=== PATIENT | male | born 1970 | race Caucasian/White ===

== ENCOUNTER 2023-10-03 08:29 | Emergency (ER) | payer OTHER, SELFPAY ==
[2023-10-03] VITALS (13 sets, daily range): BP systolic 132–168; BP diastolic 89–110; PULSE 116–137; RESP 18–22; TEMP 36.6–36.8; O2SAT 92–96; BMI 29.0
--- NOTE | 2023-10-03 08:34 | ECG_ITS ---
APPROVED REPORT Exam: Resting ECG HR:136 bpm ECG Measurements Heart Rate 136 AXES NV 141 P 55 QRSd 93 QRS 58 QT 286 T 26 QTc 366 Conclusion SINUS TACHYCARDIA ABNORMAL RHYTHM ECG Electronically signed by : RUPESH GUILLAUME, 10/05/2023 15:27:36
[2023-10-03] MEDS: 0.9 % SODIUM CHLORIDE 1000ML 1,000 ML 999 ML IV (08:49)
--- NOTE | 2023-10-03 08:51 | HMH.EDGENADL ---
Discharge Plan Disposition Patient Disposition: Home, Self-Care Prescriptions Prescriptions: New metoprolol succinate 25 mg tablet extended release 24 hr 25 mg PO DAILY Qty: 30 0RF Referrals Follow up/Referrals: Provider,Referral, MD [Primary Care Provider] - See instructions Activity Restrictions/Add. Instructions Additional Instructions/Restrictions: Call your family doctor to establish care for this visit to the emergency department and schedule follow-up within 48 hours to ensure improvement. If you have any worsening of your condition or any other concerning signs or symptoms, return to the emergency department or your primary care doctor for further evaluation. Clinical Impressions Clinical Impression: Heart palpitations Discharge ED Provider: Zechariah Flor General Adult HPI General Chief complaint: Arrhythmia/Palpitations Stated complaint: fast heart beat, no chest pain Time Seen by Provider: 10/03/23 08:30 Mode of Arrival: Ambulatory Source of Information: Patient Limitations: No Limitations Description of Symptoms (Recalled from ER Triage Doc. by RN): pt to ed c/o fluttering in his chest x2-3 days. pt denies any PMH. pt states he was at rest when the symptoms started. pt denies recent illness, vomiting ot nausea. pt denies cp. History of Present Illness HPI narrative: 52-year-old male no relevant medical history presenting with palpitations. Patient states that a little over 36 hours prior to this visit, he just started having palpitations out of nowhere. Denies chest pain, shortness of breath, but has had intermittent episodes of diaphoresis, lightheadedness, blurry vision associated with exertion. No vomiting, fevers or chills, recent illness, unilateral weakness, chest pain, abdominal pain, vomiting, diarrhea, travel, DVT or PE risk factors/history, or any other concerns. He has also never had anything like this in the past. Please note that above description of symptoms, in this electronic medical record under categorization of recalled from ER triage doctor by RN are reflective of an initial nursing assessment, however, is not reflective of my full history and physical exam that was personally taken and clarified. Consequentially, this preceding description of symptoms, which may include the patient's categorized chief complaint in the EMR, do not reflect my personal clinical impression, and the ultimate description of history of present illness and patient stated complaints should be deferred to this section of the note. Unless stated otherwise or congruent with this section of the note, additional signs, symptoms, or incongruence should be interpreted as inaccurate with my clinical impression. Related Data Previous Rx's Medication Instructions Recorded metoprolol succinate 25 mg 25 mg PO DAILY #30 tabs 10/03/23 tablet,extended release 24 hr Allergies Allergy/AdvReac Type Severity Reaction Status Date / Time Penicillins Allergy Verified 10/03/23 08:49 [facility] Disclaimer: The information contained in this section may have been updated after the patient was seen, as this information can be updated by other users. Social History Smoking Status: Current every day smoker alcohol intake: never current occupational status: employed Travel in the last 8 weeks: None ROS Obtained: Yes All systems reviewed & no additional complaints except as documented Physical Exam General General appearance: alert, in no apparent distress and anxious Head Head exam: atraumatic and normocephalic Eye Eye exam: Present normal appearance, PERRL and EOMI ENT ENT exam: Present mucous membranes moist Neck Neck exam: Present normal inspection, full ROM and trachea midline Respiratory Respiratory exam: Present normal lung sounds bilaterally; Absent respiratory distress, wheezes, stridor, accessory muscle use or prolonged expiratory phase Cardiovascular Cardiovascular exam: Present normal rhythm and tachycardia Abdominal Exam Abdominal exam: Present soft; Absent distention, tenderness, guarding, rebound or rigidity Extremities Exam Extremities exam: Absent edema Neurological Exam Neurological exam: Present alert, oriented X3, CN II-XII intact and normal gait; Absent motor sensory deficit Skin Skin exam: Present warm and dry; Absent diaphoresis or erythema Medical Decision Making Medical Records Medical records reviewed: Yes I reviewed the patient's medical records. Olvin Inquiry Pt receiving controlled substance: No Olvin was queried for this patient: No Vital Signs: 10/03/23 08:36 10/03/23 08:42 10/03/23 09:00 Temperature 98.3 F Temperature Source Oral Pulse Rate 135 H 131 H Pulse Rate [Left Radial] 137 H Respiratory Rate 18 18 19 Blood Pressure 162/103 H 161/101 H Blood Pressure [Right Arm] 168/110 H Blood Pressure Mean 120 116 Blood Pressure Mean [Right Arm] 129 Blood Pressure Position 02 Sat by Pulse Oximetry 96 96 95 Oxygen Delivery Method Room Air Room Air Room Air 10/03/23 09:30 10/03/23 10:00 10/03/23 10:15 Temperature Temperature Source Pulse Rate 130 H 131 H Pulse Rate [Left Radial] Respiratory Rate 20 19 Blood Pressure 144/93 H 151/102 H 153/99 H Blood Pressure [Right Arm] Blood Pressure Mean 110 113 Blood Pressure Mean [Right Arm] Blood Pressure Position 02 Sat by Pulse Oximetry 93 L 95 Oxygen Delivery Method Room Air 10/03/23 10:29 10/03/23 10:30 10/03/23 11:00 Temperature 97.8 F Temperature Source Oral Pulse Rate 116 H 120 H 120 H Pulse Rate [Left Radial] Respiratory Rate 18 18 20 Blood Pressure 139/96 H 139/96 H 147/93 H Blood Pressure [Right Arm] Blood Pressure Mean 106 104 Blood Pressure Mean [Right Arm] Blood Pressure Position Sitting 02 Sat by Pulse Oximetry 92 L 92 L 94 L Oxygen Delivery Method Room Air Room Air 10/03/23 11:30 Temperature Temperature Source Pulse Rate 118 H Pulse Rate [Left Radial] Respiratory Rate 20 Blood Pressure 132/89 Blood Pressure [Right Arm] Blood Pressure Mean 106 Blood Pressure Mean [Right Arm] Blood Pressure Position 02 Sat by Pulse Oximetry 94 L Oxygen Delivery Method Room Air Lab Data Lab Results 10/03/23 08:40: WBC 8.8, RBC 5.19, Hgb 16.9, Hct 52.2 H, MCV 100.6 H, MCH 32.6 H, MCHC 32.4, RDW 14.0, Plt Count 263, MPV 7.7, Neut % (Auto) 70.4, Lymph % (Auto) 20.3, [place] % (Auto) 5.2, Eos % (Auto) 1.4, Baso % (Auto) 2.7 H, Neut # (Auto) 6.2, Lymph # (Auto) 1.8, [place] # (Auto) 0.5, Eos # (Auto) 0.1, Baso # (Auto) 0.2, D-Dimer 0.41, Sodium 139, Potassium 4.1, Chloride 107, Carbon Dioxide 25, Anion Gap 11.1, BUN 15, Creatinine 0.80, Estimated Creat Clear 154, Estimated GFR 102, Est GFR ( Amer) 123, Glucose 116 H, Calcium 9.7, Total Bilirubin 0.5, AST 40, ALT 39, Alkaline Phosphatase 89, Troponin I < 0.01, Total Protein 8.6 H, Albumin 4.6, Globulin 4.0 H, Albumin/Globulin Ratio 1.2, TSH 2.62, Thyroxine (T4) 8.0 10/03/23 09:14: Urine Opiates Screen Negative, Urine Methadone Screen Negative, Ur Barbituates Screen Negative, Ur Phencyclidine Scrn Negative, Ur Amphetamines Screen Negative, U Benzodiazepines Scrn Negative, Urine Cocaine Screen Negative, U Marijuana (THC) Screen Negative 10/03/23 08:40 10/03/23 08:40 Orders (Tests/Meds): ED MEDICATIONS Discontinued Medications Generic Name Dose Route Start Last Admin Trade Name Shawn PRN Reason Stop Dose Admin Sodium Chloride 1,000 mls @ 999 mls/hr 10/03/23 08:42 10/03/23 08:49 Sod Chlor 0.9% 1000ml Bag IV 10/03/23 09:42 999 mls/hr .Q1H1M ONE Administration Iopamidol 200 ml 10/03/23 11:27 10/03/23 11:27 Iopamidol-370 (76%);100ml Bottle IV 10/03/23 11:28 200 ml ONCE ONE Administration Labetalol HCl 10 mg 10/03/23 10:09 10/03/23 10:15 Labetalol 20mg/4ml Syringe IV 10/03/23 10:10 10 mg ONCE ONE Administration Ondansetron HCl 4 mg 10/03/23 10:23 10/03/23 10:28 Ondansetron 4mg/2ml Vial IV 10/03/23 10:24 4 mg ONCE ONE Administration Sodium Chloride 50 ml 10/03/23 11:27 10/03/23 11:28 0.9 % Sodium Chloride 50 Ml Vial IV 10/03/23 11:28 50 ml ONCE ONE Administration Sodium Chloride 10 ml 10/03/23 11:27 10/03/23 11:28 Sodium Chloride 0.9% 10ml Syr (Rad Only) IV 10/03/23 11:28 10 ml ONCE ONE Administration ORDERS Category Date Time Status CT angio chest - dissection Stat Cat Scan 10/03/23 10:[address] angio head Stat Cat Scan 10/03/23 10:[address] angio neck Stat Cat Scan 10/03/23 10:[address] head/brain wo con Stat Cat Scan 10/03/23 10:28 Completed POCUS Point of Care (ER Only) Stat Exams 10/03/23 08:42 Completed CBC w/Auto Diff [Complete Blood Count Auto Diff] Stat Lab 10/03/23 08:40 Completed CMP [Comprehensive Metabolic Panel] Stat Lab 10/03/23 08:40 Completed D-Dimer Stat Lab 10/03/23 08:40 Completed T4 (Thyroxine) Stat Lab 10/03/23 08:40 Completed TSH [Thyroid Stimulating Hormone] Stat Lab 10/03/23 08:40 Completed Trop I [Troponin I] Stat Lab 10/03/23 08:40 Completed Troponin I Q3H Lab 10/03/23 11:47 Received Troponin I Q3H Lab 10/03/23 14:45 Ordered UDS [Drug Screen,Urine] Stat Lab 10/03/23 09:14 Completed Medical Decision Narrative: 52-year-old male no relevant medical history presenting with palpitations. Patient states that a little over 36 hours prior to this visit, he just started having palpitations out of nowhere. Denies chest pain, shortness of breath, but has had intermittent episodes of diaphoresis, lightheadedness, blurry vision associated with exertion. No vomiting, fevers or chills, recent illness, unilateral weakness, chest pain, abdominal pain, vomiting, diarrhea, travel, DVT or PE risk factors/history, or any other concerns. He has also never had anything like this in the past.History was obtained via conversation with patient. On arrival, patient hemodynamically stable, alert, oriented x4, appropriate, GCS 15, moving all extremities spontaneously, pupils equal and reactive to light. Full physical exam performed and significant for mildly anxious appearing male who is in no acute distress. He is tachycardic with regular rhythm rate around 140 bpm. Pulses are equal and symmetric in upper and lower extremities. Neurologically intact including cranial nerve, cerebellar, motor and sensory nerves. Cardiac exam without murmurs, gallops, or rubs. No lower extremity edema. No JVD. Heart sounds are not muffled. Lungs are clear to auscultation bilaterally anterior and posteriorly. Abdomen is soft, no palpable/pulsatile mass. No abnormal lower extremity findings. Differential includes dehydration, infection, anxiety, PE, pneumothorax, ACS, CA, intoxication, withdrawal, endocrinologic abnormality, metabolic abnormality, among others. Patient was given normal saline bolus for symptomatic management and correction of underlying abnormalities. Workup independently interpreted and significant for nonactionable CBC or chemistry. Thyroid studies negative, troponin negative, chest x-ray without acute cardiopulmonary airspace disease. See radiology read for full review of final results. Independent interpretation of EKG shows sinus tachycardia 136 beats a minute with no ST or T wave changes concerning for acute ischemia. Good R wave progression in precordial leads. [place], QRS, QT intervals within normal limits. [place] normal. Bedside [id number] ultrasound with normal cardiac function. No evidence of right heart strain. Heart score 2. Given persistent tachycardia, CTA of the chest was ordered, no evidence of PE, no evidence of dissection, overall unremarkable and underwhelming exam. On reevaluation, patient resting comfortably bed. Still tachycardic, given 10 of labetalol, this helped his rate. Given patient presentation, workup, history, this most likely represents sinus tachycardia, likely dehydration versus anxiety related. Because no obvious diagnosis made, conversation had with patient regarding outpatient management, he states that [facility]. I feel this is appropriate. I sent him a beta-jonse to the clinic pharmacy to treat his hypertension and tachycardia in the meantime. Because patient at baseline without signs or symptoms of clinical decompensation, deemed appropriate for discharge. Results were relayed to patient who voiced understanding and were agreeable to outpatient management and follow up. I discussed my clinical impression with patient and answered all questions. At this time, the evidence for any other entities in the differential is insufficient to warrant any further testing or ED observation. This was explained as well. Advisory was given that persistent or worsening symptoms require further evaluation. I confirmed the understanding of this discussion. Procedures Limited Ultrasound Indication:: Limited cardiac ultrasound Indication: Palpitations Identified cardiac views: -Cardiac parasternal long axis -Cardiac parasternal short axis -Cardiac apical four-chamber Findings: -Cardiac activity present -Gross wall motion normal -Pericardial effusion absent -Right heart strain absent Impression: -Normal three-view cardiac ultrasound Images were saved to permanent archive The study was technically adequate CPT: 14002 This study was performed by me, and I personally interpreted all images/videos. Based on my clinical judgement, these images were adequate and not necessitate further imaging. Critical Care Critical Care Time Critical Care Time: No
[2023-10-03 08:55] LABS: Basophils # 0.2 K/mm3 (0-0.2); Basophils % 2.7 % (0.1-2.0); Eosinophils # 0.1 K/mm3 (0.0-0.4); Eosinophils % 1.4 % (0.1-12.0); Hematocrit 52.2 % (42.0-52.0); Hemoglobin 16.9 g/dL (14.1-18.0); Lymphocytes # 1.8 K/mm3 (0.7-4.5); Lymphocytes % 20.3 % (10-50); Mean Corpuscular HGB Conc 32.4 g/dL (31.8-35.4); Mean Corpuscular Hemoglobin 32.6 pg (27.0-31.2); Mean Corpuscular Volume 100.6 fl (80-94); Mean Platelet Volume 7.7 fl (7.4-10.4); Monocytes # 0.5 K/mm3 (0.1-1.0); Monocytes % 5.2 % (1.7-9.3); Neutrophils # 6.2 K/mm3 (1.8-7.8); Neutrophils % 70.4 % (37.0-80.0); Platelet Count 263 K/mm3 (142-424); Red Blood Count 5.19 M/mm3 (4.60-6.20); White Blood Count 8.8 K/mm3 (4.8-10.8)
[2023-10-03 08:59] LABS: Alanine Aminotransferase 39 U/L (12-78); Albumin Level 4.6 g/dl (3.5-5.0); Albumin/Globulin Ratio 1.2 (1.1-1.8); Alkaline Phosphatase 89 U/L (38-126); Anion Gap 11.1 mEq/L (5-15); Aspartate Amino Transferase 40 U/L (17-59); Bilirubin,Total 0.5 mg/dl (0.2-1.3); Blood Urea Nitrogen 15 mg/dl (9-20); Calcium 9.7 mg/dl (8.4-10.2); Carbon Dioxide 25 mmol/L (22.0-30.0); Chloride 107 mmol/L (98-107); Creatinine Clearance Estimated 154 mL/min (50-200); Estimated Glomerular Filt Rate 102 ml/min (>60); GFR (African American) 123 ML/MIN (>60); Glucose 116 mg/dl (74-100); Potassium 4.1 mmoL/L (3.5-5.1); Sodium 139 mmol/L (136-145); Total Protein,Serum 8.6 g/dl (6.3-8.2)
[2023-10-03 09:04] LABS: D-Dimer 0.41 ug/mL (0.0-0.5)
[2023-10-03 09:23] LABS: Troponin I < 0.01 ng/ml (0.00-0.034)
[2023-10-03 09:32] LABS: Thyroid Stimulating Hormone 2.62 uIU/mL (0.465-4.68)
[2023-10-03 09:43] LABS: Amphetamine/Metha Screen,Urine Negative ng/ml (<1000); Barbiturates Screen,Urine Negative ng/ml (<200)
[2023-10-03 09:44] LABS: Benzodiazepines Screen,Urine Negative ng/ml (<200)
[2023-10-03 09:45] LABS: Cannabinoid Screen,Urine Negative ng/ml (<50); Cocaine Screen,Urine Negative ng/ml (<300)
[2023-10-03 09:46] LABS: Methadone Screen,Urine Negative ng/ml (<300)
[2023-10-03 09:47] LABS: Opiate Screen,Urine Negative ng/ml (<300)
[2023-10-03 09:48] LABS: Phencyclidine Screen,Urine Negative ng/ml (<25)
--- NOTE | 2023-10-03 09:58 | PC.NURSE ---
Rounded on patient; no needs at this time. Family at BS. Call light within reach
[2023-10-03] MEDS: LABETALOL 20MG/4ML SYRINGE 10 MG IV (10:15)
--- NOTE | 2023-10-03 10:23 | CT_ITS ---
PROCEDURE INFORMATION: Exam: CTA Chest With Contrast Exam date and time: 10/03/2023 10:52 AM Age: 52 years old Clinical indication: Other: Palpitations; Additional info: Palpitations, blurry vision TECHNIQUE: Imaging protocol: Computed tomographic angiography of the chest with contrast. Exam focused on the arteries. 3D rendering (Not supervised by radiologist): MIP and/or 3D reconstructed images were created by the technologist. Radiation optimization: All CT scans at this facility use at least one of these dose optimization techniques: automated exposure control; mA and/or kV adjustment per patient size (includes targeted exams where dose is matched to clinical indication); or iterative reconstruction. Contrast material: ISOVUE; Contrast volume: 70 ml; Contrast route: INTRAVENOUS (IV); COMPARISON: CT ANGIO NECK 10/03/2023 10:45 AM FINDINGS: Pulmonary arteries: There is suboptimal opacification of pulmonary arteries due to contrast bolus timing. Aorta: Unremarkable. No aortic aneurysm. No aortic dissection. Lungs: calcified granuloma left upper lobe. Bibasilar atelectasis versus parenchymal scarring. Pleural spaces: Unremarkable. No pneumothorax. No pleural effusion. Heart: Unremarkable. No cardiomegaly. No pericardial effusion. Coronary arteries: No evidence of coronary artery calcification Lymph nodes: Unremarkable. No enlarged lymph nodes. Liver: Decreased density throughout the liver compatible with hepatic steatosis. Bones/joints: Unremarkable. No acute fracture. Soft tissues: Unremarkable. IMPRESSION: 1. No large or central pulmonary embolus. Evaluation of the peripheral pulmonary arteries is limited. 2. Bibasilar atelectasis versus parenchymal scarring.
--- NOTE | 2023-10-03 10:25 | PC.NURSE ---
Informed Dr. Flor that patient reports he is nauseated. MD stated he would order Zofran. Also informed MD that patient reports he's had some blurry vision with his elevated HR symptoms. MD in to speak with patient.
[2023-10-03] MEDS: ONDANSETRON 4MG/2ML VIAL 4 MG IV (10:28)
--- NOTE | 2023-10-03 10:28 | CT_ITS ---
PROCEDURE INFORMATION: Exam: CTA Neck With Contrast Exam date and time: 10/03/2023 10:45 AM Age: 52 years old Clinical indication: Other: Blurry vision; Additional info: Tachy blurry visoin TECHNIQUE: Imaging protocol: Computed tomographic angiography of the neck with contrast. Exam focused on the cervical segments of the vasculature. 3D rendering (Not supervised by radiologist): MIP and/or 3D reconstructed images were created by the technologist. Radiation optimization: All CT scans at this facility use at least one of these dose optimization techniques: automated exposure control; mA and/or kV adjustment per patient size (includes targeted exams where dose is matched to clinical indication); or iterative reconstruction. Contrast material: ISOVUE; Contrast volume: 100 ml; Contrast route: INTRAVENOUS (IV); COMPARISON: CT ANGIO HEAD 10/03/2023 10:45 AM FINDINGS: Right common carotid artery: No stenosis. No dissection or occlusion. Right internal carotid artery: No stenosis of the extracranial segment. No dissection or occlusion. Right external carotid artery: No occlusion or stenosis of the origin. Left common carotid artery: No stenosis. No dissection or occlusion. Left internal carotid artery: No stenosis of the extracranial segment. No dissection or occlusion. Left external carotid artery: No occlusion or stenosis of the origin. Right vertebral artery: No stenosis. No dissection or occlusion. Left vertebral artery: No stenosis. No dissection or occlusion. Soft tissues: Normal. No significant soft tissue swelling. Bones/joints: No acute fracture. IMPRESSION: No stenosis or occlusion. REFERENCES: NASCET CRITERIA. The degree of stenosis in the cervical segment of the internal carotid artery is based on NASCET criteria. Normal is no stenosis. Mild is less than 50% stenosis. Moderate is 50-69% stenosis. Severe is 70% to 99% stenosis. Total occlusion is no detectable patent lumen.
--- NOTE | 2023-10-03 10:28 | CT_ITS ---
PROCEDURE INFORMATION: Exam: CTA Head With Contrast, Arteriography Exam date and time: 10/03/2023 10:45 AM Age: 52 years old Clinical indication: Other: Blurry vision; Additional info: Tachy blurry visoin TECHNIQUE: Imaging protocol: Computed tomographic angiography of the head with contrast. Exam focused on the arteries. 3D rendering (Not supervised by radiologist): MIP and/or 3D reconstructed images were created by the technologist. Radiation optimization: All CT scans at this facility use at least one of these dose optimization techniques: automated exposure control; mA and/or kV adjustment per patient size (includes targeted exams where dose is matched to clinical indication); or iterative reconstruction. Contrast material: ISOVUE; Contrast volume: 100 ml; Contrast route: INTRAVENOUS (IV); COMPARISON: CT HEAD/BRAIN WO CON 10/03/2023 10:38 AM FINDINGS: ANTERIOR CIRCULATION: Right internal carotid artery: Intracranial segment is patent with no significant stenosis. No aneurysm. Right middle cerebral artery: No occlusion or significant stenosis. No aneurysm. Right anterior cerebral artery: No occlusion or significant stenosis. No aneurysm. Left internal carotid artery: Intracranial segment is patent with no significant stenosis. No aneurysm. Left middle cerebral artery: No occlusion or significant stenosis. No aneurysm. Left anterior cerebral artery: No occlusion or significant stenosis. No aneurysm. POSTERIOR CIRCULATION: Right vertebral artery: No occlusion or significant stenosis. No aneurysm. Left vertebral artery: No occlusion or significant stenosis. No aneurysm. Basilar artery: No occlusion or significant stenosis. No aneurysm. Right posterior cerebral artery: No occlusion or significant stenosis. No aneurysm. Left posterior cerebral artery: No occlusion or significant stenosis. No aneurysm. Brain: No definite mass, mass effect, or midline shift. Cerebral ventricles: No ventriculomegaly. Bones/joints: Unremarkable. No acute fracture. Soft tissues: Unremarkable. IMPRESSION: No large vessel stenosis or occlusion.
--- NOTE | 2023-10-03 10:28 | CT_ITS ---
PROCEDURE INFORMATION: Exam: CT Head Without Contrast Exam date and time: 10/03/2023 10:38 AM Age: 52 years old Clinical indication: Other: Blurry vision; Additional info: Tachy blurry visoin TECHNIQUE: Imaging protocol: Computed tomography of the head without contrast. Radiation optimization: All CT scans at this facility use at least one of these dose optimization techniques: automated exposure control; mA and/or kV adjustment per patient size (includes targeted exams where dose is matched to clinical indication); or iterative reconstruction. COMPARISON: No relevant prior studies available. FINDINGS: Brain: There is no mass effect, midline shift, acute hemorrhage, extra-axial fluid collection or acute lobar infarct. Cerebral ventricles: No ventriculomegaly. Paranasal sinuses: Polypoid disease is noted in the floor of the left maxillary antrum. Mastoid air cells: Visualized mastoid air cells are well aerated. Bones/joints: Unremarkable. No acute fracture. Soft tissues: Unremarkable. IMPRESSION: No acute intracranial process.
--- NOTE | 2023-10-03 10:33 | PC.NURSE ---
Patient being transported to CT scan at this time.
--- NOTE | 2023-10-03 11:20 | PC.NURSE ---
Rounded on pt. No needs voiced at this time and call light within reach.
[2023-10-03] MEDS: IOPAMIDOL-370 (76%);100ML BOTTLE 200 ML IV (11:27)
[2023-10-03] MEDS: 0.9 % SODIUM CHLORIDE 50 ML VIAL IV (11:28)
[2023-10-03] MEDS: SODIUM CHLORIDE 0.9% 10ML SYR (RAD ONLY) 10 ML IV (11:28)
[2023-10-03 12:17] LABS: Troponin I < 0.01 ng/ml (0.00-0.034)
== END 2023-10-03 12:42 | disposition home or self-care (01) ==
PROVIDERS: Emergency Provider Emergency Medicine
DX: R00.0 Tachycardia, unspecified (principal); R00.2 Palpitations; R03.0 Elevated blood-pressure reading, without diagnosis of hypertension; F17.210 Nicotine dependence, cigarettes, uncomplicated
CPT/HCPCS: 70450; 70496; 70498; 71275; 80053; 80307; 84436; 84443; 84484; 85025; 85378; 93005; 96361; 96374; 96375; 99285; J2405; Q9967

== ENCOUNTER 2023-11-13 17:16 | Emergency (ER) | payer OTHER, SELFPAY ==
[2023-11-13] VITALS (10 sets, daily range): BP systolic 105–174; BP diastolic 85–109; PULSE 75–127; RESP 18–23; TEMP 36.6–36.8; O2SAT 93–98; BMI 29.0
--- NOTE | 2023-11-13 17:55 | XR_ITS ---
PROCEDURE INFORMATION: Exam: XR Chest Exam date and time: 11/13/2023 6:00 PM Age: 52 years old Clinical indication: Cough and shortness of breath; Additional info: SOA, fever, cough TECHNIQUE: Imaging protocol: Radiologic exam of the chest. Views: 2 views. COMPARISON: CT ANGIO CHEST 10/03/2023 10:52 AM FINDINGS: Lungs: No evidence of acute pulmonary disease or infiltrates Pleural spaces: No large effusion or pneumothorax. Heart/Mediastinum: No evidence of mediastinal widening or cardiac silhouette enlargement; the mediastinum and heart appear within normal limits for contour and size. Bones/joints: No evidence of acute osseous abnormalities within the visualized portions of the thoracic spine and ribs. Osseous structures appear appropriate for patient age. IMPRESSION: No dense parenchymal consolidation, pleural effusion, or pneumothorax.
--- NOTE | 2023-11-13 18:09 | PC.NURSE ---
PT gone to RAD via wheelchair
[2023-11-13 18:10] LABS: Coronavirus 19, PCR Not Detected (NotDetected); Influenza A, PCR Not Detected (NotDetected); Influenza B, PCR Not Detected (NotDetected)
[2023-11-13 18:17] LABS: Chloride 103 mmol/L (98-107); Sodium 136 mmol/L (136-145)
[2023-11-13 18:18] LABS: Potassium 4.2 mmoL/L (3.5-5.1)
[2023-11-13 18:20] LABS: Alanine Aminotransferase 64 U/L (12-78); Alkaline Phosphatase 91 U/L (38-126); Anion Gap 12.2 mEq/L (5-15); Aspartate Amino Transferase 68 U/L (17-59); Blood Urea Nitrogen 11 mg/dl (9-20); Carbon Dioxide 25 mmol/L (22.0-30.0); Creatinine Clearance Estimated 176 mL/min (50-200); Estimated Glomerular Filt Rate 119 ml/min (>60); GFR (African American) 144 ML/MIN (>60)
--- NOTE | 2023-11-13 18:20 | PC.NURSE ---
Pt returned to room from RAD
[2023-11-13 18:21] LABS: Albumin Level 4.6 g/dl (3.5-5.0); Calcium 9.4 mg/dl (8.4-10.2); Globulin 4.7 g/dL (1.3-3.2); Glucose 111 mg/dl (74-100); Total Protein,Serum 9.3 g/dl (6.3-8.2)
--- NOTE | 2023-11-13 18:28 | PC.NURSE ---
Rounded on pt. Pt requested medication for nausea. Dr. Fowler notified. No other needs voiced.
[2023-11-13] MEDS: LACTATED RINGERS 1000ML 1,000 ML 999 ML IV (18:32)
[2023-11-13] MEDS: ONDANSETRON 4MG/2ML VIAL 4 MG IV ×2 (18:32→21:00)
[2023-11-13] MEDS: ACETAMINOPHEN 1,000MG/100ML VIAL 1000 MG IV (18:32)
--- NOTE | 2023-11-13 18:46 | HMH.EDGENADL ---
Discharge Plan Disposition Patient Disposition: Home, Self-Care Condition: Good Prescriptions Prescriptions: New metoprolol succinate 25 mg tablet extended release 24 hr 25 mg PO DAILY 30 Days Qty: 30 0RF ondansetron 4 mg tablet,disintegrating 4 mg PO Q6H PRN (Reason: nausea and vomiting) Qty: 16 0RF No Action metoprolol succinate 25 mg tablet extended release 24 hr 25 mg PO DAILY Qty: 30 0RF Referrals Follow up/Referrals: Provider,Referral, MD [Primary Care Provider] - See instructions Activity Restrictions/Add. Instructions Additional Instructions/Restrictions: You have been evaluated in the ED for your complaints. You may follow-up with your PCP in the next 3 to 5 days. Please return to ED for any new or worsening symptoms. Please remain to drink plenty of fluids over the next several days. I have written for Zofran to assist with your nausea and vomiting. I have refilled your metoprolol. Clinical Impressions Clinical Impression: Gastroenteritis, Nausea vomiting and diarrhea, Chest pain, Dyspnea, Cough Stand Alone Forms Stand Alone Forms: Work/School Release Instructions Patient Instructions: DI for Nausea -- Adult Discharge ED Provider: Sarmad Fowler Adult HPI General Chief complaint: Nausea/Vomiting/Diarrhea Stated complaint: fever, vomiting, cough, congestion, SOA, shakey Time Seen by Provider: 11/13/23 18:09 Mode of Arrival: Family Vehicle Source of Information: Patient Limitations: No Limitations Description of Symptoms (Recalled from ER Triage Doc. by RN): Pt c/o non-productive cough, SOA, n/v/d, elevated HR, and shakiness. States he began to have symtoms about 1 wk agoa and the last several days he has not been able to keep anything down. Has not checked his temperature at home, but has had chills and sweating intermittently. States he was exposed to a friend who was seen here recently and was positive for something . History of Present Illness HPI narrative: 52-year-old male with past medical history significant for palpitations on metoprolol, presents today for evaluation concerning cough, shortness of breath, nausea vomiting and diarrhea which he states has been present over the past week, worsening. Denies any hematemesis or bloody stools. Reports subjective fevers and chills. He does complain of central chest pressure over the past 2 days without radiation. No further complaints. Related Data Previous Rx's Medication Instructions Recorded metoprolol succinate 25 mg 25 mg PO DAILY #30 tabs 10/03/23 tablet,extended release 24 hr metoprolol succinate 25 mg 25 mg PO DAILY 30 days #30 tabs 11/13/23 tablet,extended release 24 hr ondansetron 4 mg disintegrating 4 mg PO Q6H PRN nausea and 11/13/23 tablet vomiting #16 tabs Allergies Allergy/AdvReac Type Severity Reaction Status Date / Time Penicillins Allergy Verified 10/03/23 08:49 [facility] Disclaimer: The information contained in this section may have been updated after the patient was seen, as this information can be updated by other users. Social History (Updated 10/03/23 @ 12:21 by Zechariah Flor MD) Smoking Status: Current every day smoker alcohol intake: never current occupational status: employed Travel in the last 8 weeks: None ROS Obtained: Yes All systems reviewed & no additional complaints except as documented Physical Exam General General appearance: alert and in no apparent distress Head Head exam: atraumatic and normocephalic Eye Eye exam: Present normal appearance, PERRL and EOMI ENT ENT exam: Present normal oropharynx and mucous membranes moist Neck Neck exam: Present full ROM; Absent meningismus Respiratory Respiratory exam: Absent respiratory distress, wheezes, stridor or accessory muscle use Cardiovascular Cardiovascular exam: Present normal rhythm and tachycardia Abdominal Exam Abdominal exam: Present soft; Absent distention, tenderness, guarding, rebound or rigidity Neurological Exam Neurological exam: Present alert, oriented X3 and CN II-XII intact; Absent motor sensory deficit Psychiatric Psychiatric exam: Present normal affect and normal mood Skin Skin exam: Present warm and dry Medical Decision Making Medical Records Medical records reviewed: Yes I reviewed the patient's medical records. Olvin Inquiry Pt receiving controlled substance: No Olvin was queried for this patient: No Vital Signs: 11/13/23 17:17 11/13/23 17:30 11/13/23 17:45 Temperature 97.9 F Temperature Source Oral Pulse Rate Pulse Rate [Right] 127 H 107 H 116 H Respiratory Rate 21 20 20 Blood Pressure Blood Pressure [Right Arm] 172/103 H 159/95 H 162/102 H Blood Pressure Mean Blood Pressure Mean [Right Arm] 126 116 122 Blood Pressure Source Blood Pressure Source [Right Arm] Automatic Cuff Automatic Cuff Automatic Cuff Blood Pressure Position Blood Pressure Position [Right Arm] Sitting Sitting 02 Sat by Pulse Oximetry 95 97 94 L Oxygen Delivery Method Room Air Room Air Room Air 11/13/23 18:28 11/13/23 19:31 11/13/23 20:00 Temperature Temperature Source Pulse Rate 121 H 118 H 111 H Pulse Rate [Right] Respiratory Rate 21 19 Blood Pressure 161/99 H 105/85 L 163/109 H Blood Pressure [Right Arm] Blood Pressure Mean 91 122 Blood Pressure Mean [Right Arm] Blood Pressure Source Blood Pressure Source [Right Arm] Blood Pressure Position Blood Pressure Position [Right Arm] 02 Sat by Pulse Oximetry 93 L 95 96 Oxygen Delivery Method Room Air Room Air Room Air 11/13/23 20:30 11/13/23 20:56 11/13/23 20:56 Temperature Temperature Source Pulse Rate 112 H 75 115 H Pulse Rate [Right] Respiratory Rate 21 18 23 Blood Pressure 174/106 H 158/104 H 158/104 H Blood Pressure [Right Arm] Blood Pressure Mean 114 119 Blood Pressure Mean [Right Arm] Blood Pressure Source Blood Pressure Source [Right Arm] Blood Pressure Position Blood Pressure Position [Right Arm] 02 Sat by Pulse Oximetry 94 L 98 93 L Oxygen Delivery Method Room Air Room Air Room Air 11/13/23 21:30 11/13/23 21:49 Temperature 98.3 F Temperature Source Oral Pulse Rate 108 H 98 H Pulse Rate [Right] Respiratory Rate 20 18 Blood Pressure 163/96 H 151/90 H Blood Pressure [Right Arm] Blood Pressure Mean 118 Blood Pressure Mean [Right Arm] Blood Pressure Source Automatic Cuff Blood Pressure Source [Right Arm] Blood Pressure Position Sitting Blood Pressure Position [Right Arm] 02 Sat by Pulse Oximetry 95 Oxygen Delivery Method Room Air Room Air Lab Data Lab Results 11/13/23 17:58: WBC 6.1, RBC 5.16, Hgb 16.6, Hct 50.4, MCV 97.7 H, MCH 32.3 H, MCHC 33.0, RDW 13.6, Plt Count 211, MPV 8.1, Neut % (Auto) 75.8, Lymph % (Auto) 17.7, [place] % (Auto) 5.0, Eos % (Auto) 0.4, Baso % (Auto) 1.0, Neut # (Auto) 4.6, Lymph # (Auto) 1.1, [place] # (Auto) 0.3, Eos # (Auto) 0.0, Baso # (Auto) 0.1, Sodium 136, Potassium 4.2, Chloride 103, Carbon Dioxide 25, Anion Gap 12.2, BUN 11, Creatinine 0.70, Estimated Creat Clear 176, Estimated GFR 119, Est GFR ( Amer) 144, Glucose 111 H, Calcium 9.4, Magnesium 1.8, Total Bilirubin 1.0, AST 68 H, ALT 64, Alkaline Phosphatase 91, Troponin I < 0.01, Total Protein 9.3 H, Albumin 4.6, Globulin 4.7 H, Albumin/Globulin Ratio 1.0 L 11/13/23 18:00: SARS-CoV-2 (PCR) Not detected, Influenza A Untype (PCR) Not detected, Influenza Type B (PCR) Not detected 11/13/23 20:52: Troponin I < 0.01 11/13/23 17:58 11/13/23 17:58 Orders (Tests/Meds): ED MEDICATIONS Discontinued Medications Generic Name Dose Route Start Last Admin Trade Name Maniq PRN Reason Stop Dose Admin Acetaminophen 1,000 mg 11/13/23 18:28 11/13/23 18:32 Acetaminophen 1,000mg/100ml Vial IV 11/13/23 18:29 1,000 mg ONCE ONE Administration Lactated Ringer's 1,000 mls @ 999 mls/hr 11/13/23 18:27 11/13/23 18:32 Lactated Ringer's 1000 Ml Bag IV 11/13/23 19:27 999 mls/hr .Q1H1M ONE Administration Ketorolac Tromethamine 15 mg 11/13/23 18:45 11/13/23 18:50 Ketorolac 30mg/Ml Vial IV 11/13/23 18:46 15 mg ONCE ONE Administration Ketorolac Tromethamine 15 mg 11/13/23 20:57 11/13/23 21:00 Ketorolac 30mg/Ml Vial IV 11/13/23 20:58 15 mg ONCE ONE Administration Metoprolol Tartrate 25 mg 11/13/23 21:04 11/13/23 21:05 Metoprolol Tartrate 50mg Tablet PO 11/13/23 21:05 25 mg ONCE ONE Administration Ondansetron HCl 4 mg 11/13/23 18:27 11/13/23 18:32 Ondansetron 4mg/2ml Vial IV 11/13/23 18:28 4 mg ONCE ONE Administration Ondansetron HCl 4 mg 11/13/23 20:57 11/13/23 21:00 Ondansetron 4mg/2ml Vial IV 11/13/23 20:58 4 mg ONCE ONE Administration ORDERS Category Date Time Status XR chest 2V Stat Exams 11/13/23 17:55 Completed Complete Blood Count Auto Diff Stat Lab 11/13/23 17:58 Completed Comprehensive Metabolic Panel Stat Lab 11/13/23 17:58 Completed Magnesium Stat Lab 11/13/23 17:58 Completed Rapid PCR Covid and Flu A/B Stat Lab 11/13/23 18:00 Completed Trop I [Troponin I] Stat Lab 11/13/23 17:58 Completed Troponin I Q3H Lab 11/13/23 20:52 Completed Medical Decision Narrative: 52-year-old male with past medical history significant for palpitations on metoprolol, presents today for evaluation concerning cough, shortness of breath, nausea vomiting and diarrhea which he states has been present over the past week, worsening. Denies any hematemesis or bloody stools. Reports subjective fevers and chills. He does complain of central chest pressure over the past 2 days without radiation. Has not had any recent travel. On assessment, he was hemodynamically stable and in no acute distress. Afebrile. Tachycardic on chest auscultation however chest otherwise clear. Abdomen soft nondistended and nontender to palpation. Other physical exam findings unremarkable differential diagnoses include but limited to gastroenteritis, viral syndrome, ACS, pleural effusion, pneumonia, among others. EKG was personally interpreted by me and was remarkable for sinus tachycardia with rate of 111 bpm. No ischemic changes. Lab workup today with normal white count at 6.1. Initial troponin less than 0.01. Second troponin less than 0.01. Negative COVID/influenza swab. Chest x-ray on my informal interpretation does not show any acute cardiopulmonary disease processes. Radiology report confirmed. On reassessment he remains hemodynamically stable and in no acute distress. Mildly tachycardic. I discussed ED workup and results and current plan to discharge home with Joaquin given his symptoms. Will also refill his metoprolol today. He verbalized understanding and agreed with plan. Provided with return ED precautions and instructions concerning PCP follow-up. Subsequently discharged home hemodynamically stable and in no acute distress. Critical Care Critical Care Time Critical Care Time: No
[2023-11-13] MEDS: KETOROLAC 30MG/ML VIAL 15 MG IV ×2 (18:50→21:00)
--- NOTE | 2023-11-13 18:54 | ECG_ITS ---
APPROVED REPORT Exam: Resting ECG HR:111 bpm ECG Measurements Heart Rate 111 AXES KS 152 P 67 QRSd 94 QRS 54 QT 333 T 53 QTc 399 Conclusion SINUS TACHYCARDIA ABNORMAL RHYTHM ECG UNCONFIRMED REPORT Electronically signed by : HERMANN MILLARD, 11/13/2023 23:50:38
[2023-11-13 19:02] LABS: Magnesium 1.8 mg/dl (1.6-2.3)
[2023-11-13 19:05] LABS: Basophils # 0.1 K/mm3 (0-0.2); Eosinophils % 0.4 % (0.1-12.0); Hematocrit 50.4 % (42.0-52.0); Hemoglobin 16.6 g/dL (14.1-18.0); Lymphocytes # 1.1 K/mm3 (0.7-4.5); Lymphocytes % 17.7 % (10-50); Mean Corpuscular Hemoglobin 32.3 pg (27.0-31.2); Mean Corpuscular Volume 97.7 fl (80-94); Mean Platelet Volume 8.1 fl (7.4-10.4); Monocytes # 0.3 K/mm3 (0.1-1.0); Neutrophils # 4.6 K/mm3 (1.8-7.8); Neutrophils % 75.8 % (37.0-80.0); Platelet Count 211 K/mm3 (142-424); Red Blood Count 5.16 M/mm3 (4.60-6.20); Red Cell Distribution Width 13.6 % (11.5-17.5); White Blood Count 6.1 K/mm3 (4.8-10.8)
[2023-11-13 19:15] LABS: Troponin I < 0.01 ng/ml (0.00-0.034)
[2023-11-13] MEDS: METOPROLOL TARTRATE 50MG TABLET 25 MG PO (21:05)
[2023-11-13 21:40] LABS: Troponin I < 0.01 ng/ml (0.00-0.034)
== END 2023-11-13 21:58 | disposition home or self-care (01) ==
PROVIDERS: Emergency Provider Emergency Medicine
DX: R00.0 Tachycardia, unspecified (principal); R07.9 Chest pain, unspecified; R06.02 Shortness of breath; R05.9 Cough, unspecified; K52.9 Noninfective gastroenteritis and colitis, unspecified; R11.2 Nausea with vomiting, unspecified; F17.210 Nicotine dependence, cigarettes, uncomplicated
CPT/HCPCS: 71046; 80053; 83735; 84484; 85025; 87636; 93005; 96361; 96374; 96375; 96376; 99285; J0131; J2405

== ENCOUNTER 2023-12-17 12:50 | Emergency (ER) | payer OTHER, SELFPAY ==
[2023-12-17 12:51] VITALS: PULSE 151; RESP 19; O2SAT 99; BMI 28.3
[2023-12-17 13:05] VITALS: BP 159/111; PULSE 151; RESP 19; TEMP 36.5; O2SAT 99
--- NOTE | 2023-12-17 13:08 | ECG_ITS ---
APPROVED REPORT Exam: Resting ECG HR:155 bpm ECG Measurements Heart Rate 155 AXES MD 128 P 49 QRSd 82 QRS 18 QT 274 T 48 QTc 361 Conclusion SINUS TACHYCARDIA WITH OCCASIONAL SUPRAVENTRICULAR PREMATURE COMPLEXES, POSSIBLE ATRIAL FLUTTER MODERATE ST DEPRESSION [0.05+ mV ST DEPRESSION] CRITICAL TEST RESULT Electronically signed by : RUPESH GUILLAUME, 12/18/2023 15:46:52
--- NOTE | 2023-12-17 13:10 | PC.NURSE ---
dr matta at bedside
[2023-12-17] MEDS: ONDANSETRON 4MG/2ML VIAL 4 MG IV (13:11)
--- NOTE | 2023-12-17 13:12 | PC.NURSE ---
Dr. Hernandez at BS for pt eval
--- NOTE | 2023-12-17 13:24 | ED_ITS ---
Discharge Plan Disposition Patient Disposition: Xfer Short-Term Hosp Chief Complaint: Nausea/Vomiting/Diarrhea Prescriptions Prescriptions: No Action metoprolol succinate 25 mg tablet extended release 24 hr 25 mg PO DAILY 30 Days Qty: 30 0RF ondansetron 4 mg tablet,disintegrating 4 mg PO Q6HP PRN (Reason: nausea and vomiting) Referrals Follow up/Referrals: Provider,Referral, MD [Primary Care Provider] - See instructions Clinical Impressions Clinical Impression: UGIB (upper gastrointestinal bleed), Alcoholism Instructions Patient Instructions: DI for Diarrhea and Traveler's Diarrhea -- Adult, DI for Diarrhea and Traveler's Diarrhea -- Child, DI for Nausea -- Adult, DI for Nausea -- Child Discharge ED Provider: Herb Hernandez General Adult HPI General Chief complaint: Nausea/Vomiting/Diarrhea Stated complaint: vomitting, diarrhea, nausea Time Seen by Provider: 12/17/23 12:53 Mode of Arrival: Ambulatory Source of Information: Patient Limitations: No Limitations Description of Symptoms (Recalled from ER Triage Doc. by RN): Patient reports N/V/D for a couple of days. States he just generally does not feel well. States he also feels as if his blood pressure is elevated. History of Present Illness HPI narrative: Patient is a 53-year-old male past medical history of heart palpitations on metoprolol who presents emergency department for evaluation of vomiting. Over the last couple of days patient has felt unwell, yesterday he had vomiting that was bloody which he thinks became bloody after he had retched multiple times, however the bloody vomit persisted throughout the day. His stools were darker than normal yesterday, he has intractable nausea and retching today however nothing is coming up. Due to persistent symptoms he presents here for continued evaluation. Patient is adamant that he only drinks 2 beers a day at baseline. No chest pain. No abdominal pain. No other acute complaints at this time. Related Data Home Medications Medication Instructions Recorded Confirmed ondansetron 4 mg disintegrating 4 mg PO Q6HP PRN nausea and 12/17/23 12/17/23 tablet vomiting Previous Rx's Medication Instructions Recorded metoprolol succinate 25 mg 25 mg PO DAILY 30 days #30 tabs 11/13/23 tablet,extended release 24 hr Allergies Allergy/AdvReac Type Severity Reaction Status Date / Time Penicillins Allergy Verified 10/03/23 08:49 PFSH PFSH Disclaimer: The information contained in this section may have been updated after the patient was seen, as this information can be updated by other users. Social History (Updated 10/03/23 @ 12:21 by Zechariah Flor MD) Smoking Status: Current every day smoker alcohol intake: never current occupational status: employed Travel in the last 8 weeks: None ROS Obtained: Yes Systems reviewed as appropriate & no additional complaints except as documented Physical Exam General General appearance: alert and in no apparent distress Head Head exam: atraumatic and normocephalic Eye Eye exam: Present PERRL ENT ENT exam: Present mucous membranes moist Neck Neck exam: Present normal inspection Chest Chest inspection: Present normal inspection and symmetric chest wall rise Respiratory Respiratory exam: Present normal lung sounds bilaterally; Absent respiratory distress Cardiovascular Cardiovascular exam: Present normal rhythm and tachycardia Abdominal Exam Abdominal exam: Present soft; Absent tenderness, guarding or rebound Extremities Exam Extremities exam: Present normal inspection Neurological Exam Neurological exam: Present alert Psychiatric Psychiatric exam: Present normal affect Skin Skin exam: Present warm and dry Medical Decision Making Olvin Inquiry Pt receiving controlled substance: No Vital Signs: 12/17/23 12:51 12/17/23 13:05 12/17/23 13:38 Temperature 97.7 F Temperature Source Oral Pulse Rate 151 H 151 H Pulse Rate [Radial] 151 H Respiratory Rate 19 19 24 Blood Pressure 159/111 H 163/104 H Blood Pressure Source Automatic Cuff Blood Pressure Position Sitting 02 Sat by Pulse Oximetry 99 99 94 L Oxygen Delivery Method Room Air Room Air Room Air 12/17/23 14:01 Temperature Temperature Source Pulse Rate 156 H Pulse Rate [Radial] Respiratory Rate 27 H Blood Pressure 160/90 H Blood Pressure Source Blood Pressure Position 02 Sat by Pulse Oximetry 92 L Oxygen Delivery Method Room Air Lab Data Lab Results 12/17/23 13:05: WBC 8.3, RBC 5.26, Hgb 17.2, Hct 51.1, MCV 97.0 H, MCH 32.6 H, MCHC 33.6, RDW 14.0, Plt Count 285, MPV 8.1, Neut % (Auto) 69.6, Lymph % (Auto) 25.3, [place] % (Auto) 3.7, Eos % (Auto) 0.5, Baso % (Auto) 0.9, Neut # (Auto) 5.8, Lymph # (Auto) 2.1, [place] # (Auto) 0.3, Eos # (Auto) 0.0, Baso # (Auto) 0.1, Sodium 137, Potassium 4.2, Chloride 104, Carbon Dioxide 16 L, Anion Gap 21.2 H, BUN 14, Creatinine 0.90, Estimated Creat Clear 132, Estimated GFR 89, Est GFR ( Amer) 107, Glucose 100, Calcium 9.6, Magnesium 2.1, Total Bilirubin 0.8, AST 46, ALT 35, Alkaline Phosphatase 91, Total Protein 9.8 H, Albumin 4.9, Globulin 4.9 H, Albumin/Globulin Ratio 1.0 L, Lipase 65, Plasma/Serum Alcohol 62 H 12/17/23 13:26: VBG pH 7.39, VBG pCO2 31.3 L, VBG pO2 77.7 H, VBG HCO3 18.3 L, V BG Total CO2 19.3 L, VBG O2 Saturation 95.6 H, VBG Base Excess -6.7 L, VBG Lactic Acid 6.3 H 12/17/23 13:35: Blood Type O Negative, Antibody Screen Negative 12/17/23 13:05 12/17/23 13:05 Orders (Tests/Meds): ED MEDICATIONS Generic Name Dose Route Start Last Admin Trade Name Freq PRN Reason Stop Dose Admin Pantoprazole Sodium 80 mg/ 100 mls @ 10 mls/hr 12/17/23 14:30 12/17/23 13:49 Sodium Chloride IV 12/20/23 14:29 10 mls/hr .Q10H RAFAEL Administration Octreotide Acetate 500 mcg/ 255 mls @ 25.5 mls/hr 12/17/23 14:00 12/17/23 14:21 Sodium Chloride IV 01/16/24 13:59 25.5 mls/hr .Q10H RAFAEL Administration 50 MCG/HR Discontinued Medications Generic Name Dose Route Start Last Admin Trade Name Freq PRN Reason Stop Dose Admin Pantoprazole Sodium 80 mg/ 100 mls @ 100 mls/hr 12/17/23 13:18 12/17/23 13:30 Sodium Chloride IV 12/17/23 14:17 100 mls/hr ONCE ONE Administration Lactated Ringer's 1,000 mls @ 999 mls/hr 12/17/23 13:20 12/17/23 13:29 Lactated Ringer's 1000 Ml Bag IV 12/17/23 14:20 999 mls/hr .Q1H1M ONE Administration Ceftriaxone Sodium 1 gm/ 50 mls @ 100 mls/hr 12/17/23 13:21 12/17/23 13:28 Sodium Chloride IV 12/17/23 13:50 100 mls/hr ONCE ONE Administration Ondansetron HCl 4 mg 12/17/23 13:10 12/17/23 13:11 Ondansetron 4mg/2ml Vial IV 12/17/23 13:11 4 mg ONCE ONE Administration Promethazine HCl 12.5 mg 12/17/23 14:26 12/17/23 14:31 Promethazine Hcl 25mg/Ml 1ml Vial IV 12/17/23 14:27 12.5 mg ONCE ONE Administration Sodium Chloride 25 ml 12/17/23 14:26 12/17/23 14:31 Sodium Chloride 0.9% 25ml Bag IV 12/17/23 14:27 25 ml ONCE ONE Administration ORDERS Category Date Time Status Type and Screen Stat BBK 12/17/23 13:35 Completed CBC w/Auto Diff [Complete Blood Count Auto Diff] Stat Lab 12/17/23 13:05 Completed CMP [Comprehensive Metabolic Panel] Stat Lab 12/17/23 13:05 Completed Ethanol [Ethyl Alcohol] Stat Lab 12/17/23 13:05 Completed Lipase Stat Lab 12/17/23 13:05 Completed MG [Magnesium] Stat Lab 12/17/23 13:05 Completed VBG [Venous Blood Gas] Stat RT 12/17/23 13:26 Completed ECG Data Tracing #1: Independently interpreted by me, rate is 155, rhythm is regular, axis is normal, sinus tachycardia, no ST elevation in anatomical contiguous leads, QTc 361 Medical Decision Narrative: In summary patient is a 53-year-old male with past medical history described above who presents emergency department for evaluation of bloody vomiting. Patient is hemodynamically stable significant tachycardia upon arrival heart rate 151, afebrile. With a history of 2 beers a day I would not suspect variceal bleed as the etiology however patient may not be forthcoming in his alcohol consumption. Differential includes variceal bleed, not variceal bleed, Grisel-Lainez tear, among others. Workup will be conducted with hematologic labs, type and screen. Initial inventions include pressure bag crystalloid bolus, Zofran, Protonix bolus followed by drip, ceftriaxone, octreotide given ambiguity as to the cause. The case was discussed with Dr. Ramos, given his unknown whether variceal not variceal he is not appropriate for institution will require transfer. [facility] paged at approximately 1:45 PM. [facility] unfortunately does not have GI coverage at this time. The case was subsequently discussed with [facility] Dr. Reich who agrees with care thus far and recommends expeditious transfer for continued evaluation. Hematologic labs reviewed by me, lactic acidosis with compensatory respiratory alkalosis, remainder are largely nonactionable. Patient has elevated blood alcohol level which is indicative of not being forthright with history of alcohol consumption daily. Upon repeat evaluation patient is having partial response involving tachycardia, continuing to maintaining his airway. Patient will be transported by air EMS given that her local EMS is multiple hours away from successful transport and is not appropriate to hold him at a facility where we do not have definitive interventions. Critical Care Critical Care Time Critical Care Time: Yes Attestation: On 12/17/23, the high probability of a clinically significant, sudden or life threatening deterioration of the following system(s) required my full and direct attention, intervention and personal management. The time I documented below is in addition to time spent performing reported procedures but includes the following listed in this critical care notation. Total Time Total Critical Care Time: 45
[2023-12-17 13:27] LABS: Basophils # 0.1 K/mm3 (0-0.2); Basophils % 0.9 % (0.1-2.0); Eosinophils % 0.5 % (0.1-12.0); Hematocrit 51.1 % (42.0-52.0); Hemoglobin 17.2 g/dL (14.1-18.0); Lymphocytes # 2.1 K/mm3 (0.7-4.5); Lymphocytes % 25.3 % (10-50); Mean Corpuscular HGB Conc 33.6 g/dL (31.8-35.4); Mean Corpuscular Hemoglobin 32.6 pg (27.0-31.2); Mean Platelet Volume 8.1 fl (7.4-10.4); Monocytes # 0.3 K/mm3 (0.1-1.0); Monocytes % 3.7 % (1.7-9.3); Neutrophils # 5.8 K/mm3 (1.8-7.8); Neutrophils % 69.6 % (37.0-80.0); Platelet Count 285 K/mm3 (142-424); Red Blood Count 5.26 M/mm3 (4.60-6.20); White Blood Count 8.3 K/mm3 (4.8-10.8)
[2023-12-17] MEDS: CEFTRIAXONE 1 GM 1 GM in 0.9 % SODIUM CHLORIDE 50 ML IV (13:28)
[2023-12-17] MEDS: LACTATED RINGERS 1000ML 1,000 ML 999 ML IV (13:29)
[2023-12-17] MEDS: PANTOPRAZOLE SODIUM 80 MG in 0.9 % SODIUM CHLORIDE 100 ML 100 MG IV (13:30)
[2023-12-17 13:32] LABS: Chloride 104 mmol/L (98-107); Sodium 137 mmol/L (136-145)
[2023-12-17 13:33] LABS: Potassium 4.2 mmoL/L (3.5-5.1)
[2023-12-17 13:35] LABS: Alanine Aminotransferase 35 U/L (12-78); Albumin Level 4.9 g/dl (3.5-5.0); Alkaline Phosphatase 91 U/L (38-126); Aspartate Amino Transferase 46 U/L (17-59); Bilirubin,Total 0.8 mg/dl (0.2-1.3); Blood Urea Nitrogen 14 mg/dl (9-20); Creatinine Clearance Estimated 132 mL/min (50-200); Estimated Glomerular Filt Rate 89 ml/min (>60); GFR (African American) 107 ML/MIN (>60)
[2023-12-17 13:36] LABS: Anion Gap 21.2 mEq/L (5-15); Calcium 9.6 mg/dl (8.4-10.2); Carbon Dioxide 16 mmol/L (22.0-30.0); Globulin 4.9 g/dL (1.3-3.2); Glucose 100 mg/dl (74-100); Lipase 65 U/L (23-300); Magnesium 2.1 mg/dl (1.6-2.3); Total Protein,Serum 9.8 g/dl (6.3-8.2)
[2023-12-17 13:38] VITALS: BP 163/104; PULSE 151; RESP 24; O2SAT 94
--- NOTE | 2023-12-17 13:43 | PC.NURSE ---
Dr. Hernandez speaking with Dr. Ramos.
[2023-12-17 13:49] LABS: Ethyl Alcohol 62 mg/dl (0-10)
[2023-12-17] MEDS: PANTOPRAZOLE SODIUM 80 MG in 0.9 % SODIUM CHLORIDE 100 ML 10 MG IV (13:49)
[2023-12-17 13:53] LABS: VBG Base Excess -6.7 mmol/L (-2.4-2.3); VBG HCO3 18.3 mmol/L (23-30); VBG Oxygen Saturation 95.6 % (50-70); VBG PCO2 31.3 mmol/L (35-51); VBG PH 7.39 mmol/L (7.31-7.41); VBG PO2 77.7 mmol/L (28-40); VBG Total CO2 19.3 mmol/L (23-27)
[2023-12-17 13:55] LABS: Lactate Venous 6.3 mmol/L (0.4-2.0)
--- NOTE | 2023-12-17 13:55 | PC.NURSE ---
Calling [facility] for possible transfer for GI services
--- NOTE | 2023-12-17 13:58 | PC.NURSE ---
[facility] will call back when the coordinator has a provider
[2023-12-17 14:01] VITALS: BP 160/90; PULSE 156; RESP 27; O2SAT 92
--- NOTE | 2023-12-17 14:14 | PC.NURSE ---
Florence at [facility] called and advised there is no GI capabilities at any [facility] facilities
--- NOTE | 2023-12-17 14:15 | PC.NURSE ---
Spoke with [facility] about possible transfer. Advised they would call back when they have the hospitalist.
[2023-12-17] MEDS: OCTREOTIDE ACETATE 500 MCG in 0.9 % SODIUM CHLORIDE 250 ML 25.5 MCG IV (14:21)
--- NOTE | 2023-12-17 14:30 | PC.NURSE ---
Dr. Hernandez s/w Dr. Charo Balbuena, hospitalist at [facility]
[2023-12-17] MEDS: SODIUM CHLORIDE 0.9% 25ML BAG 25 ML IV (14:31)
[2023-12-17] MEDS: PROMETHAZINE HCL 25MG/ML 1ML VIAL 12.5 MG IV (14:31)
--- NOTE | 2023-12-17 14:32 | PC.NURSE ---
DR GUILLAUME SPEAKING WITH DR TAN AT [facility]
[2023-12-17 14:41] VITALS: BP 159/93; PULSE 144; RESP 20; TEMP 36.6; O2SAT 96
--- NOTE | 2023-12-17 14:42 | PC.NURSE ---
Pt accepte to [facility] by Dr. Reich. Facesheet being faxed. Waiting purification operator back for bed assignment.
--- NOTE | 2023-12-17 15:00 | PC.NURSE ---
Notified Odette at the [facility] that pt will be getting transferred to [facility]
--- NOTE | 2023-12-17 15:05 | PC.NURSE ---
PT TO 5G, CALL CHARGE NURSE FOR BED NUMBER
--- NOTE | 2023-12-17 15:08 | PC.NURSE ---
[facility] NOTIFIED TO TRANSFER PT TO [facility], 22 MINUTE ETS, FIREARMS SPECIALIST NOTIFIED
--- NOTE | 2023-12-17 15:09 | PC.NURSE ---
[facility] called back with a number to call report and room assi
--- NOTE | 2023-12-17 15:10 | PC.NURSE ---
BED [id number], [facility]. REPORT CALLED TO AMITA CHAIREZ
[2023-12-17 17:53] LABS: Reflex Lactic Add Lactic Reflex
== END 2023-12-17 15:52 | disposition short-term general hospital (02) ==
PROVIDERS: Emergency Provider Emergency Medicine
DX: K92.2 Gastrointestinal hemorrhage, unspecified (principal); I49.3 Ventricular premature depolarization; E87.29 Other acidosis; R74.02 Elevation of levels of lactic acid dehydrogenase [LDH]; R00.0 Tachycardia, unspecified; F10.90 Alcohol use, unspecified, uncomplicated; F17.210 Nicotine dependence, cigarettes, uncomplicated; Y90.3 Blood alcohol level of 60-79 mg/100 ml
CPT/HCPCS: 80053; 80320; 82803; 83690; 83735; 85025; 86850; 93005; 96365; 96366; 96367; 96375; 99291; G0480; J0696; J2354; J2405; J2550; J7120

== ENCOUNTER 2024-07-01 08:34 | Emergency (ER) | payer OTHER, SELFPAY ==
[2024-07-01] VITALS (14 sets, daily range): BP systolic 134–158; BP diastolic 88–137; PULSE 114–138; RESP 18–28; TEMP 36.6–36.8; O2SAT 94–98; BMI 28.3
--- NOTE | 2024-07-01 09:16 | XR_ITS ---
FINAL REPORT TECHNIQUE: Single view chest CLINICAL HISTORY: dyspnea COMPARISON: 11/13/2023 FINDINGS: A single view of the chest was obtained. The heart and mediastinum are within normal limits. The lungs are clear. There is no pneumothorax. IMPRESSION: No acute cardiopulmonary process. Reviewed, Interpreted and Dictated by Britany Tomlinson MD Transcribed by Che Jimenez Authenticated and [facility]
[2024-07-01] MEDS: ACETAMINOPHEN 1,000MG/100ML VIAL 1000 MG IV (09:22)
[2024-07-01] MEDS: LACTATED RINGERS 1000ML 1,000 ML 999 ML IV (09:22)
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
[2024-07-01 09:24] LABS: Basophils % 0.5 % (0.1-2.0); Eosinophils # 0.2 K/mm3 (0.0-0.4); Eosinophils % 2.5 % (0.1-12.0); Hematocrit 45.7 % (42.0-52.0); Hemoglobin 15.8 g/dL (14.1-18.0); Lymphocytes # 1.5 K/mm3 (0.7-4.5); Lymphocytes % 20.4 % (10-50); Mean Corpuscular HGB Conc 34.6 g/dL (31.8-35.4); Mean Corpuscular Hemoglobin 31.6 pg (27.0-31.2); Mean Corpuscular Volume 91.4 fl (80-94); Monocytes # 0.5 K/mm3 (0.1-1.0); Monocytes % 6.5 % (1.7-9.3); Neutrophils # 5.3 K/mm3 (1.8-7.8); Neutrophils % 69.8 % (37.0-80.0); Platelet Count 239 K/mm3 (142-424); Red Cell Distribution Width 12.5 % (11.5-17.5); White Blood Count 7.5 K/mm3 (4.8-10.8)
--- NOTE | 2024-07-01 09:29 | ECG_ITS ---
APPROVED REPORT Exam: Resting ECG HR:117 bpm ECG Measurements Heart Rate 117 AXES MS 160 P 56 QRSd 93 QRS 15 QT 434 T 57 QTc 504 Conclusion SINUS TACHYCARDIA LOW QRS VOLTAGE IN PRECORDIAL LEADS [QRS DEFLECTION < 1.0 mV IN CHEST LEADS] NONSPECIFIC T-WAVE ABNORMALITY ABNORMAL RHYTHM ECG UNCONFIRMED REPORT Electronically signed by : Will Mane, 07/01/2024 15:32:55
[2024-07-01 09:32] LABS: Alanine Aminotransferase 100 U/L (12-78); Albumin Level 4.4 g/dl (3.5-5.0); Albumin/Globulin Ratio 1.2 (1.1-1.8); Alkaline Phosphatase 80 U/L (38-126); Anion Gap 11.4 mEq/L (5-15); Aspartate Amino Transferase 136 U/L (17-59); Bilirubin,Total 0.8 mg/dl (0.2-1.3); Blood Urea Nitrogen 19 mg/dl (9-20); Calcium 9.1 mg/dl (8.4-10.2); Carbon Dioxide 25 mmol/L (22.0-30.0); Chloride 103 mmol/L (98-107); Creatinine Clearance Estimated 119 mL/min (50-200); Estimated Glomerular Filt Rate 78 ml/min (>60); GFR (African American) 95 ML/MIN (>60); Globulin 3.6 g/dL (1.3-3.2); Glucose 115 mg/dl (74-100); Potassium 3.4 mmoL/L (3.5-5.1); Sodium 136 mmol/L (136-145)
[2024-07-01 09:33] LABS: Coronavirus 19, PCR Not Detected (NotDetected); Influenza A, PCR Not Detected (NotDetected); Influenza B, PCR Not Detected (NotDetected)
[2024-07-01 09:36] LABS: D-Dimer 1.06 ug/mL (0.0-0.5)
[2024-07-01 09:46] LABS: Troponin I < 0.01 ng/ml (0.00-0.034)
--- NOTE | 2024-07-01 10:11 | CT_ITS ---
FINAL REPORT TECHNIQUE: Axial imaging of the chest is obtained after the administration of contrast. 3-D MIP reformatted images were also obtained and reviewed per PE protocol. CLINICAL HISTORY: chest pain, elevated dimer >1 COMPARISON: 10/03/2023 FINDINGS: Soft tissue in the anterior mediastinum is likely residual thymus which is stable to improved. The pulmonary arteries are well filled. There is no evidence of pulmonary embolus. There is no aortic dissection. Heart size is normal. There is no mediastinal, hilar, or axillary lymphadenopathy. Groundglass opacities at the lung bases have improved, likely atelectasis. The lungs are otherwise clear. There is no pleural or pericardial effusion. Limited evaluation of the upper abdomen is without acute abnormality. There is fatty infiltration of the liver. No acute osseous abnormality. IMPRESSION: No evidence of pulmonary embolism or aortic dissection. Stable to improved bibasilar atelectasis. Reviewed, Interpreted and Dictated by Britany Tomlinson MD Transcribed by Che Jimenez Authenticated and [facility]
[2024-07-01] MEDS: 0.9 % SODIUM CHLORIDE 50 ML VIAL IV (10:20)
[2024-07-01] MEDS: IOPAMIDOL-370 (76%);100ML BOTTLE 70 ML IV (10:20)
[2024-07-01] MEDS: SODIUM CHLORIDE 0.9% 10ML SYR (RAD ONLY) 10 ML IV (10:20)
[2024-07-01 12:10] LABS: Lactic Acid 0.9 mmol/L (0.7-2.1)
--- NOTE | 2024-07-01 12:16 | PC.NURSE ---
[facility]ed the [place] [facility]
[2024-07-01 13:00] LABS: Erythrocyte Sedimentation Rate 11 mm/hr (0-20)
--- NOTE | 2024-07-01 13:03 | PC.NURSE ---
Contacted to initiate transfer, [facility] will call back at a later time.
--- NOTE | 2024-07-01 13:04 | PC.NURSE ---
[facility]ed the [place] [facility]
--- NOTE | 2024-07-01 13:09 | PC.NURSE ---
SPEAKING WITH [facility] AT THIS TIME ABOUT TRANSFER
--- NOTE | 2024-07-01 13:32 | PC.NURSE ---
CALLED TRANSFERRED CENTER BACK TO LET THEM PT HAS DECIDED TO SIGN OUT AMA FROM OUT FACILITY
--- NOTE | 2024-07-01 13:34 | PC.NURSE ---
Pt signs AMA form. VSS. Pt verbalizes the risks of leaving AMA. No acute distress noted upon patient departure.
[2024-07-01 13:51] LABS: Troponin I < 0.01 ng/ml (0.00-0.034)
== END 2024-07-01 13:29 | disposition left against medical advice (07) ==
PROVIDERS: Emergency Provider Student in an Organized Health Care Education/Training Program; PCP Surgery
DX: I31.39 Other pericardial effusion (noninflammatory) (principal); R00.0 Tachycardia, unspecified; B34.9 Viral infection, unspecified; R21 Rash and other nonspecific skin eruption; R19.7 Diarrhea, unspecified; M79.10 Myalgia, unspecified site; R50.9 Fever, unspecified; R05.9 Cough, unspecified; R07.89 Other chest pain
CPT/HCPCS: 71045; 71275; 80053; 83605; 84484; 85025; 85378; 85651; 86140; 87040; 87636; 93005; 96361; 96374; 99291; J0131; J7120; Q9967

== ENCOUNTER 2024-10-31 06:23 | Emergency (ER) | payer OTHER, SELFPAY ==
[2024-10-31] VITALS (10 sets, daily range): BP systolic 103–131; BP diastolic 69–87; PULSE 85–107; RESP 22; TEMP 36.3–36.5; O2SAT 90–93; BMI 28.3
--- NOTE | 2024-10-31 06:35 | CT_ITS ---
FINAL REPORT TECHNIQUE: Postcontrast axial images of the chest were performed in a CTA protocol. This study was performed with techniques to keep radiation doses as low as reasonably achievable, (ALARA). Individualized dose reduction technique using automated exposure control or adjustment of mA and/or kV according to the patient's size were employed. CLINICAL HISTORY: R chest pain cough blood streak sputum COMPARISON: 07/01/2024 FINDINGS: There is no filling defect to suggest pulmonary embolism. Aorta is normal in caliber without evidence of aneurysm or dissection. There is mild mediastinal adenopathy which is increased from prior exam. There is a precarinal lymph node measuring 1.9 cm in greatest dimension. A right hilar lymph node is seen measuring 2 cm in greatest dimension. There is no pleural or pericardial effusion. There is dense right lower lobe consolidation consistent with acute pneumonia or aspiration. Limited imaging of the upper abdomen demonstrates mild fatty infiltration of the liver. IMPRESSION: Dense right lower lobe consolidation consistent with acute pneumonia or aspiration. New mediastinal adenopathy, favor reactive. Recommend follow-up. Reviewed, Interpreted and Dictated by Luis Fernando Roberts MD Transcribed by Che Jimenez Authenticated and [facility]
--- NOTE | 2024-10-31 06:36 | ECG_ITS ---
APPROVED REPORT Exam: Resting ECG HR:107 bpm ECG Measurements Heart Rate 107 AXES VA 128 P 37 QRSd 93 QRS 7 QT 335 T 33 QTc 397 Conclusion SINUS TACHYCARDIA ABNORMAL RHYTHM ECG Electronically signed by : ANGELIQUE STARK, 11/01/2024 02:45:17
--- NOTE | 2024-10-31 06:38 | [facility].EDCP ---
Discharge Plan Disposition Patient Disposition: Home, Self-Care Prescriptions Prescriptions: New doxycycline hyclate 100 mg capsule 100 mg PO BID 7 Days Qty: 14 0RF levofloxacin 750 mg tablet 750 mg PO DAILY 7 Days Qty: 7 0RF No Action metoprolol succinate 25 mg tablet extended release 24 hr 25 mg PO DAILY 30 Days Qty: 30 0RF ondansetron 4 mg tablet,disintegrating 4 mg PO Q6HP PRN (Reason: nausea and vomiting) amlodipine 5 mg Tablet 5 mg PO DAILY Referrals Follow up/Referrals: Provider,Referral, [Primary Care Provider] - See instructions Activity Restrictions/Add. Instructions Additional Instructions/Restrictions: Levofloxacin once daily for the next 7 days. Doxycycline twice daily for the next 7 days. While taking doxycycline, limit sunlight exposure. It can cause severe sunburns even if you do not typically get sunburn. Be sure to wear hats, long sleeves, sunscreen if you are out in the sun for prolonged periods of time while taking doxycycline. Call your family doctor to establish care for this visit to the emergency department and schedule follow-up within 48 hours to ensure improvement. If you have any worsening of your condition or any other concerning signs or symptoms, return to the emergency department or your primary care doctor for further evaluation. Clinical Impressions Clinical Impression: Acute hyponatremia Right lower lobe pneumonia Qualifiers: Pneumonia type: due to unspecified organism Qualified Code(s): J18.9 - Pneumonia, unspecified organism Sepsis Qualifiers: Sepsis type: sepsis due to unspecified organism Sepsis acute organ dysfunction status: without acute organ dysfunction Qualified Code(s): A41.9 - Sepsis, unspecified organism Print Language Print Language: Kyrgyz Discharge ED Provider: Zechariah Flor HPI <Ambrocio Cavanaugh MD - Last Filed: 10/31/24 06:47> General Chief Complaint: Shortness of Breath/Dyspnea Stated Complaint: N/V/D Time Seen by Provider: 10/31/24 06:28 History of Present Illness HPI narrative: 53-year-old male with history of palpitations, previous upper GI bleed who reports he smokes and drinks 2-3 beers per day presents to the ER for complaints of right sided chest pain, rib pain, cough, blood-streaked sputum. Reportedly 3 days ago patient came down with flulike symptoms. He had fever up to 103. He has managed this with Tylenol. He states as long as he is on Tylenol he does not have fever. He reports cough that has been worsening. He states he coughed so hard he believes he cracked a rib on the right side. He states sputum is blood-streaked. He is not having any difficulty breathing. EMS reports patient was 88% on room air. He was also tachycardic with them. Patient reports no numbness, tingling, or weakness, no abdominal pain, nausea, or vomiting. No headache or dizziness. Patient reports no history of heart attack, stroke, or blood clot. Related Data Home Medications ?Medication ?Instructions ?Recorded ?Confirmed ondansetron 4 mg disintegrating 4 mg PO Q6HP PRN nausea and 12/17/23 07/01/24 tablet vomiting amlodipine 5 mg tablet 5 mg PO DAILY 07/01/24 07/01/24 Previous Rx's ?Medication ?Instructions ?Recorded metoprolol succinate 25 mg 25 mg PO DAILY 30 days #30 tabs 11/13/23 tablet,extended release 24 hr doxycycline hyclate 100 mg capsule 100 mg PO BID 7 days #14 caps 10/31/24 levofloxacin 750 mg tablet 750 mg PO DAILY 7 days #7 tabs 10/31/24 Allergies Allergy/AdvReac Type Severity Reaction Status Date / Time Penicillins Allergy Verified 10/03/23 08:49 [facility] <Ambrocio Cavanaugh MD - Last Filed: 10/31/24 06:47> [facility] Disclaimer: The information contained in this section may have been updated after the patient was seen, as this information can be updated by other users. Social History (Updated 10/03/23 @ 12:21 by Zechariah Flor MD) Smoking Status: Current every day smoker alcohol intake: never current occupational status: employed Travel in the last 8 weeks?: None Have you lived/traveled outside [place] in past 30 days?: No Contact w/someone who lives/traveled outside US past 30 days?: No Exposure to someone with infectious disease in past 14 days?: No Do you have a fever (greater than 100.4 F or 38 C)?: No Have you tested positive for COVID-19?: No Exposed to someone with COVID-19 in past 14 days?: No Do you have a sore throat?: No Do you have a cough?: No Do you have any weakness?: No Do you have any diarrhea?: Yes Are you experiencing any unusual bleeding?: No Do you have any muscle aches/pain?: No Do you have any abdominal pain?: No Are you experiencing loss of taste or smell?: No <Ambrocio Cavanaugh MD - Last Filed: 10/31/24 06:47> ROS Obtained: Yes Systems reviewed as appropriate & no additional complaints except as documented Per HPI Physical Exam <Ambrocio Cavanaugh MD - Last Filed: 10/31/24 06:47> General General appearance: alert and in no apparent distress Comment: Ill-appearing Head Head exam: atraumatic and normocephalic Eye Eye exam: Present PERRL and EOMI ENT ENT exam: Present mucous membranes moist Neck Neck exam: Present normal inspection and full ROM Chest Chest inspection: Present symmetric chest wall rise and tenderness (Right lower lateral chest wall tenderness without deformity or crepitus) Respiratory Respiratory exam: Absent normal lung sounds bilaterally (Breath sounds diminished in the right lower lobe), respiratory distress, wheezes or stridor Cardiovascular Cardiovascular exam: Present normal rhythm and tachycardia Abdominal Exam Abdominal exam: Present soft; Absent distention or tenderness Extremities Exam Extremities exam: Present full ROM; Absent edema Neurological Exam Neurological exam: Present alert and oriented X3; Absent motor sensory deficit Psychiatric Psychiatric exam: Present normal affect and normal mood Skin Skin exam: Present warm and dry HEART Score <Ambrocio Cavanaugh MD - Last Filed: 10/31/24 06:47> HEART Score HEART Score assessment performed?: No Critical Care <Ambrocio Cavanaugh MD - Last Filed: 10/31/24 06:47> Critical Care Time Critical Care Time: Yes Attestation: On , the high probability of a clinically significant, sudden or life threatening deterioration of the following system(s) required my full and direct attention, intervention and personal management. The time I documented below is in addition to time spent performing reported procedures but includes the following listed in this critical care notation. Total Time Total Critical Care Time: 15 <Zechariah Flor MD - Last Filed: 10/31/24 09:38> Total Time Total Critical Care Time: 35 Medical Decision Making <Ambrocio Cavanaugh MD - Last Filed: 10/31/24 06:47> Medical Records Medical records reviewed: Yes I reviewed the patient's medical records. MR Comment: Patient most recently evaluated in our system in June 2024. He left AGAINST MEDICAL ADVICE despite having diffuse rash and history of previous desquamating rash. Olvin Inquiry Pt receiving controlled substance: No Vital Signs Vital Signs: 10/31/24 06:31 10/31/24 06:35 10/31/24 07:30 Temperature 97.4 F L Temperature Source Oral Pulse Rate 106 H 102 H Pulse Rate [Radial] 107 H Respiratory Rate 22 Blood Pressure 131/87 122/79 Blood Pressure [Right Arm] 131/87 Blood Pressure Mean 89 Blood Pressure Mean [Right Arm] 101 Blood Pressure Position [Right Arm] Sitting 02 Sat by Pulse Oximetry 92 L 92 L 91 L Oxygen Delivery Method Room Air Room Air Room Air 10/31/24 08:00 10/31/24 08:30 Temperature Temperature Source Pulse Rate 105 H 101 H Pulse Rate [Radial] Respiratory Rate Blood Pressure 113/74 103/69 L Blood Pressure [Right Arm] Blood Pressure Mean 85 Blood Pressure Mean [Right Arm] Blood Pressure Position [Right Arm] 02 Sat by Pulse Oximetry 93 L 92 L Oxygen Delivery Method Room Air Lab Data Labs: Lab Results 10/31/24 06:25: WBC 6.0, RBC 4.53 L, Hgb 14.8, Hct 42.8, MCV 94.5 H, MCH 32.7 H, MCHC 34.6, RDW 12.5, Plt Count 252, MPV 10.2, Neut % (Auto) 84.8 H, Lymph % (Auto) 11.7, [place] % (Auto) 1.5 L, Eos % (Auto) 1.0, Baso % (Auto) 0.2, Neut # (Auto) 5.1, Lymph # (Auto) 0.7, [place] # (Auto) 0.1, Eos # (Auto) 0.1, Baso # (Auto) 0.0, PT 11.8, INR 1.06, Sodium 130 L, Potassium 4.2, Chloride 101, Carbon Dioxide 24, Anion Gap 9.2, BUN 18, Creatinine 0.80, Estimated Creat Clear 149, Estimated GFR 102, Est GFR ( Amer) 123, Glucose 123 H, Calcium 9.6, Total Bilirubin 0.7, AST 28, ALT 29, Alkaline Phosphatase 50, Troponin I < 0.01, C-Reactive Protein 427.8 H, Total Protein 7.4, Albumin 3.7, Globulin 3.7 H, Albumin/Globulin Ratio 1.0 L, HCV Ab PEDRITO w/Rflx PCR Qn Negative, HIV Ag/Ab Combo Qual Negative 10/31/24 06:46: VBG pH 7.35, VBG pCO2 40.3, VBG pO2 37.0, VBG HCO3 21.8 L, VBG Total CO2 23.1, VBG O2 Saturation 75.7 H, VBG Base Excess -3.7 L, VBG Lactic Acid 3.8 H 10/31/24 06:55: Lactate 2.0, Chlamy pneumoniae PCR Not detected, Adenovirus (PCR) Not detected, B. pertussis DNA (PCR) Not detected, Coronavirus OC43 (PCR) Not detected, Coronavirus HKU1 (PCR) Not detected, Coronavirus 229E (PCR) Not detected, SARS-CoV-2 (PCR) Not detected, Coronavirus NL63 (PCR) Not detected, Human Metapneumovir PCR Not detected, Influenza A (H1) PCR Not detected, Influ A (H1N1/09) PCR Not detected, Influenza A (H3) PCR Not detected, Influenza Type A (PCR) Not detected, Influenza Type B (PCR) Not detected, M. pneumoniae (PCR) Not detected, Parainfluenza 1 (PCR) Not detected, Parainfluenza 2 (PCR) Not detected, Parainfluenza 3 (PCR) Not detected, Parainfluenza 4 (PCR) Not detected, RSV (PCR) Not detected, Entero/Rhino (PCR) Detected A 10/31/24 06:25 10/31/24 06:25 Response Orders (Tests/Meds): ED MEDICATIONS Generic Name Dose Route Start Last Admin Trade Name Freq PRN Reason Stop Dose Admin Ceftriaxone Sodium 2 gm/ 100 mls @ 200 mls/hr 10/31/24 06:45 10/31/24 07:35 Sodium Chloride IV 11/10/24 06:44 200 mls/hr Q24H RAFAEL Administration Discontinued Medications Generic Name Dose Route Start Last Admin Trade Name Freq PRN Reason Stop Dose Admin Acetaminophen 1,000 mg 10/31/24 07:45 10/31/24 07:50 Acetaminophen 500mg Tab PO 10/31/24 07:46 1,000 mg ONCE ONE Administration Hydromorphone HCl 0.5 mg 10/31/24 07:45 10/31/24 07:51 Hydromorphone 2mg/Ml Syringe IV 10/31/24 07:46 0.5 mg ONCE ONE Administration Lactated Ringer's 2,700 mls @ 999 mls/hr 10/31/24 06:44 10/31/24 06:50 Lactated Ringer's 1000 Ml Bag IV 10/31/24 09:26 999 mls/hr .Q2H43M ONE Administration Protocol Lactated Ringer's 1,000 mls @ 999 mls/hr 10/31/24 07:02 10/31/24 07:00 Lactated Ringer's 1000 Ml Bag IV 10/31/24 09:26 999 mls/hr .Q1H1M RAFAEL Administration Protocol Vancomycin HCl 2,000 mg/ 500 mls @ 250 mls/hr 10/31/24 07:15 10/31/24 07:54 Sodium Chloride IV 10/31/24 09:14 250 mls/hr ONCE ONE Administration Iopamidol 80 ml 10/31/24 07:15 10/31/24 07:16 Iopamidol-370 (76%);100ml Bottle IV 10/31/24 07:16 80 ml ONCE ONE Administration Ketorolac Tromethamine 15 mg 10/31/24 07:45 10/31/24 07:50 Ketorolac 30mg/Ml Vial IV 10/31/24 07:46 15 mg ONCE ONE Administration Miscellaneous 1 each 10/31/24 06:45 10/31/24 09:08 Vancomycin Consult Request NOTAPPLIC 11/30/24 06:44 1 each CONSULT PHARMACY RAFAEL Administration Sodium Chloride 50 ml 10/31/24 07:15 10/31/24 07:16 0.9 % Sodium Chloride 50 Ml Vial IV 10/31/24 07:16 50 ml ONCE ONE Administration Sodium Chloride 10 ml 10/31/24 07:15 10/31/24 07:16 Sodium Chloride 0.9% 10ml Syr (Rad Only) IV 10/31/24 07:16 10 ml ONCE ONE Administration ORDERS Category Date Time Status CT angio chest PE protocol Stat Cat Scan 10/31/24 06:35 Completed C-Reactive Protein Stat Lab 10/31/24 06:25 Completed Complete Blood Count Auto Diff Stat Lab 10/31/24 06:25 Completed Comprehensive Metabolic Panel Stat Lab 10/31/24 06:25 Completed Full Resp Panel w/COVID ([facility]) Routine Lab 10/31/24 06:55 Completed HIV Combo Stat Lab 10/31/24 06:25 Completed Hepatitis C Ab Qual. W/ RFX Stat Lab 10/31/24 06:25 Completed Lactic Acid Stat Lab 10/31/24 06:55 Completed Prothrombin Time INR Stat Lab 10/31/24 06:25 Completed Trop I [Troponin I] Stat Lab 10/31/24 06:25 Completed Troponin I Q3H Lab 10/31/24 09:45 Ordered Troponin I Q3H Lab 10/31/24 12:45 Ordered Urinalysis and Microscopic Stat Lab 10/31/24 06:35 Ordered Blood Culture Stat Micro 10/31/24 06:55 Received VBG [Venous Blood Gas] Stat RT 10/31/24 06:46 Completed ECG Request Stat Y 10/31/24 06:35 Ordered MDM Narrative Medical Decision Narrative: In summary, this 53-year-old male with comorbidities described in the HPI which may not be able therapy as well as social determinants of health including continued alcohol and cigarette use which could increase his risk of aspiration as well as delayed healing presents to the emergency department today with right chest pain, cough, blood-streaked sputum. On initial evaluation patient is tachycardic but not hypotensive, afebrile, tenderness to the right lower lateral chest wall without deformity or crepitus, diminished breath sounds in the right lower lobe, no peripheral edema, remainder of exam benign. Differential diagnosis includes but is not limited to viral syndrome, pneumonia, pleural effusion, with hemoptysis I considered bronchitis, PE, I have also considered ACS, rib fracture, among others. Based on these concerns, I ordered serum labs, CTA PE, cardiac workup. Patient meets sepsis criteria so he is receiving IV fluid bolus, broad-spectrum antibiotics to initially cover high suspicion of pneumonia. ECG personally interpreted demonstrates sinus tachycardia, rate 107, normal axis, normal [place] and QTc, no STEMI. Patient received IV fluids, vancomycin, Rocephin initially for treatment. Labs and imaging pending at time of physician handoff. Patient handed off to Dr. Flor in serious but currently stable condition pending workup results. <Zechariah Flor MD - Last Filed: 10/31/24 09:38> Vital Signs Vital Signs: 10/31/24 06:31 10/31/24 06:35 10/31/24 07:30 Temperature 97.4 F L Temperature Source Oral Pulse Rate 106 H 102 H Pulse Rate [Radial] 107 H Respiratory Rate 22 Blood Pressure 131/87 122/79 Blood Pressure [Right Arm] 131/87 Blood Pressure Mean 89 Blood Pressure Mean [Right Arm] 101 Blood Pressure Position [Right Arm] Sitting 02 Sat by Pulse Oximetry 92 L 92 L 91 L Oxygen Delivery Method Room Air Room Air Room Air 10/31/24 08:00 10/31/24 08:30 Temperature Temperature Source Pulse Rate 105 H 101 H Pulse Rate [Radial] Respiratory Rate Blood Pressure 113/74 103/69 L Blood Pressure [Right Arm] Blood Pressure Mean 85 Blood Pressure Mean [Right Arm] Blood Pressure Position [Right Arm] 02 Sat by Pulse Oximetry 93 L 92 L Oxygen Delivery Method Room Air Lab Data Labs: Lab Results 10/31/24 06:25: WBC 6.0, RBC 4.53 L, Hgb 14.8, Hct 42.8, MCV 94.5 H, MCH 32.7 H, MCHC 34.6, RDW 12.5, Plt Count 252, MPV 10.2, Neut % (Auto) 84.8 H, Lymph % (Auto) 11.7, [place] % (Auto) 1.5 L, Eos % (Auto) 1.0, Baso % (Auto) 0.2, Neut # (Auto) 5.1, Lymph # (Auto) 0.7, [place] # (Auto) 0.1, Eos # (Auto) 0.1, Baso # (Auto) 0.0, PT 11.8, INR 1.06, Sodium 130 L, Potassium 4.2, Chloride 101, Carbon Dioxide 24, Anion Gap 9.2, BUN 18, Creatinine 0.80, Estimated Creat Clear 149, Estimated GFR 102, Est GFR ( Amer) 123, Glucose 123 H, Calcium 9.6, Total Bilirubin 0.7, AST 28, ALT 29, Alkaline Phosphatase 50, Troponin I < 0.01, C-Reactive Protein 427.8 H, Total Protein 7.4, Albumin 3.7, Globulin 3.7 H, Albumin/Globulin Ratio 1.0 L, HCV Ab PEDRITO w/Rflx PCR Qn Negative, HIV Ag/Ab Combo Qual Negative 10/31/24 06:46: VBG pH 7.35, VBG pCO2 40.3, VBG pO2 37.0, VBG HCO3 21.8 L, VBG Total CO2 23.1, VBG O2 Saturation 75.7 H, VBG Base Excess -3.7 L, VBG Lactic Acid 3.8 H 10/31/24 06:55: Lactate 2.0, Chlamy pneumoniae PCR Not detected, Adenovirus (PCR) Not detected, B. pertussis DNA (PCR) Not detected, Coronavirus OC43 (PCR) Not detected, Coronavirus HKU1 (PCR) Not detected, Coronavirus 229E (PCR) Not detected, SARS-CoV-2 (PCR) Not detected, Coronavirus NL63 (PCR) Not detected, Human Metapneumovir PCR Not detected, Influenza A (H1) PCR Not detected, Influ A (H1N1/09) PCR Not detected, Influenza A (H3) PCR Not detected, Influenza Type A (PCR) Not detected, Influenza Type B (PCR) Not detected, M. pneumoniae (PCR) Not detected, Parainfluenza 1 (PCR) Not detected, Parainfluenza 2 (PCR) Not detected, Parainfluenza 3 (PCR) Not detected, Parainfluenza 4 (PCR) Not detected, RSV (PCR) Not detected, Entero/Rhino (PCR) Detected A Response Orders (Tests/Meds): ED MEDICATIONS Generic Name Dose Route Start Last Admin Trade Name Freq PRN Reason Stop Dose Admin Ceftriaxone Sodium 2 gm/ 100 mls @ 200 mls/hr 10/31/24 06:45 10/31/24 07:35 Sodium Chloride IV 11/10/24 06:44 200 mls/hr Q24H RAFAEL Administration Discontinued Medications Generic Name Dose Route Start Last Admin Trade Name Freq PRN Reason Stop Dose Admin Acetaminophen 1,000 mg 10/31/24 07:45 10/31/24 07:50 Acetaminophen 500mg Tab PO 10/31/24 07:46 1,000 mg ONCE ONE Administration Hydromorphone HCl 0.5 mg 10/31/24 07:45 10/31/24 07:51 Hydromorphone 2mg/Ml Syringe IV 10/31/24 07:46 0.5 mg ONCE ONE Administration Lactated Ringer's 2,700 mls @ 999 mls/hr 10/31/24 06:44 10/31/24 06:50 Lactated Ringer's 1000 Ml Bag IV 10/31/24 09:26 999 mls/hr .Q2H43M ONE Administration Protocol Lactated Ringer's 1,000 mls @ 999 mls/hr 10/31/24 07:02 10/31/24 07:00 Lactated Ringer's 1000 Ml Bag IV 10/31/24 09:26 999 mls/hr .Q1H1M RAFAEL Administration Protocol Vancomycin HCl 2,000 mg/ 500 mls @ 250 mls/hr 10/31/24 07:15 10/31/24 07:54 Sodium Chloride IV 10/31/24 09:14 250 mls/hr ONCE ONE Administration Iopamidol 80 ml 10/31/24 07:15 10/31/24 07:16 Iopamidol-370 (76%);100ml Bottle IV 10/31/24 07:16 80 ml ONCE ONE Administration Ketorolac Tromethamine 15 mg 10/31/24 07:45 10/31/24 07:50 Ketorolac 30mg/Ml Vial IV 10/31/24 07:46 15 mg ONCE ONE Administration Miscellaneous 1 each 10/31/24 06:45 10/31/24 09:08 Vancomycin Consult Request NOTAPPLIC 11/30/24 06:44 1 each CONSULT PHARMACY RAFAEL Administration Sodium Chloride 50 ml 10/31/24 07:15 10/31/24 07:16 0.9 % Sodium Chloride 50 Ml Vial IV 10/31/24 07:16 50 ml ONCE ONE Administration Sodium Chloride 10 ml 10/31/24 07:15 10/31/24 07:16 Sodium Chloride 0.9% 10ml Syr (Rad Only) IV 10/31/24 07:16 10 ml ONCE ONE Administration ORDERS Category Date Time Status CT angio chest PE protocol Stat Cat Scan 10/31/24 06:35 Completed C-Reactive Protein Stat Lab 10/31/24 06:25 Completed Complete Blood Count Auto Diff Stat Lab 10/31/24 06:25 Completed Comprehensive Metabolic Panel Stat Lab 10/31/24 06:25 Completed Full Resp Panel w/COVID ([facility]) Routine Lab 10/31/24 06:55 Completed HIV Combo Stat Lab 10/31/24 06:25 Completed Hepatitis C Ab Qual. W/ RFX Stat Lab 10/31/24 06:25 Completed Lactic Acid Stat Lab 10/31/24 06:55 Completed Prothrombin Time INR Stat Lab 10/31/24 06:25 Completed Trop I [Troponin I] Stat Lab 10/31/24 06:25 Completed Troponin I Q3H Lab 10/31/24 09:45 Ordered Troponin I Q3H Lab 10/31/24 12:45 Ordered Urinalysis and Microscopic Stat Lab 10/31/24 06:35 Ordered Blood Culture Stat Micro 10/31/24 06:55 Received VBG [Venous Blood Gas] Stat RT 10/31/24 06:46 Completed ECG Request Stat Y 10/31/24 06:35 Ordered MDM Narrative Medical Decision Narrative: In summary, this 53-year-old male with comorbidities described in the HPI which may not be able therapy as well as social determinants of health including continued alcohol and cigarette use which could increase his risk of aspiration as well as delayed healing presents to the emergency department today with right chest pain, cough, blood-streaked sputum. On initial evaluation patient is tachycardic but not hypotensive, afebrile, tenderness to the right lower lateral chest wall without deformity or crepitus, diminished breath sounds in the right lower lobe, no peripheral edema, remainder of exam benign. Differential diagnosis includes but is not limited to viral syndrome, pneumonia, pleural effusion, with hemoptysis I considered bronchitis, PE, I have also considered ACS, rib fracture, among others. Based on these concerns, I ordered serum labs, CTA PE, cardiac workup. Patient meets sepsis criteria so he is receiving IV fluid bolus, broad-spectrum antibiotics to initially cover high suspicion of pneumonia. ECG personally interpreted demonstrates sinus tachycardia, rate 107, normal axis, normal [place] and QTc, no STEMI. Patient received IV fluids, vancomycin, Rocephin initially for treatment. Labs and imaging pending at time of physician handoff. Patient handed off to Dr. Flor in serious but currently stable condition pending workup results. Basia: I assumed primary responsibility for this patient after signout from previous physician. On my evaluation after fluids, antibiotics, tissue reperfusion performed. Patient mentating appropriately, pink, warm, dry, mentating appropriately and very clinically well. Mildly tachycardic. Intermittently dropping oxygen saturation into the high 80s. Placed on 2 L nasal cannula. Lungs with decreased sounds and wheezes in the bases, otherwise normal. Mildly tachycardic. Labs independently interpreted. White count is normal, but neutrophil and monocyte heavy. Coags normal. Patient's VBG with lactate of 3.8 and mild metabolic acidosis with bicarb of 21.8. Sodium low at 130, repleted with IV fluids. Legionella was ordered. Troponin negative, CRP elevated nearly 430. CT of the chest was independently interpreted and he has large right sided pneumonia in the lower lobe with associated reactive mediastinal adenopathy. I updated patient on results. Patient states that he is feeling better after fluids and antibiotics. Actually asking to go home. Given patient has tachycardia, tachypnea, new hypoxemia 88% with no history of COPD, with large right-sided pneumonia, elevated lactate and concern for sepsis without septic shock, I consulted hospital medicine and case was discussed at length. Hospital medicine introduced me to the PSI/port score. Patient has a score of 72 points making him class III and outpatient versus inpatient treatment depending on clinical judgment. Given how well he looks clinically, agreeable to go home. Because he has some GI symptoms as well as hyponatremia and lobar consolidation, being covered for pneumonia as well as atypical such as Legionella with levofloxacin and doxycycline. Patient has close follow-up with his family doctor and schedule an appointment while here in the emergency department. Definitely appears reliable for home-going and states he can come back if he does get worse because patient at baseline without signs or symptoms of clinical decompensation, deemed appropriate for discharge. Results were relayed to patient who voiced understanding and were agreeable to outpatient management and follow up. I discussed my clinical impression with patient and answered all questions. At this time, the evidence for any other entities in the differential is insufficient to warrant any further testing or ED observation. This was explained as well. Advisory was given that persistent or worsening symptoms require further evaluation. I confirmed the understanding of this discussion.
[2024-10-31] MEDS: LACTATED RINGERS 999 ML IV (06:50)
[2024-10-31 06:52] LABS: INR 1.06 (0.9-1.1); Prothrombin Time 11.8 seconds (10.1-12.5)
[2024-10-31 06:53] LABS: Alanine Aminotransferase 29 U/L (12-78); Albumin Level 3.7 g/dl (3.5-5.0); Alkaline Phosphatase 50 U/L (38-126); Anion Gap 9.2 mEq/L (5-15); Aspartate Amino Transferase 28 U/L (17-59); Bilirubin,Total 0.7 mg/dl (0.2-1.3); Blood Urea Nitrogen 18 mg/dl (9-20); Calcium 9.6 mg/dl (8.4-10.2); Carbon Dioxide 24 mmol/L (22.0-30.0); Chloride 101 mmol/L (98-107); Creatinine Clearance Estimated 149 mL/min (50-200); Estimated Glomerular Filt Rate 102 ml/min (>60); GFR (African American) 123 ML/MIN (>60); Globulin 3.7 g/dL (1.3-3.2); Glucose 123 mg/dl (74-100); Potassium 4.2 mmoL/L (3.5-5.1); Sodium 130 mmol/L (136-145); Total Protein,Serum 7.4 g/dl (6.3-8.2)
[2024-10-31 06:53] LABS: VBG Base Excess -3.7 mmol/L (-2.4-2.3); VBG HCO3 21.8 mmol/L (23-30); VBG Oxygen Saturation 75.7 % (50-70); VBG PCO2 40.3 mmol/L (35-51); VBG PH 7.35 mmol/L (7.31-7.41); VBG Total CO2 23.1 mmol/L (23-27)
[2024-10-31 06:56] LABS: Lactate Venous 3.8 mmol/L (0.4-2.0)
[2024-10-31 06:59] LABS: Basophils % 0.2 % (0.1-2.0); Eosinophils # 0.1 Kmm3 (0.0-0.4); Hematocrit 42.8 % (42.0-52.0); Hemoglobin 14.8 g/dL (14.1-18.0); Lymphocytes # 0.7 K/mm3 (0.7-4.5); Lymphocytes % 11.7 % (10-50); Mean Corpuscular HGB Conc 34.6 g/dL (31.8-35.4); Mean Corpuscular Hemoglobin 32.7 pg (27.0-31.2); Mean Corpuscular Volume 94.5 fl (80-94); Mean Platelet Volume 10.2 fl (7.4-10.4); Monocytes # 0.1 K/mm3 (0.1-1.0); Monocytes % 1.5 % (1.7-9.3); Neutrophils # 5.1 K/mm3 (1.8-7.8); Neutrophils % 84.8 % (37.0-80.0); Nucleated Red Blood Cells # 0 10^3/uL; Nucleated Red Blood Cells % 0 %; Platelet Count 252 K/mm3 (142-424); Red Blood Count 4.53 M/mm3 (4.60-6.20); Red Cell Distribution Width 12.5 % (11.5-17.5); Red Cell Distribution Width-SD 43.7 fL
[2024-10-31] MEDS: LACTATED RINGERS 1000ML 1,000 ML 999 ML IV (07:00)
[2024-10-31 07:02] LABS: Adenovirus,PCR Not Detected (NotDetected); Bordetella Pertussis Not Detected (NotDetected); Chlamydophila Pneumoniae, PCR Not Detected (NotDetected); Coronavirus 19, PCR Not Detected (NotDetected); Coronavirus 229E Not Detected (NotDetected); Coronavirus NL63 Not Detected (NotDetected); Coronavirus OC43 Not Detected (NotDetected); Coronovirus HKU1,PCR Not Detected (NotDetected); Human Metapneumovirus Not Detected (NotDetected); Influenza A, PCR Not Detected (NotDetected); Influenza AH1, 2009 Not Detected (NotDetected); Influenza AH1, PCR Not Detected (NotDetected); Influenza AH3,PCR Not Detected (NotDetected); Influenza B, PCR Not Detected (NotDetected); Mycoplasma Pneumoniae, PCR Not Detected (NotDetected); Parainfluenza 1, PCR Not Detected (NotDetected); Parainfluenza 2, PCR Not Detected (NotDetected); Parainfluenza 3, PCR Not Detected (NotDetected); Parainfluenza 4, PCR Not Detected (NotDetected); Respiratory Syncytial Virus Not Detected (NotDetected)
[2024-10-31 07:09] LABS: Troponin I < 0.01 ng/ml (0.00-0.034)
[2024-10-31] MEDS: 0.9 % SODIUM CHLORIDE 50 ML VIAL IV (07:16)
[2024-10-31] MEDS: SODIUM CHLORIDE 0.9% 10ML SYR (RAD ONLY) 10 ML IV (07:16)
[2024-10-31] MEDS: IOPAMIDOL-370 (76%);100ML BOTTLE 80 ML IV (07:16)
[2024-10-31] MEDS: CEFTRIAXONE SODIUM 2 GM in 0.9 % SODIUM CHLORIDE 100 ML IV (07:35)
[2024-10-31 07:38] LABS: C-Reactive Protein 427.8 mg/L (0-4)
[2024-10-31] MEDS: KETOROLAC 30MG/ML VIAL 15 MG IV (07:50)
[2024-10-31] MEDS: ACETAMINOPHEN 500MG TAB 1000 MG PO (07:50)
[2024-10-31] MEDS: HYDROMORPHONE 2MG/ML SYRINGE 0.5 MG IV (07:51)
[2024-10-31] MEDS: VANCOMYCIN HCL 2,000 MG in 0.9 % SODIUM CHLORIDE 500 ML 250 MG IV (07:54)
[2024-10-31 08:10] LABS: HIV Combo NEGATIVE (Negative)
[2024-10-31 08:11] LABS: Hepatitis C Ab Qual. W/ RFX NEGATIVE (Negative)
--- NOTE | 2024-10-31 08:49 | PC.NURSE ---
and ale at bs speaking with pt
[2024-10-31] MEDS: VANCOMYCIN CONSULT REQUEST 1 EACH NOTAPPLIC (09:08)
--- NOTE | 2024-10-31 09:15 | P.CONS_ITS ---
History of Present Illness *Admission Date: 10/31/24 *Reason for visit:: cough, SOA PFSH PFS Disclaimer: The information contained in this section may have been updated after the patient was seen, as this information can be updated by other users. Social History (Updated 10/03/23 @ 12:21 by Zechariah Flor MD) Smoking Status: Current every day smoker alcohol intake: never current occupational status: employed Travel in the last 8 weeks?: None Have you lived/traveled outside US in past 30 days?: No Contact w/someone who lives/traveled outside US past 30 days?: No Exposure to someone with infectious disease in past 14 days?: No Do you have a fever (greater than 100.4 F or 38 C)?: No Have you tested positive for COVID-19?: No Exposed to someone with COVID-19 in past 14 days?: No Do you have a sore throat?: No Do you have a cough?: No Do you have any weakness?: No Do you have any diarrhea?: Yes Are you experiencing any unusual bleeding?: No Do you have any muscle aches/pain?: No Do you have any abdominal pain?: No Are you experiencing loss of taste or smell?: No Exam Data for Last 24 hours Vital signs and Labs for Last 24 Hours: Temp Pulse Resp BP Pulse Ox O2 Del Method 97.4 F L 101 H 22 103/69 L 92 L Room Air 10/31/24 06:35 10/31/24 08:30 10/31/24 06:35 10/31/24 08:30 10/31/24 08:30 10/31/24 08:30 Laboratory Results - last 24 hr 10/31/24 06:25: WBC 6.0, RBC 4.53 L, Hgb 14.8, Hct 42.8, MCV 94.5 H, MCH 32.7 H, MCHC 34.6, RDW 12.5, Plt Count 252, MPV 10.2, Neut % (Auto) 84.8 H, Lymph % (Auto) 11.7, [place] % (Auto) 1.5 L, Eos % (Auto) 1.0, Baso % (Auto) 0.2, Neut # (Auto) 5.1, Lymph # (Auto) 0.7, [place] # (Auto) 0.1, Eos # (Auto) 0.1, Baso # (Auto) 0.0, PT 11.8, INR 1.06, Sodium 130 L, Potassium 4.2, Chloride 101, Carbon Dioxide 24, Anion Gap 9.2, BUN 18, Creatinine 0.80, Estimated Creat Clear 149, Estimated GFR 102, Est GFR ( Amer) 123, Glucose 123 H, Calcium 9.6, Total Bilirubin 0.7, AST 28, ALT 29, Alkaline Phosphatase 50, Troponin I < 0.01, C- Reactive Protein 427.8 H, Total Protein 7.4, Albumin 3.7, Globulin 3.7 H, A lbumin/Globulin Ratio 1.0 L, HCV Ab PEDRITO w/Rflx PCR Qn Negative, HIV Ag/Ab Combo Qual Negative 10/31/24 06:46: VBG pH 7.35, VBG pCO2 40.3, VBG pO2 37.0, VBG HCO3 21.8 L, VBG Total CO2 23.1, VBG O2 Saturation 75.7 H, VBG Base Excess -3.7 L, VBG Lactic Acid 3.8 H 10/31/24 06:55: Lactate 2.0 I & O for Last 24 hours: Intake & Output 10/28/24 10/29/24 10/30/24 10/31/24 23:59 23:59 23:59 23:59 Weight 97.522 kg Constitutional Constitutional: no acute distress *Routine HEENT Exam Head: Present normocephalic Eye: Present EOMI and PERRL ENT: Present mucous membranes moist *Routine Neck Exam Neck: Present supple; Absent lymphadenopathy *Routine Respiratory Exam Respiratory: Present crackles (right lower lung field); Absent rhonchi or wheezes *Routine Cardiovascular Exam Cardiovascular: Present RRR *Routine Abdominal Exam Abdominal: Present soft and normoactive bowel sounds; Absent tenderness *Routine Extremities Exam Extremities: Absent cyanosis, clubbing or edema *Routine Skin Exam Skin: Present warm; Absent rash *Routine Neurological Exam Neurological: Present alert and oriented X3 Meds Home Medications and Allergies Home Medications ?Medication ?Instructions ?Recorded ?Confirmed ?Type metoprolol succinate 25 mg 25 mg PO DAILY 30 days #30 tabs 11/13/23 07/01/24 Rx tablet,extended release 24 hr ondansetron 4 mg disintegrating 4 mg PO Q6HP PRN nausea and 12/17/23 07/01/24 History tablet vomiting amlodipine 5 mg tablet 5 mg PO DAILY 07/01/24 07/01/24 History New Prescriptions to Start Prescriptions: Allergies Allergy/AdvReac Type Severity Reaction Status Date / Time Penicillins Allergy Verified 10/03/23 08:49 Results Labs 10/31/24 06:25 10/31/24 06:25 Labs: Abnormal lab results 10/31/24 10/31/24 Range/Units 06:25 06:46 RBC 4.53 L (4.60-6.20) M/mm3 MCV 94.5 H (80-94) fl MCH 32.7 H (27.0-31.2) pg Neut % (Auto) 84.8 H (37.0-80.0) % [place] % (Auto) 1.5 L (1.7-9.3) % VBG HCO3 21.8 L (23-30) mmol/L VBG O2 Saturation 75.7 H (50-70) % VBG Base Excess -3.7 L (-2.4-2.3) mmol/L VBG Lactic Acid 3.8 H (0.4-2.0) mmol/L Sodium 130 L (136-145) mmol/L Glucose 123 H (74-100) mg/dl C-Reactive Protein 427.8 H (0-4) mg/L Globulin 3.7 H (1.3-3.2) g/dL Albumin/Globulin Ratio 1.0 L (1.1-1.8) H & H 10/31/24 Range/Units 06:25 Hgb 14.8 (14.1-18.0) g/dL Hct 42.8 (42.0-52.0) % Coagulation 10/31/24 Range/Units 06:25 INR 1.06 (0.9-1.1) All other labs normal. Assessment and Plan *Assessment and plan (1) Right lower lobe pneumonia: Status: Acute Category: Medical Code(s): J18.9 - Pneumonia, unspecified organism Plan Tentative pneumonia on MARIBELL, PSI port score 52. Consolidation right lower lobe. Stable to discharge home with trial of outpatient management. Recommend Levaquin and doxycycline for 7 days for broad coverage. This should also aid in coverage of Legionella as patient also has GI symptoms with nausea and diarrhea and sodium of 130. Recommend returning to work next Monday. Counseled on return criteria such as worsening fever, shortness of breath, weakness and no improving symptoms after 48 hours. Encourage close follow-up with PCP within the next 3 to 5 days to reevaluate improvement in symptoms
[2024-10-31 09:23] LABS: Rhinovirus/Enterovirus Detected (NotDetected)
[2024-10-31 10:55] LABS: Reflex Lactic Add Lactic Reflex
--- NOTE | 2024-10-31 11:10 | PC.NURSE ---
I called and spoke with Kely with the [facility]. She is going to send her route relief driver up here to take the pt home.
--- NOTE | 2024-10-31 19:40 | P.CONS_ITS ---
History of Present Illness *Admission Date: 10/31/24 *Reason for visit:: Dyspnea *History of present illness: Mr. Balbuena is a 53-year-old male with history of palpitations, tobacco use disorder, daily alcohol intake. Presented to the ER with complaint of some right sided chest pain, cough, blood-streaked sputum and shortness of breath. States symptoms have progressed over the past 3 days has had chills and flulike symptoms. Fever 103 yesterday at home. Has responded well to Tylenol. Denies syncope, confusion, nausea or vomiting. Has had some diarrhea however. Reports cough is worsened and he feels like he has cracked a rib due to the forcefulness of his cough. Intermittent hypoxia in the ER with sats down to 87 while talking that recovers back to 90 or 91 on room air. Placed on oxygen for comfort. Medicine consulted to evaluate given concern for pneumonia. CT obtained showing right lower lobe consolidation. No treatment with antibiotics prior to arrival to the ER. On assessment, patient is alert and oriented x 3, says he is feeling some better after fluids and initiating treatment in the ER. [facility] Disclaimer: The information contained in this section may have been updated after the patient was seen, as this information can be updated by other users. Social History Smoking Status: Current every day smoker alcohol intake: never current occupational status: employed Travel in the last 8 weeks?: None Have you lived/traveled outside US in past 30 days?: No Contact w/someone who lives/traveled outside US past 30 days?: No Exposure to someone with infectious disease in past 14 days?: No Do you have a fever (greater than 100.4 F or 38 C)?: No Have you tested positive for COVID-19?: No Exposed to someone with COVID-19 in past 14 days?: No Do you have a sore throat?: No Do you have a cough?: No Do you have any weakness?: No Do you have any diarrhea?: Yes Are you experiencing any unusual bleeding?: No Do you have any muscle aches/pain?: No Do you have any abdominal pain?: No Are you experiencing loss of taste or smell?: No Review of Systems Review of Systems Review of systems (narrative): 14 point review of systems performed, pertinent positives and negatives as per HPI Exam Data for Last 24 hours Vital signs and Labs for Last 24 Hours: Temp Pulse Resp BP Pulse Ox O2 Del Method 97.7 F 85 22 110/79 92 L Room Air 10/31/24 10:08 10/31/24 10:08 10/31/24 10:08 10/31/24 10:30 10/31/24 09:31 10/31/24 10:08 Laboratory Results - last 24 hr 10/31/24 06:25: WBC 6.0, RBC 4.53 L, Hgb 14.8, Hct 42.8, MCV 94.5 H, MCH 32.7 H, MCHC 34.6, RDW 12.5, Plt Count 252, MPV 10.2, Neut % (Auto) 84.8 H, Lymph % (Auto) 11.7, [place] % (Auto) 1.5 L, Eos % (Auto) 1.0, Baso % (Auto) 0.2, Neut # (Auto) 5.1, Lymph # (Auto) 0.7, [place] # (Auto) 0.1, Eos # (Auto) 0.1, Baso # (Auto) 0.0, PT 11.8, INR 1.06, Sodium 130 L, Potassium 4.2, Chloride 101, Carbon Dioxide 24, Anion Gap 9.2, BUN 18, Creatinine 0.80, Estimated Creat Clear 149, Estimated GFR 102, Est GFR ( Amer) 123, Glucose 123 H, Calcium 9.6, Total Bilirubin 0.7, AST 28, ALT 29, Alkaline Phosphatase 50, Troponin I < 0.01, C- Reactive Protein 427.8 H, Total Protein 7.4, Albumin 3.7, Globulin 3.7 H, A lbumin/Globulin Ratio 1.0 L, HCV Ab PEDRITO w/Rflx PCR Qn Negative, HIV Ag/Ab Combo Qual Negative 10/31/24 06:46: VBG pH 7.35, VBG pCO2 40.3, VBG pO2 37.0, VBG HCO3 21.8 L, VBG Total CO2 23.1, VBG O2 Saturation 75.7 H, VBG Base Excess -3.7 L, VBG Lactic Acid 3.8 H 10/31/24 06:55: Lactate 2.0, Chlamy pneumoniae PCR Not detected, Adenovirus (PCR) Not detected, B. pertussis DNA (PCR) Not detected, Coronavirus OC43 (PCR) Not detected, Coronavirus HKU1 (PCR) Not detected, Coronavirus 229E (PCR) Not detected, SARS-CoV-2 (PCR) Not detected, Coronavirus NL63 (PCR) Not detected, Human Metapneumovir PCR Not detected, Influenza A (H1) PCR Not detected, Influ A (H1N1/09) PCR Not detected, Influenza A (H3) PCR Not detected, Influenza Type A (PCR) Not detected, Influenza Type B (PCR) Not detected, M. pneumoniae (PCR) Not detected, Parainfluenza 1 (PCR) Not detected, Parainfluenza 2 (PCR) Not detected, Parainfluenza 3 (PCR) Not detected, Parainfluenza 4 (PCR) Not detected, RSV (PCR) Not detected, Entero/Rhino (PCR) Detected A I & O for Last 24 hours: Intake & Output 10/28/24 10/29/24 10/30/24 10/31/24 23:59 23:59 23:59 23:59 Intake Total 300 / 300 Balance 300 / 300 Weight 97.522 kg Constitutional Constitutional: no acute distress, average body habitus and cooperative *Routine HEENT Exam Head: Present normocephalic Eye: Present EOMI and PERRL ENT: Present mucous membranes moist *Routine Neck Exam Neck: Present supple; Absent lymphadenopathy *Routine Respiratory Exam Respiratory: Present crackles (Right lower lung field) and normal respiratory effort; Absent rhonchi or wheezes *Routine Cardiovascular Exam Cardiovascular: Present RRR *Routine Abdominal Exam Abdominal: Present soft and normoactive bowel sounds; Absent tenderness *Routine Extremities Exam Extremities: Absent cyanosis, clubbing or edema *Routine Skin Exam Skin: Present warm; Absent rash *Routine Neurological Exam Neurological: Present alert, oriented X3 and moving all extremities; Absent altered mental status Meds Home Medications and Allergies Home Medications ?Medication ?Instructions ?Recorded ?Confirmed ?Type metoprolol succinate 25 mg 25 mg PO DAILY 30 days #30 tabs 11/13/23 07/01/24 Rx tablet,extended release 24 hr ondansetron 4 mg disintegrating 4 mg PO Q6HP PRN nausea and 12/17/23 07/01/24 History tablet vomiting amlodipine 5 mg tablet 5 mg PO DAILY 07/01/24 07/01/24 History albuterol sulfate 90 mcg/actuation 2 inh inhalation Q4H PRN shortness 10/31/24 Rx aerosol inhaler of breath or wheezing #8.5 grams doxycycline hyclate 100 mg capsule 100 mg PO BID 7 days #14 caps 10/31/24 Rx levofloxacin 750 mg tablet 750 mg PO DAILY 7 days #7 tabs 10/31/24 Rx New Prescriptions to Start Prescriptions: albuterol sulfate Zechariah Flor doxycycline hyclate Zechariah Flor levofloxacin Zechariah Flor Allergies Allergy/AdvReac Type Severity Reaction Status Date / Time Penicillins Allergy Verified 10/03/23 08:49 Results Labs 10/31/24 06:25 10/31/24 06:25 Labs: Abnormal lab results 10/31/24 10/31/24 10/31/24 Range/Units 06:25 06:46 06:55 RBC 4.53 L (4.60-6.20) M/mm3 MCV 94.5 H (80-94) fl MCH 32.7 H (27.0-31.2) pg Neut % (Auto) 84.8 H (37.0-80.0) % [place] % (Auto) 1.5 L (1.7-9.3) % VBG HCO3 21.8 L (23-30) mmol/L VBG O2 Saturation 75.7 H (50-70) % VBG Base Excess -3.7 L (-2.4-2.3) mmol/L VBG Lactic Acid 3.8 H (0.4-2.0) mmol/L Sodium 130 L (136-145) mmol/L Glucose 123 H (74-100) mg/dl C-Reactive Protein 427.8 H (0-4) mg/L Globulin 3.7 H (1.3-3.2) g/dL Albumin/Globulin Ratio 1.0 L (1.1-1.8) Entero/Rhino (PCR) Detected A (NotDetected) H & H 10/31/24 Range/Units 06:25 Hgb 14.8 (14.1-18.0) g/dL Hct 42.8 (42.0-52.0) % Coagulation 10/31/24 Range/Units 06:25 INR 1.06 (0.9-1.1) All other labs normal. Assessment and Plan *Assessment and plan (1) Right lower lobe pneumonia: Status: Acute Qualifiers: Pneumonia type: due to unspecified organism Qualified Code(s): J18.9 - Pneumonia, unspecified organism Category: Medical Code(s): J18.9 - Pneumonia, unspecified organism Plan Mr. Balbuena is a 53-year-old male who presented to the emergency room with dyspnea and cough with blood-tinged sputum. On arrival, patient was tachycardic, found to have white count of 6, kidney function normal with BUN 18, creatinine 0.8. Mild hyponatremia with sodium of 130. pH 7.35 on VBG. Chest imaging showing right lower lobe consolidation on CTA of chest. Findings consistent with pneumonia. Cultures obtained. Received vancomycin and Levaquin in the ER. PSI/port score 52 making him class II risk. Medicine consulted to evaluate for possible admission. On evaluation, supplemental oxygen was turned off (he was on 1 to 2 L). Maintained sats of approximately 90% with brief 1 to 2-second drops to 87 with significant talking. Would recover very quickly. After lengthy discussion, patient wanted to go home and trial outpatient therapy. Agree with this plan. Recommended Levaquin and doxycycline to cover for broad- spectrum in the setting of history of alcoholism and penicillin allergy. Encourage close follow-up with his PCP, patient was making appointment while in the ED to see his PCP within the next week. Counseled on criteria to return to the hospital. Discussed case with ER physician, given risk stratification, patient's preference, stability on room air, recommend discharging home with outpatient trial of antibiotics.
--- NOTE | 2024-10-31 23:47 | PC.NURSE ---
Pt has Gram + cocci chains pcr strep pneumo on all [address] Cavanaugh notified and she wants the pt to return. This RN attempted to call pt and no answer. I left a VM requesting the pt call the ER.
--- NOTE | 2024-11-01 06:45 | PC.NURSE ---
Spoke with patient and informed him of positive blood cultures. Informed him that MD recommended that he return to the hospital to be evaluated for admission Pt verbalized an understanding of these instructions and results. Pt asked if this could be life threatening and told him that these infections can certainly be serious and he should return today.
--- NOTE | 2024-11-01 06:50 | EXP.EVENT.NO ---
Around 2300 10/31/24 positive blood culture results for this patient were called to the ER. They were received by charge nurse. I reviewed the cultures which demonstrate gram-positive cocci in all 4 blood culture bottles. Speciated to strep pneumoniae. Review of records demonstrates patient was discharged after an ER encounter where he was identified to have sepsis and pneumonia, discharged on doxycycline and levofloxacin. I recommended to call the patient back to the ER for treatment of bacteremia. Multiple attempts were made overnight by AMITA Trammell to contact the patient, he did not answer. AMITA Shankar attempted 2 times this morning and eventually the patient answered when we called around 0645. AMITA Shankar spoke with the patient and instructed him to come back to the ER for immediate management and intervention. Patient agreeable and indicated he is also having a new rash and he is coming back to the ER.
--- NOTE | 2024-11-01 11:27 | PC.NURSE ---
PT CALLED BACK ABOUT + BLOOD CULTURES. INFORMED PT THAT HE NEEDS TO RETURN FOR EVALUATION AND NEED FOR ADMISSION. PT INFORMED THAT ORAL ABX THAT HE RECEIVED WILL NOT ADEQUATELY TREAT INFECTION. PT ASKED IF HE COULD RETURN IN 1 WEEK FOR TREATMENT, PT INSTRUCTED THAT IMMEDIATE CARE SHOULD BE RECEIVED. PT STATES HE WANTS TO RESEARCH WHAT'S GOING ON BEFORE HE RETURNS. PT PROVIDED INFORMATION.
== END 2024-10-31 11:17 | disposition home or self-care (01) ==
PROVIDERS: Emergency Medicine; Emergency Provider Emergency Medicine
DX: A41.9 Sepsis, unspecified organism (principal); J13 Pneumonia due to Streptococcus pneumoniae; R09.02 Hypoxemia; R07.89 Other chest pain; R00.0 Tachycardia, unspecified; E87.1 Hypo-osmolality and hyponatremia; R74.02 Elevation of levels of lactic acid dehydrogenase [LDH]; F17.210 Nicotine dependence, cigarettes, uncomplicated; Z11.59 Encounter for screening for other viral diseases; Z11.4 Encounter for screening for human immunodeficiency virus [HIV]
CPT/HCPCS: 71275; 80053; 82803; 83605; 84484; 85025; 85610; 86140; 86803; 87040; 87077; 87186; 87389; 87633; 93005; 96365; 96366; 96367; 96375; 99291; J0696; J1171; J1885; J3370; J7120; Q9967

== ENCOUNTER 2024-11-01 16:10 | Inpatient (IN) | payer OTHER, SELFPAY ==
[2024-11-01] VITALS (10 sets, daily range): BP systolic 128–164; BP diastolic 72–97; PULSE 99–134; RESP 15–38; TEMP 36.5–36.9; O2SAT 89–95; BMI 28.3
--- NOTE | 2024-11-01 16:33 | ECG_ITS ---
APPROVED REPORT Exam: Resting ECG HR:133 bpm ECG Measurements Heart Rate 133 AXES [place] 141 P 53 QRSd 93 QRS 65 QT 372 T 40 QTc 450 Conclusion SINUS TACHYCARDIA MODERATE ST DEPRESSION [0.05+ mV ST DEPRESSION] ABNORMAL ECG UNCONFIRMED REPORT Electronically signed by : Will Mane, 11/01/2024 22:58:59
--- NOTE | 2024-11-01 16:40 | XR_ITS ---
PROCEDURE INFORMATION: Exam: XR Chest Exam date and time: 11/01/2024 4:49 PM Age: 53 years old Clinical indication: Dyspnea; Additional info: Dyspnea, smoker , no SX to chest TECHNIQUE: Imaging protocol: Radiologic exam of the chest. Views: 1 view. COMPARISON: CT ANGIO CHEST PE PROTOCOL 10/31/2024 7:13 AM FINDINGS: Lungs: Opacity in the right base may represent atelectasis or pneumonia.. Pleural spaces: Unremarkable. No pleural effusion. No pneumothorax. Heart/Mediastinum: Unremarkable. No cardiomegaly. Bones/joints: Unremarkable. IMPRESSION: Opacity in the right base may represent atelectasis or pneumonia..
--- NOTE | 2024-11-01 16:47 | HMH.EDGENADL ---
Discharge Plan Disposition Chief Complaint: Recheck/Abnormal Lab/Rx Prescriptions Prescriptions: No Action metoprolol succinate 25 mg tablet extended release 24 hr 25 mg PO DAILY 30 Days Qty: 30 0RF ondansetron 4 mg tablet,disintegrating 4 mg PO Q6HP PRN (Reason: nausea and vomiting) amlodipine 5 mg Tablet 5 mg PO DAILY doxycycline hyclate 100 mg capsule 100 mg PO BID 7 Days Qty: 14 0RF levofloxacin 750 mg tablet 750 mg PO DAILY 7 Days Qty: 7 0RF albuterol sulfate 90 mcg/actuation HFA aerosol inhaler 2 inh inhalation Q4H PRN (Reason: shortness of breath or wheezing) Qty: 8.5 2RF Referrals Follow up/Referrals: Provider,Referral, MD [Primary Care Provider] - See instructions Clinical Impressions Clinical Impression: Severe sepsis, RLL pneumonia, Bacteremia due to Streptococcus pneumoniae, Hypoxic respiratory failure Print Language Print Language: Sudanese Discharge ED Provider: Mikal Mane General Adult HPI General Chief complaint: Recheck/Abnormal Lab/Rx Stated complaint: abnormal labs Time Seen by Provider: 11/01/24 16:31 Mode of Arrival: Ambulatory Source of Information: Patient Description of Symptoms (Recalled from ER Triage Doc. by RN): Patient returns to the ER related to having positive blood cultures. States that he was diagnosed with PNA. Complaint of shortness of air, being clammy, elevated heart rate and not being able to eat or drink. History of Present Illness HPI narrative: Patient is a 53-year-old who returns to the emergency department after having positive blood cultures showing strep pneumo bacteremia. Was here yesterday was diagnosed with a dense consolidation in the right lower lobe based on CT scan also was septic at that time. Patient went home was prescribed doxycycline never got it filled. States he has continued to have significant pain with any type of respiration on the right lower side of his chest wall and also that he has been having shaking chills and fevers. No history of COPD but he does chronically smoke. Related Data Home Medications ?Medication ?Instructions ?Recorded ?Confirmed ondansetron 4 mg disintegrating 4 mg PO Q6HP PRN nausea and 12/17/23 07/01/24 tablet vomiting amlodipine 5 mg tablet 5 mg PO DAILY 07/01/24 07/01/24 Previous Rx's ?Medication ?Instructions ?Recorded metoprolol succinate 25 mg 25 mg PO DAILY 30 days #30 tabs 11/13/23 tablet,extended release 24 hr albuterol sulfate 90 mcg/actuation 2 inh inhalation Q4H PRN shortness 10/31/24 aerosol inhaler of breath or wheezing #8.5 grams doxycycline hyclate 100 mg capsule 100 mg PO BID 7 days #14 caps 10/31/24 levofloxacin 750 mg tablet 750 mg PO DAILY 7 days #7 tabs 10/31/24 Allergies Allergy/AdvReac Type Severity Reaction Status Date / Time Penicillins Allergy Verified 10/03/23 08:49 [facility] Disclaimer: The information contained in this section may have been updated after the patient was seen, as this information can be updated by other users. Social History Smoking Status: Current every day smoker alcohol intake: never current occupational status: employed Travel in the last 8 weeks?: None Have you lived/traveled outside US in past 30 days?: No Contact w/someone who lives/traveled outside US past 30 days?: No Exposure to someone with infectious disease in past 14 days?: No Do you have a fever (greater than 100.4 F or 38 C)?: No Have you tested positive for COVID-19?: No Exposed to someone with COVID-19 in past 14 days?: No Do you have a sore throat?: No Do you have a cough?: No Do you have any weakness?: No Do you have any diarrhea?: No Are you experiencing any unusual bleeding?: No Do you have any muscle aches/pain?: No Do you have any abdominal pain?: No Are you experiencing loss of taste or smell?: No ROS Obtained: Yes All systems reviewed & no additional complaints except as documented Physical Exam General General appearance: alert and in no apparent distress Respiratory Respiratory exam: Present other (Oxygen saturations 88% on room air put on 3 L nasal cannula with oxygen saturations of 95 he has right basilar crackles no significant respiratory distress at the moment.) Cardiovascular Cardiovascular exam: Present tachycardia (Heart rate 140 regular) Neurological Exam Neurological exam: Present alert and oriented X3 Medical Decision Making Medical Records Screening: Per USPSTF and CDC recommendations, given the prevalence of disease in our region, it is our hospital?s policy to screen for HIV and viral Hepatitis for all patients aged 18 and over and those with ongoing risk factors. Olvin Inquiry Pt receiving controlled substance: No Vital Signs: 11/01/24 16:31 11/01/24 16:40 11/01/24 16:50 Temperature 97.7 F Temperature Source Oral Pulse Rate 129 H 132 H Pulse Rate [Radial] 133 H Respiratory Rate 22 35 H 38 H Blood Pressure 164/97 H 132/79 Blood Pressure [Right Arm] 145/91 H Blood Pressure Mean [Right Arm] 109 Blood Pressure Source [Right Arm] Automatic Cuff Blood Pressure Position [Right Arm] Sitting 02 Sat by Pulse Oximetry 89 L 94 L 94 L Oxygen Delivery Method Room Air 11/01/24 17:00 11/01/24 17:11 11/01/24 17:30 Temperature Temperature Source Pulse Rate 129 H 131 H Pulse Rate [Radial] Respiratory Rate 35 H 15 31 H Blood Pressure 134/82 128/72 144/82 H Blood Pressure [Right Arm] Blood Pressure Mean [Right Arm] Blood Pressure Source [Right Arm] Blood Pressure Position [Right Arm] 02 Sat by Pulse Oximetry 95 92 L Oxygen Delivery Method Lab Data Lab results reviewed: Yes I reviewed the patient's lab results. Lab Results 11/01/24 16:48: WBC 8.7 D, RBC 4.35 L, Hgb 14.0 L, Hct 40.5 L, MCV 93.1, MCH 32.2 H, MCHC 34.6, RDW 12.6, Plt Count 269, MPV 10.2, Neut % (Auto) 72.3, Lymph % (Auto) 18.1, [place] % (Auto) 5.0, Eos % (Auto) 1.7, Baso % (Auto) 1.0, Neut # (Auto) 6.3, Lymph # (Auto) 1.6, [place] # (Auto) 0.4, Eos # (Auto) 0.2, Baso # (Auto) 0.1, Sodium 139, Potassium 4.0, Chloride 107, Carbon Dioxide 24, Anion Gap 12.0, BUN 15, Creatinine 0.90, Estimated Creat Clear 132, Estimated GFR 89, Est GFR ( Amer) 107, Glucose 97, Calcium 9.5, Total Bilirubin 0.4, AST 31, ALT 21 D, Alkaline Phosphatase 67, Troponin I < 0.01, Total Protein 7.4, Albumin 3.5, Globulin 3.9 H, Albumin/Globulin Ratio 0.9 L 11/01/24 16:48 11/01/24 16:48 Orders (Tests/Meds): ED MEDICATIONS Generic Name Dose Route Start Last Admin Trade Name Freq PRN Reason Stop Dose Admin Lactated Ringer's 2,400 mls @ 1,200 mls/hr 11/01/24 16:40 11/01/24 17:02 Lactated Ringer's 1000 Ml Bag 30 ml/kg infuse over 2 hr (2400 ml) 11/01/24 18:39 1,200 mls/hr IV Administration .Q2H ONE Ceftriaxone Sodium 2 gm/ 100 mls @ 200 mls/hr 11/01/24 16:45 Sodium Chloride IV 11/11/24 16:44 Q24H RAFAEL Ondansetron HCl 4 mg 11/01/24 18:26 Ondansetron 4mg/2ml Vial IV 11/01/24 18:27 ONCE ONE Discontinued Medications Generic Name Dose Route Start Last Admin Trade Name Freq PRN Reason Stop Dose Admin Albuterol/Ipratropium 3 ml 11/01/24 16:47 11/01/24 17:02 Ipratropium/Albuterol 3 Ml Neb IH 11/01/24 16:48 3 ml ONCE ONE Administration Azithromycin 500 mg/ Sodium 250 mls @ 250 mls/hr 11/01/24 16:40 11/01/24 17:39 Chloride IV 11/01/24 16:41 250 mls/hr ONCE ONE Administration Ketorolac Tromethamine 15 mg 11/01/24 17:05 11/01/24 17:38 Ketorolac 30mg/Ml Vial IV 11/01/24 17:06 15 mg ONCE ONE Administration ORDERS Category Date Time Status CXR --portable [XR chest portable] Stat Exams 11/01/24 16:40 Completed CBC w/Auto Diff [Complete Blood Count Auto Diff] Stat Lab 11/01/24 16:48 Completed CMP [Comprehensive Metabolic Panel] Stat Lab 11/01/24 16:48 Completed Lactic Acid Stat Lab 11/01/24 16:41 Ordered Trop I [Troponin I] Stat Lab 11/01/24 16:48 Completed Troponin I Q3H Lab 11/01/24 19:45 Ordered Troponin I Q3H Lab 11/01/24 22:45 Ordered Blood Culture Stat Micro 11/01/24 17:18 Received Medical Decision Narrative: Patient is a 53-year-old male presenting today with positive blood cultures from yesterday showing strep pneumonia and bacteremia. Patient has a known right lower lobe consolidation now has hypoxic respiratory failure and tachycardia. Patient meets multiple SIRS criteria with endorgan damage this is consistent with severe sepsis. MAP is above 65 at the moment we will obtain a lactic acid as well. 30 cc/kg fluid bolus has been ordered and initiated. Patient will be started on 2 g of IV Rocephin in addition I will give azithromycin to cover for other organisms but most likely will just need Rocephin in the near future. Patient is agreeable to be admitted. [facility] but does not want to go to the [facility] therefore we will have him sign a waiver and will try to admit him here to [facility]. Reassessment 629 patient remained stable however heart rate is 131 is still mildly tachypneic maps above 65 chest x-ray shows worsening consolidation in comparison with eligibility analyst film from CT yesterday. I did discuss the case with Dr. Pressley with [facility] who agreed to admit the patient for further evaluation and management. Critical Care Critical Care Time Critical Care Time: Yes Attestation: On 11/01/24, the high probability of a clinically significant, sudden or life threatening deterioration of the following system(s) required my full and direct attention, intervention and personal management. The time I documented below is in addition to time spent performing reported procedures but includes the following listed in this critical care notation. Total Time Total Critical Care Time: 35
[2024-11-01 16:59] LABS: Eosinophils # 0.2 Kmm3 (0.0-0.4); Eosinophils % 1.7 % (0.1-12.0); Hematocrit 40.5 % (42.0-52.0); Lymphocytes # 1.6 K/mm3 (0.7-4.5); Lymphocytes % 18.1 % (10-50); Mean Corpuscular HGB Conc 34.6 g/dL (31.8-35.4); Mean Corpuscular Hemoglobin 32.2 pg (27.0-31.2); Mean Corpuscular Volume 93.1 fl (80-94); Mean Platelet Volume 10.2 fl (7.4-10.4); Monocytes # 0.4 K/mm3 (0.1-1.0); Neutrophils # 6.3 K/mm3 (1.8-7.8); Neutrophils % 72.3 % (37.0-80.0); Nucleated Red Blood Cells % 0.5 %; Platelet Count 269 K/mm3 (142-424); Red Blood Count 4.35 M/mm3 (4.60-6.20); Red Cell Distribution Width 12.6 % (11.5-17.5); Red Cell Distribution Width-SD 43.2 fL; White Blood Count 8.7 K/mm3 (4.8-10.8)
[2024-11-01 17:00] LABS: Basophils # 0.1 K/mm3 (0-0.2); Nucleated Red Blood Cells # 0.04 10^3/uL
[2024-11-01] MEDS: IPRATROPIUM/ALBUTEROL 3 ML NEB IH (17:02)
[2024-11-01] MEDS: LACTATED RINGERS 1000ML 2,400 ML 1200 ML IV (17:02)
[2024-11-01 17:03] LABS: Albumin Level 3.5 g/dl (3.5-5.0); Chloride 107 mmol/L (98-107); Sodium 139 mmol/L (136-145)
[2024-11-01 17:06] LABS: Alanine Aminotransferase 21 U/L (12-78); Albumin/Globulin Ratio 0.9 (1.1-1.8); Alkaline Phosphatase 67 U/L (38-126); Aspartate Amino Transferase 31 U/L (17-59); Bilirubin,Total 0.4 mg/dl (0.2-1.3); Blood Urea Nitrogen 15 mg/dl (9-20); Carbon Dioxide 24 mmol/L (22.0-30.0); Creatinine Clearance Estimated 132 mL/min (50-200); Estimated Glomerular Filt Rate 89 ml/min (>60); GFR (African American) 107 ML/MIN (>60); Globulin 3.9 g/dL (1.3-3.2); Total Protein,Serum 7.4 g/dl (6.3-8.2)
[2024-11-01 17:07] LABS: Calcium 9.5 mg/dl (8.4-10.2); Glucose 97 mg/dl (74-100)
[2024-11-01 17:23] LABS: Troponin I < 0.01 ng/ml (0.00-0.034)
[2024-11-01] MEDS: KETOROLAC 30MG/ML VIAL 15 MG IV (17:38)
[2024-11-01] MEDS: AZITHROMYCIN 500 MG in 0.9 % SODIUM CHLORIDE 250 ML 250 MG IV (17:39)
--- NOTE | 2024-11-01 18:28 | P.HP_ITS ---
[facility] Disclaimer: The information contained in this section may have been updated after the patient was seen, as this information can be updated by other users. Social History Smoking Status: Current every day smoker alcohol intake: never current occupational status: employed Travel in the last 8 weeks?: None Have you lived/traveled outside US in past 30 days?: No Contact w/someone who lives/traveled outside US past 30 days?: No Exposure to someone with infectious disease in past 14 days?: No Do you have a fever (greater than 100.4 F or 38 C)?: No Have you tested positive for COVID-19?: No Exposed to someone with COVID-19 in past 14 days?: No Do you have a sore throat?: No Do you have a cough?: No Do you have any weakness?: No Do you have any diarrhea?: No Are you experiencing any unusual bleeding?: No Do you have any muscle aches/pain?: No Do you have any abdominal pain?: No Are you experiencing loss of taste or smell?: No Meds Home Medications and Allergies Home Medications ?Medication ?Instructions ?Recorded ?Confirmed ?Type metoprolol succinate 25 mg 25 mg PO DAILY 30 days #30 tabs 11/13/23 07/01/24 Rx tablet,extended release 24 hr ondansetron 4 mg disintegrating 4 mg PO Q6HP PRN nausea and 12/17/23 07/01/24 History tablet vomiting amlodipine 5 mg tablet 5 mg PO DAILY 07/01/24 07/01/24 History albuterol sulfate 90 mcg/actuation 2 inh inhalation Q4H PRN shortness 10/31/24 Rx aerosol inhaler of breath or wheezing #8.5 grams doxycycline hyclate 100 mg capsule 100 mg PO BID 7 days #14 caps 10/31/24 Rx levofloxacin 750 mg tablet 750 mg PO DAILY 7 days #7 tabs 10/31/24 Rx New Prescriptions to Start Prescriptions: Allergies Allergy/AdvReac Type Severity Reaction Status Date / Time Penicillins Allergy Verified 10/03/23 08:49 Exam Data for Last 24 hours Vital signs and Labs for Last 24 Hours: Temp Pulse Resp BP Pulse Ox O2 Del Method 97.7 F 131 H 31 H 144/82 H 92 L Room Air 11/01/24 16:31 11/01/24 17:30 11/01/24 17:30 11/01/24 17:30 11/01/24 17:30 11/01/24 16:31 Laboratory Results - last 24 hr 11/01/24 16:48: WBC 8.7 D, RBC 4.35 L, Hgb 14.0 L, Hct 40.5 L, MCV 93.1, MCH 32.2 H, MCHC 34.6, RDW 12.6, Plt Count 269, MPV 10.2, Neut % (Auto) 72.3, Lymph % (Auto) 18.1, [place] % (Auto) 5.0, Eos % (Auto) 1.7, Baso % (Auto) 1.0, Neut # (Auto) 6.3, Lymph # (Auto) 1.6, [place] # (Auto) 0.4, Eos # (Auto) 0.2, Baso # (Auto) 0.1, Sodium 139, Potassium 4.0, Chloride 107, Carbon Dioxide 24, Anion Gap 12.0, BUN 15, Creatinine 0.90, Estimated Creat Clear 132, Estimated GFR 89, Est GFR ( Amer) 107, Glucose 97, Calcium 9.5, Total Bilirubin 0.4, AST 31, ALT 21 D, Alkaline Phosphatase 67, Troponin I < 0.01, Total Protein 7.4, Albumin 3.5, Globulin 3.9 H, Albumin/Globulin Ratio 0.9 L I & O for Last 24 hours: Intake & Output 10/29/24 10/30/24 10/31/24 11/01/24 23:59 23:59 23:59 23:59 Weight 97.522 kg
--- NOTE | 2024-11-01 18:29 | PC.NURSE ---
called house for bed, Dr Pressley admitted.
[2024-11-01] MEDS: ONDANSETRON 4MG/2ML VIAL 4 MG IV (18:31)
[2024-11-01 19:09] LABS: Lactic Acid 2.1 mmol/L (0.7-2.1)
--- NOTE | 2024-11-01 19:36 | PC.NURSE ---
Report called to debbie; Rocephin not started because it is not verified by pharmacy and LR bolus is infusing
[2024-11-01 20:05] LABS: Troponin I < 0.01 ng/ml (0.00-0.034)
--- NOTE | 2024-11-01 20:34 | P.HP_ITS ---
<Statement entered by Will Pressley MD - 11/02/24 08:07> Rounded on patient after nurse practitioner. Personally examined and interviewed patient. Agree with exam findings and care plan as documented. History of Present Illness *Admission Date: 11/01/24 *Reason for visit:: Shortness of breath *History of present illness: This is a 53-year-old male with past medical history of hypertension, heart palpitations, alcoholism who presents to the emergency department today with cough and congestion. Patient reports feeling ill with bodyaches, chills, malaise on Monday. Developed cough with productive sputum. Presented to the emergency department yesterday with similar symptoms but was discharged home with outpatient antibiotics. He was called by the hospital today for positive blood cultures for Streptococcus pneumonaie. He reports over the course the last 24 hours feeling worse with a worsening cough. He was noted to be tachycardic on arrival with heart rate in the 120s. Mildly hypoxic requiring 2 L nasal cannula. Labs stable. Respiratory pathogen panel positive for rhinovirus. Chest x-ray with opacity in the right base. Given the above-mentioned findings he will be admitted to the hospitalist service [facility] Disclaimer: The information contained in this section may have been updated after the patient was seen, as this information can be updated by other users. Social History Smoking Status: Current every day smoker alcohol intake: never current occupational status: employed Travel in the last 8 weeks?: None Have you lived/traveled outside US in past 30 days?: No Contact w/someone who lives/traveled outside US past 30 days?: No Exposure to someone with infectious disease in past 14 days?: No Do you have a fever (greater than 100.4 F or 38 C)?: No Have you tested positive for COVID-19?: No Exposed to someone with COVID-19 in past 14 days?: No Do you have a sore throat?: No Do you have a cough?: No Do you have any weakness?: No Do you have any diarrhea?: No Are you experiencing any unusual bleeding?: No Do you have any muscle aches/pain?: No Do you have any abdominal pain?: No Are you experiencing loss of taste or smell?: No Other Medical History Have you received the Flu Vaccine for this season: No Have you received the Pneumonia Vaccine: No Review of Systems Review of Systems Review of systems:: pertinent systems reviewed and negative unless documented below Review of systems (narrative): Negative except for HPI Meds Home Medications and Allergies Home Medications ?Medication ?Instructions ?Recorded ?Confirmed ?Type metoprolol succinate 25 mg 25 mg PO DAILY 30 days #30 tabs 11/13/23 11/01/24 Rx tablet,extended release 24 hr amlodipine 5 mg tablet 5 mg PO DAILY 07/01/24 11/01/24 History pantoprazole 20 mg tablet,delayed 20 mg PO DAILY 11/01/24 11/01/24 History release New Prescriptions to Start Prescriptions: Allergies Allergy/AdvReac Type Severity Reaction Status Date / Time Penicillins Allergy Verified 10/03/23 08:49 Exam Data for Last 24 hours Vital signs and Labs for Last 24 Hours: Temp Pulse Resp BP Pulse Ox O2 Del Method O2 Flow Rate 98.5 F 99 H 16 140/83 93 L Nasal Cannula 2 11/01/24 19:55 11/01/24 19:55 11/01/24 19:55 11/01/24 19:55 11/01/24 19:55 11/01/24 19:55 11/01/24 19:55 Laboratory Results - last 24 hr 11/01/24 16:48: WBC 8.7 D, RBC 4.35 L, Hgb 14.0 L, Hct 40.5 L, MCV 93.1, MCH 32.2 H, MCHC 34.6, RDW 12.6, Plt Count 269, MPV 10.2, Neut % (Auto) 72.3, Lymph % (Auto) 18.1, [place] % (Auto) 5.0, Eos % (Auto) 1.7, Baso % (Auto) 1.0, Neut # (Auto) 6.3, Lymph # (Auto) 1.6, [place] # (Auto) 0.4, Eos # (Auto) 0.2, Baso # (Auto) 0.1, Sodium 139, Potassium 4.0, Chloride 107, Carbon Dioxide 24, Anion Gap 12.0, BUN 15, Creatinine 0.90, Estimated Creat Clear 132, Estimated GFR 89, Est GFR ( Amer) 107, Glucose 97, Calcium 9.5, Total Bilirubin 0.4, AST 31, ALT 21 D, Alkaline Phosphatase 67, Troponin I < 0.01, Total Protein 7.4, Albumin 3.5, Globulin 3.9 H, Albumin/Globulin Ratio 0.9 L 11/01/24 18:38: Lactate 2.1 11/01/24 19:30: Troponin I < 0.01 I & O for Last 24 hours: Intake & Output 10/29/24 10/30/24 10/31/24 11/01/24 23:59 23:59 23:59 23:59 Weight 97.522 kg Constitutional Constitutional: no acute distress *Routine HEENT Exam Head: Present normocephalic Eye: Present EOMI and PERRL ENT: Present mucous membranes moist *Routine Neck Exam Neck: Present supple; Absent lymphadenopathy *Routine Respiratory Exam Respiratory: Present wheezes, crackles and normal respiratory effort *Routine Cardiovascular Exam Cardiovascular: Present RRR *Routine Abdominal Exam Abdominal: Present soft and normoactive bowel sounds; Absent tenderness *Routine Rectal Exam Rectal:: deferred *Routine Genitalia Exam Genitalia:: deferred *Routine Extremities Exam Extremities: Absent cyanosis, clubbing or edema *Routine Skin Exam Skin: Present warm; Absent rash *Routine Neurological Exam Neurological: Present alert and oriented X3 Assessment and Plan *Assessment and plan (1) Hypoxic respiratory failure: Status: Acute Qualifiers: Chronicity: acute Qualified Code(s): J96.01 - Acute respiratory failure with hypoxia Category: Medical Code(s): J96.91 - Respiratory failure, unspecified with hypoxia (2) Bacteremia due to Streptococcus pneumoniae: Status: Acute Category: Medical Code(s): R78.81 - Bacteremia; B95.3 - Streptococcus pneumoniae as the cause of diseases classified elsewhere (3) RLL pneumonia: Status: Acute Category: Medical Code(s): J18.9 - Pneumonia, unspecified organism (4) Acute viral syndrome: Status: Acute Category: Medical Code(s): B34.9 - Viral infection, unspecified (5) Hypertension: Status: Acute Category: Medical Code(s): I10 - Essential (primary) hypertension Plan #Acute respiratory failure with hypoxia Initially tachypneic and hypoxic requiring 2 L nasal cannula. Respiratory status improved after presentation Right lower lobe pneumonia noted on the chest imaging Continue pulmonary toilet Continue antibiotic therapy Wean oxygen as tolerated for O2 sat of 93% #Sepsis Meets Criteria for tachycardia, tachypnea and pneumonia noted on imaging Received 30ml/kg fluid administration Lactic acid negative qSofa score 0 Continue broad spectrum abx with azithromycin and Rocephin Blood cultures with streptococcal pneumonaie, follow up sensitivities Monitor inflammatory markers #Right lower lobe pneumonia PSI/port score of 3 Continue antibiotic treatment and pulmonary toilet #Bacteremia Blood cultures positive for streptococcal pneumonaie Continue broad-spectrum antibiotic treatment with azithromycin and Rocephin Follow-up sensitivities and tailor antibiotics accordingly #Acute viral syndrome Bacterial pneumonia likely secondary to rhinovirus Continue supportive care #Hypertension Continue metoprolol and amlodipine #Chronic alcoholism Patient reports 2-4 beers per day. Does not have recent history of withdrawal syndrome. States that he has been through withdrawals before but it was many years ago. Denies any daily tremors
[2024-11-01] MEDS: PANTOPRAZOLE 40MG TABLET 40 MG PO (21:00)
[2024-11-01] MEDS: guaiFENesin 600 MG TAB.ER.12H PO (21:00)
[2024-11-01] MEDS: CEFTRIAXONE SODIUM 2 GM in 0.9 % SODIUM CHLORIDE 100 ML IV (22:00)
[2024-11-01 22:41] LABS: Reflex Lactic Add Lactic Reflex
[2024-11-01 23:38] LABS: Lactic Acid Follow Up (RFLX 1) 1.4 mmol/L (0.7-2.1)
[2024-11-01 23:52] LABS: Troponin I < 0.01 ng/ml (0.00-0.034)
--- NOTE | 2024-11-01 23:55 | EXP.SEPSISRE ---
[facility] Tissue Perfusion Eval Sepsis Re-Evaluation Performed: Yes Date Performed: 11/01/24 Time Performed: 23:55
[2024-11-02] VITALS: BP 133/75; PULSE 131; RESP 14; TEMP 37.4; O2SAT 86
[2024-11-02] MEDS: ACETAMINOPHEN 325MG TAB 650 MG PO ×2 (02:54→08:37)
[2024-11-02] MEDS: KETOROLAC 30MG/ML VIAL 15 MG IM (02:59)
--- NOTE | 2024-11-02 03:01 | PC.NURSE ---
Addendum entered by Qi Damon RN 11/02/24 03:02: give medication IV 15mg. Medication verified with [facility]. Original Note: Provider notified of IM order for toradol, Provider stated to give medicaton
--- NOTE | 2024-11-02 03:52 | PC.NURSE ---
New Admit. V/s, ox4. Pt was RA majority of shift once he came to the floor, then had a coughing fit and required 2LNC. Pt c/o pain. Provider notified. See MAR for new orders. Pt tolerated IV ABX. Plan of care ongoing.
[2024-11-02 05:02] VITALS: BMI 28.5
[2024-11-02 08:00] VITALS: BP 151/99; PULSE 124; RESP 20; TEMP 37.2; O2SAT 91
[2024-11-02 08:01] LABS: Basophils # 0.1 K/mm3 (0-0.2); Basophils % 1.1 % (0.1-2.0); Eosinophils # 0.2 Kmm3 (0.0-0.4); Eosinophils % 2.8 % (0.1-12.0); Lymphocytes # 1.9 K/mm3 (0.7-4.5); Lymphocytes % 22.6 % (10-50); Mean Corpuscular HGB Conc 34.2 g/dL (31.8-35.4); Mean Corpuscular Hemoglobin 31.6 pg (27.0-31.2); Mean Corpuscular Volume 92.2 fl (80-94); Mean Platelet Volume 10.3 fl (7.4-10.4); Monocytes # 0.7 K/mm3 (0.1-1.0); Monocytes % 8.5 % (1.7-9.3); Neutrophils # 5.1 K/mm3 (1.8-7.8); Neutrophils % 61.4 % (37.0-80.0); Nucleated Red Blood Cells # 0.02 10^3/uL; Nucleated Red Blood Cells % 0.2 %; Platelet Count 255 K/mm3 (142-424); Red Blood Count 4.12 M/mm3 (4.60-6.20); Red Cell Distribution Width-SD 43.8 fL; White Blood Count 8.2 K/mm3 (4.8-10.8)
[2024-11-02 08:25] LABS: Chloride 106 mmol/L (98-107); Sodium 136 mmol/L (136-145)
[2024-11-02 08:26] LABS: Potassium 3.2 mmoL/L (3.5-5.1)
[2024-11-02 08:28] LABS: Alanine Aminotransferase 17 U/L (12-78); Anion Gap 8.2 mEq/L (5-15); Aspartate Amino Transferase 26 U/L (17-59); Blood Urea Nitrogen 18 mg/dl (9-20); Carbon Dioxide 25 mmol/L (22.0-30.0); Creatinine Clearance Estimated 133 mL/min (50-200); Estimated Glomerular Filt Rate 89 ml/min (>60); GFR (African American) 107 ML/MIN (>60)
[2024-11-02 08:29] LABS: Albumin/Globulin Ratio 0.9 (1.1-1.8); Alkaline Phosphatase 70 U/L (38-126); Bilirubin,Total 0.2 mg/dl (0.2-1.3); Calcium 8.5 mg/dl (8.4-10.2); Globulin 3.4 g/dL (1.3-3.2); Glucose 89 mg/dl (74-100); Magnesium 1.8 mg/dl (1.6-2.3); Total Protein,Serum 6.4 g/dl (6.3-8.2)
[2024-11-02] MEDS: guaiFENesin 600 MG TAB.ER.12H PO ×2 (08:33→21:35)
--- NOTE | 2024-11-02 10:57 | P.CONPHA_ITS ---
Pharmacy Intervention Comments: MEDICATION RECONCILIATION COMPLETED ON PATIENT BY CALLING [facility] FOR HOME MEDS LIST. -MONICA SYD
--- NOTE | 2024-11-02 10:57 | HMH.PHAINT1 ---
Pharmacy Intervention Comments: MEDICATION RECONCILIATION COMPLETED ON PATIENT BY CALLING [facility] FOR HOME MEDS LIST. -MONICA SYD
[2024-11-02] MEDS: KETOROLAC 30MG/ML VIAL 30 MG IV ×3 (11:49→23:39)
[2024-11-02 12:00] VITALS: BP 156/89; PULSE 122; RESP 22; TEMP 37.2; O2SAT 90
--- NOTE | 2024-11-02 12:40 | EXP.ACUTE.PN ---
Subjective *Date: 11/02/24 *Time: 15:13 Interval history: Feeling a little better this morning. Still on 2 morning rounds. Coughing up purulent sputum. Having pain in right side from coughing. Afebrile but having chills and sweats. Denies nausea or vomiting. Alert and oriented x 3 Medical Exam Vital signs and Labs for Last 24 Hours: Vital Signs Temp Pulse Pulse Resp BP BP Pulse Ox 11/02/24 09:51 11/02/24 08:40 11/02/24 08:00 11/02/24 08:00 99.0 F 124 H 20 151/99 H 91 L 11/02/24 06:07 11/02/24 05:00 11/02/24 03:00 11/02/24 00:09 11/02/24 00:00 99.3 F 131 H 14 133/75 86 L 11/01/24 23:00 11/01/24 21:00 11/01/24 19:55 98.5 F 99 H 16 140/83 93 L 11/01/24 19:33 98.1 F 134 H 20 144/89 H 11/01/24 19:10 134 H 20 144/89 H 94 L 11/01/24 19:01 132 H 21 141/79 H 93 L 11/01/24 18:51 11/01/24 17:30 131 H 31 H 144/82 H 92 L 11/01/24 17:11 15 128/72 11/01/24 17:00 129 H 35 H 134/82 95 11/01/24 16:50 132 H 38 H 132/79 94 L 11/01/24 16:40 129 H 35 H 164/97 H 94 L 11/01/24 16:31 97.7 F 133 H 22 145/91 H 89 L O2 Del Method O2 Flow Rate 11/02/24 09:51 Nasal Cannula 2 11/02/24 08:40 Nasal Cannula 2 11/02/24 08:00 Nasal Cannula 2 11/02/24 08:00 Nasal Cannula 2 11/02/24 06:07 Nasal Cannula 2 11/02/24 05:00 Nasal Cannula 2 11/02/24 03:00 Nasal Cannula 2 11/02/24 00:09 Room Air 11/02/24 00:00 Room Air 2 11/01/24 23:00 Room Air 11/01/24 21:00 Room Air 11/01/24 19:55 Nasal Cannula 2 11/01/24 19:33 Nasal Cannula 2 11/01/24 19:10 11/01/24 19:01 11/01/24 18:51 Nasal Cannula 2 11/01/24 17:30 11/01/24 17:11 11/01/24 17:00 11/01/24 16:50 11/01/24 16:40 11/01/24 16:31 Room Air Intake and Output 11/01/24 11/02/24 11/02/24 23:59 07:59 15:59 Intake Total 480 / 720 240 / 720 Output Total 0 / 0 0 / 0 Balance 0 / 480 480 / 720 240 / 720 Intake: Intake, Oral Amount 480 / 720 240 / 720 Output: Output, Urine Amount 0 / 0 0 / 0 Other: Number of Unmeasured Voids 0 1 Weight 97.522 kg 97.795 kg Patient Weight 11/02/24 23:59 Weight 97.795 kg Laboratory Results - last 24 hr 11/01/24 16:48: WBC 8.7 D, RBC 4.35 L, Hgb 14.0 L, Hct 40.5 L, MCV 93.1, MCH 32.2 H, MCHC 34.6, RDW 12.6, Plt Count 269, MPV 10.2, Neut % (Auto) 72.3, Lymph % (Auto) 18.1, Edwards % (Auto) 5.0, Eos % (Auto) 1.7, Baso % (Auto) 1.0, Neut # (Auto) 6.3, Lymph # (Auto) 1.6, Edwards # (Auto) 0.4, Eos # (Auto) 0.2, Baso # (Auto) 0.1, Sodium 139, Potassium 4.0, Chloride 107, Carbon Dioxide 24, Anion Gap 12.0, BUN 15, Creatinine 0.90, Estimated Creat Clear 132, Estimated GFR 89, Est GFR ( Amer) 107, Glucose 97, Calcium 9.5, Total Bilirubin 0.4, AST 31, ALT 21 D, Alkaline Phosphatase 67, Troponin I < 0.01, Total Protein 7.4, Albumin 3.5, Globulin 3.9 H, Albumin/Globulin Ratio 0.9 L 11/01/24 18:38: Lactate 2.1 11/01/24 19:30: Troponin I < 0.01 11/01/24 23:23: Lactate 1.4, Troponin I < 0.01 11/02/24 06:40: WBC 8.2, RBC 4.12 L, Hgb 13.0 L, Hct 38.0 L, MCV 92.2, MCH 31.6 H, MCHC 34.2, RDW 13.0, Plt Count 255, MPV 10.3, Neut % (Auto) 61.4, Lymph % (Auto) 22.6, Edwards % (Auto) 8.5, Eos % (Auto) 2.8, Baso % (Auto) 1.1, Neut # (Auto) 5.1, Lymph # (Auto) 1.9, Edwards # (Auto) 0.7, Eos # (Auto) 0.2, Baso # (Auto) 0.1, Sodium 136, Potassium 3.2 L, Chloride 106, Carbon Dioxide 25, Anion Gap 8.2, BUN 18, Creatinine 0.90, Estimated Creat Clear 133, Estimated GFR 89, Est GFR ( Amer) 107, Glucose 89, Calcium 8.5, Magnesium 1.8, Total Bilirubin 0.2, AST 26, ALT 17, Alkaline Phosphatase 70, Total Protein 6.4, Albumin 3.0 L D, Globulin 3.4 H, Albumin/Globulin Ratio 0.9 L I & O for Labs for Last 24 Hours: Intake & Output 10/30/24 10/31/24 11/01/24 11/02/24 23:59 23:59 23:59 23:59 Intake Total 720 / 720 Output Total 0 / 0 0 / 0 Balance 0 / 480 720 / 720 Weight 97.522 kg 97.795 kg Microbiology Reports for the Last 24 Hours: Microbiology 11/01/24 23:39 Sputum - Expectorated Sputum Gram Stain - Final Constitutional: Present mild distress, average body habitus and cooperative Head: Present atraumatic and normocephalic ENT: Present normal exam Respiratory: Present crackles (Right lower lung field) and normal respiratory effort; Absent respiratory distress, rhonchi or wheezes Cardiac: Present Regular Rhythm and Tachycardia GI: Present soft and normal bowel sounds; Absent distention or tenderness Extremities: Present normal inspection and full ROM Skin: Present intact; Absent erythema Neuro: Present Grossly Intact, alert, awake, oriented x 3 and moves all extremities Assessment and Plan *Assessment and plan (1) Hypoxic respiratory failure: Status: Acute Qualifiers: Chronicity: acute Qualified Code(s): J96.01 - Acute respiratory failure with hypoxia Category: Medical Code(s): J96.91 - Respiratory failure, unspecified with hypoxia (2) Bacteremia due to Streptococcus pneumoniae: Status: Acute Category: Medical Code(s): R78.81 - Bacteremia; B95.3 - Streptococcus pneumoniae as the cause of diseases classified elsewhere (3) RLL pneumonia: Status: Acute Category: Medical Code(s): J18.9 - Pneumonia, unspecified organism (4) Acute viral syndrome: Status: Acute Category: Medical Code(s): B34.9 - Viral infection, unspecified (5) Hypertension: Status: Acute Category: Medical Code(s): I10 - Essential (primary) hypertension Plan 53-year-old male who presented back to the ER after having positive blood cultures from his presentation the day before. Pneumonia worsening. Presenting with sepsis. Necessitating inpatient care. Problems addressed as follows: #Acute respiratory failure with hypoxia # Sepsis # Right lower lobe pneumoniae # Strep pneumonia bacteremia Initially tachypneic and hypoxic requiring 2 L nasal cannula. -Chest imaging per my review with right lower lobe pneumonia. Reviewed CT from previous visit to the ER, has significant dense consolidation right lower lobe. -Blood cultures positive for strep pneumoniae. Respiratory panel positive for rhinovirus -Continue broad-spectrum antibiotics Ceftriaxone 2 g daily, azithromycin 500 mg IV daily, Repeat blood cultures obtained -Tylenol for fever. Initiate Toradol 30 mg IV every 6 hours for pleuritic pain -White counts are presently normal at 8.2, hemoglobin 13. Kidney function normal with BUN 18, creatinine 0.9. Repeat CBC, CMP, -Wean oxygen as tolerated, goal sats greater 90%. Currently on 2 L - PSI/port score of 82, class III risk; in light of failure of outpatient therapy and bacteremia, necessitating inpatient care. #Hypertension: continue metoprolol and amlodipine #Chronic alcoholism Patient reports 2-4 beers per day. Does not have recent history of withdrawal syndrome. States that he has been through withdrawals before but it was many years ago. Denies any daily tremors Full code Regular diet
--- NOTE | 2024-11-02 14:16 | PC.NURSE ---
Aox4, up ad david, on droplet precautions, 20g R AC sl, on iv abx, Regular diet.
[2024-11-02] MEDS: AZITHROMYCIN 500 MG in 0.9 % SODIUM CHLORIDE 250 ML 250 MG IV (15:26)
[2024-11-02 16:00] VITALS: BP 128/83; PULSE 131; RESP 20; TEMP 37.2; O2SAT 91
[2024-11-02 20:00] VITALS: BP 165/87; PULSE 122; RESP 19; TEMP 37.1; O2SAT 93
[2024-11-02] MEDS: PANTOPRAZOLE 40MG TABLET 40 MG PO (21:35)
[2024-11-02] MEDS: CEFTRIAXONE SODIUM 2 GM in 0.9 % SODIUM CHLORIDE 100 ML IV (21:35)
--- NOTE | 2024-11-02 23:37 | PC.NURSE ---
provider stated she would change the order of melatonin from 11/03 to 11/02, stated to go ahead and give medication and she would change order, however the order still wont allow for scanning on 11/02. provider notified.
[2024-11-02 23:48] LABS: POC Glucose,Bedside 96 (70-110)
[2024-11-03] MEDS: ACETAMINOPHEN 325MG TAB 650 MG PO ×2 (03:43→08:20)
[2024-11-03] MEDS: ONDANSETRON 4MG/2ML VIAL 4 MG IV (03:43)
[2024-11-03] MEDS: MORPHINE 2MG/ML SYRINGE 1 MG IV (03:59)
[2024-11-03 04:00] VITALS: BP 155/88; PULSE 117; RESP 22; TEMP 36.9; O2SAT 94; BMI 28.5
--- NOTE | 2024-11-03 05:50 | PC.NURSE ---
Provider notified in middle of the night for increasing pain to pt's RLL, see MAR for new orders. v/s, ox4. Pt was RA at begining of shift and required 2LNC by 0300 for comfort due to pain in RLL. Plan of care ongoing.
[2024-11-03] MEDS: KETOROLAC 30MG/ML VIAL 30 MG IV ×2 (06:27→11:49)
[2024-11-03 07:43] VITALS: BP 140/82; PULSE 107; RESP 16; TEMP 36.7; O2SAT 90
[2024-11-03 07:58] LABS: Anion Gap 7.4 mEq/L (5-15); Blood Urea Nitrogen 14 mg/dl (9-20); Calcium 7.8 mg/dl (8.4-10.2); Carbon Dioxide 24 mmol/L (22.0-30.0); Chloride 108 mmol/L (98-107); Creatinine Clearance Estimated 199 mL/min (50-200); Estimated Glomerular Filt Rate 141 ml/min (>60); GFR (African American) 171 ML/MIN (>60); Glucose 105 mg/dl (74-100); Potassium 3.4 mmoL/L (3.5-5.1); Sodium 136 mmol/L (136-145)
[2024-11-03 08:00] LABS: Basophils # 0.1 K/mm3 (0-0.2); Basophils % 1.1 % (0.1-2.0); Eosinophils # 0.2 Kmm3 (0.0-0.4); Eosinophils % 2.7 % (0.1-12.0); Hematocrit 34.1 % (42.0-52.0); Hemoglobin 11.7 g/dL (14.1-18.0); Lymphocytes # 1.7 K/mm3 (0.7-4.5); Lymphocytes % 20.5 % (10-50); Mean Corpuscular HGB Conc 34.3 g/dL (31.8-35.4); Mean Corpuscular Hemoglobin 32.1 pg (27.0-31.2); Mean Corpuscular Volume 93.4 fl (80-94); Mean Platelet Volume 10.1 fl (7.4-10.4); Monocytes # 0.8 K/mm3 (0.1-1.0); Neutrophils # 5.2 K/mm3 (1.8-7.8); Nucleated Red Blood Cells # 0 10^3/uL; Nucleated Red Blood Cells % 0 %; Platelet Count 235 K/mm3 (142-424); Red Blood Count 3.65 M/mm3 (4.60-6.20); Red Cell Distribution Width 13.2 % (11.5-17.5); Red Cell Distribution Width-SD 45.2 fL; White Blood Count 8.4 K/mm3 (4.8-10.8)
[2024-11-03] MEDS: guaiFENesin 600 MG TAB.ER.12H PO (08:20)
[2024-11-03] MEDS: METOPROLOL SUCCINATE XL 50MG TABLET 50 MG PO (11:49)
[2024-11-03] MEDS: AMLODIPINE 5MG TABLET 5 MG PO (11:49)
[2024-11-03 12:00] VITALS: BP 138/79; PULSE 100; RESP 16; TEMP 36.7; O2SAT 93
--- NOTE | 2024-11-03 12:47 | P.DS_ITS ---
General Admission date:: 11/01/24 Discharge date: 11/03/24 HPI HPI HPI: This is a 53-year-old male with past medical history of hypertension, heart palpitations, alcoholism who presents to the emergency department today with cough and congestion. Patient reports feeling ill with bodyaches, chills, malaise on Monday. Developed cough with productive sputum. Presented to the emergency department yesterday with similar symptoms but was discharged home with outpatient antibiotics. He was called by the hospital today for positive blood cultures for Streptococcus pneumonaie. He reports over the course the l ast 24 hours feeling worse with a worsening cough. He was noted to be tachycardic on arrival with heart rate in the 120s. Mildly hypoxic requiring 2 L nasal cannula. Labs stable. Respiratory pathogen panel positive for rhinovirus. Chest x-ray with opacity in the right base. Given the above-mentioned findings [facility] Course Hospital Course Hospital Course: 53-year-old male who presented back to the ER after having positive blood cultures from his presentation the day before. Pneumonia worsening. Presenting with sepsis. Necessitating inpatient care. Failed outpatient therapy. Showed good response during admission. Able to wean from nasal cannula oxygen to room air. White count remained stable. Tolerating p.o. nutrition and medications. Will discharge home further management as an outpatient and close follow-up with PCP. Problems addressed as follows: #Acute respiratory failure with hypoxia # Sepsis # Right lower lobe pneumoniae # Strep pneumonia bacteremia - Initially tachypneic and hypoxic requiring 2 L nasal cannula. With pneumonia on chest x-ray and CT from the day before. Chest imaging per my review with right lower lobe pneumonia. Reviewed CT from previous visit to the ER, has significant dense consolidation right lower lobe. Blood cultures positive for strep pneumoniae. Respiratory panel positive for rhinovirus. Initiated on broad-spectrum antibiotics with ceftriaxone 2 g daily and azithromycin 500 mg da giles. Repeat blood cultures obtained. Repeat cultures were negative. Fever resolved. White count remained normal at 8.4 on day of discharge. Kidney function normal. Oxygenation improved and ability to wean off nasal cannula by day of discharge achieved. PSI/port score of 82, class III risk; in light of failure of outpatient therapy and bacteremia, necessitating inpatient care. Transitioned to levofloxacin and doxycycline with plan to complete 10-day course due to positive blood cultures. Meds were sent at time of discharge from the ER, states he did not pick them up. Prescription available at his pharmacy. Reordered just in case. Encouraged him to complete course for complete resolution of his infection. Will need monitoring with follow-up and possible repeat imaging to assess for resolution of infection. #Hypertension: continue metoprolol and amlodipine per home regimen. #Chronic alcoholism: Patient reports 2-4 beers per day. Does not have recent history of withdrawal syndrome. States that he has been through withdrawals before but it was many years ago. Denies any daily tremors. No signs of withdrawal during admission. Total time spent on discharge 32 minutes in counseling, documentation, chart review, and direct care with patient. Exam Data for Last 24 hours Vital signs and Labs for Last 24 Hours: Temp Pulse Resp BP Pulse Ox O2 Del Method O2 Flow Rate 98.1 F 107 H 16 140/82 90 L Room Air 2 11/03/24 07:43 11/03/24 07:43 11/03/24 07:43 11/03/24 07:43 11/03/24 07:43 11/03/24 12:02 11/03/24 06:35 FiO2 28 11/02/24 19:05 Laboratory Results - last 24 hr 11/02/24 23:34: POC Glucose 96 11/03/24 06:55: WBC 8.4, RBC 3.65 L, Hgb 11.7 L, Hct 34.1 L, MCV 93.4, MCH 32.1 H, MCHC 34.3, RDW 13.2, Plt Count 235, MPV 10.1, Neut % (Auto) 62.0, Lymph % (Auto) 20.5, [place]illingham % (Auto) 9.0, Eos % (Auto) 2.7, Baso % (Auto) 1.1, Neut # (Auto) 5.2, Lymph # (Auto) 1.7, [place]ham # (Auto) 0.8, Eos # (Auto) 0.2, Baso # (Auto) 0.1, Sodium 136, Potassium 3.4 L, Chloride 108 H, Carbon Dioxide 24, Anion Gap 7.4, BUN 14, Creatinine 0.60 L D, Estimated Creat Clear 199, Estimated GFR 141, Est GFR ( Amer) 171 D, Glucose 105 H, Calcium 7.8 L I & O for Last 24 hours: Intake & Output 10/31/24 11/01/24 11/02/24 11/03/24 23:59 23:59 23:59 23:59 Intake Total 1510 / 1750 240 / 240 Output Total 0 / 0 0 / 0 0 / 0 Balance 0 / 480 1510 / 1750 240 / 240 Weight 97.522 kg 97.795 kg 97.749 kg Microbiology Reports for the Last 24 Hours: Microbiology 11/01/24 23:39 Sputum - Expectorated Sputum Gram Stain - Final 11/01/24 23:39 Sputum - Expectorated Sputum Sputum Culture - Preliminary 11/01/24 17:18 Blood Blood Culture - Preliminary NO GROWTH AFTER 24 HOURS 11/01/24 17:04 Blood Blood Culture - Preliminary NO GROWTH AFTER 24 HOURS Constitutional Constitutional: no acute distress, average body habitus and cooperative *Routine HEENT Exam Head: Present normocephalic Eye: Present EOMI and PERRL ENT: Present mucous membranes moist *Routine Neck Exam Neck: Present supple; Absent lymphadenopathy *Routine Respiratory Exam Respiratory: Present crackles (Right lower lung field) and normal respiratory effort; Absent rhonchi or wheezes *Routine Cardiovascular Exam Cardiovascular: Present RRR *Routine Abdominal Exam Abdominal: Present soft and normoactive bowel sounds; Absent tenderness *Routine Rectal Exam Patient deferred: visual exam *Routine Exam Patient deferred: penile exam *Routine Extremities Exam Extremities: Absent cyanosis, clubbing or edema *Routine Skin Exam Skin: Present warm; Absent rash *Routine Neurological Exam Neurological: Present alert, oriented X3 and moving all extremities; Absent altered mental status Results Data Completed and Pending Labs on day of discharge: Labs from last 24 hours 11/03/24 11/02/24 06:55 23:34 WBC 8.4 RBC 3.65 L Hgb 11.7 L Hct 34.1 L MCV 93.4 MCH 32.1 H MCHC 34.3 RDW 13.2 Plt Count 235 MPV 10.1 Neut % (Auto) 62.0 Lymph % (Auto) 20.5 [place]illingham % (Auto) 9.0 Eos % (Auto) 2.7 Baso % (Auto) 1.1 Neut # (Auto) 5.2 Lymph # (Auto) 1.7 [place]illingham # (Auto) 0.8 Eos # (Auto) 0.2 Baso # (Auto) 0.1 Sodium 136 Potassium 3.4 L Chloride 108 H Carbon Dioxide 24 Anion Gap 7.4 BUN 14 Creatinine 0.60 L D Estimated Creat Clear 199 Estimated GFR 141 Est GFR ( Amer) 171 D Glucose 105 H POC Glucose 96 Calcium 7.8 L Preliminary micro results at discharge 11/01/24 23:39 Sputum Culture - Preliminary Sputum - Expectorated Sputum 11/01/24 17:18 Blood Culture - Preliminary Blood NO GROWTH AFTER 24 HOURS 11/01/24 17:04 Blood Culture - Preliminary Blood NO GROWTH AFTER 24 HOURS DS: Diagnosis Discharge Diagnosis (1) Hypoxic respiratory failure: Status: Acute Code(s): J96.91 - Respiratory failure, unspecified with hypoxia Qualifiers: Chronicity: acute Qualified Code(s): J96.01 - Acute respiratory failure with hypoxia (2) Bacteremia due to Streptococcus pneumoniae: Status: Acute Code(s): R78.81 - Bacteremia; B95.3 - Streptococcus pneumoniae as the cause of diseases classified elsewhere (3) RLL pneumonia: Status: Acute Code(s): J18.9 - Pneumonia, unspecified organism (4) Acute viral syndrome: Status: Acute Code(s): B34.9 - Viral infection, unspecified (5) Hypertension: Status: Acute Code(s): I10 - Essential (primary) hypertension Meds Home Medications and Allergies Home Medications ?Medication ?Instructions ?Recorded ?Confirmed ?Type amlodipine 5 mg tablet 5 mg PO DAILY 07/01/24 11/01/24 History metoprolol succinate 100 mg 50 mg PO DAILY 11/02/24 11/02/24 History tablet,extended release 24 hr pantoprazole 40 mg tablet,delayed 40 mg PO DAILY 11/02/24 11/02/24 History release doxycycline hyclate 100 mg tablet 100 mg PO BID 7 days #14 tabs 11/03/24 Rx levofloxacin 750 mg tablet 750 mg PO DAILY 7 days #7 tabs 11/03/24 Rx New Prescriptions to Start Prescriptions: doxycycline Will Aguillon levoWill Alarcon Allergies Allergy/AdvReac Type Severity Reaction Status Date / Time Penicillins Allergy Verified 10/03/23 08:49 Discharge Plan Disposition Patient Disposition: Home, Self-Care Condition: Fair Discharge Order Discharge Orders: Discharge Order (Routine); Ordered 11/03/24 Ordered By: Will Pressley Follow up Plan Follow up with: Raudel Osuna MD [Referring] - Enter time for follow up (Please call Monday for follow up appointment) Prescriptions/Medication Reconciliation: New levofloxacin 750 mg tablet 750 mg PO DAILY 7 Days Qty: 7 0RF Rx Instructions: already sent previously doxycycline hyclate 100 mg tablet 100 mg PO BID 7 Days Qty: 14 0RF Rx Instructions: already sent previously Continued amlodipine 5 mg Tablet 5 mg PO DAILY metoprolol succinate 100 mg Tablet Extended Release 24 Hr 50 mg PO DAILY pantoprazole 40 mg Tablet,Delayed Release (Dr/Ec) 40 mg PO DAILY Problem Reconciliation Problems Reviewed?: Yes Patient Discharge Instructions ACTIVITY: Continue current activity DIET: continue same diet Patient Instructions: DI for Pneumonia -- Adult, DI for Sepsis -- Adult, DI for Respiratory Failure, DI for Bacteremia-Adult, Stop Light Pneumonia Print Language: Mongolian Providers Primary Care Provider: Provider,Referral Admit Provider: Will Pressley Attending Provider: Will Pressley
[2024-11-03] MEDS: AZITHROMYCIN 500 MG in 0.9 % SODIUM CHLORIDE 250 ML 250 MG IV (13:10)
[2024-11-03] MEDS: CEFTRIAXONE SODIUM 2 GM in 0.9 % SODIUM CHLORIDE 100 ML IV (14:10)
--- NOTE | 2024-11-04 10:57 | SW/DCPLANNER ---
Spoke with patient on the phone. Patient stated that he is doing okay. Patient stated that he hasnt called to schedule an follow up appointment with his primary care provider. Patient stated that he was not able to get his new medicine but plans on getting them today. Patient stated that he has no concerns or questions at this time. Grabiel Bear
== END 2024-11-03 15:04 | disposition home or self-care (01) | DRG 871 ==
LOC: ER 16:37 → 2ND 19:35
PROVIDERS: Admitting Provider Internal Medicine Adolescent Medicine; Emergency Provider Student in an Organized Health Care Education/Training Program; Visit Provider Internal Medicine Adolescent Medicine
DX: A41.9 Sepsis, unspecified organism (principal); J18.9 Pneumonia, unspecified organism; J96.01 Acute respiratory failure with hypoxia; R65.20 Severe sepsis without septic shock; B95.3 Streptococcus pneumoniae as the cause of diseases classified elsewhere; I10 Essential (primary) hypertension; F17.210 Nicotine dependence, cigarettes, uncomplicated; B96.89 Other specified bacterial agents as the cause of diseases classified elsewhere; B34.8 Other viral infections of unspecified site; F10.90 Alcohol use, unspecified, uncomplicated; R00.2 Palpitations; R05.9 Cough, unspecified; R53.81 Other malaise; Z88.0 Allergy status to penicillin; Z79.899 Other long term (current) drug therapy
CPT/HCPCS: 36415; 71045; 80048; 80053; 82962; 83605; 83735; 84484; 85025; 87040; 87070; 87205; 93005; 99291; J0456; J0696; J1885; J2270; J2405; J7050; J7120; J7620

== ENCOUNTER 2025-01-28 16:02 | Observation (INO) | payer OTHER, SELFPAY ==
[2025-01-28] VITALS (20 sets, daily range): BP systolic 126–154; BP diastolic 79–106; PULSE 75–152; RESP 13–25; TEMP 36.6–36.7; O2SAT 90–96; BMI 25.9; BMI 26.1
--- NOTE | 2025-01-28 16:10 | CT_ITS ---
PROCEDURE INFORMATION: Exam: CTA Chest With Contrast Exam date and time: 01/28/2025 5:57 PM Age: 54 years old Clinical indication: Other: Nausea; Additional info: Nausea vomiting 20 pound weight loss TECHNIQUE: Imaging protocol: Computed tomographic angiography of the chest with contrast. Exam focused on the arteries. 3D rendering (Not supervised by radiologist): MIP and/or 3D reconstructed images were created by the technologist. Radiation optimization: All CT scans at this facility use at least one of these dose optimization techniques: automated exposure control; mA and/or kV adjustment per patient size (includes targeted exams where dose is matched to clinical indication); or iterative reconstruction. Contrast material: ISOVUE 370; Contrast volume: 75 ml; Contrast route: INTRAVENOUS (IV); COMPARISON: CT ANGIO CHEST PE PROTOCOL 10/31/2024 7:13 AM FINDINGS: Pulmonary arteries: No acute pulmonary embolus appreciated. Aorta: No thoracic aortic aneurysm or dissection. Impression Lungs: Unremarkable. No consolidation. No masses. Small left upper lobe calcified granuloma. Pleural spaces: No pleural effusion. Heart: Unremarkable. No cardiomegaly. No pericardial effusion. Lymph nodes: Unremarkable. No enlarged lymph nodes. Liver: Fatty infiltration of the liver. Bones/joints: Mildly displaced subacute posterolateral right 10th rib fracture. Soft tissues: Unremarkable. IMPRESSION: 1. No acute pulmonary embolus appreciated. 2. Mildly displaced subacute posterolateral right 10th rib fracture. 3. Fatty infiltration of the liver. 4. Other findings above. The right basilar pneumonia and right hilar adenopathy present on 10/31/2024 has resolved in the interval.
--- NOTE | 2025-01-28 16:11 | CT_ITS ---
PROCEDURE INFORMATION: Exam: CT Abdomen And Pelvis With Contrast Exam date and time: 01/28/2025 5:57 PM Age: 54 years old Clinical indication: Nausea and vomiting; Additional info: Nausea vomiting 20 pound weight loss TECHNIQUE: Imaging protocol: Computed tomography of the abdomen and pelvis with contrast. 3D rendering (Not supervised by radiologist): MIP and/or 3D reconstructed images were created by the technologist. Radiation optimization: All CT scans at this facility use at least one of these dose optimization techniques: automated exposure control; mA and/or kV adjustment per patient size (includes targeted exams where dose is matched to clinical indication); or iterative reconstruction. Contrast material: ISOVUE; Contrast volume: 75 ml; Contrast route: IV; COMPARISON: CT ANGIO CHEST PE PROTOCOL 10/31/2024 7:13 AM FINDINGS: Liver: Diffuse fatty infiltration of the liver. Gallbladder and biliary ducts: Mild nonspecific gallbladder wall enhancement. No gallstones, wall thickening or pericholecystic fluid. Pancreas: Normal. No ductal dilation. Spleen: Normal. No splenomegaly. Adrenal glands: Normal. No mass. Kidneys and ureters: Normal-size kidneys which are excreting contrast. 8 mm low-attenuation nodule within the lower pole of the left kidney that is homogeneous and probably represents a small cyst. No follow-up required. No hydronephrosis appreciated. Stomach and bowel: Probable small amount of dense ingested material within the dependent aspect of the gastric antrum. No gastric distension or wall thickening appreciated. Appendix: No evidence of appendicitis. Intraperitoneal space: No abnormality appreciated. Vasculature: [id number] atherosclerotic plaquing distal abdominal aorta with no aneurysm. Lymph nodes: Unremarkable. No enlarged lymph nodes. Urinary bladder: Unremarkable as visualized. Reproductive: A few prostate calcifications with no significant enlargement. Bones/joints: Mildly displaced subacute fracture of the posterolateral right 10th rib. Soft tissues: Small fat containing left inguinal hernia. Other findings: Other findings above. IMPRESSION: 1. No definite acute intra-abdominal or intrapelvic abnormality is appreciated. 2. Diffuse fatty infiltration of the liver. 3. Subacute mildly displaced fracture posterolateral right 10th rib. 4. Probable dense ingested material within the dependent gastric antrum. No definite gastric wall abnormality is seen in this location. If an abnormality of the stomach is suspected further evaluation of this area with endoscopy could be performed. 5. Other findings above. COMMENTS: Consistent with the [employer]'s Incidental Findings Committee white paper (J Galdino Halley [employer]iol 2018): Any incidental renal lesion less than 1 cm or classified as too small to characterize, or any incidental cystic renal lesion characterized as simple-appearing, is likely benign. No follow-up imaging is recommended for these lesions per consensus recommendations based on imaging criteria.
--- NOTE | 2025-01-28 16:23 | ED_ITS ---
Discharge Plan Disposition Patient Disposition: Admitted Condition: Good Clinical Impressions Clinical Impression: Tachycardia, Alcohol abuse, Excessive weight loss, Intractable nausea and vomiting Discharge ED Provider: Bruce Alanis General Adult HPI <LAKEISHA Allen - Last Filed: 01/28/25 21:44> General Chief complaint: Nausea/Vomiting/Diarrhea Stated complaint: N/V,camillekey.lost 20 pounds Time Seen by Provider: 01/28/25 16:23 History of Present Illness HPI narrative: Patient presents for evaluation of nausea vomiting for 2 weeks. Patient also reports that he has had a 20 pound weight in that same timeframe. Patient has a past medical history of hypertension GERD and alcohol abuse. Patient reports that he drinks 2-3 beers daily. His last drink was 3 days ago. He denies any chest pain shortness of breath fever chills hemoptysis hematochezia melena hematemesis hematuria dysuria diarrhea abdominal pain. He does report a dry intermittent cough. He is a pack-a-day smoker. Patient was admitted in October for a strep pneumonia right lower lobe pneumonia. Related Data Home Medications ?Medication ?Instructions ?Recorded ?Confirmed amlodipine 5 mg tablet 5 mg PO DAILY 07/01/2401/29 metoprolol succinate 100 mg 50 mg PO DAILY 11/02/24 tablet,extended release 24 hr pantoprazole 40 mg tablet,delayed 40 mg PO DAILY 11/0201/29/25 release Previous Rx's ?Medication ?Instructions ?Recorded cefdinir 300 mg capsule 300 mg PO BID 5 days #10 cap s 01/30/25 doxycycline hyclate 100 mg capsule 100 mg PO BID 5 day s #10 caps 01/30/25 folic acid 1 mg tablet 1 mg PO DAILY 30 days #30 ta bs 01/30/25 thiamine HCl (vitamin B1) 100 mg 100 mg PO DAILY 30 da ys #30 caps 01/30/25 capsule Allergies Allergy/AdvReac Type Severity Reaction Status Date / Time Penicillins Allergy Verified 10/03/23 08:49 PFSH <LAKEISHA Allen - Last Filed: 01/28/25 21:44> PFS Disclaimer: The information contained in this section may have been updated after the patient was seen, as this information can be updated by other users. Medical History (Updated 01/31/25 @ 07:16 by Bruce Alanis DO) Testicular cancer Surgical History (Updated 01/29/25 @ 02:41 by Stefany Puckett, RN) History of orchiectomy Social History (Updated 01/29/25 @ 00:38 by Stefany Puckett, RN) Smoking Status: Current every day smoker alcohol intake: never current occupational status: employed Travel in the last 8 weeks?: None Have you lived/traveled outside US in past 30 days?: No Contact w/someone who lives/traveled outside US past 30 days?: No Exposure to someone with infectious disease in past 14 days?: No Do you have a fever (greater than 100.4 F or 38 C)?: No Have you tested positive for COVID-19?: No Exposed to someone with COVID-19 in past 14 days?: No Do you have a sore throat?: No Do you have a cough?: No Do you have any weakness?: No Do you have any diarrhea?: No Are you experiencing any unusual bleeding?: No Do you have any muscle aches/pain?: No Do you have any abdominal pain?: No Are you experiencing loss of taste or smell?: No Other Medical History Have you received the Flu Vaccine for this season: No Have you received the Pneumonia Vaccine: No <LAKEISHA Allen - Last Filed: 01/28/25 21:44> ROS Obtained: Yes Systems reviewed as appropriate & no additional complaints except as documented Physical Exam <LAKEISHA Allen - Last Filed: 01/28/25 21:44> General General appearance: alert Respiratory Respiratory exam: Present normal lung sounds bilaterally Cardiovascular Cardiovascular exam: Present regular rate Neurological Exam Neurological exam: Present alert and oriented X3 Medical Decision Making <LAKEISHA Allen - Last Filed: 01/28/25 21:44> Medical Records Medical records reviewed: Yes I reviewed the patient's medical records. Screening: Per USPSTF and CDC recommendations, given the prevalence of disease in our region, it is our hospital?s policy to screen for HIV and viral Hepatitis for all patients aged 18 and over and those with ongoing risk factors. Olvin Inquiry Pt receiving controlled substance: No Vital Signs: 01/28/25 16:25 01/28/25 16:25 01/28/25 17:00 Temperature 97.8 F 97.8 F Temperature Source Oral Oral Pulse Rate 152 H 144 H Pulse Rate [Right] 152 H Respiratory Rate 20 20 19 Blood Pressure 150/91 H 145/106 H Blood Pressure [Right Arm] 150/91 H Blood Pressure Mean Blood Pressure Mean [Right Arm] 110 Blood Pressure Source Automatic Cuff Blood Pressure Position Supine 02 Sat by Pulse Oximetry 95 95 95 Oxygen Delivery Method Room Air Room Air Room Air 01/28/25 17:09 01/28/25 17:30 01/28/25 18:00 Temperature Temperature Source Pulse Rate 142 H 144 H Pulse Rate [Right] Respiratory Rate 20 22 Blood Pressure 151/97 H 129/90 Blood Pressure [Right Arm] Blood Pressure Mean Blood Pressure Mean [Right Arm] Blood Pressure Source Automatic Cuff Automatic Cuff Blood Pressure Position Supine Supine 02 Sat by Pulse Oximetry 94 L 94 L 95 Oxygen Delivery Method Room Air Room Air Room Air 01/28/25 18:21 01/28/25 19:00 01/28/25 19:30 Temperature Temperature Source Pulse Rate 144 H 149 H 135 H Pulse Rate [Right] Respiratory Rate 20 23 25 H Blood Pressure 141/95 H 137/89 138/88 Blood Pressure [Right Arm] Blood Pressure Mean Blood Pressure Mean [Right Arm] Blood Pressure Source Automatic Cuff Blood Pressure Position Supine 02 Sat by Pulse Oximetry 96 93 L 95 Oxygen Delivery Method Room Air 01/28/25 20:00 01/28/25 20:00 01/28/25 20:15 Temperature Temperature Source Pulse Rate 137 H 135 H Pulse Rate [Right] Respiratory Rate 13 15 Blood Pressure 147/100 H Blood Pressure [Right Arm] Blood Pressure Mean 110 Blood Pressure Mean [Right Arm] Blood Pressure Source Blood Pressure Position 02 Sat by Pulse Oximetry 95 92 L Oxygen Delivery Method 01/28/25 20:30 01/28/25 20:30 01/28/25 21:00 Temperature Temperature Source Pulse Rate 139 H 152 H Pulse Rate [Right] Respiratory Rate 21 18 Blood Pressure 142/84 H 154/89 H Blood Pressure [Right Arm] Blood Pressure Mean 103 Blood Pressure Mean [Right Arm] Blood Pressure Source Blood Pressure Position 02 Sat by Pulse Oximetry 94 L 93 L Oxygen Delivery Method 01/28/25 21:31 01/28/25 21:45 01/28/25 22:00 Temperature Temperature Source Pulse Rate 147 H 146 H 144 H Pulse Rate [Right] Respiratory Rate 17 21 17 Blood Pressure 126/85 Blood Pressure [Right Arm] Blood Pressure Mean Blood Pressure Mean [Right Arm] Blood Pressure Source Blood Pressure Position 02 Sat by Pulse Oximetry 90 L 92 L 92 L Oxygen Delivery Method 01/28/25 22:00 01/28/25 22:15 01/28/25 22:30 Temperature Temperature Source Pulse Rate 147 H 75 Pulse Rate [Right] Respiratory Rate 18 21 Blood Pressure 131/79 Blood Pressure [Right Arm] Blood Pressure Mean 87 Blood Pressure Mean [Right Arm] Blood Pressure Source Blood Pressure Position 02 Sat by Pulse Oximetry 95 91 L Oxygen Delivery Method 01/28/25 22:30 01/28/25 22:31 01/28/25 22:33 Temperature 97.8 F Temperature Source Oral Pulse Rate 145 H 145 H Pulse Rate [Right] Respiratory Rate 20 Blood Pressure 131/89 131/89 Blood Pressure [Right Arm] Blood Pressure Mean 97 Blood Pressure Mean [Right Arm] Blood Pressure Source Automatic Cuff Blood Pressure Position Sitting 02 Sat by Pulse Oximetry Oxygen Delivery Method Room Air Lab Data Lab results reviewed: Yes I reviewed the patient's lab results. Lab Results 01/28/25 16:30: WBC 6.4, RBC 5.35, Hgb 17.4, Hct 50.1, MCV 93.6, MCH 32.5 H, MCHC 34.7, RDW 14.3, Plt Count 206, MPV 9.4, Neut % (Auto) 74.4, Lymph % (Auto) 16.9, [place] % (Auto) 7.6, Eos % (Auto) 0.3, Baso % (Auto) 0.3, Neut # (Auto) 4.7, Lymph # (Auto) 1.1, [place] # (Auto) 0.5, Eos # (Auto) 0.0, Baso # (Auto) 0.0, PT 10.4, INR 0.93, Sodium 133 L, Potassium 3.9, Chloride 93 L, Carbon Dioxide 26, A nion Gap 17.9 H, BUN 10, Creatinine 0.90, Estimated Creat Clear 120, Estimated GFR 88, Est GFR ( Amer) 107, Glucose 125 H, Calcium 11.1 H, Magnesium 2.4 H, Total Bilirubin 0.9, AST 152 H, ALT 151 H, Alkaline Phosphatase 99, Troponin I 0.02, C-Reactive Protein 20.5 H, NT-Pro-B Natriuret Pep 389 H, Total Protein 10.2 H D, Albumin 4.4, Globulin 5.8 H, Albumin/Globulin Ratio 0.8 L, Lipase 137, Procalcitonin 6.57 H, TSH 2.24, Free T4 0.94, Acetone Level Small, Hepatitis A IgM Ab Negative, Hep Bs Antigen Negative, Hep B Core IgM Ab Negative, Hepatitis C Antibody Non reactive, HCV RNA PCR Test Info Comment 01/28/25 16:49: Chlamy pneumoniae PCR Not detected, Adenovirus (PCR) Not detected, B. pertussis DNA (PCR) Not detected, Coronavirus OC43 (PCR) Not detected, Coronavirus HKU1 (PCR) Not detected, Coronavirus 229E (PCR) Not detected, SARS-CoV-2 (PCR) Not detected, Coronavirus NL63 (PCR) Not detected, Human Metapneumovir PCR Not detected, Influenza A (H1) PCR Not detected, Influ A (H1N1/09) PCR Not detected, Influenza A (H3) PCR Not detected, Influenza Type A (PCR) Not detected, Influenza Type B (PCR) Not detected, M. pneumoniae (PCR) Not detected, Parainfluenza 1 (PCR) Not detected, Parainfluenza 2 (PCR) Not detected, Parainfluenza 3 (PCR) Not detected, Parainfluenza 4 (PCR) Not detected, RSV (PCR) Not detected, Entero/Rhino (PCR) Not detected 01/28/25 17:17: Lactate 1.2 01/28/25 18:21: Urine Color Yellow, Urine Appearance Clear, Urine pH 7.5, Ur Specific [place] 1.010, Urine Protein 1+ A, Urine Glucose (UA) Negative, Urine Ketones 1+, Urine Blood Trace-l, Urine Nitrate Negative, Urine Bilirubin Negative, Urine Urobilinogen 0.2, Ur Leukocyte Esterase Negative, Urine WBC 3-5, Ur Squamous Epith Cells Occasional, Urine Bacteria 1+, Hyaline Casts Occ, Fine Granular Casts Occasional, Urine Opiates Screen Negative, Urine Methadone Screen Negative, Ur Barbituates Screen Negative, Ur Phencyclidine Scrn Negative, Ur Amphetamines Screen Negative, U Benzodiazepines Scrn Negative, Urine Cocaine Screen Negative, U Marijuana (THC) Screen Negative 01/28/25 19:25: Troponin I 0.03 01/28/25 22:26: Troponin I 0.03 01/28/25 16:30 01/28/25 16:30 Orders (Tests/Meds): ED MEDICATIONS Discontinued Medications Generic Name Dose Route Start Last Admin Trade Name Shawn PRN Reason Stop Dose Admin Acetaminophen 650 mg 01/28/25 22:01 01/29/25 14:29 Acetaminophen 325mg Tab PO 02/27/25 22:00 650 mg Q4HP PRN Administration Fever or Mild Pain (1-3) Diazepam 10 mg 01/28/25 18:37 01/28/25 19:01 Diazepam 10mg/2ml Syringe IV 01/28/25 18:38 10 mg ONCE ONE Administration Diazepam 10 mg 01/28/25 20:54 01/28/25 20:58 Diazepam 10mg/2ml Syringe IV 01/28/25 20:55 10 mg ONCE ONE Administration Diazepam 10 mg 01/29/25 08:12 Diazepam 10mg/2ml Syringe IV 02/28/25 08:11 Q1HP PRN CIWA >16 Diphenhydramine HCl 50 mg 01/29/25 01:47 01/29/25 02:05 Diphenhydramine 50mg Capsule PO 01/29/25 01:48 50 mg ONCE ONE Administration Enoxaparin Sodium 40 mg 01/29/25 09:00 01/30/25 10:16 Enoxaparin 40mg/0.4ml Syringe SUBCUT 02/28/25 08:59 Not Given DAILY RAFAEL Folic Acid 1 mg 01/29/25 09:00 Folic Acid 1mg Tablet PO 02/28/25 08:59 DAILY RAFAEL Folic Acid 1 mg 01/29/25 09:00 01/30/25 10:19 Folic Acid 1mg Tablet PO 02/28/25 08:59 1 mg DAILY RAFAEL Administration Sodium Chloride 1,000 mls @ 999 mls/hr 01/28/25 16:10 01/28/25 17:22 Sod Chlor 0.9% 1000ml Bag IV 01/28/25 17:10 Not Given .Q1H1M ONE Lactated Ringer's 500 mls @ 999 mls/hr 01/28/25 16:35 01/28/25 17:05 Lactated Ringer's 1000 Ml Bag IV 01/28/25 17:05 999 mls/hr .Q31M ONE Administration Lactated Ringer's 500 mls @ 999 mls/hr 01/28/25 18:30 01/28/25 19:02 Lactated Ringer's 1000 Ml Bag IV 01/28/25 19:00 Not Given .Q31M ONE Lactated Ringer's 1,000 mls @ 999 mls/hr 01/28/25 18:58 01/28/25 19:01 Lactated Ringer's 1000 Ml Bag IV 01/28/25 19:58 999 mls/hr .Q1H1M ONE Administration Cefepime HCl 2 gm/ Sodium 100 mls @ 200 mls/hr 01/28/25 22:00 01/30/25 05:57 Chloride IV 02/07/25 21:59 200 mls/hr Q8H RAFAEL Administration Lactated Ringer's 1,000 mls @ 100 mls/hr 01/28/25 22:15 01/30/25 04:44 Lactated Ringer's 1000 Ml Bag IV 02/27/25 22:14 Not Given .Q10H RAFAEL Vancomycin HCl 2,250 mg/ 250 mls @ 125 mls/hr 01/28/25 22:15 01/29/25 01:42 Sodium Chloride IV 01/29/25 00:14 125 mls/hr ONCE ONE Administration Iopamidol 160 ml 01/28/25 17:53 01/28/25 17:54 Iopamidol-370 (76%);100ml Bottle IV 01/28/25 17:54 160 ml ONCE ONE Administration Lorazepam 1 mg 01/28/25 18:30 01/28/25 18:36 Lorazepam 2mg/Ml Vial IV 01/28/25 18:31 Not Given ONCE ONE Lorazepam 1 mg 01/29/25 00:09 Lorazepam 1mg Tablet PO 02/28/25 00:08 Q1HP PRN CIWA Score 8-15 Metoprolol Tartrate 5 mg 01/28/25 23:46 01/29/25 00:15 Metoprolol Tartrate 5mg/5ml Vial IV 02/27/25 23:45 5 mg Q6HP PRN Administration HR > 120 Metoprolol Tartrate 25 mg 01/28/25 23:50 01/29/25 20:57 Metoprolol Tartrate 25mg Tablet PO 02/27/25 23:49 25 mg BID RAFAEL Administration Metoprolol Tartrate 50 mg 01/30/25 09:00 01/30/25 10:19 Metoprolol Tartrate 50mg Tablet PO 03/01/25 08:59 50 mg BID RAFAEL Administration Miscellaneous 1 each 01/28/25 22:00 01/29/25 02:15 Vancomycin Consult Request NOTAPPLIC 02/27/25 21:59 Not Given CONSULT [facility] Miscellaneous 1 each 01/28/25 22:45 01/29/25 02:15 Vancomycin Consult Request NOTAPPLIC 02/27/25 21:59 Not Given CONSULT [facility] Multivitamins 1 each 01/29/25 17:00 01/29/25 17:06 Multivitamin Tablet PO 02/28/25 16:59 Not Given 1700 [facility] Ondansetron HCl 4 mg 01/28/25 16:10 01/28/25 17:05 Ondansetron 4mg/2ml Vial IV 01/28/25 16:11 4 mg ONCE ONE Administration Ondansetron HCl 4 mg 01/28/25 22:01 Ondansetron 4mg/2ml Vial IV 02/27/25 22:00 Q8HP PRN Nausea Pantoprazole Sodium 40 mg 01/29/25 05:15 01/29/25 20:57 Pantoprazole 40mg Vial IV 02/28/25 05:14 40 mg HS RAFAEL Administration Pantoprazole Sodium 40 mg 01/30/25 21:00 Pantoprazole 40mg Tablet PO 03/01/25 20:59 HS RAFAEL Sodium Chloride 10 ml 01/28/25 17:53 01/28/25 17:54 Sodium Chloride 0.9% 10ml Syr (Rad Only) IV 02/27/25 17:52 10 ml NEEDED PRN Administration Maintain IV Site Sodium Chloride 50 ml 01/28/25 17:53 01/28/25 17:54 0.9 % Sodium Chloride 50 Ml Vial IV 01/28/25 17:54 50 ml ONCE ONE Administration Sodium Chloride 10 ml 01/28/25 18:30 Sodium Chloride 0.9% 10ml Vial IV 02/27/25 18:29 NEEDED PRN to Dilute Lorazepam inj Sodium Chloride 10 ml 01/29/25 00:09 Sodium Chloride 0.9% 10ml Vial IV 02/28/25 00:08 NEEDED PRN to Dilute Lorazepam inj Sodium Chloride 10 ml 01/29/25 05:15 01/29/25 20:57 Sodium Chloride 0.9% 10ml Vial IV 02/28/25 05:14 10 ml NEEDED PRN Administration dilute protonix Sodium Chloride 10 ml 01/29/25 07:48 Sodium Chloride 0.9% 10ml Flush Syringe IV 02/28/25 07:47 NEEDED PRN Maintain IV Site Thiamine HCl 100 mg 01/29/25 09:00 01/30/25 10:19 Thiamine 100mg Tablet PO 01/31/25 09:01 100 mg DAILY RAFAEL Administration Trazodone HCl 50 mg 01/28/25 23:50 01/29/25 20:57 Trazodone 50mg Tablet PO 02/27/25 23:49 50 mg HS RAFAEL Administration ORDERS Category Date Time Status CT abdomen pelvis w con Stat Cat Scan 01/28/25 16:[address] angio chest PE protocol Stat Cat Scan 01/28/25 16:[address] head/brain wo/w con Stat Cat Scan 01/28/25 16:35 Completed Acetone, Serum (Rapid) Stat Lab 01/28/25 16:30 Completed BNP [NT Pro Brain Natriuretic Pep.] Stat Lab 01/28/25 16:30 Completed CBC w/Auto Diff [Complete Blood Count Auto Diff] Stat Lab 01/28/25 16:30 Completed CMP [Comprehensive Metabolic Panel] Stat Lab 01/28/25 16:30 Completed CRP [C-Reactive Protein] Stat Lab 01/28/25 16:30 Completed Free T4 (Free Thyroxine) Stat Lab 01/28/25 16:30 Completed Full Resp Panel w/COVID ([facility]) Routine Lab 01/28/25 16:49 Completed INR [Prothrombin Time INR] Stat Lab 01/28/25 16:30 Completed Lactic Acid Stat Lab 01/28/25 17:17 Completed Lipase Stat Lab 01/28/25 16:30 Completed Magnesium Stat Lab 01/28/25 16:30 Completed Procalcitonin Stat Lab 01/28/25 16:30 Completed TSH [Thyroid Stimulating Hormone] Stat Lab 01/28/25 16:30 Completed Trop I [Troponin I] Stat Lab 01/28/25 16:30 Completed Troponin I Q3H Lab 01/28/25 19:25 Completed Troponin I Q3H Lab 01/28/25 22:26 Completed UA [Urinalysis and Microscopic] Stat Lab 01/28/25 18:21 Completed UDS [Drug Screen,Urine] Stat Lab 01/28/25 18:21 Completed Blood Culture Stat Micro 01/28/25 17:17 Results Medical Decision Narrative: In summary patient is a 54-year-old male who presents to the emergency department for evaluation of 2 weeks of nausea vomiting and 20 pound weight loss. Patient is initially normotensive with a blood pressure 150/91 heart rate is 152 and shows A-fib RVR on the bedside monitor patient breathing 20 times a minute satting at 95% on room air upon arrival, he is afebrile at 97.8. Physical exam is remarkable for clear breath sounds with no increased work of breathing adventitious sounds or accessory muscle use, cardiovascular is rapid rate with no murmurs gallops rubs or thrills, abdomen is soft nontender no rebound or guarding no rigidity. Bowel sounds normal active.. Differential diagnosis includes A-fib RVR versus ACS versus pancreatitis versus malignant neoplastic disease versus cholecystitis in the differential remains broad given his alcohol abuse history and smoking history.. Initial workup will be conducted with hematologic labs CT scan of the head chest and abdomen twelve- lead EKG blood cultures. Initial interventions include crystalloid bolus and Zofran for now. Initial workup reviewed by me and his hematologic labs are significant for white count of 6.4 normal H&H with no neutrophilic shift, INR 0.93, chemistry shows a sodium of 133 chloride of 93 anion gap of 17.9 glucose is 125 lactate is 1.2 calcium is 11.1 with an albumin of 4.4 indicating hypercalcemia, magnesium is 2.4 total bilirubin 0.9 AST is 152 ALT is 151 alk phos is 99 troponin is 0.02 CRP is 20.5 NT proBNP is 389 lipase is 137 procalcitonin is 6.57 patient had a small amount of acetone. My informal interpretation of his imaging shows no acute processes prior to radiology read. His previously seen dense pneumonia lymphadenopathy on the right lower lobe has completely resolved since October. Please see final read for formal interpretation. Upon repeat evaluation patient's nausea is better and he is tolerating oral intake however patient remains persistently tachycardic in the 140-150 range. We did give him a small dose of Valium for CIWA score of 6 however that did not affect his rate. We have really dosed him as he is still at a CIWA score of 6 although primarily due to anxiousness. Reassessment after 10 of IV push Valium shows the patient remains persistently tachycardic. His initial troponin was 0.02 and his repeat troponin was 0.03 which are within normal an insignificant delta but on the rise nonetheless. As [facility] to [facility] for persistent [facility]. [facility] at 2140 and they have given permission for us to admit here as a are not good to be able to speak with us and an appropriate amount of time. Given that I had a indirect discussion with hospital medicine regarding patient presentation VALDOVINOS and management he will be admitted for further evaluation and care. <Bruce Alanis, DO - Last Filed: 01/31/25 07:16> Olvin Inquiry Olvin was queried for this patient: No Vital Signs: 01/28/25 16:25 01/28/25 16:25 01/28/25 17:00 Temperature 97.8 F 97.8 F Temperature Source Oral Oral Pulse Rate 152 H 144 H Pulse Rate [Right] 152 H Respiratory Rate 20 20 19 Blood Pressure 150/91 H 145/106 H Blood Pressure [Right Arm] 150/91 H Blood Pressure Mean Blood Pressure Mean [Right Arm] 110 Blood Pressure Source Automatic Cuff Blood Pressure Position Supine 02 Sat by Pulse Oximetry 95 95 95 Oxygen Delivery Method Room Air Room Air Room Air 01/28/25 17:09 01/28/25 17:30 01/28/25 18:00 Temperature Temperature Source Pulse Rate 142 H 144 H Pulse Rate [Right] Respiratory Rate 20 22 Blood Pressure 151/97 H 129/90 Blood Pressure [Right Arm] Blood Pressure Mean Blood Pressure Mean [Right Arm] Blood Pressure Source Automatic Cuff Automatic Cuff Blood Pressure Position Supine Supine 02 Sat by Pulse Oximetry 94 L 94 L 95 Oxygen Delivery Method Room Air Room Air Room Air 01/28/25 18:21 01/28/25 19:00 01/28/25 19:30 Temperature Temperature Source Pulse Rate 144 H 149 H 135 H Pulse Rate [Right] Respiratory Rate 20 23 25 H Blood Pressure 141/95 H 137/89 138/88 Blood Pressure [Right Arm] Blood Pressure Mean Blood Pressure Mean [Right Arm] Blood Pressure Source Automatic Cuff Blood Pressure Position Supine 02 Sat by Pulse Oximetry 96 93 L 95 Oxygen Delivery Method Room Air 01/28/25 20:00 01/28/25 20:00 01/28/25 20:15 Temperature Temperature Source Pulse Rate 137 H 135 H Pulse Rate [Right] Respiratory Rate 13 15 Blood Pressure 147/100 H Blood Pressure [Right Arm] Blood Pressure Mean 110 Blood Pressure Mean [Right Arm] Blood Pressure Source Blood Pressure Position 02 Sat by Pulse Oximetry 95 92 L Oxygen Delivery Method 01/28/25 20:30 01/28/25 20:30 01/28/25 21:00 Temperature Temperature Source Pulse Rate 139 H 152 H Pulse Rate [Right] Respiratory Rate 21 18 Blood Pressure 142/84 H 154/89 H Blood Pressure [Right Arm] Blood Pressure Mean 103 Blood Pressure Mean [Right Arm] Blood Pressure Source Blood Pressure Position 02 Sat by Pulse Oximetry 94 L 93 L Oxygen Delivery Method 01/28/25 21:31 01/28/25 21:45 01/28/25 22:00 Temperature Temperature Source Pulse Rate 147 H 146 H 144 H Pulse Rate [Right] Respiratory Rate 17 21 17 Blood Pressure 126/85 Blood Pressure [Right Arm] Blood Pressure Mean Blood Pressure Mean [Right Arm] Blood Pressure Source Blood Pressure Position 02 Sat by Pulse Oximetry 90 L 92 L 92 L Oxygen Delivery Method 01/28/25 22:00 01/28/25 22:15 01/28/25 22:30 Temperature Temperature Source Pulse Rate 147 H 75 Pulse Rate [Right] Respiratory Rate 18 21 Blood Pressure 131/79 Blood Pressure [Right Arm] Blood Pressure Mean 87 Blood Pressure Mean [Right Arm] Blood Pressure Source Blood Pressure Position 02 Sat by Pulse Oximetry 95 91 L Oxygen Delivery Method 01/28/25 22:30 01/28/25 22:31 01/28/25 22:33 Temperature 97.8 F Temperature Source Oral Pulse Rate 145 H 145 H Pulse Rate [Right] Respiratory Rate 20 Blood Pressure 131/89 131/89 Blood Pressure [Right Arm] Blood Pressure Mean 97 Blood Pressure Mean [Right Arm] Blood Pressure Source Automatic Cuff Blood Pressure Position Sitting 02 Sat by Pulse Oximetry Oxygen Delivery Method Room Air Lab Data Lab Results 01/28/25 16:30: WBC 6.4, RBC 5.35, Hgb 17.4, Hct 50.1, MCV 93.6, MCH 32.5 H, MCHC 34.7, RDW 14.3, Plt Count 206, MPV 9.4, Neut % (Auto) 74.4, Lymph % (Auto) 16.9, [place] % (Auto) 7.6, Eos % (Auto) 0.3, Baso % (Auto) 0.3, Neut # (Auto) 4.7, Lymph # (Auto) 1.1, [place] # (Auto) 0.5, Eos # (Auto) 0.0, Baso # (Auto) 0.0, PT 10.4, INR 0.93, Sodium 133 L, Potassium 3.9, Chloride 93 L, Carbon Dioxide 26, A nion Gap 17.9 H, BUN 10, Creatinine 0.90, Estimated Creat Clear 120, Estimated GFR 88, Est GFR ( Amer) 107, Glucose 125 H, Calcium 11.1 H, Magnesium 2.4 H, Total Bilirubin 0.9, AST 152 H, ALT 151 H, Alkaline Phosphatase 99, Troponin I 0.02, C-Reactive Protein 20.5 H, NT-Pro-B Natriuret Pep 389 H, Total Protein 10.2 H D, Albumin 4.4, Globulin 5.8 H, Albumin/Globulin Ratio 0.8 L, Lipase 137, Procalcitonin 6.57 H, TSH 2.24, Free T4 0.94, Acetone Level Small, Hepatitis A IgM Ab Negative, Hep Bs Antigen Negative, Hep B Core IgM Ab Negative, Hepatitis C Antibody Non reactive, HCV RNA PCR Test Info Comment 01/28/25 16:49: Chlamy pneumoniae PCR Not detected, Adenovirus (PCR) Not detected, B. pertussis DNA (PCR) Not detected, Coronavirus OC43 (PCR) Not detected, Coronavirus HKU1 (PCR) Not detected, Coronavirus 229E (PCR) Not detected, SARS-CoV-2 (PCR) Not detected, Coronavirus NL63 (PCR) Not detected, Human Metapneumovir PCR Not detected, Influenza A (H1) PCR Not detected, Influ A (H1N1/09) PCR Not detected, Influenza A (H3) PCR Not detected, Influenza Type A (PCR) Not detected, Influenza Type B (PCR) Not detected, M. pneumoniae (PCR) Not detected, Parainfluenza 1 (PCR) Not detected, Parainfluenza 2 (PCR) Not detected, Parainfluenza 3 (PCR) Not detected, Parainfluenza 4 (PCR) Not detected, RSV (PCR) Not detected, Entero/Rhino (PCR) Not detected 01/28/25 17:17: Lactate 1.2 01/28/25 18:21: Urine Color Yellow, Urine Appearance Clear, Urine pH 7.5, Ur Specific [place] 1.010, Urine Protein 1+ A, Urine Glucose (UA) Negative, Urine Ketones 1+, Urine Blood Trace-l, Urine Nitrate Negative, Urine Bilirubin Negative, Urine Urobilinogen 0.2, Ur Leukocyte Esterase Negative, Urine WBC 3-5, Ur Squamous Epith Cells Occasional, Urine Bacteria 1+, Hyaline Casts Occ, Fine Granular Casts Occasional, Urine Opiates Screen Negative, Urine Methadone Screen Negative, Ur Barbituates Screen Negative, Ur Phencyclidine Scrn Negative, Ur Amphetamines Screen Negative, U Benzodiazepines Scrn Negative, Urine Cocaine Screen Negative, U Marijuana (THC) Screen Negative 01/28/25 19:25: Troponin I 0.03 01/28/25 22:26: Troponin I 0.03 Orders (Tests/Meds): ED MEDICATIONS Discontinued Medications Generic Name Dose Route Start Last Admin Trade Name Freq PRN Reason Stop Dose Admin Acetaminophen 650 mg 01/28/25 22:01 01/29/25 14:29 Acetaminophen 325mg Tab PO 02/27/25 22:00 650 mg Q4HP PRN Administration Fever or Mild Pain (1-3) Diazepam 10 mg 01/28/25 18:37 01/28/25 19:01 Diazepam 10mg/2ml Syringe IV 01/28/25 18:38 10 mg ONCE ONE Administration Diazepam 10 mg 01/28/25 20:54 01/28/25 20:58 Diazepam 10mg/2ml Syringe IV 01/28/25 20:55 10 mg ONCE ONE Administration Diazepam 10 mg 01/29/25 08:12 Diazepam 10mg/2ml Syringe IV 02/28/25 08:11 Q1HP PRN CIWA >16 Diphenhydramine HCl 50 mg 01/29/25 01:47 01/29/25 02:05 Diphenhydramine 50mg Capsule PO 01/29/25 01:48 50 mg ONCE ONE Administration Enoxaparin Sodium 40 mg 01/29/25 09:00 01/30/25 10:16 Enoxaparin 40mg/0.4ml Syringe SUBCUT 02/28/25 08:59 Not Given DAILY RAFAEL Folic Acid 1 mg 01/29/25 09:00 Folic Acid 1mg Tablet PO 02/28/25 08:59 DAILY RAFAEL Folic Acid 1 mg 01/29/25 09:00 01/30/25 10:19 Folic Acid 1mg Tablet PO 02/28/25 08:59 1 mg DAILY RAFAEL Administration Sodium Chloride 1,000 mls @ 999 mls/hr 01/28/25 16:10 01/28/25 17:22 Sod Chlor 0.9% 1000ml Bag IV 01/28/25 17:10 Not Given .Q1H1M ONE Lactated Ringer's 500 mls @ 999 mls/hr 01/28/25 16:35 01/28/25 17:05 Lactated Ringer's 1000 Ml Bag IV 01/28/25 17:05 999 mls/hr .Q31M ONE Administration Lactated Ringer's 500 mls @ 999 mls/hr 01/28/25 18:30 01/28/25 19:02 Lactated Ringer's 1000 Ml Bag IV 01/28/25 19:00 Not Given .Q31M ONE Lactated Ringer's 1,000 mls @ 999 mls/hr 01/28/25 18:58 01/28/25 19:01 Lactated Ringer's 1000 Ml Bag IV 01/28/25 19:58 999 mls/hr .Q1H1M ONE Administration Cefepime HCl 2 gm/ Sodium 100 mls @ 200 mls/hr 01/28/25 22:00 01/30/25 05:57 Chloride IV 02/07/25 21:59 200 mls/hr Q8H RAFAEL Administration Lactated Ringer's 1,000 mls @ 100 mls/hr 01/28/25 22:15 01/30/25 04:44 Lactated Ringer's 1000 Ml Bag IV 02/27/25 22:14 Not Given .Q10H RAFAEL Vancomycin HCl 2,250 mg/ 250 mls @ 125 mls/hr 01/28/25 22:15 01/29/25 01:42 Sodium Chloride IV 01/29/25 00:14 125 mls/hr ONCE ONE Administration Iopamidol 160 ml 01/28/25 17:53 01/28/25 17:54 Iopamidol-370 (76%);100ml Bottle IV 01/28/25 17:54 160 ml ONCE ONE Administration Lorazepam 1 mg 01/28/25 18:30 01/28/25 18:36 Lorazepam 2mg/Ml Vial IV 01/28/25 18:31 Not Given ONCE ONE Lorazepam 1 mg 01/29/25 00:09 Lorazepam 1mg Tablet PO 02/28/25 00:08 Q1HP PRN CIWA Score 8-15 Metoprolol Tartrate 5 mg 01/28/25 23:46 01/29/25 00:15 Metoprolol Tartrate 5mg/5ml Vial IV 02/27/25 23:45 5 mg Q6HP PRN Administration HR > 120 Metoprolol Tartrate 25 mg 01/28/25 23:50 01/29/25 20:57 Metoprolol Tartrate 25mg Tablet PO 02/27/25 23:49 25 mg BID RAFAEL Administration Metoprolol Tartrate 50 mg 01/30/25 09:00 01/30/25 10:19 Metoprolol Tartrate 50mg Tablet PO 03/01/25 08:59 50 mg BID RAFAEL Administration Miscellaneous 1 each 01/28/25 22:00 01/29/25 02:15 Vancomycin Consult Request NOTAPPLIC 02/27/25 21:59 Not Given CONSULT PH[facility]ACY [facility] Miscellaneous 1 each 01/28/25 22:45 01/29/25 02:15 Vancomycin Consult Request NOTAPPLIC 02/27/25 21:59 Not Given CONSULT [facility]ACY [facility] Multivitamins 1 each 01/29/25 17:00 01/29/25 17:06 Multivitamin Tablet PO 02/28/25 16:59 Not Given 1700 [facility] Ondansetron HCl 4 mg 01/28/25 16:10 01/28/25 17:05 Ondansetron 4mg/2ml Vial IV 01/28/25 16:11 4 mg ONCE ONE Administration Ondansetron HCl 4 mg 01/28/25 22:01 Ondansetron 4mg/2ml Vial IV 02/27/25 22:00 Q8HP PRN Nausea Pantoprazole Sodium 40 mg 01/29/25 05:15 01/29/25 20:57 Pantoprazole 40mg Vial IV 02/28/25 05:14 40 mg HS RAFAEL Administration Pantoprazole Sodium 40 mg 01/30/25 21:00 Pantoprazole 40mg Tablet PO 03/01/25 20:59 HS RAFAEL Sodium Chloride 10 ml 01/28/25 17:53 01/28/25 17:54 Sodium Chloride 0.9% 10ml Syr (Rad Only) IV 02/27/25 17:52 10 ml NEEDED PRN Administration Maintain IV Site Sodium Chloride 50 ml 01/28/25 17:53 01/28/25 17:54 0.9 % Sodium Chloride 50 Ml Vial IV 01/28/25 17:54 50 ml ONCE ONE Administration Sodium Chloride 10 ml 01/28/25 18:30 Sodium Chloride 0.9% 10ml Vial IV 02/27/25 18:29 NEEDED PRN to Dilute Lorazepam inj Sodium Chloride 10 ml 01/29/25 00:09 Sodium Chloride 0.9% 10ml Vial IV 02/28/25 00:08 NEEDED PRN to Dilute Lorazepam inj Sodium Chloride 10 ml 01/29/25 05:15 01/29/25 20:57 Sodium Chloride 0.9% 10ml Vial IV 02/28/25 05:14 10 ml NEEDED PRN Administration dilute protonix Sodium Chloride 10 ml 01/29/25 07:48 Sodium Chloride 0.9% 10ml Flush Syringe IV 02/28/25 07:47 NEEDED PRN Maintain IV Site Thiamine HCl 100 mg 01/29/25 09:00 01/30/25 10:19 Thiamine 100mg Tablet PO 01/31/25 09:01 100 mg DAILY RAFAEL Administration Trazodone HCl 50 mg 01/28/25 23:50 01/29/25 20:57 Trazodone 50mg Tablet PO 02/27/25 23:49 50 mg HS RAFAEL Administration ORDERS Category Date Time Status CT abdomen pelvis w con Stat Cat Scan 01/28/25 16:[address] angio chest PE protocol Stat Cat Scan 01/28/25 16:[address] head/brain wo/w con Stat Cat Scan 01/28/25 16:35 Completed Acetone, Serum (Rapid) Stat Lab 01/28/25 16:30 Completed BNP [NT Pro Brain Natriuretic Pep.] Stat Lab 01/28/25 16:30 Completed CBC w/Auto Diff [Complete Blood Count Auto Diff] Stat Lab 01/28/25 16:30 Completed CMP [Comprehensive Metabolic Panel] Stat Lab 01/28/25 16:30 Completed CRP [C-Reactive Protein] Stat Lab 01/28/25 16:30 Completed Free T4 (Free Thyroxine) Stat Lab 01/28/25 16:30 Completed Full Resp Panel w/COVID ([facility]) Routine Lab 01/28/25 16:49 Completed INR [Prothrombin Time INR] Stat Lab 01/28/25 16:30 Completed Lactic Acid Stat Lab 01/28/25 17:17 Completed Lipase Stat Lab 01/28/25 16:30 Completed Magnesium Stat Lab 01/28/25 16:30 Completed Procalcitonin Stat Lab 01/28/25 16:30 Completed TSH [Thyroid Stimulating Hormone] Stat Lab 01/28/25 16:30 Completed Trop I [Troponin I] Stat Lab 01/28/25 16:30 Completed Troponin I Q3H Lab 01/28/25 19:25 Completed Troponin I Q3H Lab 01/28/25 22:26 Completed UA [Urinalysis and Microscopic] Stat Lab 01/28/25 18:21 Completed UDS [Drug Screen,Urine] Stat Lab 01/28/25 18:21 Completed Blood Culture Stat Micro 01/28/25 17:17 Results ECG Data Tracing #1: I reviewed this ECG and interpreted as documented below: EKG personally interpreted by me demonstrates sinus tachycardia at a rate of 155 bpm, normal axis, no MI prolongation, narrow QRS, no QTc prolongation. No ST elevation or depression. No overt signs of ischemia or arrhythmia. Tracing #2: I reviewed this ECG and interpreted as documented below: EKG personally interpreted by me demonstrates sinus tachycardia with a rate of 135 bpm, normal axis, no MI prolongation, narrow QRS, no QTc prolongation. No ST elevation or depression. No overt signs of ischemia or arrhythmia. Medical Decision Narrative: In summary patient is a 54-year-old male who presents to the emergency department for evaluation of 2 weeks of nausea vomiting and 20 pound weight loss. Patient is initially normotensive with a blood pressure 150/91 heart rate is 152 and shows A-fib RVR on the bedside monitor patient breathing 20 times a minute satting at 95% on room air upon arrival, he is afebrile at 97.8. Physical exam is remarkable for clear breath sounds with no increased work of breathing adventitious sounds or accessory muscle use, cardiovascular is rapid rate with no murmurs gallops rubs or thrills, abdomen is soft nontender no rebound or guarding no rigidity. Bowel sounds normal active.. Differential diagnosis includes A-fib RVR versus ACS versus pancreatitis versus malignant neoplastic disease versus cholecystitis in the differential remains broad given his alcohol abuse history and smoking history.. Initial workup will be conducted with hematologic labs CT scan of the head chest and abdomen twelve- lead EKG blood cultures. Initial interventions include crystalloid bolus and Zofran for now. Initial workup reviewed by me and his hematologic labs are significant for white count of 6.4 normal H&H with no neutrophilic shift, INR 0.93, chemistry shows a sodium of 133 chloride of 93 anion gap of 17.9 glucose is 125 lactate is 1.2 calcium is 11.1 with an albumin of 4.4 indicating hypercalcemia, magnesium is 2.4 total bilirubin 0.9 AST is 152 ALT is 151 alk phos is 99 troponin is 0.02 CRP is 20.5 NT proBNP is 389 lipase is 137 procalcitonin is 6.57 patient had a small amount of acetone. My informal interpretation of his imaging shows no acute processes prior to radiology read. His previously seen dense pneumonia lymphadenopathy on the right lower lobe has completely resolved since October. Please see final read for formal interpretation. Upon repeat evaluation patient's nausea is better and he is tolerating oral intake however patient remains persistently tachycardic in the 140-150 range. We did give him a small dose of Valium for CIWA score of 6 however that did not affect his rate. We have really dosed him as he is still at a CIWA score of 6 although primarily due to anxiousness. Reassessment after 10 of IV push Valium shows the patient remains persistently tachycardic. His initial troponin was 0.02 and his repeat troponin was 0.03 which are within normal an insignificant delta but on the rise nonetheless. [facility] I have contacted [facility] to discuss transfer for persistent tachycardia. [facility] and they have given [facility] for us to admit here as a are not good to be able to speak with us and an appropriate amount of time. Given that I had a indirect discussion with hospital medicine regarding patient presentation VALDOVINOS and management he will be admitted for further evaluation and care. Attending Attestation: I was consulted by the EMILY, and we discussed the complexity of problems being addressed. I approved the treatment and management plan for this patient's care in the emergency department, thus performing a substantive portion of the medical decision making. I did personally evaluate this patient in the emergency department. Agree with history above.Nausea and vomiting for 2 weeks with 20 pounds of weight loss. The patient reported daily alcohol use of 2-3 beers daily. His sister later arrived stating that this was a gross underestimation, and that she visited his home and the entire house was riddled with an unquantifiable amount of beer cans.The patient was reporting additional symptoms to me such as tremors and intermittent diplopia as well. Upon reviewing imaging from his prior visit for pneumonia, he had a very, very dense consolidation in the lung. While this likely represented pneumonia, there was discussion on the radiology report of new mediastinal adenopathy that they recommended follow up for -- and I do not see any follow up imaging that was completed. This increased my suspicion for potential underlying malignancy, in addition to other differentials including chiefly alcohol withdrawal, pulmonary embolism, and potential recurrence of pneumonia. Given his odd presentation and bizarre array of symptoms with this prior imaging report, we essentially decided to [place] scan the patient out of an abundance of caution. CT PE study demonstrated no pulmonary emboli, an incidental posterolaeral right 10th rib fracture, and resolution of the right basilar pneumonia and mediastinal adenopathy -- which was overall very reassuring. CT abdomen pelvis also demonstrated nonspecific findings of dense ingested material within the stomach and no other definite abnormalities in the abdomen. CT head also showed no findings concerning for abscesses, malignancy or bleeds that would explain his symptoms. Ultimately, with these unrevealing CT scans and his reported history of weight loss with nausea and vomiting I felt that his persistent tachycardia may be due to volume depletion. However, we infused 2 L of lactated ringers and his tachycardia persisted. His CIWA score was 6, but given his persistent tachycardia we did decide to empirically treat for alcohol withdrawal with benzodiazepines. None of these interventions improved his tachycardia. Therefore, we ultimately admitted the patient to hospital medicine for persistent tachycardia unresponsive to intervention, in the setting of intractable nausea and vomiting with significant weigh loss. Bruce Alanis, DO Critical Care <LAKEISHA Allen - Last Filed: 01/28/25 21:44> Critical Care Time Critical Care Time: Yes Attestation: On 01/28/25, the high probability of a clinically significant, sudden or life threatening deterioration of the following system(s) required my full and direct attention, intervention and personal management. The time I documented below is in addition to time spent performing reported procedures but includes the following listed in this critical care notation. Total Time Total Critical Care Time: 30
--- NOTE | 2025-01-28 16:25 | ECG_ITS ---
APPROVED REPORT Exam: Resting ECG HR:155 bpm ECG Measurements Heart Rate 155 AXES QRSd 88 QRS 57 QT 278 T 76 QTc 365 Conclusion Sinus tachycardia with definitive P waves in lead II No STEMI Electronically signed by : Bruce Alanis, 01/29/2025 02:25:14
--- OUTSIDE RECORDS SUMMARY | 2025-01-28 16:28 | XMS_ITS | Clinical Summary ---
Author Organization [facility] Address [address] [place] [address] Care Team Providers Care Seal Mixing Operator Name Role Phone Provider, No Known Primary Care Provider Unavail able Allergies No known active allergies Medications metoprolol tartrate (LOPRESSOR) 25 MG tablet Take 2 tablets by mouth Daily. Active amLODIPine (NORVASC) 5 MG tablet Take 1 tablet by mouth Daily. Active ondansetron ODT (ZOFRAN-ODT) [address] 1 tablet on the tongue Every 6 (Six) Hours As Needed for Nausea or Vomiting. 12 tablet 4 Active pantoprazole (Protonix) 40 MG EC tablet Take 1 tablet by mouth Daily. 90 tablet 4 Active Active Problems Problem Noted Date Diagnosed Date Chronic tachycardia 12/17/2023 Cigarette nicotine dependence without complicati on 12/17/2023 Resolved Problems Problem Noted Date Diagnosed Date Resolved Date GI bleed 12/17/2023 12/19/2023 Alcohol use 12/17/2023 12/19/2023 Hematemesis with nausea 12/17/202312/01 Social History Tobacco Use Types Packs/Day Years Used Date Smoking Tobacco: Every Day Cigarettes Tobacco Cessation:Ready to Q uit: No; Counseling Given: No Alcohol Use Standard Drinks/Week Comments Yes 16 (1 standard drink = 0.6 oz pu re alcohol) AUDIT-C Answer Date Recorded Q1: How often do you have a drink containing alcohol? 4 or more times a week 12/17/2023 Q2: How many drinks containi ng alcohol do you have on a typical day when you are drinking? 3 or 4 Q3: How often do you have si x or more drinks on one occasion? Daily or almost daily 12/17/2023 Abuse Screen Answer Date Recorded Feels Unsafe at Home or Work/School no 12/17/2023 Feels Threatened by Someone no 12/01 Does Anyone Try to Keep You From Having Contact with Others or Doing Things Outside Your Home? no 12/17/2023 Physical Signs of Abuse Present no 12/17/2023 Housing Stability Answer Date Recorded Current Living Arrangements home 12/01 Potentially Unsafe Housing Conditions Not on ruth e 12/17/2023 Family and Community Support Answer Darvin e Recorded Help with Day-to-Day Activities Not on file 04/11/2023 Lonely or Isolated Not on file 04/11/2023 Employment Answer Date Recorded Do you want help finding or keeping work or a gray b? Not on file 04/11/2023 Disabilities Answer Date Recorded Difficulty Concentrating, Remembering or Making Decisions no 12/17/2023 Difficulty Managing Errands Independently yes 12/17/2023 Education Answer Date Recorded Help with school or training? Not on file Preferred Language Not on file 04/11/2023 Sex and Gender Information Value Date Recorded Sex Assigned at Not on file Legal Sex Male 12:57 PM EDT Gender Identity Not on file Sexual Orientation Not on file Last Filed Vital Signs Vital Sign Reading Time Taken Comments Blood Pressure 136/91 12/19/2023 11:15 AM EDT Pulse 103 12/19/2023 11:15 AM EDT Temperature 36.4 C (97.6 F) 12/19/2023 11:15 AM EDT Respiratory Rate 18 12/19/2023 11:15 AM EDT Oxygen Saturation 94% 12/19/2023 8:02 AM EDT Inhaled Oxygen Concentration - - Weight 97 kg (213 lb 12.8 oz) 12/17/2023 4:28 PM EDT Height 182.9 cm (6') 12/17/2023 4:28 PM EDT Body Mass Index 29 12/17/2023 4:28 PM EDT Plan of Treatment Health Maintenance Due Date Last Done Comments ANNUAL PHYSICAL 1970 HEPATITIS C SCREENING 1970 TDAP/TD VACCINES (1 - Tdap) 12/09/1990 COLOGUARD 12/09/2016 COLON CANCER SCREENING 5 YEA R SIGMOIDOSCOPY 12/09/2016 COLONOSCOPY 12/09/2016 COLORECTAL CANCER SCREENING 12/09/2016 CT COLONOGRAPHY 12/09/2016 FECAL OCCULT BLOOD TEST 12/09/2016 FIT Testing (1 year) 12/09/2016 Pneumococcal Vaccine 50+ (1 of 1 - PCV) 12/09/2021 ZOSTER VACCINE (1 of 2) 12/09/2021 COVID-19 Vaccine (3 - season) 2024, 03/17/2021 INFLUENZA VACCINE 04/02/2025 [place] [employer] [place] [facility] [address] [place] [address] Advance Directives * CPR (Attempt to Resuscitate) (Latest Code Status on File) Date Activated Date Inactivated Comments 12/17/2023 5:39 PM 12/19/2023 4:24 PM Question Answer Comments Code Status (Patient has no pulse and is not breathing): CPR (Attempt to Resuscitate) Medical Interventions (Patie nt has pulse or is breathing): Full Support Level Of Support Discussed With: Patient Care Teams Seal Mixing Operator Relationship Specialty Start Date End Date Provider, [place] [address] PCP - General 12/17/23
--- OUTSIDE RECORDS SUMMARY | 2025-01-28 16:28 | XMS_ITS | Encounter Summary ---
Author Organization [facility] Address [address] [place] [address] Care Team Providers Care Extrusion Process Operator Name Role Phone Provider, No Known Primary Care Provider Unavail able Encounter Details Date Type Department Care Team ([facility] st Contact Info) Description 09/07/2012 Conversion Encounter [facility] HISTORICAL CONV [address] [place] [address] Interface, See Report Social History Tobacco Use Types Packs/Day Years Used Date Smoking Tobacco: Never Assessed Sex and Gender Information Value Date Recorded Sex Assigned at Not on file Legal Sex Male 12:57 PM EDT Gender Identity Not on file Sexual Orientation Not on file documented as of this encounter Progress Notes * Interface, See Report - 09/07/2012 12:00 AM EST [facility] CONSULTING IN BLOOD DISORDERS & CANCER Robert Henry, Barrett Miller Myers, Huber, Alvina, Osmin, Ruben, Hitesh Fish & Chidi [address] [facility] [facility], [address] [place], [place] [address] PATIENT NAME: Jeremi Balbuena DATE OF : 72 PATIENTS AGE: 41 PATIENTS SEX: Male DATE OF SERVICE: 09/07/12 PROVIDER: Mikal Skelton M.D. Page 1 of 3 REASON FOR FOLLOWUP: T2, N0, M0, S0 (stage IB) testicular seminoma. HISTORY OF PRESENT ILLNESS: Mr. Balbuena has the above problem. Since his last visit, he has no new problems. He denies pain. His weight is stable. He has had some issues with erectile dysfunction. He states he was found to have a low testosteronelevel and is on AndroGel through Dr. Bayron Quigley. PAST MEDICAL HISTORY: No other medical problems. ONCOLOGIC HISTORY: T2, N0,M0, S0 (stage IB) testicular seminoma. Dr. Skelton called [facility] and spoke with Dr. Vlad Valentine of Uropathology to review Mr. Balbuena's path re port. Dr. Valentine stated this is indeed a T2 tumor, based on the information from the printed report. He stated tumor present in the lymphatic space of the mid spermatic cord does not qualify for a T3 lesion. He stated unless there was direct extension , this would not be a T3 lesion. Right orchiectomy on 01/14/11. 2 cm. Classic seminoma. Confined to the testis. Margins negative. Tumor present in lymphatic space of section obtained from mid spermatic cord. Lymphvascular space invasion, presence w ithin testicle and section from spermatic cord. Recommended active surveillance with a schedule of CAT scan of abdomen and pelvis every 3-4 months for years 1 through 3, q. 6 months for years 4 through 7, q. year for years 8 through 10. AFP, beta-hCG, LDH on days of CAT scans. (Chest x-ray is clinically indicated). However, discussed options of single agent carboplatin versus radiation. (Carboplatin AUC of 7 x 2 cycles). Chest x-ray 02/10/11 was negative for malignancy. Adjuvant carboplatin x two doses planned. Dose #1 03/15/11. Dose #2 (final dose of carboplatin) on 04/05/11. As per NCCN guidelines, MD visit AFP beta- hCG LDH every three months for year one, every four months for year two, every six months for year three, and then annually. CT abdomen and pelvis annually for years 1-3 and chest x-rays p.r.n. MEDICATIONS: The current medication list was reviewed with the patient and updated in the EMR this date per the Reducer. Medication dosages and frequencies were confirmed to be accurate. ALLERGIES: Penicillin causes hives. SOCIAL HISTORY: . 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 Smokes 3/4 PPD hasdone so all his adult life. (He was advised to stop smoking on the day of consult and advised of the risk of secondary malignancies). FAMILY HISTORY: Father developed colon cancer at age 50 (patient has been advised to begin colonoscopies at age 41). REVIEW OF SYSTEMS: PAIN: GENERAL: Fatigue. SKIN: No rashes or nonhealing lesions. HEME/LYMPH: No anemia, easy bruising, bleeding or swollen nodes. EYES: No vision changes or diplopia. ENT: No tinnitus, hearing loss, gum bleeding, epistaxis, hoarseness or dysphagia. RESPIRATORY: No cough, shortness of breath, hemoptysis or wheezing. CVS: No chest pain, palpitations, orthopnea, dyspnea on exertion or PND. GI: Nausea without vomiting. : Erectile dysfunction. MUSCULOSKELETAL: No bone pain or joint stiffness. NEUROLOGICAL: No dizziness, global weakness, loss of consciousness or seizures. PSYCHIATRIC: No increased nervousness, mood changes or depression. VITAL SIGNS: TEMPERATURE: 98.1 BLOOD PRESSURE: 120/78 WEIGHT: PULSE: 98 RESPIRATIONS: 16 PHYSICAL EXAMINATION: GENERAL: Well-developed and well-nourished male in no acute distress. SKIN: Warm and dry without rash, purpura or petechiae. HEAD: Normocephalic. EYES: Pupils equal, round and reactive to light. EOMs intact. Conjunctivae normal. EARS: Hearing intact. NOSE: Septum midline. No excoriations or nasal discharge. MOUTH: Tongue is well papillated; no stomatitis or ulcers. Lips normal. THROAT: Oropharynx without lesions or exudates. NECK: Supple with good range of motion; no thyromegaly or masses, no JVD or bruits. LYMPHATICS: No cervical, supraclavicular, axillary or inguinal adenopathy. CHEST: Lungs clear to percussion and auscultation. CARDIAC: Regular rate and rhythm without murmurs, rubs or gallops. ABDOMEN: Soft, nontender with no hepatosplenomegaly, no masses. : No masses on testicular exam. EXTREMITIES: No cyanosis, clubbing, or edema. NEURO: No focal deficits. LABORATORY DATA: HEMOGLOBIN: 15.0 WBC: 6.4 PLATELETS: 252,000 ASSESSMENT: Stage IB testicular seminoma (pT2, N0, M0, S0), status post orchiectomy on 01/14/11. Two doses of adjuvant carboplatin with AUC of 7, dose #2 on 04/05/11, tolerated the therapy very well.Recent CT scans , chest x-ray and lab work show no evidence of recurrence. PLAN: 1. MD visit in six months with AFP, beta-hCG LDH and CBC one week prior. (CAT scan at the visit after next). 2. As per NCCN guidelines, MD visit AFP beta- hCG LDH every three months for year one, every four months for year two, every six months for year three, and then annually. CT abdomen and pelvis annually for years 1-3 and chest x-rays p.r.n. 3. (Patient was last here one year ago. We will try to space out his visits a little to help with compliance). Mikal SKELTON M.D. ELECTRONICALLY SIGNED BY: Mikal SKELTON M.D., 11/09/12, 6:52 pm PATRICIA: lupe cc: Angeline SUAREZ M.D. documented in this encounter Plan of Treatment Not on file documented as of this encounter Visit Diagnoses Not on filedocumented in this encounter Care Teams Extrusion Process Operator Relationship Specialty Start Date End Date Provider, [place] [address] PCP - General 12/17/23 documented as of this encounter
--- OUTSIDE RECORDS SUMMARY | 2025-01-28 16:28 | XMS_ITS | Encounter Summary ---
Author Organization [facility] Address [address] [place] [address] Care Team Providers Care Casino Cage Supervisor Name Role Phone Provider, No Known Primary Care Provider Unavail able Encounter Details Date Type Department Care Team ([facility] st Contact Info) Description 10/04/2011 Conversion Encounter [facility] HISTORICAL CONV [address] [place] [address] Interface, See Report Social History Tobacco Use Types Packs/Day Years Used Date Smoking Tobacco: Never Assessed Sex and Gender Information Value Date Recorded Sex Assigned at Not on file Legal Sex Male 12:57 PM EDT Gender Identity Not on file Sexual Orientation Not on file documented as of this encounter Progress Notes * Interface, See Report - 10/04/2011 12:00 AM EDT [facility] CONSULTING IN BLOOD DISORDERS & CANCER Robert Henry, Barrett Miller Myers, Huber, Alvina, Osmin, Abe Skelton & Hitesh [address] [facility], [address] [place], [place] [address] PATIENT NAME: Jeremi Balbuena DATE OF : 72 PATIENTS AGE: 40 PATIENTS SEX: Male DATE OF SERVICE: 10/04/11 PROVIDER: Mikal Skelton M.D. REASON FOR FOLLOWUP: T2, N0, M0, S0 (stage IB) testicular seminoma. HISTORY OF PRESENT ILLNESS: Mr. Balbuena has the above problem. Since his last visit, he has no new problems. He denies pain. He does self testicular exam regularly. He has noticed no problems. He remains active. PAST MEDICAL HISTORY: No other medical problems. ONCOLOGIC HISTORY: T2, N0,M0, S0 (stage IB) testicular seminoma. Dr. Skelton called [facility] and spoke with Dr. Vlad Valentine of [facility] to review Mr. Balbuena's path report. Dr. Valentine stated this is indeed a T2 tumor, based on the information from the printed report. He stated tumor present in the lymphatic space of the mid spermatic cord does not qualify for a T3 lesion. He stated unless there was direct extension, this would not be a T3 lesion. Right orchiectomy on 01/14/11. 2 cm. Classic seminoma. Confined to the testis. Margins negative. Tumor pr esent in lymphatic space of section obtained from mid spermatic cord. Lymphvascular space invasion, presence within testicle and section from spermatic cord. Recommended active surveillance with a schedule of CAT scan of abdomen and pelvis every 3-4 mo nthsfor years 1 through 3, q. 6 months for years 4 through 7, q. year for years 8 through 10. AFP, beta-hCG, LDH on days of CAT scans. (Chest x-ray is clinically indicated). However, discussed options ofsingle agent carboplatin versus radiation. (Ca rboplatin AUC of 7 x 2 cycles). Chest x-ray 02/10/11 was negative for malignancy. Adjuvant carboplatin x two doses planned. Dose #1 03/15/11. Dose #2 (final dose of carboplatin) on 04/05/11. MEDICATIONS: Compazine 10 mg q6h p.r.n. ALLERGIES: Penicillin causes hives. SOCIAL HISTORY: . 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 Smokes 3/4 PPD has done so all his adult life. (He was [...] or PND. GI: Nausea without vomiting. : No lower tract obstructive symptoms, dysuria or hematuria. MUSCULOSKELETAL: No bone pain or joint stiffness. NEUROLOGICAL: No dizziness, global weakness, loss of consciousness or seizures. PSYCHIATRIC: No increased nervousness, mood changes or depression. VITAL SIGNS: TEMPERATURE: 97.6 BLOOD PRESSURE: 118/70 WEIGHT: PULSE: 97 RESPIRATIONS: 16 PHYSICAL EXAMINATION: GENERAL: Well-developed and [...] NEURO: No focal deficits. LABORATORY DATA: HEMOGLOBIN: 15.1 WBC: 4500 PLATELETS: 245,000 AFB 2.7, beta HCG less than 2, creatinine ASSESSMENT: 1. Stage IB testicular seminoma (pT2, N0, M0, S0), status post orchiectomy on 01/14/11. Two doses of adjuvant carboplatin with AUC of 7, dose #2 on 04/05/11, tolerated the therapy very well. Recent CT scans and lab work show no evidence of recurrence. 2. Recent chest x-ray shows an abnormality. Subsequent CT scan of chest shows no abnormalities. CXRabnormality felt to represent a confluence of markings. No further follow-up CT scan of chest planned. PLAN: 1. Plan CT of the abdomen and pelvis with contrast, chest x-ray, beta-hCG , AFP, LDH q. 4 months years 1 through 3, q. 6 months years 4 through 7, q. 1 year years 8 through 10. 2. Next MD visit in 4 months with the above studies 1 week prior. Mikal SKELTON M.D. ELECTRONICALLY SIGNED BY: Mikal SKELTON M.D., 10/28/11, 5:33 pm PATRICIA:[place] cc: Angeline SUAREZ M.D. documented in this encounter Plan of Treatment Not on file documented as of this encounter Visit Diagnoses Not on filedocumented in this encounter Care Teams Casino Cage Supervisor Relationship Specialty Start Date End Date Provider, [place] [address] PCP - General 12/17/23 documented as of this encounter
--- OUTSIDE RECORDS SUMMARY | 2025-01-28 16:28 | XMS_ITS | Encounter Summary ---
Author Organization [facility] Address [address] [place] [address] Care Team Providers Care Fisheries Director Name Role Phone Provider, No Known Primary Care Provider Unavail able Encounter Details Date Type Department Care Team ([facility] st Contact Info) Description 04/26/2011 Conversion Encounter [facility] HISTORICAL CONV [address] [place] [address] Interface, See Report Social History Tobacco Use Types Packs/Day Years Used Date Smoking Tobacco: Never Assessed Sex and Gender Information Value Date Recorded Sex Assigned at Not on file Legal Sex Male 12:57 PM EDT Gender Identity Not on file Sexual Orientation Not on file documented as of this encounter Progress Notes * Interface, See Report - 04/26/2011 12:00 AM EDT [facility] CONSULTING IN BLOOD DISORDERS & CANCER Robert Henry, Barrett Miller Myers, Huber, Alvina, Osmin, Ruben & Hitesh [address] [facility], [address] [place], [place] [address] PATIENT NAME: Marychuy Balbuena DATE OF : 72 PATIENTS AGE: 40 PATIENTS SEX: Male DATE OF SERVICE: 04/26/11 PROVIDER: Mikal Skelton M.D. REASON FOR FOLLOWUP: T2, N0, M0, S0 (stage IB) testicular seminoma. HISTORY OF PRESENT ILLNESS: Mr. Balbuena has the above problem. Today he states that he feels fine. He states that throughout both cycle of chemotherapy, he probably used a total of eight doses of Compazine. He states that this is mainly for preventative purposes when he felt only slightly nauseated. He worked throughout chemotherapy. He states that his girlfriend cannot believe that he has felt so well while on chemotherapy. He denies pain. PAST MEDICAL HISTORY: No other medical problems. ONCOLOGY HISTORY: T2, N0,M0, S0 (stage IB) testicular seminoma. Dr. Skelton called [facility] and spoke with Dr. Vlad Valentine of uropathology to review Mr. Balbuena's path report. Dr. Valentine stated this is indeed a T2 tumor, based on the information fro m the printed report. He stated tumor present [...] and section from spermatic cord. Recommended active surveillanc e with a schedule of CAT scan of abdomen and pelvis every 3-4 monthsfor years 1 through 3, q. 6 months for years 4 through 7, q. year for years 8 through 10. AFP, beta-hCG, LDH on days of CAT scans. (Chest x-ray is clinically indicated). However, disc ussed options of single agent carboplatin versus radiation. (Carboplatin AUC of 7 x 2 cycles). Chest x-ray 02/10/11 was negative for malignancy. Adjuvant carboplatin x two doses planned. Dose #1 03/15/11. Dose #2 (final dose of carboplatin) on 04/05/11. MEDICATIONS: Compazine 10 mg q6h p.r.n. ALLERGIES: Penicillin, causes hives. SOCIAL HISTORY: . 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 Smokes 3/4 PPD has [...] mood changes or depression. VITAL SIGNS: TEMPERATURE: 97.5 BLOOD PRESSURE: 128/82 WEIGHT: PULSE: 100 RESPIRATIONS: 16 PHYSICAL EXAMINATION: GENERAL: Well-developed and [...] Soft, nontender with no hepatosplenomegaly, no masses. EXTREMITIES: Minor changes of phlebitis in the left forearm. NEURO: No focal deficits. LABORATORY DATA: HEMOGLOBIN: 12.0 WBC: 3000 PLATELETS: 76,000 ANC: 1050 ASSESSMENT: 1. Stage IB testicular seminoma (pT2,N0,M0,S0), status post orchiectomy on 01/14/11. Two doses of adjuvant carboplatin with AUC of 7, dose #2 on 04-05-11. He tolerated the therapy very well. 2. Pancytopenia secondary to chemotherapy. His monocyte percent i s not elevated, suggested he is not yet on the road to recovery. We will check another CBC in two weeks to assess this. PLAN: 1. CBC in two weeks. 2. M.D. visit in early June with CT scan s of abdomen and pelvis, chest x- ray, serum tumor markers one week prior. 3. Plan CT of the abdomen and pelvis with contrast, chest x-ray, beta hCG, AFP, LDH q. 4 months years 1 through 3, q. 6 months years 4 through 7, q. 1 year years 8 through 10. Plan the first of thesesurveillance scans and labs late May/early June. Mikal SKELTON M.D. THIS REPORT IS PRELIMINARY PENDING REVIEW BY DICTATING PHYSICIAN ELECTRONICALLY SIGNED BY: Mikal SKELTON M.D., 05/10/11, 1:07 pm PATRICIA: [place] cc: KULWANT MOLINA M.D. [facility] RADIATION MEDICINE MARYCHUY PEREZ M.D. documented in this encounter Plan of Treatment Not on file documented as of this encounter Visit Diagnoses Not on filedocumented in this encounter Care Teams Fisheries Director Relationship Specialty Start Date End Date Provider, [place] [address] PCP - General 12/17/23 documented as of this encounter
--- OUTSIDE RECORDS SUMMARY | 2025-01-28 16:28 | XMS_ITS | Encounter Summary ---
Author Organization [facility] Address [address] [place] [address] Care Team Providers Care Outbound Sales Specialist Name Role Phone Provider, No Known Primary Care Provider Unavail able Encounter Details Date Type Department Care Team ([facility] st Contact Info) Description 02/02/2011 Conversion Encounter [facility] HISTORICAL CONV [address] [place] [address] Interface, See Report Social History Tobacco Use Types Packs/Day Years Used Date Smoking Tobacco: Never Assessed Sex and Gender Information Value Date Recorded Sex Assigned at Not on file Legal Sex Male 12:57 PM EDT Gender Identity Not on file Sexual Orientation Not on file documented as of this encounter Consult Notes * Interface, See Report - 02/02/2011 12:00 AM EDT [facility]SULT[facility] IN BLOOD DISORDERS & CANCER Robert Herrera, Barrett Miller Myers, Huber, Alvina, Osmin, Ruben & Hitesh [address] [facility], [address] [place], [place] [address] PATIENT NAME: Marychuy Balbuena DATE OF : 72 PATIENTS AGE: 40 PATIENTS SEX: Male DATE OF SERVICE: 02/02/11 PROVIDER: Mikal Skelton M.D. REASON FOR CONSULTATION: T2,N0,M0,S0 (stage IB) testicular seminoma. Provide an opinion regarding any further adjuvant chemotherapy or radiation therapy. REQUESTING PHYSICIAN: KULWANT MOLINA M.D. HISTORY OF PRESENT ILLNESS: Mr. Balbuena is a 40-year-old healthy male with the above issue. Currently he states he feels fine. He has a minimal amount of discomfort at his surgical sites. Denies any discomfort elsewhere. Denies neurological symptoms. Denies nausea. He feels he is getting a sinus infection as he has had some sinus pain and pressure over the past day. 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 PAST MEDICAL HISTORY: No other medical problems. ONCOLOGY HISTORY: T2,N0,M0,S0 (stage IB) testicular seminoma. Dr. Skelton called [facility] and spoke with Dr. Vlad Valentine [...] 3-4 months for years 1 through 3, q.6 months for years 4 through 7, q.year for years 8 through 10. AFP, beta-hCG, LDH on days of CAT scans. (Chest x-ray is clinically indicated). However, discussed options of single agent carboplatin versus radiation. (Carboplatin AUC of 7 x2 cycles). MEDICATIONS: No home medications. ALLERGIES: Penicillin, causes hives. SOCIAL HISTORY: . 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 Smokes 3/4 pack per day and has been doing this all his adult life. (He was advised to stop smoking on the day of consult and advised of the risk of secondary malignancies). FAMILY HISTORY: Father developed colon cancer at age 50 (patient has been advised to begin colonoscopies at age 41). REVIEW OF SYSTEMS: PAIN: GENERAL: No change in appetite or weight; no fevers, chills, sweats. The patient denies generalizedor localized pain. SKIN: No rashes or nonhealing lesions. HEME/LYMPH: No anemia, easy bruising, bleeding or swollen nodes. EYES: No vision changes or diplopia. ENT: No tinnitus, hearing loss, gum bleeding, epistaxis, hoarseness or dysphagia. RESPIRATORY: No cough, shortness of breath, hemoptysis or wheezing. CVS: No chest pain, palpitations, orthopnea, dyspnea on exertion or PND. GI: No abdominal pain, nausea, vomiting, constipation, diarrhea, melena or hematochezia. : No lower tract obstructive symptoms, dysuria or hematuria. MUSCULOSKELETAL: No bone pain or joint stiffness. NEUROLOGICAL: No dizziness, global weakness, loss of consciousness or seizures. PSYCHIATRIC: No increased nervousness, mood changes or depression. VITAL SIGNS: TEMPERATURE: 98.2 BLOOD PRESSURE: 120/90 WEIGHT: PULSE: 86 RESPIRATIONS: 16 PHYSICAL EXAMINATION: GENERAL: Well-developed, well-nourished male. SKIN: Warm, dry without rashes, purpura or petechiae. HEAD: Normocephalic. EYES: Pupils [...] nontender with no hepatosplenomegaly, no masses. EXTREMITIES: No clubbing, cyanosis or edema. NEURO: Cranial nerves II thru XII intact. DTRs +2 out of 4 in all 4 extremities. Sensory intact. LABORATORY DATA: HEMOGLOBIN: 14.2 HEMATOCRIT: WBC: 5.8 WBC DIFF.: PLATELETS: 300,00 ASSESSMENT: Stage IB testicular seminoma (pT2,N0,M0,S0). Orchiectomy on 01/14/11. I recommended active surveillance. However, I discussed options of two doses of carboplatin versus adjuvant radiation. I explained it is believed 85% of people with stage I seminomas who receive chemotherapy or radiation therapy did not indeed need the therapy. I explained one of the main concerns with testicular cancer survivors are computer support technician side effects. I explained chemotherapy (including single agent carboplatin) is believe to slightly increase the cardiovascular risk. The patient has a family history of cardiac disease and the patient smokes. Both chemo and radiation increase the risk of secondary malignancies. I explained not receiving adjuvant therapy at this point is not believed to decrease the cure rate as recurrent testicular cancer has an excellent cure rate. After a long discussion, Mr. Balbuena expressed his desire to pursue either chemotherapy or radiation therapy as he would like to minimize his chances of dealing with treatment again in the future. He understands a largeproportion of patient's undergo adjuvant therapy despite already being cured from the initial surgery. However, either chemotherapy or radiation is a reasonable approach. One concerning feature is the tumor in the lymphatic space from the mid spermatic cord. Again, I called a uropathologist from [facility] to confirm Dr. Esquivel's pathologic diagnosis of T2 disease. Dr. Valentine from [place] agreed with the T2 designation. I ex plained to Mr. Balbuena I would favor carboplatin over radiation. However, radiation is certainly a reasonable option as well. Tonja make an appointment with the radiation physicians and a return appointment here to finalize anadjuvant therapy plan. He is going on a fishing trip the week of March 06 in [place] and wants to wait until he returns to begin either single agent carboplatin or radiation. He may want to have children in the future. Therefore, he is interested in sperm banking if he should choose either chemotherapy or radiation therapy. PLAN: 1. Appointment with radiation medicine. 2. M.D. visit here a few days after the radiation appointment. 3. Chest x-ray to assess for lung involvement to confirm what is believed to be stage I disease . (This will be obtained prior to his upcoming physician visit here). [facility], CONSULTING IN BLOOD DISORDERS & CANCER J ABHINAV SKELTON M.D., 03/16/11, 6:28 pm PATRICIA:hanna cc: KULWANT MOLINA M.D. [facility] RADIATION MEDICINE MARYCHUY PEREZ M.D. documented in this encounter Plan of Treatment Not on file documented as of this encounter Visit Diagnoses Not on filedocumented in this encounter Care Teams Outbound Sales Specialist Relationship Specialty Start Date End Date Provider, [place] [address] PCP - General 12/17/23 documented as of this encounter
--- NOTE | 2025-01-28 16:35 | CT_ITS ---
PROCEDURE INFORMATION: Exam: CT Head Without And With Contrast Exam date and time: 01/28/2025 5:53 PM Age: 54 years old Clinical indication: Visual disturbance; Additional info: Diplopia, evaluation for mass lesions/metastasis TECHNIQUE: Imaging protocol: Computed tomography of the head without and with contrast. Radiation optimization: All CT scans at this facility use at least one of these dose optimization techniques: automated exposure control; mA and/or kV adjustment per patient size (includes targeted exams where dose is matched to clinical indication); or iterative reconstruction. Contrast material: ISOVUE; Contrast volume: 80 ml; Contrast route: IV; COMPARISON: CT ANGIO HEAD 10/03/2023 10:45 AM FINDINGS: Brain: Normal. No hemorrhage. Unremarkable white matter. No mass effect. Cerebral ventricles: No ventriculomegaly. Paranasal sinuses: Visualized sinuses are unremarkable. No fluid levels. Mastoid air cells: Visualized mastoid air cells are well aerated. Bones: Unremarkable. No acute fracture. Soft tissues: Unremarkable. IMPRESSION: No acute intracranial abnormality.
[2025-01-28 16:43] LABS: Hematocrit 50.1 % (42.0-52.0); Hemoglobin 17.4 g/dL (14.1-18.0); Immature Granulocytes % 0.5 %; Mean Corpuscular HGB Conc 34.7 g/dL (31.8-35.4); Mean Corpuscular Hemoglobin 32.5 pg (27.0-31.2); Mean Corpuscular Volume 93.6 fl (80-94); Nucleated Red Blood Cells % 0 %; Platelet Count 206 K/mm3 (142-424); Red Blood Count 5.35 M/mm3 (4.60-6.20); Red Cell Distribution Width-SD 48.4 fL; White Blood Count 6.4 K/mm3 (4.8-10.8)
[2025-01-28 16:55] LABS: Albumin Level 4.4 g/dl (3.5-5.0); Chloride 93 mmol/L (98-107); Potassium 3.9 mmoL/L (3.5-5.1); Sodium 133 mmol/L (136-145)
[2025-01-28 16:55] LABS: Adenovirus,PCR Not Detected (NotDetected); Chlamydophila Pneumoniae, PCR Not Detected (NotDetected); Coronavirus 19, PCR Not Detected (NotDetected); Coronovirus HKU1,PCR Not Detected (NotDetected); Influenza A, PCR Not Detected (NotDetected); Influenza AH1, 2009 Not Detected (NotDetected); Influenza AH1, PCR Not Detected (NotDetected); Influenza AH3,PCR Not Detected (NotDetected); Influenza B, PCR Not Detected (NotDetected); Mycoplasma Pneumoniae, PCR Not Detected (NotDetected); Parainfluenza 1, PCR Not Detected (NotDetected); Parainfluenza 2, PCR Not Detected (NotDetected); Parainfluenza 3, PCR Not Detected (NotDetected); Parainfluenza 4, PCR Not Detected (NotDetected)
[2025-01-28 16:58] LABS: Alanine Aminotransferase 151 U/L (12-78); Albumin/Globulin Ratio 0.8 (1.1-1.8); Alkaline Phosphatase 99 U/L (38-126); Anion Gap 17.9 mEq/L (5-15); Aspartate Amino Transferase 152 U/L (17-59); Bilirubin,Total 0.9 mg/dl (0.2-1.3); Blood Urea Nitrogen 10 mg/dl (9-20); Calcium 11.1 mg/dl (8.4-10.2); Carbon Dioxide 26 mmol/L (22.0-30.0); Creatinine Clearance Estimated 120 mL/min (50-200); Creatinine,Serum 0.90 mg/dl (0.66-1.25); Estimated Glomerular Filt Rate 88 ml/min (>60); GFR (African American) 107 ML/MIN (>60); Globulin 5.8 g/dL (1.3-3.2); Glucose 125 mg/dl (74-100); Lipase 137 U/L (23-300); Magnesium 2.4 mg/dl (1.6-2.3); Total Protein,Serum 10.2 g/dl (6.3-8.2)
[2025-01-28 17:04] LABS: C-Reactive Protein 20.5 mg/L (0-4)
[2025-01-28 17:05] LABS: INR 0.93 (0.9-1.1); Prothrombin Time 10.4 seconds (10.1-12.5)
[2025-01-28] MEDS: LACTATED RINGERS 1000ML 500 ML 999 ML IV (17:05)
[2025-01-28] MEDS: ONDANSETRON 4MG/2ML VIAL 4 MG IV (17:05)
[2025-01-28 17:10] LABS: NT Pro Brain Natriuretic Pep. 389 pg/mL (0-125)
[2025-01-28 17:12] LABS: Troponin I 0.02 ng/ml (0.00-0.034)
[2025-01-28 17:35] LABS: Procalcitonin 6.57 ng/mL (0.0-2.0)
[2025-01-28] MEDS: IOPAMIDOL-370 (76%);100ML BOTTLE 160 ML IV (17:54)
[2025-01-28] MEDS: SODIUM CHLORIDE 0.9% 10ML SYR (RAD ONLY) 10 ML IV (17:54)
[2025-01-28] MEDS: 0.9 % SODIUM CHLORIDE 50 ML VIAL IV (17:54)
[2025-01-28 18:18] LABS: Acetone, Serum (Rapid) Small (None Detect)
[2025-01-28 18:27] LABS: Microscopic, Urine URINE MICROSCOPIC (MICROSCOPIC)
[2025-01-28 18:29] LABS: Color,Urine YELLOW (Yellow); Glucose,Urine (UA) Negative (Negative); Ketones,Urine 1+ (Negative); Leukocyte Esterase,Urine Negative (Negative); PH,Urine 7.5 (5.0-8.5); Protein,Urine 1+ (Negative); Specific Gravity, Urine 1.010 (1.005-1.030); Urobilinogen,Urine 0.2 EU/dl (0.2)
[2025-01-28] MEDS: LACTATED RINGERS 1000ML 1,000 ML 999 ML IV (19:01)
[2025-01-28] MEDS: diazePAM 10MG/2ML SYRINGE 10 MG IV ×2 (19:01→20:58)
[2025-01-28 19:52] LABS: Troponin I 0.03 ng/ml (0.00-0.034)
[2025-01-28 20:05] LABS: Bilirubin,Urine Negative (Negative)
[2025-01-28 20:13] LABS: Bacteria,Urine 1+ /lpf; Hyaline Casts,Urine OCC #/lpf (0)
[2025-01-28 20:14] LABS: Squamous Epithelial Cell,Urine Occasional #/hpf (0-5)
--- NOTE | 2025-01-28 20:14 | ECG_ITS ---
APPROVED REPORT Exam: Resting ECG HR:135 bpm ECG Measurements Heart Rate [address] 147 P 70 QRSd 93 QRS 46 QT 307 T 66 QTc 386 Conclusion SINUS TACHYCARDIA Normal intervals No stemi Electronically signed by : Bruce Alanis, 01/29/2025 02:21:20
--- NOTE | 2025-01-28 21:34 | PC.NURSE ---
[facility], but stated we could admit here.
--- NOTE | 2025-01-28 21:47 | EXP.HP ---
History of Present Illness *Admission Date: 01/28/25 *Reason for visit:: Nausea/vomiting *History of present illness: Jeremi Balbuena is a 54-year-old male with a medical history significant for sinus tachycardia, hypertension, GERD, alcohol use disorder who presents with 2 to 3-week onset of nausea/vomiting, decreased oral tolerance. Patient states about 3 weeks ago he drank beer heavily for 2 days in a row and has since been having nausea/vomiting, decreased oral tolerance. He states he drinks 2-3 beers a day, and has not been able to keep anything down over the past 3 days which was his last drink. He denies abdominal pain, fever/chills, chest pain, shortness of breath, urinary symptoms, constipation/diarrhea. Denies recent travel history, sick contacts. He has also apparently lost about 20 pounds over this period. Of note, patient states he has had a chronic issue with sinus tachycardia which has previously been worked up by cardiology without a clear etiology. He had been taking metoprolol succinate 50 mg but has not followed up with his PCP over the past month to refill it. Patient also was recently admitted to our facility in October 2024 for strep pneumonia with bacteremia, completed course of antibiotics. Upon arrival, patient's heart rate was in the 150s. Initial EKG suggestive of a flutter but repeat EKG consistent with sinus tachycardia. AST/ALT 152/151, calcium 11.1, procalcitonin 6.57. UA, UDS, alcohol level, respiratory panel unremarkable. CT abdomen/pelvis shows probable Dense ingested material, fatty liver disease. CTA chest also shows right 10th rib fracture, resolution of right lower lobe pneumonia. Case discussed with ED provider and decision was made to admit patient in the setting of decreased oral tolerance, sinus tachycardia, and further evaluation of elevated procalcitonin. [facility] Disclaimer: The information contained in this section may have been updated after the patient was seen, as this information can be updated by other users. Medical History (Updated 01/29/25 @ 02:41 by Stefany Puckett RN) Testicular cancer Surgical History (Updated 01/29/25 @ 02:41 by Stefany Puckett RN) History of orchiectomy Social History (Updated 01/29/25 @ 00:38 by Stefany Puckett RN) Smoking Status: Current every day smoker alcohol intake: never current occupational status: employed Travel in the last 8 weeks?: None Have you lived/traveled outside [place] in past 30 days?: No Contact w/someone who lives/traveled outside US past 30 days?: No Exposure to someone with infectious disease in past 14 days?: No Do you have a fever (greater than 100.4 F or 38 C)?: No Have you tested positive for COVID-19?: No Exposed to someone with COVID-19 in past 14 days?: No Do you have a sore throat?: No Do you have a cough?: No Do you have any weakness?: No Do you have any diarrhea?: No Are you experiencing any unusual bleeding?: No Do you have any muscle aches/pain?: No Do you have any abdominal pain?: No Are you experiencing loss of taste or smell?: No Other Medical History Have you received the Flu Vaccine for this season: No Have you received the Pneumonia Vaccine: No Meds Home Medications and Allergies Home Medications ?Medication ?Instructions ?Recorded ?Confirmed ?Type amlodipine 5 mg tablet 5 mg PO DAILY 07/01/24 11/01/24 History metoprolol succinate 100 mg 50 mg PO DAILY 11/02/24 11/02/24 History tablet,extended release 24 hr pantoprazole 40 mg tablet,delayed 40 mg PO DAILY 11/02/24 11/02/24 History release doxycycline hyclate 100 mg tablet 100 mg PO BID 7 days #14 tabs 11/03/24 Rx levofloxacin 750 mg tablet 750 mg PO DAILY 7 days #7 tabs 11/03/24 Rx New Prescriptions to Start Prescriptions: Allergies Allergy/AdvReac Type Severity Reaction Status Date / Time Penicillins Allergy Verified 10/03/23 08:49 Exam Data for Last 24 hours Vital signs and Labs for Last 24 Hours: Temp Pulse Resp BP Pulse Ox O2 Del Method 97.8 F 147 H 17 126/85 90 L Room Air 01/28/25 16:25 01/28/25 21:31 01/28/25 21:31 01/28/25 21:31 01/28/25 21:31 01/28/25 18:21 Laboratory Results - last 24 hr 01/28/25 16:30: WBC 6.4, RBC 5.35, Hgb 17.4, Hct 50.1, MCV 93.6, MCH 32.5 H, MCHC 34.7, RDW 14.3, Plt Count 206, MPV 9.4, Neut % (Auto) 74.4, Lymph % (Auto) 16.9, [place] % (Auto) 7.6, Eos % (Auto) 0.3, Baso % (Auto) 0.3, Neut # (Auto) 4.7, Lymph # (Auto) 1.1, [place] # (Auto) 0.5, Eos # (Auto) 0.0, Baso # (Auto) 0.0, PT 10.4, INR 0.93, Sodium 133 L, Potassium 3.9, Chloride 93 L, Carbon Dioxide 26, Anion Gap 17.9 H, BUN 10, Creatinine 0.90, Estimated Creat Clear 120, Estimated GFR 88, Est GFR ( Amer) 107, Glucose 125 H, Calcium 11.1 H, Magnesium 2.4 H, Total Bilirubin 0.9, AST 152 H, ALT 151 H, Alkaline Phosphatase 99, Troponin I 0.02, C-Reactive Protein 20.5 H, NT-Pro-B Natriuret Pep 389 H, Total Protein 10.2 H D, Albumin 4.4, Globulin 5.8 H, Albumin/Globulin Ratio 0.8 L, Lipase 137, Procalcitonin 6.57 H, Acetone Level Small 01/28/25 16:49: Chlamy pneumoniae PCR Not detected, Adenovirus (PCR) Not detected, B. pertussis DNA (PCR) Not detected, Coronavirus OC43 (PCR) Not detected, Coronavirus HKU1 (PCR) Not detected, Coronavirus 229E (PCR) Not detected, SARS-CoV-2 (PCR) Not detected, Coronavirus NL63 (PCR) Not detected, Human Metapneumovir PCR Not detected, Influenza A (H1) PCR Not detected, Influ A (H1N1/09) PCR Not detected, Influenza A (H3) PCR Not detected, Influenza Type A (PCR) Not detected, Influenza Type B (PCR) Not detected, M. pneumoniae (PCR) Not detected, Parainfluenza 1 (PCR) Not detected, Parainfluenza 2 (PCR) Not detected, Parainfluenza 3 (PCR) Not detected, Parainfluenza 4 (PCR) Not detected, RSV (PCR) Not detected, Entero/Rhino (PCR) Not detected 01/28/25 17:17: Lactate 1.2 01/28/25 18:21: Urine Color Yellow, Urine Appearance Clear, Urine pH 7.5, Ur Specific [place] 1.010, Urine Protein 1+ A, Urine Glucose (UA) Negative, Urine Ketones 1+, Urine Blood Trace-l, Urine Nitrate Negative, Urine Bilirubin Negative, Urine Urobilinogen 0.2, Ur Leukocyte Esterase Negative, Urine WBC 3-5, Ur Squamous Epith Cells Occasional, Urine Bacteria 1+, Hyaline Casts Occ, Fine Granular Casts Occasional 01/28/25 19:25: Troponin I 0.03 I & O for Last 24 hours: Intake & Output 01/25/25 01/26/25 01/27/25 01/28/25 23:59 23:59 23:59 23:59 Weight 89.358 kg Constitutional Constitutional: no acute distress *Routine HEENT Exam Head: Present normocephalic Eye: Present EOMI and PERRL ENT: Present mucous membranes moist *Routine Neck Exam Neck: Present supple; Absent lymphadenopathy *Routine Respiratory Exam Respiratory: Present CTA bilaterally *Routine Cardiovascular Exam Cardiovascular: Present RRR *Routine Abdominal Exam Abdominal: Present soft and normoactive bowel sounds; Absent tenderness *Routine Rectal Exam Rectal:: deferred *Routine Genitalia Exam Genitalia:: deferred *Routine Extremities Exam Extremities: Absent cyanosis, clubbing or edema *Routine Skin Exam Skin: Present warm; Absent rash *Routine Neurological Exam Neurological: Present alert and oriented X3 Assessment and Plan *Assessment and plan (1) Alcohol abuse: Status: Acute Category: Social Hx Code(s): F10.10 - Alcohol abuse, uncomplicated (2) Tachycardia: Status: Acute Category: Medical Code(s): R00.0 - Tachycardia, unspecified (3) Hypertension: Status: Acute Category: Medical Code(s): I10 - Essential (primary) hypertension Plan Jeremi Balbuena is a 54-year-old male with a medical history significant for sinus tachycardia, hypertension, GERD, alcohol use disorder who presents with 2 to 3-week onset of nausea/vomiting, decreased oral tolerance. Patient states about 3 weeks ago he drank beer heavily for 2 days in a row and has since been having nausea/vomiting, decreased oral tolerance. He states he drinks 2-3 beers a day, and has not been able to keep anything down over the past 3 days which was his last drink. He denies abdominal pain, fever/chills, chest pain, shortness of breath, urinary symptoms, constipation/diarrhea. Denies recent travel history, sick contacts. He has also apparently lost about 20 pounds over this period. Of note, patient states he has had a chronic issue with sinus tachycardia which has previously been worked up by cardiology without a clear etiology. He had been taking metoprolol succinate 50 mg but has not followed up with his PCP over the past month to refill it. Patient also was recently admitted to our facility in October 2024 for strep pneumonia with bacteremia, completed course of antibiotics. Upon arrival, patient's heart rate was in the 150s. Initial EKG suggestive of a flutter but repeat EKG consistent with sinus tachycardia. AST/ALT 152/151, calcium 11.1, procalcitonin 6.57. UA, UDS, alcohol level, respiratory panel unremarkable. CT abdomen/pelvis shows probable Dense ingested material, fatty liver disease. CTA chest also shows right 10th rib fracture, resolution of right lower lobe pneumonia. Case discussed with ED provider and decision was made to admit patient in the setting of decreased oral tolerance, sinus tachycardia, and further evaluation of elevated procalcitonin. #Nausea/vomiting #Hypercalcemia #Elevated AST/ALT #Elevated procalcitonin #Alcohol use disorder ? Patient reports decreased oral tolerance, nausea/vomiting after heavy alcohol use about 3 weeks ago. ? Initial AST/ALT 152/151, other LFTs normal. Calcium 11.1. Procalcitonin elevated 6.57. ? Unclear etiology of nausea/vomiting, but concerning in the setting of elevated procalcitonin and LFTs. Additionally, PUD/gastritis is also a possibility in the setting of recent heavy alcohol use and ongoing alcohol use disorder. Hemoglobin normal. ? Started IV Protonix 40 mg daily for possible PUD/gastritis. Consider Carafate. Consider GI consult if no improvement in symptoms. ? Follow-up hepatitis panel, RUQ ultrasound for elevated LFTs. No abdominal pain, normal bilirubin. ? Started empiric vancomycin (though had itching reaction, discontinued), cefepime day 1. Previously had bacteremia. Follow-up blood cultures for elevated procalcitonin. ? Follow-up PTH, vitamin D for elevated calcium though likely from dehydration. ? Continue LR at 100 L/h. Received 2 L in the ED. ? Follow-up morning procalcitonin, calcium. #Sinus tachycardia, chronic ? Longstanding history of sinus tachycardia, previously evaluated by cardiology without remarkable workup. Initial heart rate 150s. ? Has not followed up with his PCP to refill metoprolol succinate 50 mg which he had been taking prior to a month ago. No signs of sepsis at this time. ? Started metoprolol tartrate 25 mg twice daily. IV Lopressor 5 mg given. Improvement in heart rate to 108. #Alcohol use disorder #Alcohol withdrawal ? Last known drink 3 days prior to admission. Drinks 3 beers a day. ? CIWA protocol, Ativan as needed. ? Daily vitamins, Protonix. #Hypertension ? Resume home medications once reconciled. BP stable at this time. #Fatty liver disease ? Seen on CT. Recommend lifestyle modifications. High risk for cirrhosis with concomitant alcohol use disorder. ? Consider statin after LFTs improved. Follow-up morning lipid panel. Full code DVT prophylaxis: Lovenox 40mg
[2025-01-28 22:37] LABS: Barbiturates Screen,Urine Negative ng/ml (<200); Benzodiazepines Screen,Urine Negative ng/ml (<200)
[2025-01-28 22:38] LABS: Amphetamine/Metha Screen,Urine Negative ng/ml (<1000); Methadone Screen,Urine Negative ng/ml (<300)
[2025-01-28 22:40] LABS: Opiate Screen,Urine Negative ng/ml (<300)
[2025-01-28 22:41] LABS: Phencyclidine Screen,Urine Negative ng/ml (<25)
[2025-01-28 22:46] LABS: Free T4 (Free Thyroxine) 0.94 ng/dl (0.78-2.19)
[2025-01-28 23:01] LABS: Thyroid Stimulating Hormone 2.24 uIU/mL (0.465-4.68)
[2025-01-28 23:07] LABS: Troponin I 0.03 ng/ml (0.00-0.034)
--- NOTE | 2025-01-28 23:25 | PC.NURSE ---
Patient arrived to floor via wheelchair from ED at 22:39.
[2025-01-29] VITALS (13 sets, daily range): BP systolic 128–149; BP diastolic 63–88; PULSE 76–148; RESP 16–19; TEMP 36.6–36.9; O2SAT 91–97; BMI 26.1
--- NOTE | 2025-01-29 00:11 | CA_ITS ---
APPROVED REPORT EXAM: Comprehensive 2D, Doppler, and color-flow Echocardiogram Ship Manager: Vero Mondragon CRT Ht: 6 ft 1 in Wt: 198lbs BSA: 2.14 BP: 131/89 mmHg Indications: Atrial Fibrillation, Hypertension/HDD, off beta jones for 3 weeks, alcohol abuse, pt lost 20 lb in 2 wks 2D Dimensions LA Volume 19.60 mL LA Volume Index 8.90 mL/m2 (M/F) 16-34 M-Mode Dimensions RVDd 2.60 cm (0.9-2.6) LA Diam 2.89 cm (1.9-4.0) LVDd 4.25 cm (3.5-5.7) LVDs 3.28 cm (3.5-5.7) IVSd 1.50 cm (0.6-1.1) PWd 1.36 cm (0.6-1.1) EF (Teich) 46.20% FS 22.80% EDV (Teich) 80.80 mL TAPSE 1.94 (<1.7) ESV (Teich) 43.50 mL LV Diastology MED A' 8.00 cm/s LAT A' 9.30 cm/s Aortic Valve AO Peak GR. 4.20 mmHg Pulmonary Valve PV Peak Velocity 117.0 (50-150 cm/s) Tricuspid Valve TR P. Velocity 174.00 cm/s RAP Estimate 10.00 mmHg RVSP 22.20 mmHg Left Ventricle The left ventricle is normal size. The left ventricular systolic function is normal. The left ventricular ejection fraction is within the normal range. There is increased LV wall thickness. There is normal LV segmental wall motion. Transmitral Doppler flow pattern suggests impaired LV relaxation. LVEF is 55%. Right Ventricle The right ventricle is normal size. The right ventricular systolic function is normal. Atria The left atrium size is normal. The right atrium size is normal. There is no Doppler evidence of interatrial shunt. Aortic Valve The aortic valve opens well. There is no aortic valvular stenosis. No aortic regurgitation is present. Mitral Valve The mitral valve is normal in structure. No evidence of mitral valve stenosis. Trace mitral regurgitation. Tricuspid Valve Tricuspid valve is grossly normal in structure and function. Trace tricuspid regurgitation. There is insufficient TR jet to estimate RVSP. Pulmonic Valve The pulmonary valve is normal in structure. Trace pulmonic regurgitation. Great Vessels The aortic root is normal in size. IVC is normal in size and collapses >50% with inspiration. Pericardium There is no pericardial effusion. Other Information Study Quality: Fair Conclusion Normal biventricular systolic function. No significant valvular stenosis or regurgitation. Electronically signed by : Britni Pappas MD 01/29/2025 11:14:45
[2025-01-29] MEDS: TRAZODONE 50MG TABLET 50 MG PO ×2 (00:15→20:57)
[2025-01-29] MEDS: METOPROLOL TARTRATE 5MG/5ML VIAL 5 MG IV (00:15)
[2025-01-29] MEDS: LACTATED RINGERS 1000ML 1,000 ML 80 ML IV (00:15)
--- NOTE | 2025-01-29 00:58 | PC.NURSE ---
Addendum entered by Stefany Puckett RN 01/29/25 04:15: Patient's current heart rate is 108 per continuous telemetry. Addendum entered by Stefany Puckett RN 01/29/25 01:30: Oral metoprolol was administered at 01:00 per AUG. Patient's current heart rate is 125. satellite project site monitor remains in place for continuous monitoring. Original Note: Intravenous metoprolol (5 mg) was administered per AUG for elevated heart rate (140s to 150s bpm on telemetry + datascope). Vital sign assessments post-administration of the IV metoprolol were taken/documented accordingly (see documentation for 00:21). While admission assessments were being completed, the patient's heart rate was continuously monitored by me at the bedside, using a datascope. Admission assessments were completed around 00:50. Heart rate averaged between 110s and 120s bpm (noted between 00:21 and 00:50) after the IV metoprolol administration. Patient did not report any abnormal symptoms during this time. Mikal Tapia MD was notified about this. He stated to go ahead and give the oral metoprolol tartrate (25 mg). Oral metoprolol was administered per AUG.
[2025-01-29] MEDS: METOPROLOL TARTRATE 25MG TABLET 25 MG PO ×3 (01:00→20:57)
[2025-01-29] MEDS: CEFEPIME HCL 2 GM in 0.9 % SODIUM CHLORIDE 100 ML IV ×4 (01:08→21:00)
[2025-01-29] MEDS: VANCOMYCIN HCL 2,250 MG in 0.9 % SODIUM CHLORIDE 250 ML 125 MG IV (01:42)
--- NOTE | 2025-01-29 01:48 | PC.NURSE ---
Addendum entered by Stefany Puckett RN 01/29/25 02:10: Prior to the benadryl administration, the patient stated that his nausea had subsided (by 02:00), but he still felt very itchy. One time dose of benadryl was administered at 02:05 per MAR. Original Note: Intravenous vancomycin was administered around 01:42 per MAR. A couple minutes after starting the infusion, the patient called out, stating that he was starting to feel very nauseous, and his mouth and throat were itching. Vancomycin infusion was stopped. I assessed the patient's skin as well for any rashes, redness, or raised areas. No diaphoresis observed. Vital sign assessments were taken at 01:48. Heart rate maintaining 120s bpm. Mikal Tapia MD was paged to notify him about this occurrence. He stated to discontinue the vancomycin infusion altogether, and that he will order benadryl for the patient. Lactated Ringers infusion was OK'd to continue; IV tubing was replaced altogether.
--- NOTE | 2025-01-29 04:00 | PC.NURSE ---
Addendum entered by Stefany Puckett RN 01/29/25 05:42: Lactated Ringers infusion rate modified to 100 mL/hr per MD order. Original Note: Mr Jeremi Balbuena was newly admitted this shift on behalf of the documented diagnosis alcohol use disorder and persistent tachycardia. Admission assessments and home medication reconciliation (patient stated that he currently does not take any home medications, for [facility] Patient is alert and oriented x4. CIWA score performed (history of alcoholism); patient scored a 4 due to visible tremors with extension of arms. Other withdrawal symptoms continue to be denied at this time. He is currently resting in bed with eyes closed, respirations even and unlabored, and no apparent distress. Seizure precautions in place, but the patient refused to have seizure pads on the bed rails. Patient ambulates independently without difficulties. Medications administered per MAR accordingly. Lactated Ringers continue to infuse at 80 mL/hr. Auscultation of lungs and bowels within normal findings. Sinus tachycardia rhythm on telemetry. At this time, the patient does not have any further complaints. No new needs thus far. Call light within reach.
--- NOTE | 2025-01-29 05:15 | US_ITS ---
FINAL REPORT TECHNIQUE: Sonographic images of the right upper quadrant were obtained. CLINICAL HISTORY: Elevated LFTs, nausea/vomiting COMPARISON: None FINDINGS: PANCREAS: Unremarkable. LIVER: There is an enlarged liver with fatty infiltration. No focal hepatic lesion. No intrahepatic biliary ductal dilatation. GALLBLADDER: No gallstones. No gallbladder wall thickening or pericholecystic fluid. There is borderline gallbladder wall thickening, measuring 5 mm. COMMON DUCT: 5 mm. Normal for age. RIGHT KIDNEY: The right kidney measures 11 cm. There is no hydronephrosis, mass, or stone. FREE FLUID: None. IMPRESSION: Enlarged liver with fatty infiltration present. No focal liver lesion is identified. There is borderline gallbladder wall thickening without evidence of gallstones, pericholecystic fluid or biliary ductal dilatation. Reviewed, Interpreted and Dictated by Britany Tomlinson MD Transcribed by Beatriz Hanson Authenticated and [facility]
[2025-01-29] MEDS: SODIUM CHLORIDE 0.9% 10ML VIAL 10 ML IV ×2 (05:43→20:57)
[2025-01-29] MEDS: PANTOPRAZOLE 40MG VIAL 40 MG IV ×2 (05:43→20:57)
[2025-01-29 06:42] LABS: Cholesterol 182 mg/dl (140-200); HDL Cholesterol 57 mg/dl (40-60); Triglycerides 121 mg/dl (30-150)
[2025-01-29 06:57] LABS: Procalcitonin 5.09 ng/mL (0.0-2.0)
[2025-01-29 07:17] LABS: 25-OH Vitamin D, Total < 12.8 ng/mL (30-100)
[2025-01-29] MEDS: THIAMINE 100MG TABLET 100 MG PO (09:09)
[2025-01-29] MEDS: FOLIC ACID 1MG TABLET 1 MG PO (09:10)
[2025-01-29] MEDS: ACETAMINOPHEN 325MG TAB 650 MG PO ×2 (09:11→14:29)
--- NOTE | 2025-01-29 09:40 | P.CONPHA_ITS ---
Pharmacy Intervention Comments: MEDICATION RECONCILIATION COMPLETED ON PATIENT BY CALLING [place] FOR MED LIST AND DISCHARGE SUMMARY FROM PREVIOUS ADMISSION. -CINTHIA GUNDERSON, [place]
--- NOTE | 2025-01-29 09:40 | HMH.PHAINT1 ---
Pharmacy Intervention Comments: MEDICATION RECONCILIATION COMPLETED ON PATIENT BY CALLING [place] FOR MED LIST AND DISCHARGE SUMMARY FROM PREVIOUS ADMISSION. -ICNTHIA GUNDERSON, [place]
--- NOTE | 2025-01-29 16:43 | EXP.PN ---
Subjective *Date: 01/29/25 *Time: 16:43 Interval history: Patient seen and evaluated at the bedside, patient denied chest pain shortness of breath, no fevers chills. No new complaints at this time Exam Data for Last 24 hours Vital signs and Labs for Last 24 Hours: Temp Pulse Resp BP Pulse Ox O2 Del Method 98.1 F 76 16 137/77 95 Room Air 01/29/25 16:00 01/29/25 16:00 01/29/25 16:00 01/29/25 16:00 01/29/25 16:00 01/29/25 16:00 Laboratory Results - last 24 hr 01/28/25 16:30: WBC 6.4, RBC 5.35, Hgb 17.4, Hct 50.1, MCV 93.6, MCH 32.5 H, MCHC 34.7, RDW 14.3, Plt Count 206, MPV 9.4, Neut % (Auto) 74.4, Lymph % (Auto) 16.9, [place] % (Auto) 7.6, Eos % (Auto) 0.3, Baso % (Auto) 0.3, Neut # (Auto) 4.7, Lymph # (Auto) 1.1, [place] # (Auto) 0.5, Eos # (Auto) 0.0, Baso # (Auto) 0.0, PT 10.4, INR 0.93, Sodium 133 L, Potassium 3.9, Chloride 93 L, Carbon Dioxide 26, Anion Gap 17.9 H, BUN 10, Creatinine 0.90, Estimated Creat Clear 120, Estimated GFR 88, Est GFR ( Amer) 107, Glucose 125 H, Calcium 11.1 H, Magnesium 2.4 H, Total Bilirubin 0.9, AST 152 H, ALT 151 H, Alkaline Phosphatase 99, Troponin I 0.02, C-Reactive Protein 20.5 H, NT-Pro-B Natriuret Pep 389 H, Total Protein 10.2 H D, Albumin 4.4, Globulin 5.8 H, Albumin/Globulin Ratio 0.8 L, Lipase 137, Procalcitonin 6.57 H, TSH 2.24, Free T4 0.94, Acetone Level Small 01/28/25 16:49: Chlamy pneumoniae PCR Not detected, Adenovirus (PCR) Not detected, B. pertussis DNA (PCR) Not detected, Coronavirus OC43 (PCR) Not detected, Coronavirus HKU1 (PCR) Not detected, Coronavirus 229E (PCR) Not detected, SARS-CoV-2 (PCR) Not detected, Coronavirus NL63 (PCR) Not detected, Human Metapneumovir PCR Not detected, Influenza A (H1) PCR Not detected, Influ A (H1N1/09) PCR Not detected, Influenza A (H3) PCR Not detected, Influenza Type A (PCR) Not detected, Influenza Type B (PCR) Not detected, M. pneumoniae (PCR) Not detected, Parainfluenza 1 (PCR) Not detected, Parainfluenza 2 (PCR) Not detected, Parainfluenza 3 (PCR) Not detected, Parainfluenza 4 (PCR) Not detected, RSV (PCR) Not detected, Entero/Rhino (PCR) Not detected 01/28/25 17:17: Lactate 1.2 01/28/25 18:21: Urine Color Yellow, Urine Appearance Clear, Urine pH 7.5, Ur Specific [place] 1.010, Urine Protein 1+ A, Urine Glucose (UA) Negative, Urine Ketones 1+, Urine Blood Trace-l, Urine Nitrate Negative, Urine Bilirubin Negative, Urine Urobilinogen 0.2, Ur Leukocyte Esterase Negative, Urine WBC 3-5, Ur Squamous Epith Cells Occasional, Urine Bacteria 1+, Hyaline Casts Occ, Fine Granular Casts Occasional, Urine Opiates Screen Negative, Urine Methadone Screen Negative, Ur Barbituates Screen Negative, Ur Phencyclidine Scrn Negative, Ur Amphetamines Screen Negative, U Benzodiazepines Scrn Negative, Urine Cocaine Screen Negative, U Marijuana (THC) Screen Negative 01/28/25 19:25: Troponin I 0.03 01/28/25 22:26: Troponin I 0.03 01/29/25 05:24: Triglycerides 121, Cholesterol 182, LDL Cholesterol Direct 76.36 L, VLDL Cholesterol 24, HDL Cholesterol 57, Cholesterol/HDL Ratio 3.2, 25-OH Vitamin D Total < 12.8 L, Procalcitonin 5.09 H, PTH Intact 27.1 I & O for Last 24 hours: Intake & Output 01/26/25 01/27/25 01/28/25 01/29/25 23:59 23:59 23:59 23:59 Intake Total 1483 / 1483 Output Total 0 / 0 0 / 0 Balance 0 / 222 1483 / 1483 Weight 89.84 kg 89.84 kg Microbiology Reports for the Last 24 Hours: Microbiology 01/28/25 16:30 Blood Blood Culture - Preliminary NO GROWTH AFTER 24 HOURS Constitutional Constitutional: no acute distress *Routine HEENT Exam Head: Present normocephalic Eye: Present EOMI and PERRL ENT: Present mucous membranes moist *Routine Neck Exam Neck: Present supple; Absent lymphadenopathy *Routine Respiratory Exam Respiratory: Present CTA bilaterally *Routine Cardiovascular Exam Cardiovascular: Present RRR *Routine Abdominal Exam Abdominal: Present soft and normoactive bowel sounds; Absent tenderness *Routine Extremities Exam Extremities: Absent cyanosis, clubbing or edema *Routine Skin Exam Skin: Present warm; Absent rash *Routine Neurological Exam Neurological: Present alert and oriented X3 Assessment and Plan *Assessment and plan (1) Alcohol abuse: Status: Acute Category: Social Hx Code(s): F10.10 - Alcohol abuse, uncomplicated (2) Tachycardia: Status: Acute Category: Medical Code(s): R00.0 - Tachycardia, unspecified (3) Hypertension: Status: Acute Category: Medical Code(s): I10 - Essential (primary) hypertension Plan Jeremi Balbuena is a 54-year-old male with a medical history significant for sinus tachycardia, hypertension, GERD, alcohol use disorder who presents with 2 to 3-week onset of nausea/vomiting, decreased oral tolerance. Patient states about 3 weeks ago he drank beer heavily for 2 days in a row and has since been having nausea/vomiting, decreased oral tolerance. He states he drinks 2-3 beers a day, and has not been able to keep anything down over the past 3 days which was his last drink. #Nausea/vomiting #Hypercalcemia #Elevated AST/ALT #Elevated procalcitonin #Alcohol use disorder ? Started IV Protonix 40 mg daily for possible PUD/gastritis. Consider Carafate. - Consider GI consult if no improvement in symptoms. ? Follow-up hepatitis panel - monitor RUQ ultrasound for elevated LFTs- fatty liver ? Started empiric cefepime day 2. Previously had bacteremia. - Follow-up blood cultures for elevated procalcitonin. ? Continue LR at 100 L/h. Received 2 L in the ED. #Sinus tachycardia, chronic ? ? Started metoprolol tartrate 25 mg twice daily. #Alcohol use disorder #Alcohol withdrawal ? Last known drink 3 days prior to admission. Drinks 3 beers a day. ? CIWA protocol, Ativan as needed. ? Daily vitamins, Protonix. #Hypertension ? Resume home medications once reconciled. BP stable at this time. #Fatty liver disease ? Seen on CT. Recommend lifestyle modifications. High risk for cirrhosis with concomitant alcohol use disorder. ? Consider statin after LFTs improved. Follow-up morning lipid panel. Full code DVT prophylaxis: Lovenox 40mg monitor over night, dc 1-2 days pending improvement
--- NOTE | 2025-01-29 17:38 | PC.NURSE ---
pt is A&Ox4. pt came in last night with alcohol use disorder and persistent tachycardia. his CIWA all day have been zero. he got up earlier and said he got real dizzy and sat back down. we obtained his vitals and his pressure was 140/80 and heart rate was in the 100s where it has been most of the day. MD is aware of this episode and has decided to keep him another night. pt has no other complaints at this time. call light is within reach.
[2025-01-30] VITALS: PULSE 90
--- NOTE | 2025-01-30 00:30 | ECG_ITS ---
APPROVED REPORT Exam: Resting ECG HR:97 bpm ECG Measurements Heart Rate 97 AXES PA 142 P 64 QRSd 98 QRS 25 QT 374 T 46 QTc 429 Conclusion SINUS RHYTHM NORMAL ECG UNCONFIRMED REPORT Electronically signed by : Lowell Quinonez MD 01/30/2025 08:38:41
[2025-01-30 03:14] VITALS: BP 134/88; PULSE 88; RESP 16; TEMP 36.8; O2SAT 96; BMI 27.5
[2025-01-30 04:00] VITALS: PULSE 90
--- NOTE | 2025-01-30 04:13 | PC.NURSE ---
Patient is alert and oriented x 4. Patient ambulates independently and is up ad david. Patient hasn't scored above a 0 for CIWA assessments. Patient had a tachycardia episode during shift. Before being administered PRN metoprolol, patient's heart rate dropped back down. Patients heart rate is within defined limits and PRN metoprolol was not needed nor administered. Patient hasn't had any complaints of pain or symptoms during shift. Patient is currently asleep in room with call light within reach. There are no needs or concerns voiced at this time.
[2025-01-30] MEDS: CEFEPIME HCL 2 GM in 0.9 % SODIUM CHLORIDE 100 ML IV (05:57)
[2025-01-30 08:00] VITALS: BP 153/88; PULSE 80; PULSE 99; RESP 16; TEMP 36.6; O2SAT 94
[2025-01-30] MEDS: METOPROLOL TARTRATE 50MG TABLET 50 MG PO (10:19)
[2025-01-30] MEDS: FOLIC ACID 1MG TABLET 1 MG PO (10:19)
[2025-01-30] MEDS: THIAMINE 100MG TABLET 100 MG PO (10:19)
--- NOTE | 2025-01-30 12:17 | EXP.DC.SUM ---
General Admission date:: 01/28/25 Discharge date: 01/30/25 HPI HPI HPI: Jeremi Balbuena is a 54-year-old male with a medical history significant for sinus tachycardia, hypertension, GERD, alcohol use disorder who presents with 2 to 3-week onset of nausea/vomiting, decreased oral tolerance. Patient states about 3 weeks ago he drank beer heavily for 2 days in a row and has since been having nausea/vomiting, decreased oral tolerance. He states he drinks 2-3 beers a day, and has not been able to keep anything down over the past 3 days which was his last drink. He denies abdominal pain, fever/chills, chest pain, shortness of breath, urinary symptoms, constipation/diarrhea. Denies recent travel history, sick contacts. He has also apparently lost about 20 pounds over this period. Of note, patient states he has had a chronic issue with sinus tachycardia which has previously been worked up by cardiology without a clear etiology. He had been taking metoprolol succinate 50 mg but has not followed up with his PCP over the past month to refill it. Patient also was recently admitted to our facility in October 2024 for strep pneumonia with bacteremia, completed course of antibiotics. Upon arrival, patient's heart rate was in the 150s. Initial EKG suggestive of a flutter but repeat EKG consistent with sinus tachycardia. AST/ALT 152/151, calcium 11.1, procalcitonin 6.57. UA, UDS, alcohol level, respiratory panel unremarkable. CT abdomen/pelvis shows probable Dense ingested material, fatty liver disease. CTA chest also shows right 10th rib fracture, resolution of right lower lobe pneumonia. Case discussed with ED provider and decision was made to admit patient in the setting of decreased oral tolerance, sinus tachycardia, and further evaluation of elevated procalcitonin. Hospital Course Hospital Course Hospital Course: Jeremi Balbuena is a 54-year-old male with a medical history significant for sinus tachycardia, hypertension, GERD, alcohol use disorder who presents with 2 to 3-week onset of nausea/vomiting, decreased oral tolerance. Patient states about 3 weeks ago he drank beer heavily for 2 days in a row and has since been having nausea/vomiting, decreased oral tolerance. He states he drinks 2-3 beers a day, and has not been able to keep anything down over the past 3 days which was his last drink. #Nausea/vomiting - resolved #Hypercalcemia - s/p IV fluid therapy #Elevated AST/ALT - improving and counseled on alcohol cessation #Elevated procalcitonin - unclear etiology, dc on Doxycycline and Cefdinir #Alcohol use disorder - counseled on cessation Patient is requesting to be discharged and mentions he feels like he is back to his baseline, on chart review and physical exam, patient appears stable for dc Exam Data for Last 24 hours Vital signs and Labs for Last 24 Hours: Temp Pulse Resp BP Pulse Ox O2 Del Method 97.9 F 99 H 16 153/88 H 94 L Room Air 01/30/25 08:00 01/30/25 08:00 01/30/25 08:00 01/30/25 08:00 01/30/25 08:00 01/30/25 09:00 Laboratory Results - last 24 hr 01/28/25 16:30: Hepatitis A IgM Ab Negative, Hep Bs Antigen Negative, Hep B Core IgM Ab Negative, Hepatitis C Antibody Non reactive, HCV RNA PCR Test Info Comment I & O for Last 24 hours: Intake & Output 01/27/25 01/28/25 01/29/25 01/30/25 23:59 23:59 23:59 23:59 Intake Total 1942 360 / 360 Output Total 0 / 0 0 / 0 Balance 0 / 222 1942 / 194 360 / 360 Weight 89.84 kg 89.84 kg 94.12 kg Microbiology Reports for the Last 24 Hours: Microbiology 01/28/25 17:17 Blood Blood Culture - Preliminary NO GROWTH AFTER 24 HOURS 01/28/25 16:30 Blood Blood Culture - Preliminary NO GROWTH AFTER 24 HOURS Constitutional Constitutional: no acute distress *Routine HEENT Exam Head: Present normocephalic Eye: Present EOMI and PERRL ENT: Present mucous membranes moist *Routine Neck Exam Neck: Present supple; Absent lymphadenopathy *Routine Respiratory Exam Respiratory: Present CTA bilaterally *Routine Cardiovascular Exam Cardiovascular: Present RRR *Routine Abdominal Exam Abdominal: Present soft and normoactive bowel sounds; Absent tenderness *Routine Extremities Exam Extremities: Absent cyanosis, clubbing or edema *Routine Skin Exam Skin: Present warm; Absent rash *Routine Neurological Exam Neurological: Present alert and oriented X3 Results Data Completed and Pending Labs on day of discharge: Labs from last 24 hours 01/28/25 16:30 Hepatitis A IgM Ab Negative Hep Bs Antigen Negative Hep B Core IgM Ab Negative Hepatitis C Antibody Non reactive HCV RNA PCR Test Info Comment Preliminary micro results at discharge 01/28/25 17:17 Blood Culture - Preliminary Blood NO GROWTH AFTER 24 HOURS 01/28/25 16:30 Blood Culture - Preliminary Blood NO GROWTH AFTER 24 HOURS DS: Diagnosis Discharge Diagnosis (1) Alcohol abuse: Status: Acute Code(s): F10.10 - Alcohol abuse, uncomplicated (2) Tachycardia: Status: Acute Code(s): R00.0 - Tachycardia, unspecified (3) Hypertension: Status: Acute Code(s): I10 - Essential (primary) hypertension Meds Home Medications and Allergies Home Medications ?Medication ?Instructions ?Recorded ?Confirmed ?Type amlodipine 5 mg tablet 5 mg PO DAILY 07/01/24 01/29/25 History metoprolol succinate 100 mg 50 mg PO DAILY 11/02/24 01/29/25 History tablet,extended release 24 hr pantoprazole 40 mg tablet,delayed 40 mg PO DAILY 11/02/24 01/29/25 History release cefdinir 300 mg capsule 300 mg PO BID 7 days #14 caps 01/29/25 Rx folic acid 1 mg tablet 1 mg PO DAILY 30 days #30 tabs 01/29/25 Rx thiamine mononitrate (vit B1) 100 100 mg PO DAILY 30 days #30 tabs 01/29/25 Rx mg tablet doxycycline hyclate 100 mg capsule 100 mg PO BID 5 days #10 caps 01/30/25 Rx New Prescriptions to Start Prescriptions: cefdinir Nasir,Irfan doxycycline hyclate Nasir,Irfan folic acid Nasir,Irfan thiamine mononitrate (vit B1) Nasir,Irfan Allergies Allergy/AdvReac Type Severity Reaction Status Date / Time Penicillins Allergy Verified 10/03/23 08:49 Discharge Plan Disposition Patient Disposition: Home, Self-Care Condition: Good Follow up Plan Follow up with: Raudel Osuna MD [Referring, Medical] - 01/31/25 10:00 am Prescriptions/Medication Reconciliation: New folic acid 1 mg Tablet 1 mg PO DAILY 30 Days Qty: 30 0RF thiamine mononitrate (vit B1) 100 mg Tablet 100 mg PO DAILY 30 Days Qty: 30 0RF cefdinir 300 mg capsule 300 mg PO BID 7 Days Qty: 14 0RF doxycycline hyclate 100 mg capsule 100 mg PO BID 5 Days Qty: 10 0RF Continued amlodipine 5 mg Tablet 5 mg PO DAILY metoprolol succinate 100 mg Tablet Extended Release 24 Hr 50 mg PO DAILY pantoprazole 40 mg Tablet,Delayed Release (Dr/Ec) 40 mg PO DAILY Problem Reconciliation Problems Reviewed?: Yes Patient Discharge Instructions ACTIVITY: Continue current activity DIET: continue same diet Patient Instructions: DI for Alcohol Use Disorder, DI for Tachycardia Print Language: [place] Providers Primary Care Provider: Provider,Referral Admit Provider: Micheal Tapia Attending Provider: Micheal Tapia
[2025-01-30 14:12] LABS: Cortisol,AM 5.9 ug/dL (6.2-19.4)
--- NOTE | 2025-01-30 14:23 | SW/DCPLANNER ---
Phone the [facility] and scheduled patient a ride home from the hospital. Grabiel Bear
--- NOTE | 2025-01-31 10:50 | SW/DCPLANNER ---
Spoke with patient on the phone. Patient stated that he is doing well. Patient stated that he just left his follow up appointment. 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 Patient stated that he has no concerns or questions at this time. Mónica Bear
== END 2025-01-30 14:05 | disposition home or self-care (01) ==
LOC: ER 21:30 → 2ND 23:17
PROVIDERS: Physician Assistant; Admitting Provider Student in an Organized Health Care Education/Training Program; Emergency Provider Student in an Organized Health Care Education/Training Program; Visit Provider Student in an Organized Health Care Education/Training Program
DX: R00.0 Tachycardia, unspecified (principal); E22.1 Hyperprolactinemia; R11.2 Nausea with vomiting, unspecified; F10.239 Alcohol dependence with withdrawal, unspecified; K21.9 Gastro-esophageal reflux disease without esophagitis; E83.52 Hypercalcemia; K76.0 Fatty (change of) liver, not elsewhere classified; F17.210 Nicotine dependence, cigarettes, uncomplicated; I10 Essential (primary) hypertension; R79.89 Other specified abnormal findings of blood chemistry; Z88.0 Allergy status to penicillin; Z79.899 Other long term (current) drug therapy
CPT/HCPCS: 0223U; 36415; 70470; 71275; 74177; 76705; 80053; 80061; 80074; 80307; 81001; 82009; 82306; 82533; 83605; 83690; 83735; 83880; 83970; 84145; 84439; 84443; 84484; 85025; 85610; 86140; 87040; 87633; 93005; 93306; 96361; 96374; 96375; 96376; 99285; G0378; J0692; J1650; J2405; J2470; J3360; J3373; J7050; J7120; Q9967

== ENCOUNTER 2025-05-15 14:14 | Inpatient (IN) | payer OTHER, SELFPAY ==
[2025-05-15] VITALS (8 sets, daily range): BP systolic 128–174; BP diastolic 84–118; PULSE 124–148; RESP 15–25; TEMP 36.5–36.9; O2SAT 88–95; BMI 29.0; BMI 27.7
--- NOTE | 2025-05-15 14:16 | ED_ITS ---
<Statement entered by Mikal Mane MD - 05/19/25 11:49> I was consulted by the EMILY, and we discussed the complexity of the problems being addressed. I approved the treatment and management plan for this patient's care in the emergency department, thus performing a substantive portion of the medical decision making. Mikal Mane MD, BRINDA, FACEP Discharge Plan Disposition Patient Disposition: Admitted Condition: Good Clinical Impressions Clinical Impression: Alcohol abuse, Elevated troponin Discharge ED Provider: Mikal Mane General Adult HPI <LAKEISHA Ruvalcaba - Last Filed: 05/15/25 16:42> General Chief complaint: Weakness Stated complaint: weakness Time Seen by Provider: 05/15/25 14:16 Mode of Arrival: EMS Source of Information: Patient and Medical Record Limitations: No Limitations History of Present Illness HPI narrative: 54-year-old male presents to the emergency department via EMS for a 2 to 3-week history of fatigue generalized weakness, worsening in the last few days, patient denies any fever or chills, admits to generalized myalgias, denies any chest pain shortness of breath, did have 1 episode of nausea vomiting that started today, as well as diarrhea for a week, denies any hematuria melena hematochezia or hematemesis, no hemoptysis, denies any constipation, denies any overt abdominal pain but states he has back pain at some times, patient is a current everyday smoker, admits to current everyday alcohol use around 3-5 beers daily, denies any more or less alcohol use, states this has been his normal for quite some time, denies any illicit drug use. Other past medical history is consistent with alcohol abuse/use, hypertension, GERD, initial triage vitals noted for tachycardia otherwise unremarkable. Of note, the patient's last drink was last night or this morning I can't remember . Please note that above description of symptoms, in this electronic medical record under categorization of recalled from ER triage doctor by RN are reflective of an initial nursing assessment, however, is not reflective of my full history and physical exam that was personally taken and clarified. Consequentially, this preceding description of symptoms, which may include the patient's categorized chief complaint in the EMR, do not reflect my personal clinical impression, and the ultimate description of history of present illness and patient stated complaints should be deferred to this section of the note. Unless stated otherwise or congruent with this section of the note, additional signs, symptoms, or incongruence should be interpreted as inaccurate with my clinical impression. Onset (ago): week(s) Related Data Home Medications ?Medication ?Instructions ?Recorded ?Confirmed amlodipine 5 mg tablet 5 mg PO DAILY 07/01/2405/15 pantoprazole 40 mg tablet,delayed 40 mg PO DAILY 11/0205/15/25 release Previous Rx's ?Medication ?Instructions ?Recorded carvedilol 25 mg tablet 25 mg PO BID 30 days #60 tab s 05/18/25 Allergies Allergy/AdvReac Type Severity Reaction Status Date / Time vancomycin Allergy Mild Unknown Verified 02/02/25 19:26 allergy reaction Penicillins Allergy Other Verified 02/02/25 19:26 FORMERLY [facility], [facility]–1983 <LAKEISHA Ruvalcaba - Last Filed: 05/15/25 16:42> FORMERLY [facility], [facility] Disclaimer: The information contained in this section may have been updated after the patient was seen, as this information can be updated by other users. Medical History Testicular cancer Surgical History History of orchiectomy Family History Other No significant family history Social History Smoking Status: Current every day smoker alcohol intake: current current occupational status: employed Travel in the last 8 weeks?: None Have you lived/traveled outside [place] in past 30 days?: No Contact w/someone who lives/traveled outside US past 30 days?: No Exposure to someone with infectious disease in past 14 days?: No Do you have a fever (greater than 100.4 F or 38 C)?: No Have you tested positive for COVID-19?: No Exposed to someone with COVID-19 in past 14 days?: No Do you have a sore throat?: No Do you have a cough?: No Do you have any weakness?: No Do you have any diarrhea?: No Are you experiencing any unusual bleeding?: No Do you have any muscle aches/pain?: No Do you have any abdominal pain?: No Are you experiencing loss of taste or smell?: No Other Medical History Have you received the Flu Vaccine for this season: No Have you received the Pneumonia Vaccine: No <LAKEISHA Ruvalcaba - Last Filed: 05/15/25 16:42> ROS Obtained: Yes All systems reviewed & no additional complaints except as documented Physical Exam <LAKEISHA Ruvalcaba - Last Filed: 05/15/25 16:42> General General appearance: alert and in no apparent distress Comment: Some visible diaphoresis, uncomfortable appearing male Head Head exam: atraumatic and normocephalic Eye Eye exam: Present PERRL and EOMI ENT ENT exam: Present mucous membranes moist Neck Neck exam: Present normal inspection Chest Chest inspection: Present normal inspection and symmetric chest wall rise Respiratory Respiratory exam: Present normal lung sounds bilaterally; Absent respiratory distress, wheezes or stridor Cardiovascular Cardiovascular exam: Present normal rhythm and tachycardia Abdominal Exam Abdominal exam: Present soft; Absent tenderness, guarding, rebound or rigidity Extremities Exam Extremities exam: Present normal inspection Neurological Exam Neurological exam: Present alert and oriented X3 Psychiatric Psychiatric exam: Present normal affect Skin Skin exam: Present warm, dry and diaphoresis Medical Decision Making <LAKEISHA Ruvalcaba - Last Filed: 05/15/25 16:42> Medical Records Medical records reviewed: Yes I reviewed the patient's medical records. Screening: Per USPSTF and CDC recommendations, given the prevalence of disease in our region, it is our hospital?s policy to screen for HIV and viral Hepatitis for all patients aged 18 and over and those with ongoing risk factors. Olvin Inquiry Pt receiving controlled substance: No Vital Signs: 05/15/25 14:20 05/15/25 14:20 05/15/25 14:45 Temperature 97.7 F 97.7 F Temperature Source Oral Pulse Rate 148 H 127 H Pulse Rate [Right] 148 H Respiratory Rate 20 20 Blood Pressure 162/101 H 174/118 H Blood Pressure [Right Arm] 162/101 H Blood Pressure Mean [Right Arm] 121 02 Sat by Pulse Oximetry 95 95 94 L 05/15/25 16:08 Temperature 97.7 F Temperature Source Pulse Rate 130 H Pulse Rate [Right] Respiratory Rate 18 Blood Pressure 146/95 H Blood Pressure [Right Arm] Blood Pressure Mean [Right Arm] 02 Sat by Pulse Oximetry Lab Data Lab results reviewed: Yes I reviewed the patient's lab results. Lab Results 05/15/25 14:10: WBC 4.0 L, RBC 4.44 L, Hgb 14.4, Hct 40.8 L, MCV 91.9, MCH 32.4 H, MCHC 35.3, RDW 13.5, Plt Count 186, MPV 9.1, Neut % (Auto) 46.6, Lymph % (Auto) 45.5, Darke % (Auto) 6.3, Eos % (Auto) 0.3, Baso % (Auto) 1.0, Neut # (Auto) 1.9, Lymph # (Auto) 1.8, Darke # (Auto) 0.3, Eos # (Auto) 0.0, Baso # (Auto) 0.0, PT 10.4, INR 0.93, APTT 23.5, Sodium 135 L, Potassium 3.6, Chloride 99, Carbon Dioxide 23, Anion Gap 16.6 H, BUN 11, Creatinine 0.90, Estimated GFR 88, Est GFR ( Amer) 107, Glucose 107 H, Calcium 8.3 L, Magnesium 1.9, Total Bilirubin 0.6, GGT 168 H, AST 79 H, ALT 92 H, Alkaline Phosphatase 116, T roponin I 0.08 H, NT-Pro-B Natriuret Pep 172 H, Total Protein 9.0 H, Albumin 4.5, Globulin 4.5 H, Albumin/Globulin Ratio 1.0 L, Lipase 187, Plasma/Serum Alcohol 303 H 05/15/25 14:28: VBG pH 7.40, VBG pCO2 32.9 L, VBG pO2 146.5 H, VBG HCO3 19.8 L, VBG Total CO2 20.8 L, VBG O2 Saturation 98.8 H, VBG Base Excess -5.1 L, VBG Lactic Acid 5.2 H 05/15/25 15:00: Lactate 5.2 H, Ammonia < 9 L 05/18/25 08:20 05/18/25 08:20 Orders (Tests/Meds): ED MEDICATIONS Discontinued Medications Generic Name Dose Route Start Last Admin Trade Name Freq PRN Reason Stop Dose Admin Amlodipine Besylate 5 mg 05/15/25 21:00 05/17/25 20:20 Amlodipine 5mg Tablet PO 06/14/25 20:59 5 mg HS RAFAEL Administration Calcium Carbonate 500 mg 05/16/25 08:12 05/17/25 08:25 Calcium Carbonate 500mg Chewtab PO 06/15/25 08:11 500 mg QIDP PRN Administration Heartburn Carvedilol 25 mg 05/17/25 21:00 05/18/25 09:23 Carvedilol 25mg Tablet PO 06/16/25 20:59 25 mg BID RAFAEL Administration Diazepam 5 mg 05/15/25 15:04 05/16/25 01:16 Diazepam 10mg/2ml Syringe IV 06/14/25 15:03 5 mg Q1HP PRN Administration CIWA Score 8-15 Diazepam 10 mg 05/15/25 15:04 05/15/25 17:16 Diazepam 10mg/2ml Syringe IV 06/14/25 15:03 10 mg Q1HP PRN Administration CIWA >16 Diazepam 5 mg 05/15/25 15:04 05/16/25 22:39 Diazepam 5mg Tablet PO 06/14/25 15:03 5 mg Q6HP PRN Administration CIWA 2-7 Enoxaparin Sodium 40 mg 05/16/25 09:00 05/18/25 09:22 Enoxaparin 40mg/0.4ml Syringe SUBCUT 06/15/25 08:59 40 mg DAILY RAFAEL Administration Famotidine 20 mg 05/16/25 09:00 05/18/25 09:22 Famotidine 20mg/2ml Vial IV 06/15/25 08:59 20 mg BID RAFAEL Administration Famotidine 20 mg 05/18/25 21:00 Famotidine 20mg Tablet PO 06/17/25 20:59 BID RAFAEL Lactated Ringer's 1,000 mls @ 999 mls/hr 05/15/25 14:23 05/15/25 14:42 Lactated Ringer's 1000 Ml Bag IV 05/15/25 15:23 999 mls/hr .Q1H1M ONE Administration Multivitamins 10 ml/ Thiamine 1,015 mls @ 125 mls/hr 05/15/25 15:15 05/18/25 11:16 HCl 100 mg/ Magnesium Sulfate IV 06/14/25 15:14 Infused 2 gm/ Lactated Ringer's DAILY RAFAEL Infusion Iopamidol 75 ml 05/15/25 14:49 05/15/25 14:50 Iopamidol-370 (76%);100ml Bottle IV 05/15/25 14:50 75 ml ONCE ONE Administration Metoprolol Succinate 50 mg 05/15/25 21:00 05/15/25 19:14 Metoprolol Succinate Xl 100mg Tablet PO 06/14/25 20:59 50 mg HS RAFAEL Administration Metoprolol Succinate 50 mg 05/16/25 21:00 05/16/25 20:40 Metoprolol Succinate Xl 50mg Tablet PO 06/15/25 20:59 50 mg HS RAFAEL Administration Nicotine 21 mg 05/15/25 15:50 Nicotine 21mg/24hr Patch TD 06/14/25 15:49 DAILYP PRN Nicotine Cravings Ondansetron HCl 4 mg 05/15/25 14:23 05/15/25 14:42 Ondansetron 4mg/2ml Vial IV 05/15/25 14:24 4 mg ONCE ONE Administration Ondansetron HCl 4 mg 05/15/25 15:50 05/16/25 22:39 Ondansetron 4mg/2ml Vial IV 06/14/25 15:49 4 mg Q6HP PRN Administration Nausea Pantoprazole Sodium 40 mg 05/15/25 21:00 05/17/25 20:20 Pantoprazole 40mg Tablet PO 06/14/25 20:59 40 mg HS RAFAEL Administration Phenobarbital Sodium 65 mg 05/15/25 15:53 05/15/25 17:17 Phenobarbital Sod 65mg/Ml Inj IV 05/15/25 15:54 65 mg ONCE ONE Administration Phenobarbital Sodium 130 mg 05/15/25 21:00 05/15/25 20:16 Phenobarbital Sod 65mg/Ml Inj IV 06/14/25 20:59 130 mg BID RAFAEL Administration Phenobarbital Sodium 130 mg 05/16/25 09:00 05/16/25 20:43 Phenobarbital Sod 130mg/Ml Inj IV 06/15/25 08:59 130 mg BID RAFAEL Administration Phenobarbital Sodium 65 mg 05/17/25 09:00 05/17/25 08:31 Phenobarbital Sod 130mg/Ml Inj IV 06/16/25 08:59 65 mg BID RAFAEL Administration Phenobarbital Sodium 65 mg 05/17/25 09:00 05/17/25 20:22 Phenobarbital Sod 65mg/Ml Inj IV 06/16/25 08:59 65 mg BID RAFAEL Administration Potassium Chloride 40 meq 05/17/25 09:00 05/17/25 17:06 Potassium Chloride 20meq Tab PO 05/17/25 17:01 40 meq Q4H RAFAEL Administration Potassium Phosphate 250 mg 05/17/25 12:30 05/17/25 17:06 K-Phos Neutral 250mg Tablet PO 05/17/25 17:31 250 mg TIDWMEAL RAFAEL Administration Promethazine HCl 25 mg 05/15/25 22:38 05/15/25 22:45 Promethazine Hcl 25mg/Ml 1ml Vial IV 05/15/25 22:39 25 mg ONCE ONE Administration Promethazine HCl 25 mg 05/16/25 08:13 05/17/25 21:33 Promethazine Hcl 25mg/Ml 1ml Vial IV 06/15/25 08:12 25 mg Q8HP PRN Administration Nausea And Vomiting Sodium Chloride 10 ml 05/15/25 14:49 05/15/25 14:50 Sodium Chloride 0.9% 10ml Syr (Rad Only) IV 06/14/25 14:48 10 ml NEEDED PRN Administration Maintain IV Site Sodium Chloride 25 ml 05/15/25 22:37 Sodium Chloride 0.9% 25ml Bag IV 06/14/25 22:36 NEEDED PRN for Use with IV Promethazine Sodium Chloride 8 ml 05/16/25 08:12 05/16/25 08:34 Sodium Chloride 0.9% 10ml Vial IV 06/15/25 08:11 8 ml NEEDED PRN Administration dilute famotidine Sodium Chloride 25 ml 05/16/25 08:13 Sodium Chloride 0.9% 25ml Bag IV 06/15/25 08:12 NEEDED PRN for Use with IV Promethazine ORDERS Category Date Time Status CT abdomen pelvis w con Stat Cat Scan 05/15/25 14:21 Completed Consult Sanitation Manager [CONS] Routine Cons 05/15/25 15:27 Active XR chest portable Stat Exams 05/15/25 14:22 Completed Ammonia Stat Lab 05/15/25 15:00 Completed Complete Blood Count Auto Diff AMLAB Lab 05/16/25 04:42 Completed Complete Blood Count Auto Diff Stat Lab 05/15/25 14:10 Completed Comprehensive Metabolic Panel AMLAB Lab 05/16/25 04:42 Completed Comprehensive Metabolic Panel Stat Lab 05/15/25 14:10 Completed Drug Screen,Urine Stat Lab 05/15/25 17:32 Completed Ethanol [Ethyl Alcohol] Stat Lab 05/15/25 14:10 Completed GGT [Gamma Glutamyl Transpeptidase] Stat Lab 05/15/25 14:10 Completed Lactic Acid Stat Lab 05/15/25 15:00 Completed Lipase Stat Lab 05/15/25 14:10 Completed Magnesium AMLAB Lab 05/16/25 04:42 Completed Magnesium Stat Lab 05/15/25 14:10 Completed NT Pro Brain Natriuretic Pep. Stat Lab 05/15/25 14:10 Completed PT INR [Prothrombin Time INR] Stat Lab 05/15/25 14:10 Completed PTT [Activated Partial Thrombo Time] Stat Lab 05/15/25 14:10 Completed Phosphorous AMLAB Lab 05/16/25 04:42 Completed Troponin I Q3H Lab 05/15/25 17:13 Completed Troponin I Q3H Lab 05/15/25 20:24 Completed Troponin I Stat Lab 05/15/25 14:10 Completed Urinalysis and Microscopic Stat Lab 05/15/25 17:32 Completed VBG [Venous Blood Gas] Stat RT 05/15/25 14:28 Completed Medical Decision Narrative: 54-year-old male presents to the emergency department for a 3-week history of generalized weakness fatigue episodes of nausea and vomiting today and diarrhea for 1 week, differential diagnose include but not limited to cardiac arrhythmia, electrolyte disturbance, ACS, alcohol withdrawal, alcohol abuse, colitis, ileitis, gastritis, gastroenteritis, hypovolemia, acid-base disturbance, acute kidney injury among others. I discussed this patient's case with attending physician Dr. Mane he saw and examined the patient as well. Will obtain basic laboratory studies ammonia level EKG UDS at the alcohol level lactic acid level lipase level magnesium level proBNP troponin coags UA, VBG, Will also obtain CT abdomen pelvis, CXR, will assess CIWA scale, and obtain GGT, will give 1 L LR IV and will give 4 mg IV Zofran for nausea. CBC is notable for neutropenia at 4, erythrocyte pi?a 4.4, hematocrit is mildly decreased at 40.8, hemoglobin within normal limits. Coags within normal limits CMP is notable for an anion gap of 16.6, minimal hypocalcemia at 8.3, transaminitis with an AST at 79 and ALT at 92 lipase within normal limits. My initial CIWA was a 7 or 8 at the bedside, nursing staff perform CIWA assessment 15-20 minutes after my initial assessment, nursing staff triage was 9-10 patient admits to a mild headache and some numbness and tingling as well as some lightheadedness, will give 5 mg IV Valium for alcohol withdrawal symptomatology. Troponin is elevated at 0.08, proBNP is mildly elevated at 172, EKG was reviewed by myself and the attending physician, showed no ischemic changes, most likely type II NSTEMI could be in the setting of demand ischemia. VBG is notable for normal pH, pCO2 is mildly decreased at 13.9, bicarb is decreased at 19.8, venous lactic acid is elevated at 5.2. GGT is elevated at 168 Will also start alcohol withdrawal order set to include rally pack, and IV/p.o. benzodiazepine as needed orders. Will also add on diarrhea panel. Ethyl alcohol level is 303 I reviewed the patient's chest x-ray along the corresponding radiologic report, no acute abnormality. Will also consult wildlife refuge specialist. Lactic acidosis of 5.2, ammonia level within normal limits. I reviewed the patient's CT abdomen pelvis with contrast along the corresponding radiologic report, no acute abnormality. I discussed this patient's case with the hospitalist at approximately 3:48 PM, he is in agreement with the current admission plan/treatment plan for alcohol withdrawal and elevated troponin most likely in the setting of alcohol withdrawal. Patient will be admitted to the stepdown unit. I discussed need for admission with the patient at the bedside patient is in agreement with the current admission plan/treatment plan. I discussed with the patient at the bedside at approximately 4:30 PM, about the patient being a documented [facility], offered to call the [facility] for potential transfer of the patient's medical condition. Patient refused at this time and would like to be admitted to this hospital for his acute medical condition at this time. Closed-loop communication was discussed with Dr. Pressley the hospitalist at approximately 4:41 PM, about the patient electing to stay inpatient for acute alcohol withdrawal and elevated troponin after refusing [facility] transfer/evaluation for his acute medical condition. <Mikal Mane MD - Last Filed: 05/19/25 11:51> Vital Signs: 05/15/25 14:20 05/15/25 14:20 05/15/25 14:45 Temperature 97.7 F 97.7 F Temperature Source Oral Pulse Rate 148 H 127 H Pulse Rate [Right] 148 H Respiratory Rate 20 20 Blood Pressure 162/101 H 174/118 H Blood Pressure [Right Arm] 162/101 H Blood Pressure Mean [Right Arm] 121 02 Sat by Pulse Oximetry 95 95 94 L 05/15/25 16:08 Temperature 97.7 F Temperature Source Pulse Rate 130 H Pulse Rate [Right] Respiratory Rate 18 Blood Pressure 146/95 H Blood Pressure [Right Arm] Blood Pressure Mean [Right Arm] 02 Sat by Pulse Oximetry Lab Data Lab Results 05/15/25 14:10: WBC 4.0 L, RBC 4.44 L, Hgb 14.4, Hct 40.8 L, MCV 91.9, MCH 32.4 H, MCHC 35.3, RDW 13.5, Plt Count 186, MPV 9.1, Neut % (Auto) 46.6, Lymph % (Auto) 45.5, Darke % (Auto) 6.3, Eos % (Auto) 0.3, Baso % (Auto) 1.0, Neut # (Auto) 1.9, Lymph # (Auto) 1.8, Darke # (Auto) 0.3, Eos # (Auto) 0.0, Baso # (Auto) 0.0, PT 10.4, INR 0.93, APTT 23.5, Sodium 135 L, Potassium 3.6, Chloride 99, Carbon Dioxide 23, Anion Gap 16.6 H, BUN 11, Creatinine 0.90, Estimated GFR 88, Est GFR ( Amer) 107, Glucose 107 H, Calcium 8.3 L, Magnesium 1.9, Total Bilirubin 0.6, GGT 168 H, AST 79 H, ALT 92 H, Alkaline Phosphatase 116, T roponin I 0.08 H, NT-Pro-B Natriuret Pep 172 H, Total Protein 9.0 H, Albumin 4.5, Globulin 4.5 H, Albumin/Globulin Ratio 1.0 L, Lipase 187, Plasma/Serum Alcohol 303 H 05/15/25 14:28: VBG pH 7.40, VBG pCO2 32.9 L, VBG pO2 146.5 H, VBG HCO3 19.8 L, VBG Total CO2 20.8 L, VBG O2 Saturation 98.8 H, VBG Base Excess -5.1 L, VBG Lactic Acid 5.2 H 05/15/25 15:00: Lactate 5.2 H, Ammonia < 9 L Orders (Tests/Meds): ED MEDICATIONS Discontinued Medications Generic Name Dose Route Start Last Admin Trade Name Freq PRN Reason Stop Dose Admin Amlodipine Besylate 5 mg 05/15/25 21:00 05/17/25 20:20 Amlodipine 5mg Tablet PO 06/14/25 20:59 5 mg HS RAFAEL Administration Calcium Carbonate 500 mg 05/16/25 08:12 05/17/25 08:25 Calcium Carbonate 500mg Chewtab PO 06/15/25 08:11 500 mg QIDP PRN Administration Heartburn Carvedilol 25 mg 05/17/25 21:00 05/18/25 09:23 Carvedilol 25mg Tablet PO 06/16/25 20:59 25 mg BID RAFAEL Administration Diazepam 5 mg 05/15/25 15:04 05/16/25 01:16 Diazepam 10mg/2ml Syringe IV 06/14/25 15:03 5 mg Q1HP PRN Administration CIWA Score 8-15 Diazepam 10 mg 05/15/25 15:04 05/15/25 17:16 Diazepam 10mg/2ml Syringe IV 06/14/25 15:03 10 mg Q1HP PRN Administration CIWA >16 Diazepam 5 mg 05/15/25 15:04 05/16/25 22:39 Diazepam 5mg Tablet PO 06/14/25 15:03 5 mg Q6HP PRN Administration CIWA 2-7 Enoxaparin Sodium 40 mg 05/16/25 09:00 05/18/25 09:22 Enoxaparin 40mg/0.4ml Syringe SUBCUT 06/15/25 08:59 40 mg DAILY RAFAEL Administration Famotidine 20 mg 05/16/25 09:00 05/18/25 09:22 Famotidine 20mg/2ml Vial IV 06/15/25 08:59 20 mg BID RAFAEL Administration Famotidine 20 mg 05/18/25 21:00 Famotidine 20mg Tablet PO 06/17/25 20:59 BID RAFAEL Lactated Ringer's 1,000 mls @ 999 mls/hr 05/15/25 14:23 05/15/25 14:42 Lactated Ringer's 1000 Ml Bag IV 05/15/25 15:23 999 mls/hr .Q1H1M ONE Administration Multivitamins 10 ml/ Thiamine 1,015 mls @ 125 mls/hr 05/15/25 15:15 05/18/25 11:16 HCl 100 mg/ Magnesium Sulfate IV 06/14/25 15:14 Infused 2 gm/ Lactated Ringer's DAILY RAFAEL Infusion Iopamidol 75 ml 05/15/25 14:49 05/15/25 14:50 Iopamidol-370 (76%);100ml Bottle IV 05/15/25 14:50 75 ml ONCE ONE Administration Metoprolol Succinate 50 mg 05/15/25 21:00 05/15/25 19:14 Metoprolol Succinate Xl 100mg Tablet PO 06/14/25 20:59 50 mg HS RAFAEL Administration Metoprolol Succinate 50 mg 05/16/25 21:00 05/16/25 20:40 Metoprolol Succinate Xl 50mg Tablet PO 06/15/25 20:59 50 mg HS RAFAEL Administration Nicotine 21 mg 05/15/25 15:50 Nicotine 21mg/24hr Patch TD 06/14/25 15:49 DAILYP PRN Nicotine Cravings Ondansetron HCl 4 mg 05/15/25 14:23 05/15/25 14:42 Ondansetron 4mg/2ml Vial IV 05/15/25 14:24 4 mg ONCE ONE Administration Ondansetron HCl 4 mg 05/15/25 15:50 05/16/25 22:39 Ondansetron 4mg/2ml Vial IV 06/14/25 15:49 4 mg Q6HP PRN Administration Nausea Pantoprazole Sodium 40 mg 05/15/25 21:00 05/17/25 20:20 Pantoprazole 40mg Tablet PO 06/14/25 20:59 40 mg HS RAFAEL Administration Phenobarbital Sodium 65 mg 05/15/25 15:53 05/15/25 17:17 Phenobarbital Sod 65mg/Ml Inj IV 05/15/25 15:54 65 mg ONCE ONE Administration Phenobarbital Sodium 130 mg 05/15/25 21:00 05/15/25 20:16 Phenobarbital Sod 65mg/Ml Inj IV 06/14/25 20:59 130 mg BID RAFAEL Administration Phenobarbital Sodium 130 mg 05/16/25 09:00 05/16/25 20:43 Phenobarbital Sod 130mg/Ml Inj IV 06/15/25 08:59 130 mg BID RAFAEL Administration Phenobarbital Sodium 65 mg 05/17/25 09:00 05/17/25 08:31 Phenobarbital Sod 130mg/Ml Inj IV 06/16/25 08:59 65 mg BID RAFAEL Administration Phenobarbital Sodium 65 mg 05/17/25 09:00 05/17/25 20:22 Phenobarbital Sod 65mg/Ml Inj IV 06/16/25 08:59 65 mg BID RAFAEL Administration Potassium Chloride 40 meq 05/17/25 09:00 05/17/25 17:06 Potassium Chloride 20meq Tab PO 05/17/25 17:01 40 meq Q4H RAFAEL Administration Potassium Phosphate 250 mg 05/17/25 12:30 05/17/25 17:06 K-Phos Neutral 250mg Tablet PO 05/17/25 17:31 250 mg TIDWMEAL RAFAEL Administration Promethazine HCl 25 mg 05/15/25 22:38 05/15/25 22:45 Promethazine Hcl 25mg/Ml 1ml Vial IV 05/15/25 22:39 25 mg ONCE ONE Administration Promethazine HCl 25 mg 05/16/25 08:13 05/17/25 21:33 Promethazine Hcl 25mg/Ml 1ml Vial IV 06/15/25 08:12 25 mg Q8HP PRN Administration Nausea And Vomiting Sodium Chloride 10 ml 05/15/25 14:49 05/15/25 14:50 Sodium Chloride 0.9% 10ml Syr (Rad Only) IV 06/14/25 14:48 10 ml NEEDED PRN Administration Maintain IV Site Sodium Chloride 25 ml 05/15/25 22:37 Sodium Chloride 0.9% 25ml Bag IV 06/14/25 22:36 NEEDED PRN for Use with IV Promethazine Sodium Chloride 8 ml 05/16/25 08:12 05/16/25 08:34 Sodium Chloride 0.9% 10ml Vial IV 06/15/25 08:11 8 ml NEEDED PRN Administration dilute famotidine Sodium Chloride 25 ml 05/16/25 08:13 Sodium Chloride 0.9% 25ml Bag IV 06/15/25 08:12 NEEDED PRN for Use with IV Promethazine ORDERS Category Date Time Status CT abdomen pelvis w con Stat Cat Scan 05/15/25 14:21 Completed Consult Sanitation Manager [CONS] Routine Cons 05/15/25 15:27 Active XR chest portable Stat Exams 05/15/25 14:22 Completed Ammonia Stat Lab 05/15/25 15:00 Completed Complete Blood Count Auto Diff AMLAB Lab 05/16/25 04:42 Completed Complete Blood Count Auto Diff Stat Lab 05/15/25 14:10 Completed Comprehensive Metabolic Panel AMLAB Lab 05/16/25 04:42 Completed Comprehensive Metabolic Panel Stat Lab 05/15/25 14:10 Completed Drug Screen,Urine Stat Lab 05/15/25 17:32 Completed Ethanol [Ethyl Alcohol] Stat Lab 05/15/25 14:10 Completed GGT [Gamma Glutamyl Transpeptidase] Stat Lab 05/15/25 14:10 Completed Lactic Acid Stat Lab 05/15/25 15:00 Completed Lipase Stat Lab 05/15/25 14:10 Completed Magnesium AMLAB Lab 05/16/25 04:42 Completed Magnesium Stat Lab 05/15/25 14:10 Completed NT Pro Brain Natriuretic Pep. Stat Lab 05/15/25 14:10 Completed PT INR [Prothrombin Time INR] Stat Lab 05/15/25 14:10 Completed PTT [Activated Partial Thrombo Time] Stat Lab 05/15/25 14:10 Completed Phosphorous AMLAB Lab 05/16/25 04:42 Completed Troponin I Q3H Lab 05/15/25 17:13 Completed Troponin I Q3H Lab 05/15/25 20:24 Completed Troponin I Stat Lab 05/15/25 14:10 Completed Urinalysis and Microscopic Stat Lab 05/15/25 17:32 Completed VBG [Venous Blood Gas] Stat RT 05/15/25 14:28 Completed Critical Care <LAKEISHA Ruvalcaba - Last Filed: 05/15/25 16:42> Critical Care Time Critical Care Time: No <Mikal Mane MD - Last Filed: 05/19/25 11:51> Critical Care Time Critical Care Time: Yes Attestation: On 05/15/25, the high probability of a clinically significant, sudden or life threatening deterioration of the following system(s) required my full and direct attention, intervention and personal management. The time I documented below is in addition to time spent performing reported procedures but includes the following listed in this critical care notation. Total Time Total Critical Care Time: 35
[2025-05-15 14:21] LABS: Hematocrit 40.8 % (42.0-52.0); Hemoglobin 14.4 g/dL (14.1-18.0); Immature Granulocytes % 0.3 %; Mean Corpuscular HGB Conc 35.3 g/dL (31.8-35.4); Mean Corpuscular Hemoglobin 32.4 pg (27.0-31.2); Mean Corpuscular Volume 91.9 fl (80-94); Nucleated Red Blood Cells % 0 %; Platelet Count 186 K/mm3 (142-424); Red Blood Count 4.44 M/mm3 (4.60-6.20); Red Cell Distribution Width-SD 45.8 fL; White Blood Count 4.0 K/mm3 (4.8-10.8)
--- NOTE | 2025-05-15 14:21 | CT_ITS ---
FINAL REPORT TECHNIQUE: IV contrast enhanced exam This study was performed with techniques to keep radiation doses as low as reasonably achievable, (ALARA). Individualized dose reduction techniques using automated exposure control or adjustment of mA and/or kV according to the patient''s size were employed. CLINICAL HISTORY: Fatigue, weakness, ABD pain, N/V/D COMPARISON: 01/28/2025 FINDINGS: Abdomen: No acute density is seen within the lung bases. There is severe fatty infiltration of the liver, similar to prior. The gallbladder is unremarkable. The remaining solid abdominal organs are unremarkable. No bowel obstruction is present. There is no free air. No fluid collection is seen. There is no adenopathy. Pelvis: The appendix is normal. There is a tiny left inguinal hernia containing fat. No bowel wall thickening is present. There is no free fluid. No pelvic mass is seen. IMPRESSION: No acute abnormality. Reviewed, Interpreted and Dictated by Juventino Serrano MD Transcribed by Vivienne Huizar Authenticated and [facility]
--- NOTE | 2025-05-15 14:22 | XR_ITS ---
FINAL REPORT CLINICAL HISTORY: Shortness of breath COMPARISON: None FINDINGS: A single frontal view of the chest was obtained. No acute pulmonary opacity is present. There is no evidence of effusion or pneumothorax. Mediastinum is unremarkable. Heart size is normal. IMPRESSION: No acute abnormality. Reviewed, Interpreted and Dictated by Juventino Serrano MD Transcribed by Lisbet Harris Authenticated and [facility]
[2025-05-15 14:31] LABS: Alanine Aminotransferase 92 U/L (12-78); Albumin Level 4.5 g/dl (3.5-5.0); Albumin/Globulin Ratio 1.0 (1.1-1.8); Alkaline Phosphatase 116 U/L (38-126); Anion Gap 16.6 mEq/L (5-15); Aspartate Amino Transferase 79 U/L (17-59); Bilirubin,Total 0.6 mg/dl (0.2-1.3); Blood Urea Nitrogen 11 mg/dl (9-20); Calcium 8.3 mg/dl (8.4-10.2); Carbon Dioxide 23 mmol/L (22.0-30.0); Chloride 99 mmol/L (98-107); Creatinine,Serum 0.90 mg/dl (0.66-1.25); Estimated Glomerular Filt Rate 88 ml/min (>60); GFR (African American) 107 ML/MIN (>60); Globulin 4.5 g/dL (1.3-3.2); Glucose 107 mg/dl (74-100); Lipase 187 U/L (23-300); Magnesium 1.9 mg/dl (1.6-2.3); Potassium 3.6 mmoL/L (3.5-5.1); Sodium 135 mmol/L (136-145); Total Protein,Serum 9.0 g/dl (6.3-8.2)
[2025-05-15 14:32] LABS: INR 0.93 (0.9-1.1); Prothrombin Time 10.4 seconds (10.1-12.5)
--- NOTE | 2025-05-15 14:33 | ECG_ITS ---
APPROVED REPORT Exam: Resting ECG HR:122 bpm ECG Measurements Heart Rate 122 AXES WV 154 P 64 QRSd 102 QRS 44 QT 332 T 49 QTc 404 Conclusion SINUS TACHYCARDIA ABNORMAL RHYTHM ECG UNCONFIRMED REPORT Electronically signed by : Will Mane, 05/19/2025 15:54:13
--- OUTSIDE RECORDS SUMMARY | 2025-05-15 14:35 | XMS_ITS | Encounter Summary ---
Author Organization [facility] Address [address] [place] [address] Care Team Providers Care Executive Sales Manager Name Role Phone Provider, No Known Primary Care Provider Unavail able Encounter Details Date Type Department Care Team ([facility] st Contact Info) Description 02/02/2011 Conversion Encounter [facility] HISTORICAL CONV [address] [place] [address] Interface, See Report Social History [...] Huber, Alvina, Osmin, Ruben & Hitesh [address] [facility], [address] [place], [place] [address] PATIENT NAME: Marychuy Balbuena DATE OF : [...] (stage IB) testicular seminoma. Dr. Skelton called [facility] and spoke with Dr. Vlad Valentine of [...] hives. SOCIAL HISTORY: . 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 Smokes 3/4 pack per day and has [...] no fevers, chills, sweats. The patient denies generalized or localized pain. SKIN: No rashes or nonhealing [...] main concerns with testicular cancer survivors are fpc side effects. I explained chemotherapy (including single [...] cord. 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 Dr. Valentine from [place] agreed with the T2 designation. I ex [...] 6:28 pm PATRICIA:hanna cc: KULWANT MOLINA M.D. [facility] RADIATION MEDICINE MARYCHUY PEREZ M.D. documented in this encounter Plan of Treatment Not on file documented as of this encounter Visit Diagnoses Not on filedocumented in this encounter Care Teams Executive Sales Manager Relationship Specialty Start Date End Date Provider, [place] [address] PCP - General 12/17/23 documented as of this encounter
--- OUTSIDE RECORDS SUMMARY | 2025-05-15 14:35 | XMS_ITS | Encounter Summary ---
Author Organization [facility] Address [address] [place] [address] Care Team Providers Care Steward/Stewardess Tourist Class Name Role Phone Provider, No Known Primary Care Provider Unavail able Encounter Details Date Type Department Care Team (Late st Contact Info) Description 10/04/[address] [facility] HISTORICAL CONV [address] [place] [address] Interface, See Report Social History Tobacco Use Types Packs/Day Years Used Date Smoking Tobacco: Never Assessed Sex and Gender Information Value Date Recorded Sex Assigned at Not on file Legal Sex Male 12:57 PM EDT Gender Identity Not on file Sexual Orientation Not on file documented as of this encounter Progress Notes * Interface, See Report - 10/04/2011 12:00 AM EDT [facility] GROUP CONSULTING IN BLOOD DISORDERS & CANCER Robert Henry, Barrett Miller Myers, Huber, Alvina, Osmin, Abe Skelton & Hitesh [address] [facility], [address] [place], [place] [address] PATIENT NAME: Jeremi Balbuena DATE OF : [...] seminoma. Dr. Skelton called [facility] and spoke with Dr. Vlad Valentine of [facility] to review Mr. Balbuena's path report. Dr. [...] hives. SOCIAL HISTORY: . 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 Smokes 3/4 PPD hasdone so [...] on filedocumented in this encounter Care Teams Steward/Stewardess Tourist Class Relationship Specialty Start Date End Date Provider, [place] [address] PCP - General 12/17/23 documented as of this encounter
--- OUTSIDE RECORDS SUMMARY | 2025-05-15 14:35 | XMS_ITS | Encounter Summary ---
Author Organization [facility] Address [address] [place] [address] Care Team Providers Care Grade And Center Marker Name Role Phone Provider, No Known Primary Care Provider Unavail able Encounter Details Date Type Department Care Team (Late st Contact Info) Description 09/07/2012 Conversion Encounter [facility] HISTORICAL CONV [address] [place] [address] Interface, See Report Social History Tobacco Use Types Packs/Day Years Used Date Smoking Tobacco: Never Assessed Sex and Gender Information Value Date Recorded Sex Assigned at Not on file Legal Sex Male 12:57 PM EDT Gender Identity Not on file Sexual Orientation Not on file documented as of this encounter Progress Notes * Interface, See Report - 09/07/2012 12:00 AM EST [facility] GROUP CONSULTING IN BLOOD DISORDERS & CANCER Robert Henry, Barrett Miller Myers, Huber, Alvina, Osmin, Ruben, Hitesh Fish & Chidi [address] [facility], [address] [place], [place] [address] PATIENT NAME: Jeremi Balbuena DATE OF : [...] (stage IB) testicular seminoma. Dr. Skelton called [facility] and spoke with Dr. Vlad Valentine [...] in the EMR this date per the [employer]. Medication dosages and frequencies were confirmed to be accurate. ALLERGIES: Penicillin causes hives. SOCIAL HISTORY: . 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 Smokes 3/4 PPD hasdone [...] on filedocumented in this encounter Care Teams Grade And Center Marker Relationship Specialty Start Date End Date Provider, [place] [address] PCP - General 12/17/23 documented as of this encounter
--- OUTSIDE RECORDS SUMMARY | 2025-05-15 14:35 | XMS_ITS | Encounter Summary ---
Author Organization [facility] Address [address] [place] [address] Care Team Providers Care Creamery Worker Name Role Phone Provider, No Known Primary Care Provider Unavail able Encounter Details Date Type Department Care Team ([facility] st Contact Info) Description 04/26/2011 Conversion Encounter [facility] HISTORICAL CONV [address] [place] [address] Interface, See Report Social History Tobacco Use Types Packs/Day Years Used Date Smoking Tobacco: Never Assessed Sex and Gender Information Value Date Recorded Sex Assigned at Not on file Legal Sex Male 12:57 PM EDT Gender Identity Not on file Sexual Orientation Not on file documented as of this encounter Progress Notes * Interface, See Report - 04/26/2011 12:00 AM EDT [facility] CONSULTING IN BLOOD DISORDERS & CANCER Robert Henry, Barrett Miller Myers, Huber, Alvina, Osmin, Ruben & Hitesh [address] [facility], [address] [place], [place] [address] PATIENT NAME: Marychuy Balbuena DATE OF : [...] (stage IB) testicular seminoma. Dr. Skelton called [facility] and spoke with Dr. Vlad Valentine [...] hives. SOCIAL HISTORY: . 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 Smokes 3/4 PPD hasdone [...] pm PATRICIA: [place] cc: KULWANT MOLINA M.D. [facility] RADIATION MEDICINE MARYCHUY PEREZ M.D. documented in this encounter Plan of Treatment Not on file documented as of this encounter Visit Diagnoses Not on filedocumented in this encounter Care Teams Creamery Worker Relationship Specialty Start Date End Date Provider, [place] [address] PCP - General 12/17/23 documented as of this encounter
--- OUTSIDE RECORDS SUMMARY | 2025-05-15 14:35 | XMS_ITS | Clinical Summary ---
Author Organization [facility] Address [address] [place] [address] Care Team Providers Care Photographer Lithographic Name Role Phone Provider, No Known Primary [...] 12/09/1990 COLOGUARD 12/09/2016 COLON CANCER SCREENING 5 YEAR SIGMOIDOSCOPY 12/09/2016 COLONOSCOPY 12/09/2016 COLORECTAL CANCER SCREENING 12/09/2016 CT COLONOGRAPHY 12/09/2016 FECAL OCCULT BLOOD TEST 12/09/2016 FIT Testing (1 year) 12/09/2016 Pneumococcal Vaccine 50+ (1 of 1 - PCV) 12/09/2021 ZOSTER VACCINE (1 of 2) 12/09/2021 INFLUENZA VACCINE 01/31/2025 Insurance [place] [facility] [facility] [address] [address] [place] [address] Advance Directives * CPR (Attempt to Resuscitate) (Latest Code Status on File) Date Activated Date Inactivated Comments 12/17/2023 5:39 PM 12/19/2023 4:24 PM Question Answer Comments Code Status (Patient has no pulse and is not breathing): CPR (Attempt to Resuscitate) Medical Interventions (Patie nt has pulse or is breathing): Full Support Level Of Support Discussed With: Patient Care Teams Photographer Lithographic Relationship Specialty Start Date End Date Provider, No Known [facility] [place] [address] PCP - General 12/17/23
[2025-05-15 14:42] LABS: VBG HCO3 19.8 mmol/L (23-30); VBG PCO2 32.9 mmol/L (35-51); VBG PH 7.40 mmol/L (7.31-7.41); VBG PO2 146.5 mmol/L (28-40)
[2025-05-15] MEDS: LACTATED RINGERS 1000ML 1,000 ML 999 ML IV (14:42)
[2025-05-15] MEDS: ONDANSETRON 4MG/2ML VIAL 4 MG IV ×2 (14:42→21:16)
[2025-05-15 14:43] LABS: NT Pro Brain Natriuretic Pep. 172 pg/mL (0-125); Troponin I 0.08 ng/ml (0.00-0.034)
[2025-05-15 14:44] LABS: Activated Partial Thrombo Time 23.5 seconds (22.8-30.6)
[2025-05-15 14:48] LABS: Lactate Venous 5.2 mmol/L (0.4-2.0)
--- NOTE | 2025-05-15 14:49 | PC.NURSE ---
LAKEISHA Purcell notified of lactic 5.2.
[2025-05-15] MEDS: SODIUM CHLORIDE 0.9% 10ML SYR (RAD ONLY) 10 ML IV (14:50)
[2025-05-15] MEDS: IOPAMIDOL-370 (76%);100ML BOTTLE 75 ML IV (14:50)
[2025-05-15 14:52] LABS: Gamma Glutamyl Transpeptidase 168 U/L (15-73)
[2025-05-15] MEDS: diazePAM 10MG/2ML SYRINGE 5 MG IV ×3 (15:16→21:10)
[2025-05-15 15:18] LABS: Ammonia < 9 umol/L (9-30)
--- NOTE | 2025-05-15 15:30 | PC.NURSE ---
Critical lactic value 5.2 reported to Adalberto SUAZO
[2025-05-15] MEDS: MVI, ADULT NO.1 WITH VIT K 10 ML, THIAMINE HCL 100 MG, MAGNESIUM SULFATE 2 GM in LACTAT... 125 ML IV (15:34)
--- NOTE | 2025-05-15 15:52 | EXP.HP ---
History of Present Illness *Admission Date: 05/15/25 *Reason for visit:: Alcohol withdrawal *History of present illness: Jeremi Balbuena is a 54-year-old male with a medical history significant for sinus tachycardia, hypertension, GERD, alcohol use disorder who presents with worsening tremor, nausea, vomiting over the past 24 to 48 hours. States that he has been drinking 4 tall boys daily. Last drink early this morning. Presented to the ER because of worsening withdrawal symptoms. Initial alcohol level of 300. Denies yolie chest pain. Does complain of some mild dyspnea, tremor, feels like his body has generalized electric shock going through it. Workup in the ER with mild metabolic acidosis, elevated lactate of 5, anion gap of 16. Given his symptoms of withdrawal and desire to quit drinking, medicine consulted for admission and further treatment of alcohol withdrawal. Initiated on CIWA protocol in the ER. Is received multiple doses of Valium. On my evaluation, patient is alert and oriented x 4. Denies any history of alcohol seizures. [facility] 7 [facility]. Stable on room air at this time. Afebrile. Tachycardic with heart rate in the 130s. White count normal at 4, kidney function normal with BUN 11, creatinine 0.9. Mild transaminitis with bilirubin 0.6, GGT 168, AST 79, ALT 92. Ammonia less than 9. Mild elevation in troponin at 0.08. Denies chest pain and has no ischemic changes on EKG. [facility] Disclaimer: The information contained in this section may have been updated after the patient was seen, as this information can be updated by other users. Medical History Testicular cancer Surgical History History of orchiectomy Family History Other No significant family history Social History Smoking Status: Current every day smoker alcohol intake: current current occupational status: employed Travel in the last 8 weeks?: None Have you lived/traveled outside US in past 30 days?: No Contact w/someone who lives/traveled outside US past 30 days?: No Exposure to someone with infectious disease in past 14 days?: No Do you have a fever (greater than 100.4 F or 38 C)?: No Have you tested positive for COVID-19?: No Exposed to someone with COVID-19 in past 14 days?: No Do you have a sore throat?: No Do you have a cough?: No Do you have any weakness?: No Do you have any diarrhea?: No Are you experiencing any unusual bleeding?: No Do you have any muscle aches/pain?: No Do you have any abdominal pain?: No Are you experiencing loss of taste or smell?: No Other Medical History Have you received the Flu Vaccine for this season: No Have you received the Pneumonia Vaccine: No Review of Systems Review of Systems Review of systems (narrative): 14 point review of systems performed, pertinent positives and negatives as per [facility] Meds Home Medications and Allergies Home Medications ?Medication ?Instructions ?Recorded ?Confirmed ?Type amlodipine 5 mg tablet 5 mg PO DAILY 07/01/24 05/15/25 History metoprolol succinate 100 mg 50 mg PO DAILY 11/02/24 05/15/25 History tablet,extended release 24 hr pantoprazole 40 mg tablet,delayed 40 mg PO DAILY 11/02/24 05/15/25 History release New Prescriptions to Start Prescriptions: Allergies Allergy/AdvReac Type Severity Reaction Status Date / Time vancomycin Allergy Mild Unknown Verified 02/02/25 19:26 allergy reaction Penicillins Allergy Other Verified 02/02/25 19:26 Exam Data for Last 24 hours Vital signs and Labs for Last 24 Hours: Temp Pulse Resp BP Pulse Ox 97.7 F 127 H 20 174/118 H 94 L 05/15/25 14:20 05/15/25 14:45 05/15/25 14:20 05/15/25 14:45 05/15/25 14:45 Laboratory Results - last 24 hr 05/15/25 14:10: WBC 4.0 L, RBC 4.44 L, Hgb 14.4, Hct 40.8 L, MCV 91.9, MCH 32.4 H, MCHC 35.3, RDW 13.5, Plt Count 186, MPV 9.1, Neut % (Auto) 46.6, Lymph % (Auto) 45.5, [place] % (Auto) 6.3, Eos % (Auto) 0.3, Baso % (Auto) 1.0, Neut # (Auto) 1.9, Lymph # (Auto) 1.8, [place] # (Auto) 0.3, Eos # (Auto) 0.0, Baso # (Auto) 0.0, PT 10.4, INR 0.93, APTT 23.5, Sodium 135 L, Potassium 3.6, Chloride 99, Carbon Dioxide 23, Anion Gap 16.6 H, BUN 11, Creatinine 0.90, Estimated GFR 88, Est GFR ( Amer) 107, Glucose 107 H, Calcium 8.3 L, Magnesium 1.9, Total Bilirubin 0.6, GGT 168 H, AST 79 H, ALT 92 H, Alkaline Phosphatase 116, Troponin I 0.08 H, NT-Pro-B Natriuret Pep 172 H, Total Protein 9.0 H, Albumin 4.5, Globulin 4.5 H, Albumin/Globulin Ratio 1.0 L, Lipase 187, Plasma/Serum Alcohol 303 H 05/15/25 14:28: VBG pH 7.40, VBG pCO2 32.9 L, VBG pO2 146.5 H, VBG HCO3 19.8 L, VBG Total CO2 20.8 L, VBG O2 Saturation 98.8 H, VBG Base Excess -5.1 L, VBG Lactic Acid 5.2 H 05/15/25 15:00: Lactate 5.2 H, Ammonia < 9 L I & O for Last 24 hours: Intake & Output 05/12/25 05/13/25 05/14/25 05/15/25 23:59 23:59 23:59 23:59 Weight 99.79 kg Constitutional Constitutional: mild distress, average body habitus, chronically ill appearing and cooperative Comments: Jittery *Routine HEENT Exam Head: Present normocephalic Eye: Present EOMI and PERRL ENT: Present mucous membranes moist *Routine Neck Exam Neck: Present supple; Absent lymphadenopathy *Routine Respiratory Exam Respiratory: Present CTA bilaterally; Absent rhonchi, wheezes or crackles *Routine Cardiovascular Exam Cardiovascular: Present tachycardia *Routine Abdominal Exam Abdominal: Present soft and normoactive bowel sounds; Absent tenderness *Routine Rectal Exam Rectal:: deferred *Routine Genitalia Exam Genitalia:: deferred *Routine Extremities Exam Extremities: Absent cyanosis, clubbing or edema *Routine Skin Exam Skin: Present intact and warm; Absent rash *Routine Neurological Exam Neurological: Present alert, oriented X3, moving all extremities and tremors Assessment and Plan *Assessment and plan (1) Alcohol withdrawal: Status: Acute Category: Medical Code(s): F10.939 - Alcohol use, unspecified with withdrawal, unspecified (2) Alcohol abuse: Status: Acute Category: Social Hx Code(s): F10.10 - Alcohol abuse, uncomplicated (3) Tachycardia: Status: Acute Category: Medical Code(s): R00.0 - Tachycardia, unspecified (4) Hypertension: Status: Acute Category: Medical Code(s): I10 - Essential (primary) hypertension (5) Elevated troponin: Status: Acute Category: Medical Code(s): R79.89 - Other specified abnormal findings of blood chemistry Plan Jeremi Balbuena is a 54-year-old male with a medical history significant for sinus tachycardia, hypertension, GERD, alcohol use disorder who presents with symptoms of alcohol withdrawal. Discussed case with ER physician, request admission for further treatment of alcohol withdrawal including CIWA protocol. I decided admit to stepdown unit for further care. High risk of worsening withdrawal symptoms given the fact that he is scoring 8-10 on CIWA with alcohol level of 300. Will require close monitoring. Necessitating inpatient care. Problems addressed as follows: Alcohol withdrawal Alcohol use disorder Metabolic acidosis ? Symptoms of withdrawal over the past 24 to 48 hours. Having some nausea but no emesis. Drinking 8+ beers a day. Alcohol level of 300 on arrival. Mild elevation in liver enzymes with AST and ALT 79 and 92 respectively. Anion gap 16, lactate 5.2. - trading specialist consulted - Initiated on CIWA protocol with Valium. Monitor for toxicity. Will also initiate phenobarbital 130 mg twice daily given presence of symptoms with alcohol level detectable at 300. Loaded with 1 dose of 65 mg phenobarbital IV. - Rally pack daily with multivitamins - Pantoprazole 40 mg p.o. nightly - Metabolic acidosis secondary to alcohol intoxication. Anticipate improvement with medical management of his intoxication and withdrawal - UDS pending - Per my review of chest x-ray and CT abdomen pelvis, no acute pathology or airspace disease - CBC/CMP/magnesium ordered for the morning Sinus tachycardia, chronic NSTEMI Hypertension ? Longstanding history of sinus tachycardia, previously evaluated by cardiology without remarkable workup. Heart rate in the 130s. Resume home metoprolol succinate 50 mg nightly. Also component of withdrawal impacting his heart rate. -Monitor on continuous telemetry -Continue amlodipine 5 mg nightly -Initial troponin 0.08, serial troponin pending. EKG with no ischemic changes. Denies chest pain. Consider cardiology eval if develops symptoms. #Fatty liver disease ? Previously seen on CT. Recommend lifestyle modifications. High risk for cirrhosis with concomitant alcohol use disorder. ? Consider statin after LFTs improved. Follow-up morning lipid panel. Tobacco use disorder: Nicotine patch daily 21 mg DNR Regular diet DVT prophylaxis: Lovenox 40mg
--- NOTE | 2025-05-15 16:08 | PC.NURSE ---
report given to AMITA Barber for room 262
[2025-05-15] MEDS: diazePAM 10MG/2ML SYRINGE 10 MG IV (17:16)
[2025-05-15] MEDS: PHENobarbital SOD 65MG/ML INJ 65 MG IV (17:17)
[2025-05-15 17:41] LABS: Microscopic, Urine URINE MICROSCOPIC (MICROSCOPIC)
[2025-05-15 17:56] LABS: Bilirubin,Urine Negative (Negative); Color,Urine YELLOW (Yellow); Glucose,Urine (UA) Negative (Negative); Ketones,Urine Negative (Negative); Leukocyte Esterase,Urine Negative (Negative); PH,Urine 6.0 (5.0-8.5); Protein,Urine Negative (Negative); Specific Gravity, Urine 1.010 (1.005-1.030); Urobilinogen,Urine 0.2 EU/dl (0.2)
[2025-05-15 17:58] LABS: Troponin I 0.02 ng/ml (0.00-0.034)
[2025-05-15 18:09] LABS: Opiate Screen,Urine Negative ng/ml (<300); Phencyclidine Screen,Urine Negative ng/ml (<25)
[2025-05-15 18:11] LABS: Amphetamine/Metha Screen,Urine Negative ng/ml (<1000); Barbiturates Screen,Urine Negative ng/ml (<200)
[2025-05-15 18:12] LABS: Benzodiazepines Screen,Urine Negative ng/ml (<200)
[2025-05-15 18:14] LABS: Methadone Screen,Urine Negative ng/ml (<300)
[2025-05-15 18:30] LABS: Amorphous Sediment,Urine Trace /lpf; Mucus,Urine 1+ /lpf; RBC,Urine Occasional #/hpf (0-3); Squamous Epithelial Cell,Urine Occasional #/hpf (0-5); WBC,Urine Occasional #/hpf (0-3)
--- NOTE | 2025-05-15 18:45 | PC.NURSE ---
notified Dr. Pressley pt is tachy with a heart rate of 155bpm at this time. He gave verbal order to give pt nighttime dose of metoprolol at this time.
[2025-05-15 18:47] LABS: Reflex Lactic Add Lactic Reflex
--- NOTE | 2025-05-15 18:47 | PEERSUPPORT ---
Peer Support Note Patient Information Patient Information: DOS: 05/15/2025 ? ED Ps Consult- Bedside, ICU 262 ? ? ? ETOH Last Ingested: 05/15/2025 before coming to ER, unsure how much. ? ETOH HX: Started drinking at 14 ? ETHO Current Consumption: 5-8, 16 oz. Natural Ice beers 8 % ETOH per day ? ? Withdrawal Potential: Stated he was detoxed once before by being induced into a coma, unsure what led to this exactly. ? Previous Treatment: Once while in service, never in the real world he says. ? Longest Length of Sobriety: Stated has experienced 60-90 days periodically that he would make the decision to not drink then return to drinking. ? Legal Issues: None mentioned ? Support System: -Daughter- 26 year old, healthy relationship. -Sister-? ? Current Stressors: -Withdrawals from alcohol -Concern of his health: stated he feels depleted and just not able to move. Says he feels as if he could sleep for a month. -Work responsibilities- pt concerned he has not spoken to his employer or showed for work in three days due to not being well. Feels they are worried about him, as he always shows for work. ? Motivation for Change: Pt is in early detox, will return to discuss tomorrow in details of options. Pt is tearful when ps shares experience of recovery, saying he wants to be there for his daughter who he loves very much. He enjoys his job and is aware of [place] rights that his employer upholds for other health concerns with his heart currently. ? Ps shared personal experience to bridge hope and strength focusing on process of detox and safety while being in medical setting to be monitored. ? Pt and ps briefly discussed treatment options to be discussed ongoing. ? Pt receptive to ps, expressing gratitude for support. ? ?Potential Barriers: -lack of connection to Recovery -Lack of self-awareness to under lying issues -Minimizing effects of continued use of alcohol ? Harm Reduction: -Connection to Bridge Peer support -Education on Alcohol Use disorder/Awareness to process of detox/Risk involved -Brief Treatment/resources- to be discussed in details during admission. ? Plan of action: Manage withdrawal symptoms Ps to follow up with pt on 05/16/2025 ? ?
[2025-05-15] MEDS: METOPROLOL SUCCINATE XL 100MG TABLET 50 MG PO (19:14)
[2025-05-15] MEDS: PHENobarbital SOD 65MG/ML INJ 130 MG IV (20:16)
[2025-05-15] MEDS: PANTOPRAZOLE 40MG TABLET 40 MG PO (20:18)
[2025-05-15] MEDS: AMLODIPINE 5MG TABLET 5 MG PO (20:18)
[2025-05-15 20:41] LABS: Lactic Acid Follow Up (RFLX 1) 3.1 mmol/L (0.7-2.1)
[2025-05-15 20:54] LABS: Troponin I 0.03 ng/ml (0.00-0.034)
[2025-05-15 22:29] LABS: Reflex Lactic (2 hrs) Add Lactic Reflex
[2025-05-15] MEDS: PROMETHAZINE HCL 25MG/ML 1ML VIAL 25 MG IV (22:45)
[2025-05-15 22:57] LABS: Lactic Acid Follow up (RFLX 2) 2.2 mmol/L (0.7-2.1)
[2025-05-16] VITALS (16 sets, daily range): BP systolic 119–154; BP diastolic 69–100; PULSE 98–142; RESP 14–21; TEMP 36.6–36.9; O2SAT 87–96; BMI 27.6
[2025-05-16] MEDS: diazePAM 10MG/2ML SYRINGE 5 MG IV (01:16)
[2025-05-16] MEDS: ONDANSETRON 4MG/2ML VIAL 4 MG IV ×3 (05:04→22:39)
[2025-05-16 06:13] LABS: Hematocrit 36.5 % (42.0-52.0); Immature Granulocytes % 0.4 %; Mean Corpuscular HGB Conc 34.8 g/dL (31.8-35.4); Mean Corpuscular Hemoglobin 32.2 pg (27.0-31.2); Mean Corpuscular Volume 92.6 fl (80-94); Nucleated Red Blood Cells % 0 %; Platelet Count 157 K/mm3 (142-424); Red Blood Count 3.94 M/mm3 (4.60-6.20); Red Cell Distribution Width-SD 45.2 fL; White Blood Count 5.0 K/mm3 (4.8-10.8)
[2025-05-16 06:23] LABS: Hemoglobin 12.6 g/dL (14.1-18.0)
[2025-05-16 06:25] LABS: Alanine Aminotransferase 70 U/L (12-78); Albumin Level 3.7 g/dl (3.5-5.0); Albumin/Globulin Ratio 1.1 (1.1-1.8); Alkaline Phosphatase 92 U/L (38-126); Anion Gap 7.3 mEq/L (5-15); Aspartate Amino Transferase 61 U/L (17-59); Bilirubin,Total 1.0 mg/dl (0.2-1.3); Blood Urea Nitrogen 8 mg/dl (9-20); Calcium 7.9 mg/dl (8.4-10.2); Carbon Dioxide 27 mmol/L (22.0-30.0); Chloride 100 mmol/L (98-107); Creatinine Clearance Estimated 163 mL/min (50-200); Creatinine,Serum 0.70 mg/dl (0.66-1.25); Estimated Glomerular Filt Rate 118 ml/min (>60); GFR (African American) 143 ML/MIN (>60); Globulin 3.4 g/dL (1.3-3.2); Glucose 75 mg/dl (74-100); Magnesium 2.1 mg/dl (1.6-2.3); Phosphorous 3.0 mg/dl (2.5-4.5); Potassium 3.3 mmoL/L (3.5-5.1); Sodium 131 mmol/L (136-145); Total Protein,Serum 7.1 g/dl (6.3-8.2)
--- NOTE | 2025-05-16 08:12 | P.PN_ITS ---
Subjective *Date: 05/16/25 *Time: 09:26 Interval history: Some nausea this morning. Mild tremors. Scores overnight with CIWA as high as 14. Tolerating phenobarbital and Valium. Alert and oriented x 3 this morning. No yolie emesis. Attempting breakfast. Remains tachycardic. Blood pressure with mild hypertension Medical Exam Vital signs and Labs for Last 24 Hours: Vital Signs Temp Pulse Pulse Resp BP BP Pulse Ox 05/16/25 06:00 110 H 14 136/88 87 L 05/16/25 05:00 05/16/25 04:00 98 H 05/16/25 04:00 98.3 F 98 H 14 133/73 92 L 05/16/25 03:00 05/16/25 03:00 104 H 19 128/69 90 L 05/16/25 02:00 108 H 15 135/73 92 L 05/16/25 01:00 05/16/25 00:00 108 H 18 134/94 H 92 L 05/16/25 00:00 117 H 05/16/25 00:00 98.5 F 118 H 17 134/94 H 94 L 05/15/25 23:00 05/15/25 22:00 124 H 20 140/90 88 L 05/15/25 21:00 05/15/25 20:00 90 L 05/15/25 20:00 135 H 05/15/25 20:00 98.4 F 134 H 17 144/93 H 88 L 05/15/25 19:00 05/15/25 18:37 139 H 25 H 128/84 91 L 05/15/25 17:00 05/15/25 16:39 130 H 05/15/25 16:30 135 H 15 94 L 05/15/25 16:08 97.7 F 130 H 18 146/95 H 05/15/25 14:45 127 H 174/118 H 94 L 05/15/25 14:20 97.7 F 148 H 20 162/101 H 95 05/15/25 14:20 97.7 F 148 H 20 162/101 H 95 O2 Del Method 05/16/25 06:00 Room Air 05/16/25 05:00 Room Air 05/16/25 04:00 05/16/25 04:00 Room Air 05/16/25 03:00 Room Air 05/16/25 03:00 Room Air 05/16/25 02:00 Room Air 05/16/25 01:00 Room Air 05/16/25 00:00 Room Air 05/16/25 00:00 05/16/25 00:00 Room Air 05/15/25 23:00 Room Air 05/15/25 22:00 Room Air 05/15/25 21:00 Room Air 05/15/25 20:00 Room Air 05/15/25 20:00 05/15/25 20:00 Room Air 05/15/25 19:00 Room Air 05/15/25 18:37 Room Air 05/15/25 17:00 Room Air 05/15/25 16:39 05/15/25 16:30 Room Air 05/15/25 16:08 05/15/25 14:45 05/15/25 14:20 05/15/25 14:20 Intake and Output 05/15/25 05/16/25 05/16/25 23:59 07:59 15:59 Intake Total 1075 / 1075 Output Total 900 / 900 Balance 1075 / 875 -900 / -900 Intake: Intake, Oral Amount 60 / 60 Intake, Total IV Amount 1015 / 1015 Mvi, Adult No.1 with Vit K 10 1015 / 1015 ml Thiamine HCl 100 mg Magnesium Sulfate 2 gm In Lactated Ringers 1000ML 1,000 ml @ 125 mls/hr IV DAILY [facility] Rx #:[id number] Output: Output, Urine Amount 900 / 900 Other: Weight 95.424 kg 94.665 kg Patient Weight 05/16/25 23:59 Weight 94.665 kg Laboratory Results - last 24 hr 05/15/25 14:10: WBC 4.0 L, RBC 4.44 L, Hgb 14.4, Hct 40.8 L, MCV 91.9, MCH 32.4 H, MCHC 35.3, RDW 13.5, Plt Count 186, MPV 9.1, Neut % (Auto) 46.6, Lymph % (Auto) 45.5, [place] % (Auto) 6.3, Eos % (Auto) 0.3, Baso % (Auto) 1.0, Neut # (Auto) 1.9, Lymph # (Auto) 1.8, [place] # (Auto) 0.3, Eos # (Auto) 0.0, Baso # (Auto) 0.0, PT 10.4, INR 0.93, APTT 23.5, Sodium 135 L, Potassium 3.6, Chloride 99, Carbon Dioxide 23, Anion Gap 16.6 H, BUN 11, Creatinine 0.90, Estimated GFR 88, Est GFR ( Amer) 107, Glucose 107 H, Calcium 8.3 L, Magnesium 1.9, Total Bilirubin 0.6, GGT 168 H, AST 79 H, ALT 92 H, Alkaline Phosphatase 116, Troponin I 0.08 H, NT-Pro-B Natriuret Pep 172 H, Total Protein 9.0 H, Albumin 4.5, Globulin 4.5 H, Albumin/Globulin Ratio 1.0 L, Lipase 187, Plasma/Serum Alcohol 303 H 05/15/25 14:28: VBG pH 7.40, VBG pCO2 32.9 L, VBG pO2 146.5 H, VBG HCO3 19.8 L, VBG Total CO2 20.8 L, VBG O2 Saturation 98.8 H, VBG Base Excess -5.1 L, VBG Lactic Acid 5.2 H 05/15/25 15:00: Lactate 5.2 H, Ammonia < 9 L 05/15/25 17:13: Troponin I 0.02 05/15/25 17:32: Urine Color Yellow, Urine Appearance Clear, Urine pH 6.0, Ur Specific [place] 1.010, Urine Protein Negative, Urine Glucose (UA) Negative, Urine Ketones Negative, Urine Blood Trace-i, Urine Nitrate Negative, Urine Bilirubin Negative, Urine Urobilinogen 0.2, Ur Leukocyte Esterase Negative, Urine RBC Occasional, Urine WBC Occasional, Ur Squamous Epith Cells Occasional, Amorphous Sediment Trace, Urine Mucus 1+, Urine Opiates Screen Negative, Urine Methadone Screen Negative, Ur Barbituates Screen Negative, Ur Phencyclidine Scrn Negative, Ur Amphetamines Screen Negative, U Benzodiazepines Scrn Negative, U rine Cocaine Screen Negative, U Marijuana (THC) Screen Negative 05/15/25 20:24: Lactate 3.1 H, Troponin I 0.03 05/15/25 22:41: Lactate 2.2 H 05/16/25 04:42: WBC 5.0, RBC 3.94 L, Hgb 12.6 L D, Hct 36.5 L, MCV 92.6, MCH 32.2 H, MCHC 34.8, RDW 13.2, Plt Count 157, MPV 10.0, Neut % (Auto) 56.9, Lymph % (Auto) 33.1, [place] % (Auto) 7.8, Eos % (Auto) 1.2, Baso % (Auto) 0.6, Neut # (Auto) 2.9, Lymph # (Auto) 1.7, [place] # (Auto) 0.4, Eos # (Auto) 0.1, Baso # (Auto) 0.0, Sodium 131 L, Potassium 3.3 L, Chloride 100, Carbon Dioxide 27, Anion Gap 7.3, BUN 8 L D, Creatinine 0.70 D, Estimated Creat Clear 163, Estimated GFR 118, Est GFR ( Amer) 143 D, Glucose 75 D, Calcium 7.9 L, Phosphorus 3.0, Magnesium 2.1 D, Total Bilirubin 1.0, AST 61 H, ALT 70, Alkaline Phosphatase 92, Total Protein 7.1, Albumin 3.7 D, Globulin 3.4 H, Albumin/Globulin Ratio 1.1 I & O for Labs for Last 24 Hours: Intake & Output 05/13/25 05/14/25 05/15/25 05/16/25 23:59 23:59 23:59 23:59 Intake Total 1075 / 1075 Output Total 900 / 900 Balance 1075 / 875 -900 / -900 Weight 95.424 kg 94.665 kg Constitutional: Present mild distress, average body habitus and cooperative Head: Present atraumatic and normocephalic ENT: Present normal exam Respiratory: Present normal respiratory effort; Absent respiratory distress, rhonchi, wheezes or crackles Cardiac: Present Regular Rhythm and Tachycardia GI: Present soft and normal bowel sounds; Absent distention or tenderness Extremities: Present normal inspection and full ROM Skin: Present intact; Absent erythema Neuro: Present Grossly Intact, alert, awake, oriented x 3 and moves all extremities Comment:: Tremor/jittery Assessment and Plan *Assessment and plan (1) Alcohol withdrawal: Status: Acute Category: Medical Code(s): F10.939 - Alcohol use, unspecified with withdrawal, unspecified (2) Alcohol abuse: Status: Acute Category: Social Hx Code(s): F10.10 - Alcohol abuse, uncomplicated (3) Tachycardia: Status: Acute Category: Medical Code(s): R00.0 - Tachycardia, unspecified (4) Hypertension: Status: Acute Category: Medical Code(s): I10 - Essential (primary) hypertension (5) Elevated troponin: Status: Acute Category: Medical Code(s): R79.89 - Other specified abnormal findings of blood chemistry (6) Hyponatremia: Status: Acute Category: Medical Code(s): E87.1 - Hypo-osmolality and hyponatremia Plan Jeremi Balbuena is a 54-year-old male with a medical history significant for sinus tachycardia, hypertension, GERD, alcohol use disorder who presents with symptoms of alcohol withdrawal. Discussed case with ER physician, request admission for further treatment of alcohol withdrawal including CIWA protocol. I decided admit to stepdown unit for further care. High risk of worsening withdrawal symptoms given the fact that he is scoring 8-10 on CIWA with alcohol level of 300. Continues to require inpatient monitoring for aggressive treatment of alcohol withdrawal. Patient will be admitted at least 2 midnights. Problems addressed as follows: Alcohol withdrawal Alcohol use disorder Metabolic acidosis ? Symptoms of withdrawal over the past 24 to 48 hours. Having some nausea but no emesis. Drinking 8+ beers a day. Alcohol level of 300 on arrival - photographic specialist consulted - Initiated on CIWA protocol with Valium. Monitor for toxicity. CIWA scores as high as 14 overnight. Continue phenobarbital 130 mg twice daily. - Rally pack daily with multivitamins - Pantoprazole 40 mg p.o. nightly; initiate famotidine 20 mg twice daily. Zofran 4 mg as needed every 6 hours for nausea - Metabolic acidosis secondary to alcohol intoxication. Lactate improved with fluid resuscitation - UDS negative Sinus tachycardia, chronic NSTEMI Hypertension ? Longstanding history of sinus tachycardia, previously evaluated by cardiology without remarkable workup. Heart rate in the 130s. - Continue metoprolol succinate 50 mg nightly. - Monitor on continuous telemetry -Continue amlodipine 5 mg nightly -Initial troponin 0.08, down trended to 0.02. EKG with no ischemic changes. Denies chest pain. #Fatty liver disease ? Previously seen on CT. Recommend lifestyle modifications. High risk for cirrhosis with concomitant alcohol use disorder. ? LFTs showing improvement with bilirubin 1, AST 61, ALT 70, alk phos of 92, consider statin after LFTs improved. Mild hyponatremia of 131. Patient does not appear symptomatic from it at this time. Chloride 100. Anticipate improvement with advancement of diet, IV fluids, gentle replacement. Repeat CBC, CMP, magnesium ordered for the morning. Tobacco use disorder: Nicotine patch daily 21 mg DNR Regular diet DVT prophylaxis: Lovenox 40mg
[2025-05-16] MEDS: MVI, ADULT NO.1 WITH VIT K 10 ML, THIAMINE HCL 100 MG, MAGNESIUM SULFATE 2 GM in LACTAT... 125 ML IV (08:31)
[2025-05-16] MEDS: FAMOTIDINE 20MG/2ML VIAL 20 MG IV ×2 (08:32→20:40)
[2025-05-16] MEDS: CALCIUM CARBONATE 500MG CHEWTAB 500 MG PO (08:33)
[2025-05-16] MEDS: SODIUM CHLORIDE 0.9% 10ML VIAL 8 ML IV (08:34)
[2025-05-16] MEDS: PHENobarbital SOD 130MG/ML INJ 130 MG IV ×2 (08:43→20:43)
[2025-05-16] MEDS: diazePAM 5MG TABLET 5 MG PO ×3 (11:14→22:39)
[2025-05-16] MEDS: METOPROLOL SUCCINATE XL 50MG TABLET 50 MG PO (20:40)
[2025-05-16] MEDS: AMLODIPINE 5MG TABLET 5 MG PO (20:40)
[2025-05-16] MEDS: PANTOPRAZOLE 40MG TABLET 40 MG PO (20:40)
[2025-05-17] VITALS (10 sets, daily range): BP systolic 115–154; BP diastolic 75–104; PULSE 103–124; RESP 15–22; TEMP 36.5–37.2; O2SAT 94–98; BMI 27.1
[2025-05-17 07:37] LABS: Hematocrit 41.0 % (42.0-52.0); Hemoglobin 14.1 g/dL (14.1-18.0); Immature Granulocytes % 0.2 %; Mean Corpuscular HGB Conc 34.4 g/dL (31.8-35.4); Mean Corpuscular Hemoglobin 31.8 pg (27.0-31.2); Mean Corpuscular Volume 92.6 fl (80-94); Nucleated Red Blood Cells % 0 %; Platelet Count 145 K/mm3 (142-424); Red Blood Count 4.43 M/mm3 (4.60-6.20); Red Cell Distribution Width-SD 44.4 fL; White Blood Count 4.6 K/mm3 (4.8-10.8)
[2025-05-17 07:55] LABS: Alanine Aminotransferase 65 U/L (12-78); Albumin Level 4.3 g/dl (3.5-5.0); Albumin/Globulin Ratio 1.2 (1.1-1.8); Alkaline Phosphatase 86 U/L (38-126); Anion Gap 8.9 mEq/L (5-15); Aspartate Amino Transferase 47 U/L (17-59); Bilirubin,Total 0.9 mg/dl (0.2-1.3); Blood Urea Nitrogen 5 mg/dl (9-20); Calcium 8.1 mg/dl (8.4-10.2); Carbon Dioxide 27 mmol/L (22.0-30.0); Chloride 99 mmol/L (98-107); Creatinine Clearance Estimated 125 mL/min (50-200); Creatinine,Serum 0.90 mg/dl (0.66-1.25); Estimated Glomerular Filt Rate 88 ml/min (>60); GFR (African American) 107 ML/MIN (>60); Globulin 3.6 g/dL (1.3-3.2); Glucose 143 mg/dl (74-100); Magnesium 2.0 mg/dl (1.6-2.3); Phosphorous 2.2 mg/dl (2.5-4.5); Sodium 132 mmol/L (136-145); Total Protein,Serum 7.9 g/dl (6.3-8.2)
[2025-05-17 08:04] LABS: Potassium 2.9 mmoL/L (3.5-5.1)
--- NOTE | 2025-05-17 08:12 | P.PN_ITS ---
Subjective *Date: 05/17/25 *Time: 12:17 Interval history: Feeling somewhat better this morning. Scores stable on CIWA. Stable on room air. Afebrile. No significant tremor on exam this morning. Tolerating p.o. intake. States he is not sleeping well Medical Exam Vital signs and Labs for Last 24 Hours: Vital Signs Temp Pulse Pulse Resp BP BP Pulse Ox 05/17/25 07:41 98.0 F 120 H 16 115/90 98 05/17/25 06:47 05/17/25 05:00 05/17/25 04:16 20 05/17/25 04:00 103 H 05/17/25 04:00 97.9 F 22 128/88 05/17/25 03:00 05/17/25 01:00 05/17/25 00:15 15 05/17/25 00:00 104 H 05/16/25 23:00 05/16/25 21:00 05/16/25 20:15 14 05/16/25 20:05 98.5 F 17 05/16/25 20:00 05/16/25 19:08 05/16/25 16:58 05/16/25 16:00 142 H 16 142/90 H 94 L 05/16/25 16:00 142 H 05/16/25 15:00 05/16/25 14:00 108 H 93 L 05/16/25 14:00 114 H 19 135/76 96 05/16/25 13:00 05/16/25 12:08 100 H 05/16/25 12:00 98.3 F 108 H 17 125/75 95 05/16/25 11:40 05/16/25 10:00 128 H 20 147/87 H 95 05/16/25 09:25 05/16/25 09:00 138 H 21 145/99 H 91 L O2 Del Method 05/17/25 07:41 Room Air 05/17/25 06:47 Room Air 05/17/25 05:00 Room Air 05/17/25 04:16 05/17/25 04:00 05/17/25 04:00 05/17/25 03:00 Room Air 05/17/25 01:00 Room Air 05/17/25 00:15 05/17/25 00:00 05/16/25 23:00 Room Air 05/16/25 21:00 Room Air 05/16/25 20:15 05/16/25 20:05 05/16/25 20:00 Room Air 05/16/25 19:08 Room Air 05/16/25 16:58 Room Air 05/16/25 16:00 Room Air 05/16/25 16:00 05/16/25 15:00 Room Air 05/16/25 14:00 Room Air 05/16/25 14:00 Room Air 05/16/25 13:00 Room Air 05/16/25 12:08 05/16/25 12:00 Room Air 05/16/25 11:40 Room Air 05/16/25 10:00 Room Air 05/16/25 09:25 Room Air 05/16/25 09:00 Room Air Intake and Output 05/16/25 05/17/25 05/17/25 23:59 07:59 15:59 Intake Total 1225 / 1645 Output Total 900 / 900 Balance 1225 / -155 -900 / -900 Intake: Intake, Oral Amount 210 / 630 Intake, Total IV Amount 1015 / 1015 Mvi, Adult No.1 with Vit K 10 1015 / 1015 ml Thiamine HCl 100 mg Magnesium Sulfate 2 gm In Lactated Ringers 1000ML 1,000 ml @ 125 mls/hr IV DAILY [facility] Rx #:[id number] Output: Output, Urine Amount 900 / 900 Other: Number of Voids 1 Number of Bowel Movements 1 Weight 92.986 kg Patient Weight 05/17/25 23:59 Weight 92.986 kg Laboratory Results - last 24 hr 05/17/25 07:00: WBC 4.6 L, RBC 4.43 L, Hgb 14.1, Hct 41.0 L, MCV 92.6, MCH 31.8 H, MCHC 34.4, RDW 13.1, Plt Count 145, MPV 9.6, Neut % (Auto) 62.8, Lymph % (Auto) 25.8, [place] % (Auto) 7.9, Eos % (Auto) 2.6, Baso % (Auto) 0.7, Neut # (Auto) 2.9, Lymph # (Auto) 1.2, [place] # (Auto) 0.4, Eos # (Auto) 0.1, Baso # (Auto) 0.0, Sodium 132 L, Potassium 2.9 L*, Chloride 99, Carbon Dioxide 27, Anion Gap 8.9, BUN 5 L D, Creatinine 0.90 D, Estimated Creat Clear 125, Estimated GFR 88, Est GFR ( Amer) 107 D, Glucose 143 H, Calcium 8.1 L, Phosphorus 2.2 L D, Magnesium 2.0, Total Bilirubin 0.9, AST 47, ALT 65, Alkaline Phosphatase 86, Total Protein 7.9, Albumin 4.3 D, Globulin 3.6 H, Albumin/Globulin Ratio 1.2 I & O for Labs for Last 24 Hours: Intake & Output 05/14/25 05/15/25 05/16/25 05/17/25 23:59 23:59 23:59 23:59 Intake Total 1075 / 1075 1645 / 1645 Output Total 1400 / 1800 900 / 900 Balance 1075 / 875 245 / -155 -900 / -900 Weight 95.424 kg 94.665 kg 92.986 kg Constitutional: Present no acute distress, average body habitus and cooperative Head: Present atraumatic and normocephalic ENT: Present normal exam Respiratory: Present normal respiratory effort; Absent respiratory distress, rhonchi, wheezes or crackles Cardiac: Present Regular Rhythm and Tachycardia GI: Present soft and normal bowel sounds; Absent distention or tenderness Extremities: Present normal inspection and full ROM Skin: Present intact; Absent erythema Neuro: Present Grossly Intact, alert, awake, oriented x 3 and moves all extremities Assessment and Plan *Assessment and plan (1) Alcohol withdrawal: Status: Acute Category: Medical Code(s): F10.939 - Alcohol use, unspecified with withdrawal, unspecified (2) Alcohol abuse: Status: Acute Category: Social Hx Code(s): F10.10 - Alcohol abuse, uncomplicated (3) Tachycardia: Status: Acute Category: Medical Code(s): R00.0 - Tachycardia, unspecified (4) Hypertension: Status: Acute Category: Medical Code(s): I10 - Essential (primary) hypertension (5) Elevated troponin: Status: Acute Category: Medical Code(s): R79.89 - Other specified abnormal findings of blood chemistry (6) Hyponatremia: Status: Acute Category: Medical Code(s): E87.1 - Hypo-osmolality and hyponatremia Plan Jeremi Balbuena is a 54-year-old male with a medical history significant for sinus tachycardia, hypertension, GERD, alcohol use disorder who presents with symptoms of alcohol withdrawal. Discussed case with ER physician, request admission for further treatment of alcohol withdrawal including CIWA protocol. I decided admit to stepdown unit for further care. High risk of worsening withdrawal symptoms given the fact that he is scoring 8-10 on CIWA with alcohol level of 30 0. Continues to require inpatient monitoring for aggressive treatment of alcohol withdrawal. Patient will be admitted at least 2 midnights. Problems addressed as follows: Alcohol withdrawal Alcohol use disorder Metabolic acidosis ? Symptoms of withdrawal over the past 24 to 48 hours. Having some nausea but no emesis. Drinking 8+ beers a day. Alcohol level of 300 on arrival - adult health clinical nurse specialist consulted - Continue CIWA protocol with Valium. Monitor for toxicity. Scores improving overnight. Will de-escalate phenobarbital to 65 mg IV twice daily. - Rally pack daily with multivitamins - Pantoprazole 40 mg p.o. nightly; initiate famotidine 20 mg twice daily. Zofran 4 mg as needed every 6 hours for nausea Sinus tachycardia, chronic NSTEMI Hypertension ? Longstanding history of sinus tachycardia, previously evaluated by cardiology without remarkable workup. Heart rate improved into the 110s - Increase metoprolol succinate to 100 mg nightly, Monitor on continuous telemetry -Continue amlodipine 5 mg nightly -Initial troponin 0.08, down trended to 0.02. EKG with no ischemic changes. Denies chest pain. #Fatty liver disease Electrolyte Abnormalities ? Previously seen on CT. Recommend lifestyle modifications. High risk for cirrhosis with concomitant alcohol use disorder. ? LFTs normalized with bilirubin 0.9, AST 47, ALT 65. - Phosphorus lower today 2.2. Will replace twice today with oral Phos neutral tablet to decrease risk for refeeding syndrome - Sodium still low at 132, potassium low at 2.9. Replace per protocol Tobacco use disorder: Nicotine patch daily 21 mg DNR Regular diet DVT prophylaxis: Lovenox 40mg
[2025-05-17] MEDS: CALCIUM CARBONATE 500MG CHEWTAB 500 MG PO (08:25)
[2025-05-17] MEDS: FAMOTIDINE 20MG/2ML VIAL 20 MG IV ×2 (08:28→20:19)
[2025-05-17] MEDS: PHENobarbital SOD 130MG/ML INJ 65 MG IV (08:31)
[2025-05-17] MEDS: POTASSIUM CHLORIDE 20MEQ TAB 40 MEQ PO ×3 (08:53→17:06)
[2025-05-17] MEDS: PROMETHAZINE HCL 25MG/ML 1ML VIAL 25 MG IV ×2 (10:58→21:33)
[2025-05-17] MEDS: MVI, ADULT NO.1 WITH VIT K 10 ML, THIAMINE HCL 100 MG, MAGNESIUM SULFATE 2 GM in LACTAT... 125 ML IV (11:09)
[2025-05-17] MEDS: K-PHOS NEUTRAL 250MG TABLET 250 MG PO ×2 (13:13→17:06)
--- NOTE | 2025-05-17 14:58 | PC.NURSE ---
patient left ICU to go to [facility] room 213 via wheelchair @[id number]
[2025-05-17] MEDS: PANTOPRAZOLE 40MG TABLET 40 MG PO (20:20)
[2025-05-17] MEDS: CARVEDILOL 25MG TABLET 25 MG PO (20:20)
[2025-05-17] MEDS: AMLODIPINE 5MG TABLET 5 MG PO (20:20)
[2025-05-17] MEDS: PHENobarbital SOD 65MG/ML INJ 65 MG IV (20:22)
[2025-05-18] VITALS: BP 135/85; PULSE 100; RESP 16; TEMP 36.8; O2SAT 97
[2025-05-18 04:00] VITALS: BP 135/71; PULSE 88; RESP 16; TEMP 36.6; O2SAT 94; BMI 28.3
--- NOTE | 2025-05-18 04:30 | PC.NURSE ---
Pt AOx4, pleasant. CIWA scores have been 0 this shift. Pt continually denies pain. Currently resting in bed with eyes closed. Respirations even and unlabored. Bed is low, locked, and call light is in reach.
--- NOTE | 2025-05-18 07:21 | EXP.DC.SUM ---
General Admission date:: 05/15/25 Discharge date: 05/18/25 HPI HPI HPI: Jeremi Balbuena is a 54-year-old male with a medical history significant for sinus tachycardia, hypertension, GERD, alcohol use disorder who presents with worsening tremor, nausea, vomiting over the past 24 to 48 hours. States that he has been drinking 4 tall boys daily. Last drink early this morning. Presented to the ER because of worsening withdrawal symptoms. Initial alcohol level of 300. Denies yolie chest pain. Does complain of some mild dyspnea, tremor, feels like his body has generalized electric shock going through it. Workup in the ER with mild metabolic acidosis, elevated lactate of 5, anion gap of 16. Given his symptoms of withdrawal and desire to quit drinking, medicine consulted for admission and further treatment of alcohol withdrawal. Initiated on CIWA protocol in the ER. Is received multiple doses of Valium. On my evaluation, patient is alert and oriented x 4. Denies any history of alcohol seizures. [facility] 7 days. Stable on room air at this time. Afebrile. Tachycardic with heart rate in the 130s. White count normal at 4, kidney function normal with BUN 11, creatinine 0.9. Mild transaminitis with bilirubin 0.6, GGT 168, AST 79, ALT 92. Ammonia less than 9. Mild elevation in troponin at 0.08. Denies chest pain and has no ischemic changes on EKG. Hospital Course Hospital Course Hospital Course: Jeremi Balbuena is a 54-year-old male with a medical history significant for sinus tachycardia, hypertension, GERD, alcohol use disorder who presents with symptoms of alcohol withdrawal. Discussed case with ER physician, request admission for further treatment of alcohol withdrawal including CIWA protocol. I decided admit to stepdown unit for further care. Initially had high risk of worsening withdrawal symptoms given the fact that he is scoring 8-10 on CIWA with alcohol level of 300. Showed gradual improvement in his CIWA scores. Able to wean off phenobarbital. No Valium for 24 hours prior to discharge. Stable discharge home with outpatient follow-up with rehab. Problems addressed as follows: Alcohol withdrawal Alcohol use disorder Metabolic acidosis ? Symptoms of withdrawal on admission. Initial alcohol level of 300. Treated with CIWA protocol. Started on phenobarbital. Treated with 130 mg IV twice daily for 2 days then weaned to 65mg twice daily for 24 hours and then off phenobarbitol thereafter. Showed improvement. No Valium or benzo use in 24 hours prior to discharge. medical billing and coding specialist consulted to assist with rehab discussion. Patient interested in rehab as an outpatient. Declined naltrexone at discharge. Overall doing better. Recommend daily multivitamin. Sinus tachycardia, chronic NSTEMI Hypertension ? Longstanding history of sinus tachycardia, previously evaluated by cardiology without remarkable workup. Heart rate improved with adjustment in beta-jones treatment and as his withdrawal improved. Transition to carvedilol 25 mg twice daily for improved blood pressure control. Continue amlodipine 5 mg daily. Initial troponin 0.08 trended down to normal. EKG with no ischemic changes. Suspect type II NSTEMI secondary to stress and demand of his withdrawal symptoms. #Fatty liver disease Electrolyte Abnormalities ? Previously seen on CT. Recommend lifestyle modifications. High risk for cirrhosis with concomitant alcohol use disorder. LFTs normalized with bilirubin 0.9, AST 47, ALT 65. Phosphorus was initially low but he responded to oral replacement. Sodium showing gradual improvement. Potassium magnesium replaced per protocol. Normal on day of discharge. Total time spent on discharge 32 minutes in counseling, documentation, chart review, and direct care with patient. Exam Data for Last 24 hours Vital signs and Labs for Last 24 Hours: Temp Pulse Resp BP Pulse Ox O2 Del Method 97.9 F 88 16 135/71 94 L Room Air 05/18/25 04:00 05/18/25 04:00 05/18/25 04:00 05/18/25 04:00 05/18/25 04:00 05/18/25 06:36 Laboratory Results - last 24 hr 05/17/25 07:00: WBC 4.6 L, RBC 4.43 L, Hgb 14.1, Hct 41.0 L, MCV 92.6, MCH 31.8 H, MCHC 34.4, RDW 13.1, Plt Count 145, MPV 9.6, Neut % (Auto) 62.8, Lymph % (Auto) 25.8, [place] % (Auto) 7.9, Eos % (Auto) 2.6, Baso % (Auto) 0.7, Neut # (Auto) 2.9, Lymph # (Auto) 1.2, [place] # (Auto) 0.4, Eos # (Auto) 0.1, Baso # (Auto) 0.0, Sodium 132 L, Potassium 2.9 L*, Chloride 99, Carbon Dioxide 27, Anion Gap 8.9, BUN 5 L D, Creatinine 0.90 D, Estimated Creat Clear 125, Estimated GFR 88, Est GFR ( Amer) 107 D, Glucose 143 H, Calcium 8.1 L, Phosphorus 2.2 L D, Magnesium 2.0, Total Bilirubin 0.9, AST 47, ALT 65, Alkaline Phosphatase 86, Total Protein 7.9, Albumin 4.3 D, Globulin 3.6 H, Albumin/Globulin Ratio 1.2 I & O for Last 24 hours: Intake & Output 05/15/25 05/16/25 05/17/25 05/18/25 23:59 23:59 23:59 23:59 Intake Total 1075 / 1075 1645 / 1645 1920 / 1920 Output Total 1400 / 1800 1600 / 1600 0 / 0 Balance 1075 / 875 245 / -155 320 / 320 0 / 0 Weight 95.424 kg 94.665 kg 92.986 kg 97.159 kg Constitutional Constitutional: no acute distress *Routine HEENT Exam Head: Present normocephalic Eye: Present EOMI and PERRL ENT: Present mucous membranes moist *Routine Neck Exam Neck: Present supple; Absent lymphadenopathy *Routine Respiratory Exam Respiratory: Present CTA bilaterally; Absent rhonchi, wheezes or crackles *Routine Cardiovascular Exam Cardiovascular: Present RRR *Routine Abdominal Exam Abdominal: Present soft and normoactive bowel sounds; Absent tenderness *Routine Rectal Exam Patient deferred: visual exam *Routine Exam Patient deferred: penile exam *Routine Extremities Exam Extremities: Absent cyanosis, clubbing or edema *Routine Skin Exam Skin: Present warm; Absent rash *Routine Neurological Exam Neurological: Present alert, oriented X3 and moving all extremities Routine Psychiatric Exam Psychiatric: Present normal affect Results Data Completed and Pending Labs on day of discharge: Labs from last 24 hours 05/17/25 07:00 WBC 4.6 L RBC 4.43 L Hgb 14.1 Hct 41.0 L MCV 92.6 MCH 31.8 H MCHC 34.4 RDW 13.1 Plt Count 145 MPV 9.6 Neut % (Auto) 62.8 Lymph % (Auto) 25.8 [place] % (Auto) 7.9 Eos % (Auto) 2.6 Baso % (Auto) 0.7 Neut # (Auto) 2.9 Lymph # (Auto) 1.2 [place] # (Auto) 0.4 Eos # (Auto) 0.1 Baso # (Auto) 0.0 Sodium 132 L Potassium 2.9 L* Chloride 99 Carbon Dioxide 27 Anion Gap 8.9 BUN 5 L D Creatinine 0.90 D Estimated Creat Clear 125 Estimated GFR 88 Est GFR ( Amer) 107 D Glucose 143 H Calcium 8.1 L Phosphorus 2.2 L D Magnesium 2.0 Total Bilirubin 0.9 AST 47 ALT 65 Alkaline Phosphatase 86 Total Protein 7.9 Albumin 4.3 D Globulin 3.6 H Albumin/Globulin Ratio 1.2 DS: Diagnosis Discharge Diagnosis (1) Alcohol withdrawal: Status: Acute Code(s): F10.939 - Alcohol use, unspecified with withdrawal, unspecified (2) Alcohol abuse: Status: Acute Code(s): F10.10 - Alcohol abuse, uncomplicated (3) Tachycardia: Status: Acute Code(s): R00.0 - Tachycardia, unspecified (4) Hypertension: Status: Acute Code(s): I10 - Essential (primary) hypertension (5) Elevated troponin: Status: Acute Code(s): R79.89 - Other specified abnormal findings of blood chemistry (6) Hyponatremia: Status: Acute Code(s): E87.1 - Hypo-osmolality and hyponatremia Meds Home Medications and Allergies Home Medications ?Medication ?Instructions ?Recorded ?Confirmed ?Type amlodipine 5 mg tablet 5 mg PO DAILY 07/01/24 05/15/25 History pantoprazole 40 mg tablet,delayed 40 mg PO DAILY 11/02/24 05/15/25 History release carvedilol 25 mg tablet 25 mg PO BID 30 days #60 tabs 05/18/25 Rx New Prescriptions to Start Prescriptions: carvedilol Will Pressley Allergies Allergy/AdvReac Type Severity Reaction Status Date / Time vancomycin Allergy Mild Unknown Verified 02/02/25 19:26 allergy reaction Penicillins Allergy Other Verified 02/02/25 19:26 Discharge Plan Disposition Patient Disposition: Home, Self-Care Condition: Good Discharge Order Discharge Orders: Discharge Order (Routine); Ordered 05/18/25 Ordered By: Will Pressley Follow up Plan Follow up with: Provider,Referral, MD [Primary Care Provider, Medical] - Enter time for follow up Prescriptions/Medication Reconciliation: New carvedilol 25 mg Tablet 25 mg PO BID 30 Days Qty: 60 0RF Continued amlodipine 5 mg Tablet 5 mg PO DAILY pantoprazole 40 mg Tablet,Delayed Release (Dr/Ec) 40 mg PO DAILY Discontinued metoprolol succinate 100 mg Tablet Extended Release 24 Hr 50 mg PO DAILY Problem Reconciliation Problems Reviewed?: Yes Patient Discharge Instructions ACTIVITY: Continue current activity DIET: continue same diet Patient Instructions: DI for Drug or Alcohol Withdrawal Print Language: [place] Providers Primary Care Provider: Provider,Referral Admit Provider: Will Pressley Attending Provider: Will Pressley
[2025-05-18 08:00] VITALS: BP 154/92; PULSE 104; RESP 18; TEMP 36.6; O2SAT 98
[2025-05-18 08:26] LABS: Hematocrit 36.7 % (42.0-52.0); Hemoglobin 12.6 g/dL (14.1-18.0); Immature Granulocytes % 0.2 %; Mean Corpuscular HGB Conc 34.3 g/dL (31.8-35.4); Mean Corpuscular Hemoglobin 32.6 pg (27.0-31.2); Mean Corpuscular Volume 94.8 fl (80-94); Nucleated Red Blood Cells % 0 %; Platelet Count 138 K/mm3 (142-424); Red Blood Count 3.87 M/mm3 (4.60-6.20); Red Cell Distribution Width-SD 46.4 fL; White Blood Count 4.1 K/mm3 (4.8-10.8)
[2025-05-18 08:45] LABS: Alanine Aminotransferase 58 U/L (12-78); Albumin Level 3.7 g/dl (3.5-5.0); Albumin/Globulin Ratio 1.1 (1.1-1.8); Alkaline Phosphatase 90 U/L (38-126); Anion Gap 9.8 mEq/L (5-15); Aspartate Amino Transferase 44 U/L (17-59); Bilirubin,Total 0.6 mg/dl (0.2-1.3); Blood Urea Nitrogen 8 mg/dl (9-20); Calcium 8.2 mg/dl (8.4-10.2); Carbon Dioxide 23 mmol/L (22.0-30.0); Chloride 106 mmol/L (98-107); Creatinine Clearance Estimated 130 mL/min (50-200); Creatinine,Serum 0.90 mg/dl (0.66-1.25); Estimated Glomerular Filt Rate 88 ml/min (>60); GFR (African American) 107 ML/MIN (>60); Globulin 3.5 g/dL (1.3-3.2); Glucose 107 mg/dl (74-100); Potassium 3.8 mmoL/L (3.5-5.1); Sodium 135 mmol/L (136-145); Total Protein,Serum 7.2 g/dl (6.3-8.2)
[2025-05-18 09:22] LABS: Magnesium 1.9 mg/dl (1.6-2.3); Phosphorous 2.5 mg/dl (2.5-4.5)
[2025-05-18] MEDS: FAMOTIDINE 20MG/2ML VIAL 20 MG IV (09:22)
[2025-05-18] MEDS: MVI, ADULT NO.1 WITH VIT K 10 ML, THIAMINE HCL 100 MG, MAGNESIUM SULFATE 2 GM in LACTAT... 125 ML IV (09:22)
[2025-05-18] MEDS: CARVEDILOL 25MG TABLET 25 MG PO (09:23)
--- NOTE | 2025-05-19 10:49 | SW/DCPLANNER ---
Spoke with patient on the phone. Patient stated that he is doing well. Patient stated that he is aware of his upcoming appointment. Patient stated that he is getting his new medicine today. Patient stated that he has no concerns or questions at this time. Grabiel Bear
== END 2025-05-18 11:32 | disposition home or self-care (01) | DRG 896 ==
LOC: ER 15:52 → ICU 15:59 → 2ND 05-17 14:30
PROVIDERS: Physician Assistant; Admitting Provider Internal Medicine Adolescent Medicine; Emergency Provider Student in an Organized Health Care Education/Training Program; Visit Provider Internal Medicine Adolescent Medicine
DX: F10.139 Alcohol abuse with withdrawal, unspecified (principal); I21.A1 Myocardial infarction type 2; E87.1 Hypo-osmolality and hyponatremia; E87.20 Acidosis, unspecified; I10 Essential (primary) hypertension; K21.9 Gastro-esophageal reflux disease without esophagitis; K76.0 Fatty (change of) liver, not elsewhere classified; E83.39 Other disorders of phosphorus metabolism; E87.6 Hypokalemia; F17.200 Nicotine dependence, unspecified, uncomplicated; Y90.8 Blood alcohol level of 240 mg/100 ml or more; R00.0 Tachycardia, unspecified; Z66 Do not resuscitate; Z88.0 Allergy status to penicillin; Z88.1 Allergy status to other antibiotic agents; Z79.899 Other long term (current) drug therapy
CPT/HCPCS: 36415; 71045; 74177; 80053; 80307; 80320; 81001; 82140; 82803; 82977; 83605; 83690; 83735; 83880; 84100; 84484; 85025; 85610; 85730; 93005; 99285; J1308; J1650; J2405; J2550; J2560; J3360; J3411; J3475; J7120; Q9967